=== PATIENT | male | born 1970 | race African-American/Black ===

== ENCOUNTER 2018-03-10 18:42 | Emergency (ER) | payer MEDICARE ==
[2018-03-10 20:37] LABS: Basophils % (A) 0 %; Eosinophils # (A) 0.1 k/uL (0-0.7); Eosinophils % (A) 1 %; HCT 37.8 % (39.0-53.0); HGB 11.4 gm/dL (13.0-17.5); Hypochromasia Marked; Lymphocytes # (A) 0.9 k/uL (1.0-4.8); Lymphocytes % (A) 10 %; MCH 27.1 pg (25.0-35.0); MCHC 30.1 g/dL (31.0-37.0); MCV 89.9 fL (80.0-100.0); Mean Platelet Volume 7.9; Monocytes # (A) 0.5 k/uL (0-1.0); Monocytes % (A) 5 %; Neutrophils # (A) 7.3 k/uL (1.3-7.7); Neutrophils % (A) 81 %; Platelet Count 233 k/uL (150-450); RBC 4.21 m/uL (4.30-5.90); RDW 15.6 % (11.5-15.5)
[2018-03-10 20:46] LABS: ALT 15 U/L (21-72); AST 37 U/L (17-59); Albumin 4.6 g/dL (3.5-5.0); Alkaline Phosphatase 61 U/L (38-126); Anion Gap 7 mmol/L; Blood Urea Nitrogen 20 mg/dL (9-20); Calcium 9.4 mg/dL (8.4-10.2); Carbon Dioxide 32 mmol/L (22-30); Chloride 96 mmol/L (98-107); Glucose 133 mg/dL (74-99); Sodium 135 mmol/L (137-145); Total Protein 8.7 g/dL (6.3-8.2)
[2018-03-10 20:48] LABS: Potassium 5.7 mmol/L (3.5-5.1)
[2018-03-10 23:02] VITALS: BP 177/107; PULSE 73; RESP 18
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
[2018-03-10 23:33] VITALS: TEMP 97.9
== END 2018-03-10 23:32 | disposition home or self-care (01) ==
LOC: EC 18:42
DX: E11.622 Type 2 diabetes mellitus with other skin ulcer (principal); L97.929 Non-pressure chronic ulcer of unspecified part of left lower leg with unspecified severity; L97.919 Non-pressure chronic ulcer of unspecified part of right lower leg with unspecified severity; I10 Essential (primary) hypertension; D64.9 Anemia, unspecified; J45.909 Unspecified asthma, uncomplicated; G47.30 Sleep apnea, unspecified; Z79.84 Long term (current) use of oral hypoglycemic drugs; Z79.899 Other long term (current) drug therapy; Z87.728 Personal history of other specified (corrected) congenital malformations of nervous system and sense organs; Z99.89 Dependence on other enabling machines and devices
CPT/HCPCS: 36415; 80053; 85025; 87070; 87077; 87186; 87205; 99283

== ENCOUNTER → 2021-12-05 | Outpatient (CLI) | payer MEDICARE ==
--- NOTE | 2021-12-05 10:54 | US ---
LOWER EXTREMITY VENOUS INSUFFICIENCY CLINICAL HISTORY: I87.313 Chronic venous hypertension with ulcer of. SIDE PERFORMED: Bilateral 1) Color flow is present and patency is documented in the following vessels. No DVT or SVT is noted . Common Femoral Vein Deep Femoral Vein Femoral Vein Popliteal Vein Proximal Calf Veins Greater Saph Vein Upper Small Saph Vein 2) There is venous reflux noted at the following venous levels: Left EIV, CFV, DFV. Technically difficult study due to patient's body habitus and discomfort over wounds. IMPRESSION: Findings of venous insufficiency of the left iliac vein, left common femoral vein and deep femoral ve in. No evidence of venous reflux of the right lower extremity.
--- NOTE | 2021-12-07 06:49 | US ---
EXAMINATION TYPE: US arterial LE single level DATE OF EXAM: 12/05/2021 9:39 AM CLINICAL HISTORY: I87.313 Chronic venous hypertension with ulcer of. Bilateral wounds lower legs. Doppler Waveforms: Right: Biphasic Left: Biphasic Ankle-Brachial Indices: Right: 1.17 Left: 1.04 Toe Brachial Indices: Right: 0.79 Left: 0.76 IMPRESSION: Normal study.
== END | disposition home or self-care (01) ==
LOC: RADUSWWP 08:03
PROVIDERS: ATTEND Internal Medicine Infectious Disease
DX: I87.313 Chronic venous hypertension (idiopathic) with ulcer of bilateral lower extremity (principal); I87.2 Venous insufficiency (chronic) (peripheral)
CPT/HCPCS: 93922; 93970

== ENCOUNTER → 2022-02-27 | Outpatient (CLI) | payer MEDICARE ==
[2022-02-27 18:30] LABS: HCT 33.8 % (39.6-50.0); HGB 9.4 g/dL (13.0-17.0); MCHC 27.8 g/dL (32.0-37.0); MCV 86.2 fL (80.0-97.0); Mean Platelet Volume 10.9 fL (9.5-12.2); NRBC Per 100 WBC 0 /100 WBCS (0.0-0.0); Platelet Count 232 X 10*3/uL (140-440); RBC 3.92 X 10*6/uL (4.40-5.60); RDW 13.8 % (11.5-14.5); WBC 6.07 X 10*3/uL (4.50-10.00)
[2022-02-27 19:37] LABS: African American GFR (CKD) 111.8 (60.0-200.0); Albumin 4.2 g/dL (3.8-4.9); Albumin/Globulin Ratio 1.35 (1.60-3.17); BUN/Creat Ratio 15.33 Ratio (12.00-20.00); Blood Urea Nitrogen 13.8 mg/dL (9.0-27.0); Calcium 9.2 mg/dL (8.7-10.3); Globulin 3.1 g/dL (1.6-3.3); Non-African American GFR(CKD) 96.5 (60.0-200.0); Total Bilirubin 0.5 mg/dL (0.30-1.20); Total Protein 7.3 g/dL (6.2-8.2)
== END | disposition home or self-care (01) ==
LOC: LABWHC1 13:00
PROVIDERS: ATTEND Family Medicine
DX: I10 Essential (primary) hypertension (principal); E66.01 Morbid (severe) obesity due to excess calories; M54.6 Pain in thoracic spine; G93.5 Compression of brain; J96.12 Chronic respiratory failure with hypercapnia; Z91.89 Other specified personal risk factors, not elsewhere classified
CPT/HCPCS: 36415; 80053; 82306; 82607; 83036; 84443; 85027

== ENCOUNTER 2022-04-20 22:25 | Observation (INO) | payer MEDICARE ==
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
[2022-04-21] MEDS ORDERED: NALOXONE 0.4 MG/ML 1 ML VIAL IV PRN (04:57)
[2022-04-21] MEDS ORDERED: ACETAMINOPHEN TAB 325 MG TAB PO PRN (04:57)
[2022-04-21] MEDS ORDERED: SODIUM CHLORIDE 0.9% 1,000 ML IV SCH (05:00)
[2022-04-21] MEDS ORDERED: NON FORMULARY DRUG (Sildenafil Citrate [Viagra] 100 MG Tablet) PO PRN (05:05)
[2022-04-21] MEDS ORDERED: HYDROcodone/APAP 10-325MG 1 EACH TAB PO ONE (05:13)
[2022-04-21] MEDS: ALPRAZolam 0.5 MG TAB PO PRN ×2 (05:21→21:17)
[2022-04-21] MEDS ORDERED: ALBUTEROL NEBULIZED 2.5 MG/3 ML INHALATION SCH (08:00)
[2022-04-21] MEDS: ALBUTEROL HFA INHALER INHALATION SCH ×2 (08:17→19:51)
[2022-04-21] MEDS: GLIMEPIRIDE 4 MG TAB PO SCH (09:53)
[2022-04-21] MEDS: metFORMIN 500 MG TAB PO SCH ×2 (09:54→17:34)
[2022-04-21] MEDS: lisinopriL 20 MG TAB PO SCH (09:54)
[2022-04-21] MEDS: METOPROLOL TARTRATE 50 MG TAB PO SCH ×2 (09:54→21:01)
[2022-04-21] MEDS: CITALOPRAM HYDROBROMIDE 20 MG TAB PO SCH (09:54)
[2022-04-21] MEDS: FUROSEMIDE 40 MG TAB PO SCH ×2 (09:54→21:01)
[2022-04-21] MEDS: amLODIPine 5 MG TAB PO SCH (09:54)
[2022-04-21] MEDS: HYDROcodone/APAP 10-325MG 1 EACH TAB PO PRN ×2 (16:17→21:15)
[2022-04-21 20:17] LABS: Glucose,Whole Blood 137 mg/dL (70-110)
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
[2022-04-22 06:24] LABS: Glucose,Whole Blood 135 mg/dL (70-110)
[2022-04-22] MEDS: GLIMEPIRIDE 4 MG TAB PO SCH (06:52)
[2022-04-22] MEDS: metFORMIN 500 MG TAB PO SCH ×2 (06:52→18:25)
[2022-04-22] MEDS: ALBUTEROL HFA INHALER INHALATION SCH ×2 (08:11→20:29)
[2022-04-22] MEDS: METOPROLOL TARTRATE 50 MG TAB PO SCH ×2 (09:10→20:41)
[2022-04-22] MEDS: FUROSEMIDE 40 MG TAB PO SCH ×2 (09:10→20:41)
[2022-04-22] MEDS: HYDROcodone/APAP 10-325MG 1 EACH TAB PO PRN ×2 (09:15→18:38)
[2022-04-22 10:59] LABS: Anion Gap 9.8 mmol/L (10.00-18.00); BUN/Creat Ratio 9.57 Ratio (12.00-20.00); Blood Urea Nitrogen 9.1 mg/dL (9.0-27.0); Carbon Dioxide 38.1 mmol/L (20.0-27.5); Non-African American GFR(CKD) 90.6 (60.0-200.0); Potassium 4.7 mmol/L (3.5-5.5)
[2022-04-22 11:11] LABS: Glucose,Whole Blood 153 mg/dL (70-110)
[2022-04-22] MEDS: lisinopriL 20 MG TAB PO SCH (11:15)
[2022-04-22] MEDS: amLODIPine 5 MG TAB PO SCH (11:15)
[2022-04-22] MEDS: CITALOPRAM HYDROBROMIDE 20 MG TAB PO SCH (11:15)
[2022-04-22 16:58] LABS: Glucose,Whole Blood 107 mg/dL (70-110)
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
[2022-04-22 20:35] LABS: Glucose,Whole Blood 144 mg/dL (70-110)
[2022-04-22] MEDS: ALPRAZolam 0.5 MG TAB PO PRN (20:41)
[2022-04-23] MEDS: HYDROcodone/APAP 10-325MG 1 EACH TAB PO PRN ×2 (03:41→10:01)
[2022-04-23] MEDS: metFORMIN 500 MG TAB PO SCH (05:03)
[2022-04-23] MEDS: GLIMEPIRIDE 4 MG TAB PO SCH (05:03)
[2022-04-23 05:41] LABS: Glucose,Whole Blood 208 mg/dL (70-110)
[2022-04-23 09:08] VITALS: RESP 16; TEMP 98.4
[2022-04-23] MEDS: ALBUTEROL HFA INHALER INHALATION SCH (09:13)
[2022-04-23 09:49] VITALS: BP 137/78; PULSE 89
[2022-04-23] MEDS: METOPROLOL TARTRATE 50 MG TAB PO SCH (09:52)
[2022-04-23] MEDS: amLODIPine 5 MG TAB PO SCH (09:55)
[2022-04-23] MEDS: CITALOPRAM HYDROBROMIDE 20 MG TAB PO SCH (09:55)
[2022-04-23] MEDS: FUROSEMIDE 40 MG TAB PO SCH (09:56)
[2022-04-23] MEDS: lisinopriL 20 MG TAB PO SCH (09:56)
[2022-04-23 11:28] LABS: Glucose,Whole Blood 123 mg/dL (70-110)
[2022-04-23] MEDS: COLLAGENASE 250 UNIT/GM OINTMENT 30 GM TUBE TOPICAL SCH ×2 (11:35→11:37)
--- NOTE | 2022-04-23 11:49 | P.CONS ---
History of Present Illness - Reason for Consult Consult date: 04/23/22 wound care - History of Present Illness This is a 52-year-old gentleman known to the wound care center who has not been seen since March 13. Patient has been noncompliant with his appointments in the wound care center. Patient has bilateral ulcerations to lower extremities posterior aspect. Original cause of wound was Not Known. The date acquired was: 02/18/2018. The wound has been in treatment 15 weeks. The wound is currently classified as a Full Thickness Without Exposed Support Structures wound with etiology of Venous Leg Ulcer and is located on the Right,Posterior Lower Leg. The wound measures 14.1cm length x 9.4cm width x 0.1cm depth; 104.097cm^2 area and 10.41cm^3 volume. There is Fat Layer (Subcutaneous Tissue) exposed. There is no tunneling or undermining noted. There is a large amount of serous drainage noted. Foul odor after cleansing was noted. The wound margin is distinct with the outline attached to the wound base. There is small (1-33%) red, pink granulation within the wound bed. There is a large (67-100%) amount of necrotic tissue within the wound bed including Adherent Slough. The periwound skin appearance exhibited: Scarring. The periwound skin appearance did not exhibit: Callus, Crepitus, Excoriation, Induration, Rash, Dry/Scaly, Maceration, Atrophie [place], Cyanosis, Ecchymosis, Hemosiderin Staining, Mottled, Pallor, Rubor, Erythema. Periwound temperature was noted as No Abnormality. The periwound has tenderness on palpation. Original cause of wound was Not Known. The date acqu ired was: 02/18/2018. The wound has been in treatment 15 weeks. The wound is currently classified as a Full Thickness Without Exposed Support Structures wound with etiology of Venous Leg Ulcer and is located on the Left,Posterior Lower Leg. The wound measures 16.7cm length x 10.9cm width x 0.1cm depth; 142.966cm^2 area and 14.297cm^3 volume. There is Fat Layer (Subcutaneous Tissue) exposed. There is no tunneling or undermining noted. There is a large amount of serosanguineous drainage noted. Foul odor after cleansing was noted. The wound margin is distinct with the outline attached to the wound base. There is small (1-33%) pink granulation within the wound bed. There is a large (67-100%) amount of necrotic tissue within the wound bed including Adherent Slough. The periwound skin appearance exhibited: Scarring. The periwound skin appearance did not exhibit: Callus, Crepitus, Excoriation, Induration, Rash, Dry/Scaly, Maceration, Atrophie [place], Cyanosis, Ecchymosis, Hemosiderin Staining, Mottled, Pallor, Rubor, Erythema. Periwound temperature was noted as No Abnormality. The periwound has tenderness on palpation. Review Of Systems: Constitutional: No fever, no chills, no night sweats. No weight change. No weakness, fatigue or lethargy. No daytime sleepiness. Integumentary:reports wounds, no lesions. No rash or pruritus. No unusual bruising. No change in hair or nails. Physical exam: General Appearance: Alert, cooperative, no distress, appears stated age. Skin: See HPI all other Skin color, texture, tugor normal, no rashes or lesions. Neurologic: Alert oriented x3 Assessment: 1. Chronic venous hypertension with ulcer of bilateral lower extremities 2. Venous insufficiency Plan: 1. Apply absorptive silver dry, and rolled gauze and wrap with Tam wrap. Thank you for the consultation any questions please contact the wound care center DNP note has been reviewed and discussed with Dr. Rice and the impression and plan of care has been directed as dictated. Past Medical History Past Medical History: Asthma, Diabetes Mellitus, Hypertension, Sleep Apnea/CPAP/BIPAP Additional Past Medical History / Comment(s): Chiari malformation History of Any Multi-Drug Resistant Organisms: None Reported Past Surgical History: Hernia Repair Additional Past Surgical History / Comment(s): Brain surgeryx2, left wrist surgery, lap band Past Psychological History: No Psychological Hx Reported Smoking Status: Never smoker Past Alcohol Use History: Occasional Past Drug Use History: None Reported - Past Family History Father Family Medical History: No Reported History Medications and Allergies Home Medications Medication Instructions Recorded Confirmed Type Furosemide [Lasix] 40 mg PO BID PRN 03/10/18 04/21/22 History Hydrocodone/Acetaminophen [[place] 1 tab PO QID 03/10/18 04/21/22 History 10-325] Gabapentin [Neurontin] 100 mg PO BID 04/21/22 04/21/22 History Potassium Gluconate 99 mg PO DAILY PRN 04/21/22 04/21/22 History Sulfamethox-Tmp 800-160Mg [Bactrim 1 tab PO BID 04/21/22 04/21/22 History DS 800-160 mg] Allergies Allergy/AdvReac Type Severity Reaction Status Date / Time No Known Allergies Allergy Verified 04/21/22 12:14 Physical Exam Vitals: Vital Signs Temp Pulse Resp BP Pulse Ox 04/23/22 09:47 89 137/78 04/23/22 07:03 98.4 F 82 16 100 04/23/22 02:00 76 18 04/23/22 01:20 98.3 F 66 20 110/77 100 04/22/22 20:38 98.5 F 76 18 130/81 98 04/22/22 13:36 98.6 F 91 18 96/62 100 Intake and Output 04/22/22 04/23/22 04/23/22 22:59 06:59 14:59 Intake Total 1280 Balance 1280 Intake: Oral 1280 Other: Voiding Method Urinal Urinal # Voids 4 Results CBC & Chem 7: 04/22/22 06:39 Labs: Abnormal Lab Results - Last 24 Hours (Table) 04/22/22 04/23/22 04/23/22 Range/Units 20:32 05:39 11:26 POC Glucose (mg/dL) 144 H 208 H 123 H (70-110) mg/dL Assessment and Plan (1) Chronic venous hypertension w/ulcer and inflammation involv both sides Current Visit: Yes Status: Acute Code(s): I87.333 - CHRONIC VENOUS HTN W ULCER AND INFLAM OF BILATERAL LOW EXTRM SNOMED Code(s): 762111893 (2) Venous insufficiency Current Visit: Yes Status: Acute Code(s): I87.2 - VENOUS INSUFFICIENCY (C HRONIC) (PERIPHERAL) SNOMED Code(s): 43405311
[2022-04-23 12:13] LABS: African American GFR (CKD) >90 (>60 ml/min/1.73 sqM); Blood Urea Nitrogen 11 mg/dL (9-20); Calcium 8.6 mg/dL (8.4-10.2); Chloride 84 mmol/L (98-107); Glucose 134 mg/dL (74-99); Non-African American GFR(CKD) >90 (>60 ml/min/1.73 sqM); Potassium 4.6 mmol/L (3.5-5.1); Sodium 129 mmol/L (137-145)
[2022-04-23 12:19] LABS: Anion Gap 6 mmol/L
[2022-04-23 12:25] LABS: Carbon Dioxide 39 mmol/L (22-30)
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
== END 2022-04-23 16:12 | disposition home health service (06) ==
LOC: EC 22:25 → 6NMEDSUR 04-21 04:59 → 4SSUR 04-21 05:20
PROVIDERS: ADMIT Family Medicine; ATTEND Family Medicine
DX: J96.21 Acute and chronic respiratory failure with hypoxia (principal); Z99.81 Dependence on supplemental oxygen; E11.9 Type 2 diabetes mellitus without complications; I10 Essential (primary) hypertension; I27.20 Pulmonary hypertension, unspecified; I87.333 Chronic venous hypertension (idiopathic) with ulcer and inflammation of bilateral lower extremity; L97.922 Non-pressure chronic ulcer of unspecified part of left lower leg with fat layer exposed; L97.912 Non-pressure chronic ulcer of unspecified part of right lower leg with fat layer exposed; Z91.199 Patient's noncompliance with other medical treatment and regimen due to unspecified reason; G47.33 Obstructive sleep apnea (adult) (pediatric); I87.2 Venous insufficiency (chronic) (peripheral); Z79.899 Other long term (current) drug therapy; Z79.84 Long term (current) use of oral hypoglycemic drugs; Z98.84 Bariatric surgery status; Z87.798 Personal history of other (corrected) congenital malformations; Z98.890 Other specified postprocedural states; Z59.9 Problem related to housing and economic circumstances, unspecified; Y82.8 Other medical devices associated with adverse incidents
CPT/HCPCS: 99284; 94640 ×4; 94760; 80048 ×2; G0378 ×3

== ENCOUNTER 2022-06-25 10:30 | Inpatient (IN) | payer MEDICARE ==
[2022-06-25] MEDS ORDERED: MORPHINE SULFATE 4 MG/ML SYRINGE IVP STA (11:57)
[2022-06-25 13:50] LABS: Basophils % (A) 0 %; Eosinophils # (A) 0.1 k/uL (0-0.7); Eosinophils % (A) 2 %; HCT 33.4 % (39.0-53.0); HGB 9.5 gm/dL (13.0-17.5); Hypochromasia Marked; Lymphocytes # (A) 0.5 k/uL (1.0-4.8); Lymphocytes % (A) 6 %; MCH 26.1 pg (25.0-35.0); MCHC 28.3 g/dL (31.0-37.0); MCV 92.2 fL (80.0-100.0); Mean Platelet Volume 7.8; Monocytes # (A) 0.7 k/uL (0-1.0); Monocytes % (A) 8 %; Neutrophils # (A) 7.4 k/uL (1.3-7.7); Neutrophils % (A) 83 %; Platelet Count 204 k/uL (150-450); RBC 3.62 m/uL (4.30-5.90); RDW 15.4 % (11.5-15.5); WBC 8.8 k/uL (3.8-10.6)
[2022-06-25 14:02] LABS: ALT 15 U/L (4-49); AST 23 U/L (17-59); African American GFR (CKD) >90 (>60 ml/min/1.73 sqM); Albumin 3.4 g/dL (3.5-5.0); Alkaline Phosphatase 81 U/L (38-126); Blood Urea Nitrogen 10 mg/dL (9-20); Calcium 8.4 mg/dL (8.4-10.2); Chloride 81 mmol/L (98-107); Glucose 114 mg/dL (74-99); Non-African American GFR(CKD) >90 (>60 ml/min/1.73 sqM); Potassium 3.4 mmol/L (3.5-5.1); Sodium 132 mmol/L (137-145); Total Bilirubin 0.5 mg/dL (0.2-1.3); Total Protein 6.7 g/dL (6.3-8.2)
[2022-06-25 14:03] LABS: INR 0.9 (<1.2); Partial Thromboplastin Time 24.6 sec (22.0-30.0); Prothrombin Time 9.5 sec (9.0-12.0)
[2022-06-25 14:06] LABS: Anion Gap 6 mmol/L
[2022-06-25 14:13] LABS: Carbon Dioxide 45 mmol/L (22-30)
[2022-06-25] MEDS ORDERED: AMPICILLIN-SULBACTAM 3 GM in SODIUM CHLORIDE 0.9% 100 ML IVPB STA (14:17)
[2022-06-25] MEDS ORDERED: VANCOMYCIN 2,500 MG in SODIUM CHLORIDE 0.9% 500 ML IVPB STA (14:17)
--- NOTE | 2022-06-25 14:19 | ED ---
General Adult HPI - General Chief complaint: Fall Stated complaint: weakness Time Seen by Provider: 06/25/22 10:35 Source: patient, EMS Mode of arrival: EMS Limitations: physical limitation - History of Present Illness Initial comments: 52-year-old male with past history of diabetes, asthma, morbid obesity who presents to the emergency department with wounds to his posterior thighs. States that over the course of the past week he has been laying in bed more. He does have chronic or extremity wounds for which she sees wound care. Dressings were last placed on Saturday by Dr. Gallegos. He states that the wounds have now extended to his posterior thighs. He denies any fevers. Due to the pain from the wounds he has been more weak. He did sustain a fall while attending to ambulate with his walker. He denies hitting his head or losing consciousness. He does have wraps to the bilateral lower extremities which he will not allow me to remove. States they are only to be taken off by wound care as he does not like the way that anyone else wraps them. He does have active drainage which she states is chronic for him. He denies fevers. No nausea or vomiting. No chest pain or shortness of breath. He does wear chronic oxygen. No other all eviating, precipitating or modifying factors - Related Data Home Medications Medication Instructions Recorded Confirmed Ibuprofen [Motrin] 800 mg PO Q12H 06/26/22 06/26/22 Previous Rx's Medication Instructions Recorded Metoprolol Tartrate [Lopressor] 50 mg PO BID tab 04/23/22 Collagenase [Santyl Ointment] 1 applic TOPICAL DAILY each 06/29/22 Fluconazole [Diflucan] 150 mg PO DAILY #5 tab 06/29/22 ALPRAZolam [Xanax] 0.5 mg PO BID PRN #2 tab 06/30/22 Ampicillin-Sulbactam [Unasyn 3 gm 3 gm IVPB Q6HR 10 Days #40 each 06/30/22 vial] Famotidine [Pepcid] 20 mg PO DAILY #30 tablet 06/30/22 Gabapentin [Neurontin] 100 mg PO BID #4 cap 06/30/22 HYDROcodone/APAP 10-325MG [[employer] 1 each PO Q6H #4 tab 06/30/22 10-325] Allergies Allergy/AdvReac Type Severity Reaction Status Date / Time No Known Allergies Allergy Verified 06/25/22 13:17 Review of Systems ROS Statement: Those systems with pertinent positive or pertinent negative responses have been documented in the HPI. ROS Other: All systems not noted in ROS Statement are negative. Past Medical History Past Medical History: Asthma, Diabetes Mellitus, Hypertension, Sleep Apnea/CPAP/BIPAP Additional Past Medical History / Comment(s): Chiari malformation History of Any Multi-Drug Resistant Organisms: None Reported Past Surgical History: Hernia Repair Additional Past Surgical History / Comment(s): Brain surgeryx2, left wrist surgery, lap band Past Psychological History: No Psychological Hx Reported Smoking Status: Never smoker Past Alcohol Use History: Occasional Past Drug Use History: Marijuana - Past Family History Father Family Medical History: No Reported History General Exam Limitations: physical limitation General appearance: alert, in no apparent distress Head exam: Present: atraumatic, normocephalic, normal inspection Eye exam: Present: normal appearance, PERRL, EOMI. Absent: scleral icterus, conjunctival injection, periorbital swelling ENT exam: Present: normal exam, mucous membranes moist Neck exam: Present: normal inspection. Absent: tenderness, meningismus, lym phadenopathy Respiratory exam: Present: decreased breath sounds Cardiovascular Exam: Present: regular rate, normal rhythm, normal heart sounds. Absent: systolic murmur, diastolic murmur, rubs, gallop, clicks GI/Abdominal exam: Present: soft, normal bowel sounds. Absent: distended, tenderness, guarding, rebound, rigid Extremities exam: Present: other (chronic venous stasis bilateral lower extremi ties. malodorous. weeping. open stage 2 ulcers bilateral thighs. ) Psychiatric exam: Present: depressed Course Vital Signs 06/25/22 06/25/22 06/25/22 10:33 12:00 16:00 Pulse Rate 97 94 107 H Respiratory 22 20 18 Rate Blood Pressure 103/87 128/71 131/78 O2 Sat by Pulse 100 100 97 Oximetry EKG Findings - EKG Comments: EKG Findings:: EKG demonstrates sinus rhythm with a rate of 104. QRS 97. QTC of 453. Some PVCs. No acute ST segment elevation or depressions Medical Decision Making - Medical Decision Making Was pt. sent in by a medical professional or institution (, PA, SHEET METAL APPRENTICE, urgent care, hospital, or care home...) When possible be specific @ -No Did you speak to anyone other than the patient for history (EMS, parent, family, police, friend...)? What history was obtained from this source @ -No Did you review nursing and triage notes (agree or disagree)? Why? @ -I reviewed and agree with nursing and triage notes Were old charts reviewed (outside hosp., previous admission, EMS record, old EKG, old radiological studies, urgent care reports/EKG's, care home records)? Report findings @ -No old charts were reviewed Differential Diagnosis (chest pain, altered mental status, abdominal pain women, abdominal pain men, vaginal bleeding, weakness, fever, dyspnea, syncope, headache, dizziness, GI bleed, back pain, seizure, CVA, palpatations, mental health, musculoskeletal)? @ -sepsis, cellulitis, sacral wounds, necrotizing fascitis EKG interpreted by me (3pts min.). @ -EKG interpreted by me - see above X-rays interpreted by me (1pt min.). @ -interpreted by me - normal CT interpreted by me (1pt min.). @ -None done U/S interpreted by me (1pt. min.). @ -None done What testing was considered but not performed or refused? (CT, X-rays, U/S, labs)? Why? @ -None What meds were considered but not given or refused? Why? @ -None Did you discuss the management of the patient with other professionals (professionals i.e. , PA, SHEET METAL APPRENTICE, lab, RT, psych nurse, social media specialist, group teacher, teacher, low altitude air defense officer, insurance case manager)? Give summary @ -Yes, admitted to Dr. monteiro Was smoking cessation discussed for >3mins.? @ -No Was critical care preformed (if so, how long)? @ -No Were there social determinants of health that impacted care today? How? (Homelessness, low income, unemployed, alcoholism, drug addiction, transporta tion, low edu. Level, literacy, decrease access to med. care, [facility], rehab)? @ -obesity Was there de-escalation of care discussed even if they declined (Discuss DNR or withdrawal of care, Hospice)? DNR status @ -No What co-morbidities impacted this encounter? (DM, HTN, Smoking, COPD, CAD, Cancer, CVA, ARF, Chemo, Hep., AIDS, mental health diagnosis, sleep apnea, morbid obesity)? @ -obesity, htn, chronic resp failure Was patient admitted / discharged? Hospital course, mention meds given and route, prescriptions, significant lab abnormalities, going to OR and other pertinent info. @ -Upon arrival patient was placed into room 17. A thorough history and physical exam was performed. IV access is established and laboratory studies were conducted. Chest and pelvic x-ray are performed. No gas seen on x-ray. Blood cultures obtained and patient started on Unasyn and Vanco. The patient will be admitted for wound care to consults. Patient was agreeable to this and taken to the floor in stable condition Undiagnosed new problem with uncertain prognosis? @ -Yes Drug Therapy requiring intensive monitoring for toxicity (Heparin, Nitro, Insulin, Cardizem)? @ -No Were any procedures done? @ -No Diagnosis/symptom? @ -acute bilateral thigh wounds, acute cellulitis bilateral lower extremities, chronic venous stasis Uncomplicated (without systemic symptoms) or Complicated (systemic symptoms)? @ -complicated Side effects of treatment? @ -No Exacerbation, Progression, or Severe Exacerbation? @ -No Poses a threat to life or bodily function? How? (Chest pain, [place], [place], pneumonia, PE, COPD, DKA, ARF, appy, cholecystitis, CVA, Diverticulitis, Homicidal, Suicidal, threat to staff... and all critical care pts) @ -Yes - Lab Data Result diagrams: 06/28/22 05:30 06/30/22 05:18 Lab Results 06/25/22 06/25/22 06/25/22 Range/Units 13:29 13:29 13:29 WBC 8.8 (3.8-10.6) k/uL RBC 3.62 L (4.30-5.90) m/uL Hgb 9.5 L (13.0-17.5) gm/dL Hct 33.4 L (39.0-53.0) % MCV 92.2 (80.0-100.0) fL MCH 26.1 (25.0-35.0) pg MCHC 28.3 L (31.0-37.0) g/dL RDW 15.4 (11.5-15.5) % Plt Count 204 (150-450) k/uL MPV 7.8 Neutrophils % 83 % Lymphocytes % 6 % Monocytes % 8 % Eosinophils % 2 % Basophils % 0 % Neutrophils # 7.4 (1.3-7.7) k/uL Lymphocytes # 0.5 L (1.0-4.8) k/uL Monocytes # 0.7 (0-1.0) k/uL Eosinophils # 0.1 (0-0.7) k/uL Basophils # 0.0 (0-0.2) k/uL Hypochromasia Marked ESR 36 H (0-15) mm/hr PT 9.5 (9.0-12.0) sec INR 0.9 (<1.2) APTT 24.6 (22.0-30.0) sec Sodium 132 L (137-145) mmol/L Potassium 3.4 L (3.5-5.1) mmol/L Chloride 81 L (98-107) mmol/L Carbon Dioxide 45 H* (22-30) mmol/L Anion Gap 6 mmol/L BUN 10 (9-20) mg/dL Creatinine 0.77 (0.66-1.25) mg/dL Est GFR (CKD-EPI)AfAm >90 (>60 ml/min/1.73 sqM) Est GFR (CKD-EPI)NonAf >90 (>60 ml/min/1.73 sqM) Glucose 114 H (74-99) mg/dL Plasma Lactic Acid Rich (0.7-2.0) mmol/L Calcium 8.4 (8.4-10.2) mg/dL Total Bilirubin 0.5 (0.2-1.3) mg/dL AST 23 (17-59) U/L ALT 15 (4-49) U/L Alkaline Phosphatase 81 (38-126) U/L Troponin I (0.000-0.034) ng/mL C-Reactive Protein 4.0 H (<1.0) mg/dL NT-Pro-B Natriuret Pep pg/mL Total Protein 6.7 (6.3-8.2) g/dL Albumin 3.4 L (3.5-5.0) g/dL 06/25/22 06/25/22 06/25/22 Range/Units 13:29 13:29 13:29 WBC (3.8-10.6) k/uL RBC (4.30-5.90) m/uL Hgb (13.0-17.5) gm/dL Hct (39.0-53.0) % MCV (80.0-100.0) fL MCH (25.0-35.0) pg MCHC (31.0-37.0) g/dL RDW (11.5-15.5) % Plt Count (150-450) k/uL MPV Neutrophils % % Lymphocytes % % Monocytes % % Eosinophils % % Basophils % % Neutrophils # (1.3-7.7) k/uL Lymphocytes # (1.0-4.8) k/uL Monocytes # (0-1.0) k/uL Eosinophils # (0-0.7) k/uL Basophils # (0-0.2) k/uL Hypochromasia ESR (0-15) mm/hr PT (9.0-12.0) sec INR (<1.2) APTT (22.0-30.0) sec Sodium (137-145) mmol/L Potassium (3.5-5.1) mmol/L Chloride (98-107) mmol/L Carbon Dioxide (22-30) mmol/L Anion Gap mmol/L BUN (9-20) mg/dL Creatinine (0.66-1.25) mg/dL Est GFR (CKD-EPI)AfAm (>60 ml/min/1.73 sqM) Est GFR (CKD-EPI)NonAf (>60 ml/min/1.73 sqM) Glucose (74-99) mg/dL Plasma Lactic Acid Rich 1.1 (0.7-2.0) mmol/L Calcium (8.4-10.2) mg/dL Total Bilirubin (0.2-1.3) mg/dL AST (17-59) U/L ALT (4-49) U/L Alkaline Phosphatase (38-126) U/L Troponin I 0.033 (0.000-0.034) ng/mL C-Reactive Protein (<1.0) mg/dL NT-Pro-B Natriuret Pep 3860 pg/mL Total Protein (6.3-8.2) g/dL Albumin (3.5-5.0) g/dL Disposition Clinical Impression: Fall, Lower extremity cellulitis, Morbid obesity Disposition: ADMITTED IP TO THIS HOSP Condition: Stable Is patient prescribed a controlled substance at d/c from ED?: No Time of Disposition: 14:21 Decision to Admit Reason: Admit from EC Decision Date: 06/25/22 Decision Time: 14:21
[2022-06-25] MEDS ORDERED: MORPHINE SULFATE 4 MG/ML SYRINGE IV PRN (14:22)
[2022-06-25] MEDS ORDERED: NALOXONE 0.4 MG/ML 1 ML VIAL IV PRN (14:22)
[2022-06-25 14:49] LABS: Erythrocyte Sedimentation Rate 36 mm/hr (0-15)
--- NOTE | 2022-06-25 15:57 | XR ---
EXAMINATION TYPE: XR chest 2V DATE OF EXAM: 06/25/2022 COMPARISON: None HISTORY: 52-year-old male with weakness and fall TECHNIQUE: AP and lateral views FINDINGS: Heart is moderately enlarged. Mild interstitial vascular prominence. No consolidation or pleural effu arline. IMPRESSION: Moderate cardiomegaly and possible mild pulmonary vascular congestion. Clinically correlate.
--- NOTE | 2022-06-25 15:58 | XR ---
EXAMINATION TYPE: XR pelvis AP view DATE OF EXAM: 06/25/2022 Comparison: None Clinical History: 52-year-old male increased weakness, fall, infection, gas Findings: Limited assessment of the femoral necks due to external rotation of the hips due to patient positioni ng. There is end-stage, [id number] degenerative change of the right hip and mild to moderate at the left hip. No obvious displaced fracture is seen. Impression: 1. End-stage [id number] right hip OA. Mild to moderate degenerative change left hip. 2. Suboptimal assessment of the femoral necks due to external rotation of the hips during patient pos itioning. If patient nonweightbearing, repeat examination may be needed. Clinically correlate. No obv ious displaced fracture is seen.
[2022-06-25] MEDS ORDERED: VANCOMYCIN IV PER PHARMACY 1 EACH MISC MISCELLANE PRN (17:38)
[2022-06-25] MEDS: HYDROcodone/APAP 10-325MG 1 EACH TAB PO SCH ×2 (18:36→23:15)
[2022-06-25] MEDS ORDERED: POTASSIUM CHLORIDE ER 20 MEQ TAB.ER PO STA (19:27)
[2022-06-25] MEDS: AMPICILLIN-SULBACTAM 3 GM in SODIUM CHLORIDE 0.9% 100 ML IVPB SCH ×2 (20:06→23:15)
[2022-06-25] MEDS: METOPROLOL TARTRATE 50 MG TAB PO SCH (20:54)
[2022-06-25] MEDS: GABAPENTIN 100 MG CAP PO SCH (20:54)
[2022-06-26] MEDS: VANCOMYCIN 2,000 MG in SODIUM CHLORIDE 0.9% 500 ML 500 ML IVPB SCH ×2 (06:08→18:10)
[2022-06-26] MEDS: AMPICILLIN-SULBACTAM 3 GM in SODIUM CHLORIDE 0.9% 100 ML IVPB SCH ×4 (06:08→23:02)
[2022-06-26] MEDS: GABAPENTIN 100 MG CAP PO SCH ×2 (09:16→20:21)
[2022-06-26] MEDS: HYDROcodone/APAP 10-325MG 1 EACH TAB PO SCH ×4 (09:16→23:01)
[2022-06-26] MEDS: METOPROLOL TARTRATE 50 MG TAB PO SCH ×2 (09:16→20:21)
[2022-06-26] MEDS ORDERED: HYDROmorphone 0.5 MG/0.5 ML SYRINGE IM PRN (10:53)
[2022-06-26] MEDS ORDERED: DEXTROSE 50% SYRINGE 50 ML IVP PRN ×2 (10:59)
[2022-06-26 11:01] LABS: Basophils # (A) 0.03 X 10*3/uL (0.00-0.10); Basophils % (A) 0.4 %; Eosinophils # (A) 0.18 X 10*3/uL (0.04-0.35); Eosinophils % (A) 2.2 %; HCT 31.7 % (39.6-50.0); HGB 8.7 g/dL (13.0-17.0); Immature Grans, Automated 0.4 %; Lymphocytes # (A) 0.85 X 10*3/uL (0.90-5.00); Lymphocytes % (A) 10.3 %; MCH 25.7 pg (27.0-32.0); MCHC 27.4 g/dL (32.0-37.0); MCV 93.8 fL (80.0-97.0); Mean Platelet Volume 10.5 fL (9.5-12.2); Monocytes # (A) 1.13 X 10*3/uL (0.20-1.00); Monocytes % (A) 13.7 %; NRBC Per 100 WBC 0 /100 WBCS (0.0-0.0); Neutrophils # (A) 6.02 X 10*3/uL (1.80-7.70); Platelet Count 197 X 10*3/uL (140-440); RBC 3.38 X 10*6/uL (4.40-5.60); RDW 15.3 % (11.5-14.5); WBC 8.24 X 10*3/uL (4.50-10.00)
[2022-06-26 11:16] LABS: Glucose,Whole Blood 139 mg/dL (70-110)
[2022-06-26 11:21] LABS: African American GFR (CKD) 117.4 (60.0-200.0); Anion Gap 5.2 mmol/L (10.00-18.00); BUN/Creat Ratio 7.5 Ratio (12.00-20.00); Carbon Dioxide 44.8 mmol/L (20.0-27.5); Non-African American GFR(CKD) 101.3 (60.0-200.0); Potassium 3.9 mmol/L (3.5-5.5)
[2022-06-26 11:33] LABS: INR 0.9 (<1.2); Prothrombin Time 9.9 sec (9.0-12.0)
[2022-06-26] MEDS: FLUCONAZOLE 150 MG TAB PO SCH (11:50)
[2022-06-26 11:59] LABS: HCT 32.3 % (39.0-53.0); HGB 8.9 gm/dL (13.0-17.5); Hypochromasia Marked; MCH 25.8 pg (25.0-35.0); MCHC 27.7 g/dL (31.0-37.0); MCV 93.2 fL (80.0-100.0); Mean Platelet Volume 8.2; Platelet Count 193 k/uL (150-450); RBC 3.47 m/uL (4.30-5.90); RDW 15.4 % (11.5-15.5); WBC 5.8 k/uL (3.8-10.6)
[2022-06-26] MEDS ORDERED: FUROSEMIDE 10 MG/ML 4 ML VIAL IV STA (12:03)
[2022-06-26 13:48] VITALS: BMI 61.0
[2022-06-26] MEDS: INSULIN ASPART (NovoLOG) 100 UNIT/ML VIAL SQ SCH ×3 (14:01→20:36)
--- NOTE | 2022-06-26 14:08 | P.CNPUL ---
History of Present Illness Consult date: 06/26/22 Chief complaint: Chronic alkalosis History of present illness: 52-year-old male patient with morbid obesity and chronic hypoxic respiratory failure and possibly chronic hypercapnic respiratory failure in addition to obstructive sleep apnea maintenance CPAP therapy on outpatient basis. The patient also reports to have a past medical history of diabetes, asthma, morbid obesity who presents to the emergency department with wounds to his posterior thighs. States that over the course of the past week he has been laying in bed more. He does have chronic or extremity wounds for which she sees wound care. Dressings were last placed on Saturday by Dr. Gallegos. He states that the wounds have now extended to his posterior thighs. He denies any fevers. Due to the pain from the wounds he has been more weak. He did sustain a fall while atte nding to ambulate with his walker. He denies hitting his head or losing consciousness. He does have active drainage which she states is chronic for him. He denies fevers. No nausea or vomiting. No chest pain or shortness of breath. He does wear chronic oxygen. No other alleviating, precipitating or modifying factors. In terms of his breathing, no worsening shortness of breath. He has active symptoms of obstructive sleep apnea with chronic hypersomnia and sleepiness. He states that he has a machine at home and I'm not sure if he has been effectively being treated with his CPAP machine. No signs of any CO2 narcosis. His serum bicarb is a chronically elevated and currently is slightly higher than the usual baseline. Back in 04/23/2022 and a serum bicarb of 39 and a bicarb level at time of admission was 45. His current oxygenation is stable on 2 L of Oxymizer nasal cannula. Is afebrile. Chest x-ray shows no acute abnormalities other than some chronic thyromegaly on my pulmonary vessel congestion. Obviously this is a suboptimal chest x-ray because of his body habitus. The patient is awaiting one debridement. The patient is covered with a combination of Unasyn and vancomycin and Diflucan. He also takes diuretics at home in the form of Lasix 40 mg by mouth twice a day on an as-needed basis. Review of Systems Constitutional: Reports daytime sleepiness, Reports weight gain Eyes: denies as per HPI, denies blurred vision, denies bulging eye, denies decreased vision, denies diplopia, denies discharge, denies dry eye, denies irritation, denies itching, denies pain, denies photophobia, denies loss of peripheral vision, denies loss of vision, denies tunnel vision/blind spots Ears: deny: decreased hearing, ear discharge, earache, tinnitus Ears, nose, mouth and throat: Reports as per HPI Breasts: absent: as per HPI, gynecomastia Cardiovascular: Reports decreased exercise tolerance, Reports dyspnea on exertion Respiratory: Reports dyspnea, Reports home oxygen, Reports sleep apnea, Reports snoring Gastrointestinal: Reports as per HPI Genitourinary: Reports as per HPI Musculoskeletal: Reports as per HPI, Reports gait dysfunction, Reports limitation of motion Musculoskeletal: bilateral: ankle swelling, absent: ankle pain, ankle stiffness Integumentary: Reports wounds Neurological: Reports as per HPI Psychiatric: Reports as per HPI Endocrine: Reports as per HPI Hematologic/Lymphatic: Reports as per HPI Allergic/Immunologic: Reports as per HPI Past Medical History Past Medical History: Asthma, Diabetes Mellitus, Hypertension, Sleep Apnea/CPAP/BIPAP Additional Past Medical History / Comment(s): Chiari malformation History of Any Multi-Drug Resistant Organisms: None Reported Past Surgical History: Hernia Repair Additional Past Surgical History / Comment(s): Brain surgeryx2, left wrist surgery, lap band Past Anesthesia/Blood Transfusion Reactions: No Reported Reaction Past Psychological History: No Psychological Hx Reported Smoking Status: Never smoker Past Alcohol Use History: Occasional Past Drug Use History: Marijuana - Past Family History Father Family Medical History: No Reported History Medications and Allergies Home Medications Medication Instructions Recorded Confirmed Type Hydrocodone/Acetaminophen [[place] 1 tab PO QID 03/10/18 06/25/22 History 10-325] Gabapentin [Neurontin] 100 mg PO BID 04/21/22 06/25/22 History Potassium Gluconate 99 mg PO DAILY PRN 04/21/22 06/25/22 History Furosemide [Lasix] 40 mg PO BID PRN #0 04/23/22 06/25/22 Rx Metoprolol Tartrate [Lopressor] 50 mg PO BID tab 04/23/22 06/25/22 Rx Ibuprofen [Motrin] 800 mg PO Q12H 06/26/22 06/26/22 History Allergies Allergy/AdvReac Type Severity Reaction Status Date / Time No Known Allergies Allergy Verified 06/25/22 13:17 Physical Exam Vitals: Vital Signs Temp Pulse Pulse Resp BP BP Pulse Ox 06/26/22 11:52 98.2 F 82 18 111/71 100 06/26/22 07:17 98.5 F 105 H 18 105/62 100 06/26/22 02:25 98.6 F 100 18 153/80 100 06/25/22 20:06 98.3 F 96 18 150/72 95 06/25/22 17:22 97.4 F L 99 144/83 100 06/25/22 16:00 107 H 18 131/78 97 Intake and Output 06/25/22 06/26/22 06/26/22 22:59 06:59 14:59 Intake Total 100 Output Total 400 Balance 100 -400 Intake: Intake, IV Titration 100 Amount Ampicillin-Sulbactam 3 gm 100 In Sodium Chloride 0.9% 100 ml @ 200 mls/hr IVPB Q6HR [facility] Rx#:[id number] Output: Urine 400 Other: Voiding Method Urinal Diaper Incontinent # Voids 1 # Bowel Movements 1 Weight 176.901 kg 176.901 kg Morbidly obese, calm and comfortable on 2 L of O2 nasal cannula Head exam was generally normal. There was no scleral icterus or corneal arcus. Mucous membranes were moist. Neck was supple and without jugular venous distension, thyromegaly, or carotid bruits. Carotids were easily palpable bilaterally. There was no adenopathy. Mallampati class IV with significant crowding of the posterior pharynx Lungs sounds are diminished in lung bases bilaterally. Cardiac exam revealed the PMI to be normally situated and sized. The rhythm was regular and no extrasystoles were noted during several minutes of auscultation. The first and second heart sounds were normal and physiologic splitting of the second heart sound was noted. There were no murmurs, rubs, clicks, or gallops. Abdomen is obese soft nontender organs cannot be palpated Extremities are chronically edematous and 1 in the posterior aspect of the lower extremities bilaterally, please refer to the photos Neurologically, the patient is awake and alert and there is no focal neurologi loki deficits Results - Laboratory Findings CBC and BMP: 06/26/22 11:09 06/26/22 07:24 PT/INR, D-dimer PT 9.9 sec (9.0-12.0) 06/26/22 11:09 INR 0.9 (<1.2) 06/26/22 11:09 Abnormal lab findings: Abnormal Labs 06/25/22 06/25/22 06/26/22 13:29 13:29 07:24 RBC 3.62 L 3.38 L Hgb 9.5 L 8.7 L Hct 33.4 L 31.7 L MCH 25.7 L MCHC 28.3 L 27.4 L RDW 15.3 H Lymphocytes # 0.5 L 0.85 L Monocytes # 1.13 H ESR 36 H Sodium 132 L Potassium 3.4 L Chloride 81 L Carbon Dioxide 45 H* Anion Gap BUN BUN/Creatinine Ratio Glucose 114 H POC Glucose (mg/dL) C-Reactive Protein 4.0 H Albumin 3.4 L 06/26/22 06/26/22 06/26/22 07:24 11:09 11:16 RBC 3.47 L Hgb 8.9 L Hct 32.3 L MCH MCHC 27.7 L RDW Lymphocytes # Monocytes # ESR Sodium Potassium Chloride 90 L Carbon Dioxide 44.8 H* Anion Gap 5.20 L BUN 6.0 L BUN/Creatinine Ratio 7.50 L Glucose 135 H POC Glucose (mg/dL) 139 H C-Reactive Protein Albumin Assessment and Plan Plan: Bilateral lower extremity once/pressure ulcers with superinfection currently on broad-spectrum antibiotics awaiting debridement, wound management is on the case. Does not look to be septic at all and the patient clinically does not look to be toxic Chronic hypoxic respiratory failure currently on 2 L of oxygen by nasal cannula Chronic hypercapnic respiratory failure Chronic restrictive lung disease due to morbid obesity with a body mass 61.1. Consider possibility of a chronic obesity hypoventilation syndrome Obstructive sleep apnea maintained on CPAP therapy on outpatient basis Chronic metabolic alkalosis with some interval worsening in the serum bicarb level. Could be related to diuretics. His baseline serum bicarb is around 39 Morbid obesity with a BMI of 61 Hypertension Diabetes mellitus Arnold-Chiari malformation with difficulty with mobility and gait Plan Surgical debridement for the ones and antibiotics Serum bicarb is chronically elevated and the patient does not have any signs of CO2 narcosis Monitor the serum bicarb Hold diuretics Utilize CPAP machine from home. I asked the patient to bring his CPAP machine from home for meter check and make adjustments if needed Continue current antibiotic coverage ID consult Wound care We will follow
--- NOTE | 2022-06-26 14:47 | P.GSCN ---
History of Present Illness Consult date: 06/26/22 Reason for Consult: Bilateral calf and thigh ulcers History of present illness: History of chief complaint: This patient is well-known to the [facility]. He has long-standing chronic ulcers on the posterior aspect of both calves. He is developed new ulcers on the posterior aspect of both eyes. Comorbidities include morbid obesity and secondary debilitation as well as diabetes. Examination reveals a morbidly obese gentleman in no current distress. He has huge ulcerations with significant build up of fibrin and slough on the posterior aspect of both calves and moderate size ulcers on the posterior thighs bilaterally. Recommendation: I would utilize Santyl for the time being with the Santyl followed by moist 4 x 4's followed by dry 4 x 4's followed by gauze followed by 4 inch Tam wraps. I would recommend leg elevation unless he is actively ambulating. I feel is unlikely he will be able to heal these wounds at home and would recommend consideration of ECF placement until the wounds are healed. Thank you for the operative participate in this unfortunate gentleman's ongoing care. We will be happy to follow and wound care as needed. Past Medical History Past Medical History: Asthma, Diabetes Mellitus, Hypertension, Sleep Apnea/CPAP/BIPAP Additional Past Medical History / Comment(s): Chiari malformation History of Any Multi-Drug Resistant Organisms: None Reported Past Surgical History: Hernia Repair Additional Past Surgical History / Comment(s): Brain surgeryx2, left wrist lopez rgery, lap band Past Anesthesia/Blood Transfusion Reactions: No Reported Reaction Past Psychological History: No Psychological Hx Reported Smoking Status: Never smoker Past Alcohol Use History: Occasional Past Drug Use History: Marijuana - Past Family History Father Family Medical History: No Reported History Medications and Allergies Home Medications Medication Instructions Recorded Confirmed Type Hydrocodone/Acetaminophen [[place] 1 tab PO QID 03/10/18 06/25/22 History 10-325] Gabapentin [Neurontin] 100 mg PO BID 04/21/22 06/25/22 History Potassium Gluconate 99 mg PO DAILY PRN 04/21/22 06/25/22 History Furosemide [Lasix] 40 mg PO BID PRN #0 04/23/22 06/25/22 Rx Metoprolol Tartrate [Lopressor] 50 mg PO BID tab 04/23/22 06/25/22 Rx Ibuprofen [Motrin] 800 mg PO Q12H 06/26/22 06/26/22 History Allergies Allergy/AdvReac Type Severity Reaction Status Date / Time No Known Allergies Allergy Verified 06/25/22 13:17 Surgical - Exam Osteopathic Statement: *. No significant issues noted on an osteopathic structural exam other than those noted in the History and Physical/Consult. Vital Signs Pulse Resp BP Pulse Ox 97 22 103/87 100 06/25/22 10:33 06/25/22 10:33 06/25/22 10:33 06/25/22 10:33 Results - Labs 06/26/22 11:09 06/26/22 07:24 Abnormal Lab Results - Last 24 Hours (Table) 06/25/22 06/26/22 06/26/22 Range/Units 13:29 07:24 07:24 RBC 3.38 L (4.40-5.60) X 10*6/uL Hgb 8.7 L (13.0-17.0) g/dL Hct 31.7 L (39.6-50.0) % MCH 25.7 L (27.0-32.0) pg MCHC 27.4 L (32.0-37.0) g/dL RDW 15.3 H (11.5-14.5) % Lymphocytes # 0.85 L (0.90-5.00) X 10*3/uL Monocytes # 1.13 H (0.20-1.00) X 10*3/uL ESR 36 H (0-15) mm/hr Chloride 90 L (96-109) mmol/L Carbon Dioxide 44.8 H* (20.0-27.5) mmol/L Anion Gap 5.20 L (10.00-18.00) mmol/L BUN 6.0 L (9.0-27.0) mg/dL BUN/Creatinine Ratio 7.50 L (12.00-20.00) Ratio Glucose 135 H (70-110) mg/dL POC Glucose (mg/dL) (70-110) mg/dL 06/26/22 06/26/22 Range/Units 11:09 11:16 RBC 3.47 L (4.40-5.60) X 10*6/uL Hgb 8.9 L (13.0-17.0) g/dL Hct 32.3 L (39.6-50.0) % MCH (27.0-32.0) pg MCHC 27.7 L (32.0-37.0) g/dL RDW (11.5-14.5) % Lymphocytes # (0.90-5.00) X 10*3/uL Monocytes # (0.20-1.00) X 10*3/uL ESR (0-15) mm/hr Chloride (96-109) mmol/L Carbon Dioxide (20.0-27.5) mmol/L Anion Gap (10.00-18.00) mmol/L BUN (9.0-27.0) mg/dL BUN/Creatinine Ratio (12.00-20.00) Ratio Glucose (70-110) mg/dL POC Glucose (mg/dL) 139 H (70-110) mg/dL Diabetes panel 06/26/22 Range/Units 07:24 Sodium 140 (135-145) mmol/L Potassium 3.9 (3.5-5.5) mmol/L Chloride 90 L (96-109) mmol/L Carbon Dioxide 44.8 H* (20.0-27.5) mmol/L BUN 6.0 L (9.0-27.0) mg/dL Creatinine 0.8 (0.6-1.5) mg/dL Glucose 135 H (70-110) mg/dL Calcium 9.0 (8.7-10.3) mg/dL Calcium panel 06/26/22 Range/Units 07:24 Calcium 9.0 (8.7-10.3) mg/dL Pituitary panel 06/26/22 Range/Units 07:24 Sodium 140 (135-145) mmol/L Potassium 3.9 (3.5-5.5) mmol/L Chloride 90 L (96-109) mmol/L Carbon Dioxide 44.8 H* (20.0-27.5) mmol/L BUN 6.0 L (9.0-27.0) mg/dL Creatinine 0.8 (0.6-1.5) mg/dL Glucose 135 H (70-110) mg/dL Calcium 9.0 (8.7-10.3) mg/dL Adrenal panel 06/26/22 Range/Units 07:24 Sodium 140 (135-145) mmol/L Potassium 3.9 (3.5-5.5) mmol/L Chloride 90 L (96-109) mmol/L Carbon Dioxide 44.8 H* (20.0-27.5) mmol/L BUN 6.0 L (9.0-27.0) mg/dL Creatinine 0.8 (0.6-1.5) mg/dL Glucose 135 H (70-110) mg/dL Calcium 9.0 (8.7-10.3) mg/dL
[2022-06-26] MEDS: LOPERAMIDE 2 MG CAP PO PRN ×2 (15:02→20:21)
[2022-06-26] MEDS: COLLAGENASE 250 UNIT/GM OINTMENT 30 GM TUBE TOPICAL SCH (15:13)
[2022-06-26 17:16] LABS: Glucose,Whole Blood 154 mg/dL (70-110)
--- NOTE | 2022-06-26 18:22 | P.HPIM ---
History of Present Illness H&P Date: 06/26/22 Chief Complaint: Status post fall, increased weakness This a 52-year-old gentleman with past medical history significant for morbid obesity, chronic hypoxic, hypercapnic respiratory failure, asthma, diabetes mellitus, and multiple other medical issues ,follows in the wound care center, for chronic ulcers of bilateral calves.recently had lower extremity dressings applied last week by Dr. Gallegos on Saturday. Reports he sustained a fall while ambulating with walker, with subsequent increased weakness, increased sedentary lifestyle-laying in bed more with wounds now extending into his bilateral posterior thighs. Denies fevers or chills. Denies syncope or head trauma sec ondary to fall. Denies chest pain, palpitations or increased shortness of breath. Denies lightheadedness, dizziness or focal deficits. Denies nausea vomiting. Acute on chronic elevated bicarb.44.8( 39 on 04/23/22) in a patient on prn Lasix at home. Chest x-ray reporting moderate cardiomegaly and possible mild pulmonary vascular congestion. Maintaining O2 sats in the 90s to 100 on 2 L nasal cannula. Pelvis x-ray noted. Maintained on Unasyn and vancomycin. Afebrile, normal WBC. Blood sugars controlled, Hemoglobin A1c 6.1 on 02/27/2022. Conversing fluently and appropriately, reporting he had issues with bus rides to the wound care center and missed a few appointments, scheduled for debridement. Unasyn and vancomycin initiated. BUN 6, creatinine 0.8. Review of Systems ROS Statement: Those systems with pertinent positive or pertinent negative responses have been documented in the HPI. ROS Other: All systems not noted in ROS Statement are negative. Past Medical History Past Medical History: Asthma, Diabetes Mellitus, Hypertension, Sleep Apnea/CPAP/BIPAP Additional Past Medical History / Comment(s): Chiari malformation History of Any Multi-Drug Resistant Organisms: None Reported Past Surgical History: Hernia Repair Additional Past Surgical History / Comment(s): Brain surgeryx2, left wrist surgery, lap band Past Anesthesia/Blood Transfusion Reactions: No Reported Reaction Past Psychological History: No Psychological Hx Reported Smoking Status: Never smoker Past Alcohol Use History: Occasional Past Drug Use History: Marijuana - Past Family History Father Family Medical History: No Reported History Medications and Allergies Home Medications Medication Instructions Recorded Confirmed Type Hydrocodone/Acetaminophen [[place] 1 tab PO QID 03/10/18 06/25/22 History 10-325] Gabapentin [Neurontin] 100 mg PO BID 04/21/22 06/25/22 History Potassium Gluconate 99 mg PO DAILY PRN 04/21/22 06/25/22 History Furosemide [Lasix] 40 mg PO BID PRN #0 04/23/22 06/25/22 Rx Metoprolol Tartrate [Lopressor] 50 mg PO BID tab 04/23/22 06/25/22 Rx Ibuprofen [Motrin] 800 mg PO Q12H 06/26/22 06/26/22 History Allergies Allergy/AdvReac Type Severity Reaction Status Date / Time No Known Allergies Allergy Verified 06/25/22 13:17 Physical Exam Vitals: Vital Signs Temp Pulse Pulse Resp BP BP Pulse Ox 06/26/22 07:17 98.5 F 105 H 18 105/62 100 06/26/22 02:25 98.6 F 100 18 153/80 100 06/25/22 20:06 98.3 F 96 18 150/72 95 06/25/22 17:22 97.4 F L 99 144/83 100 06/25/22 16:00 107 H 18 131/78 97 06/25/22 12:00 94 20 128/71 100 Intake and Output 06/25/22 06/26/22 06/26/22 22:59 06:59 14:59 Intake Total 100 Output Total 400 Balance 100 -400 Intake: Intake, IV Titration 100 Amount Ampicillin-Sulbactam 3 gm 100 In Sodium Chloride 0.9% 100 ml @ 200 mls/hr IVPB Q6HR [facility] Rx#:[id number] Output: Urine 400 Other: Voiding Method Urinal Diaper Incontinent # Voids 1 # Bowel Movements 1 Weight 176.901 kg PHYSICAL EXAM: VITAL SIGNS: [As above] GENERAL: Obese gentleman sitting up in bed, no acute distress, conversing without shortness of breath HEENT: Normocephalic,Conjunctivae normal. eyes normal. MMM. NECK: Supple, unable to assess JVD. CARDIOVASCULAR: S1, S2 regular.No murmur RESPIRATION: Unlabored Breath sounds diminished in the bases. No rhonchi or crackles. No bronchial breathing. ABDOMEN: Obese, Soft, nontender . No guarding. Distant Bowel sounds heard. LEGS: Posterior lower extremity wounds-refer to photos/measurements as per wound care team, draining ,odiferous, positive edema, chronic. PSYCHIATRY: Alert and oriented X3, mood and affect normal. NERVOUS SYSTEM: Cranial N 2-12 grossly normal. No focal deficits. Results CBC & Chem 7: 06/26/22 11:09 06/26/22 07:24 Labs: Abnormal Lab Results - Last 24 Hours (Table) 06/25/22 06/25/22 06/26/22 Range/Units 13:29 13:29 07:24 RBC 3.62 L 3.38 L (4.30-5.90) m/uL Hgb 9.5 L 8.7 L (13.0-17.5) gm/dL Hct 33.4 L 31.7 L (39.0-53.0) % MCH 25.7 L (27.0-32.0) pg MCHC 28.3 L 27.4 L (31.0-37.0) g/dL RDW 15.3 H (11.5-14.5) % Lymphocytes # 0.5 L 0.85 L (1.0-4.8) k/uL Monocytes # 1.13 H (0.20-1.00) X 10*3/uL ESR 36 H (0-15) mm/hr Sodium 132 L (137-145) mmol/L Potassium 3.4 L (3.5-5.1) mmol/L Chloride 81 L (98-107) mmol/L Carbon Dioxide 45 H* (22-30) mmol/L Glucose 114 H (74-99) mg/dL C-Reactive Protein 4.0 H (<1.0) mg/dL Albumin 3.4 L (3.5-5.0) g/dL Thrombosis Risk Factor Assmnt - Choose All That Apply Each Factor Represents 1 point: Age 41-60 years, Obesity (BMI >25), Sepsis (< 1month), Swollen legs (current) Each Risk Factor Represents 2 Points: Patient confined to bed Thrombosis Risk Factor Assessment Total Risk Factor Score: 6 Thrombosis Risk Factor Assessment Level: High Risk Assessment and Plan Assessment: Acute on chronic bilateral lower extremity pressure ulcers, infected, debridement pending, . Follows in the wound care center Chronic hypoxic, hypercapnic respiratory failure, on 2 L nasal cannula Chronic obesity hypoventilation syndrome Obstructive sleep apnea maintained on CPAP therapy on outpatient basis Diabetes mellitus II Hypertension Moderate obesity, BMI 61 Metabolic alkalosis, acute on chronic Hypertension Arnold-Chiari malformation Gait dysfunction secondary to the above, uses an electric scooter Plan: Continue on current medication regime ,monitoring and symptomatic treatment. Diflucan added to med regimen. Maintained on IV antibiotics. Close monitoring of renal function, serum bicarbonate, electrolytes with repeat labs ordered for a.m. Infectious disease, wound care and pulmonary consults in place, recommendations pending. Hemoglobin A1c ordered. Diuretics on hold. Wound care/ Debridement as per wound care team. Pain management-reports morphine does not control his pain; just, changed to Dilaudid for severe pain. Social work consulted regarding patient complains of issues/difficulties transporting to wound care center and for subacute rehab placement at discharge. The impression and plan of care has been dictated as directed. : I performed a history and examination of this patient, discussed the same with the dictator. I agree with the dictator's note ,documented as a scribe. Any additional findings or plans will be noted.
[2022-06-26 20:19] LABS: Glucose,Whole Blood 135 mg/dL (70-110)
[2022-06-26] MEDS: PANTOPRAZOLE 40 MG/10 ML VIAL IVP SCH (20:36)
--- NOTE | 2022-06-26 21:11 | P.CONS ---
History of Present Illness - Reason for Consult Consult date: 06/26/22 Cellulitis Requesting physician: Eren Godoy - Chief Complaint Weakness and worsening wound to the leg x days - History of Present Illness Patient is a 52-year-old morbidly obese -[place] male with a past medical history significant for diabetes mellitus hypertension sleep apnea and asthma patient also history of bilateral lower extremity venous stasis ulcer for the patient to follow at [facility] wound care center patient is not very clear about the treatment he is getting for his lower extremity he did mention has been applying some dressing patient apparently sustained a fall when ambulating with a walker and subsequently having a increased weakness and decreased mobility with sedentary lifestyle and has developed bilateral hand little pressure ulcer with increasing weakness and decreased mobility patient did presented to [facility] ER for further evaluation on presentation to the hospital the patient was afebrile and no fever has been recorded subsequently patient did have a normal white count creatinine has been normal liver exams are normal CRP was elevated C. difficile negative patient did have a chest x-ray moderate cardiomegaly with possible mild pulmonary vascular congestion patient is currently being treated with the vancomycin and Unasyn infectious he was consulted this morning concern for cellulitis to bilateral lower extremity Review of Systems Positive point and negatives has been mentioned in the HPI, complete review of systems was performed and all other systems are negative Past Medical History Past Medical History: Asthma, Diabetes Mellitus, Hypertension, Sleep Apnea/CPAP/BIPAP Additional Past Medical History / Comment(s): Chiari malformation History of Any Multi-Drug Resistant Organisms: None Reported Past Surgical History: Hernia Repair Additional Past Surgical History / Comment(s): Brain surgeryx2, left wrist surgery, lap band Past Anesthesia/Blood Transfusion Reactions: No Reported Reaction Past Psychological History: No Psychological Hx Reported Smoking Status: Never smoker Past Alcohol Use History: Occasional Past Drug Use History: Marijuana - Past Family History Father Family Medical History: No Reported History Medications and Allergies Home Medications Medication Instructions Recorded Confirmed Type Metoprolol Tartrate [Lopressor] 50 mg PO BID tab 04/23/22 06/25/22 Rx Ibuprofen [Motrin] 800 mg PO Q12H 06/26/22 06/26/22 History Collagenase [Santyl Ointment] 1 applic TOPICAL DAILY each 06/29/22 Rx Fluconazole [Diflucan] 150 mg PO DAILY #5 tab 06/29/22 Rx ALPRAZolam [Xanax] 0.5 mg PO BID PRN #2 tab 06/30/22 Rx Ampicillin-Sulbactam [Unasyn 3 gm 3 gm IVPB Q6HR 10 Days #40 each 06/30/22 Rx vial] Famotidine [Pepcid] 20 mg PO DAILY #30 tablet 06/30/22 Rx Gabapentin [Neurontin] 100 mg PO BID #4 cap 06/30/22 Rx HYDROcodone/APAP 10-325MG [[place] 1 each PO Q6H #4 tab 06/30/22 Rx 10-325] Allergies Allergy/AdvReac Type Severity Reaction Status Date / Time No Known Allergies Allergy Verified 06/25/22 13:17 Physical Exam Vitals: Vital Signs Temp Pulse Pulse Resp BP BP Pulse Ox 06/26/22 07:17 98.5 F 105 H 18 105/62 100 06/26/22 02:25 98.6 F 100 18 153/80 100 06/25/22 20:06 98.3 F 96 18 150/72 95 06/25/22 17:22 97.4 F L 99 144/83 100 06/25/22 16:00 107 H 18 131/78 97 06/25/22 12:00 94 20 128/71 100 06/25/22 10:33 97 22 103/87 100 Intake and Output 06/25/22 06/26/22 06/26/22 22:59 06:59 14:59 Intake Total 100 Output Total 400 Balance 100 -400 Intake: Intake, IV Titration 100 Amount Ampicillin-Sulbactam 3 gm 100 In Sodium Chloride 0.9% 100 ml @ 200 mls/hr IVPB Q6HR [facility] Rx#:[id number] Output: Urine 400 Other: Weight 176.901 kg GENERAL DESCRIPTION: Middle-aged male lying in bed, no distress. No tachypnea or accessory muscle of respiration use. HEENT: Shows Pallor , no scleral icterus. Oral mucous membrane is dry. No pharyngeal erythema or thrush NECK: Trachea central, no thyromegaly. LUNGS: Unlabored breathing. Decreased breath sound the base HEART: S1, S2, regular rate and rhythm. No loud murmur ABDOMEN: Soft, no tenderness , guarding or rigidity, no organomegaly EXTREMITIES: Swelling to bilateral lower extremities and did have a extensive ulceration with no significant slough tissue some foul-smelling drainage SKIN: No rash, no masses palpable. Patient did have stage II pressure ulcer to bilateral gluteal/upper posterior thigh area, with evidence of any slough. tissue or redness NEUROLOGICAL: The patient is awake, alert, oriented x3, mood and affect normal. Results CBC & Chem 7: 06/28/22 05:30 06/30/22 05:18 Labs: Abnormal Lab Results - Last 24 Hours (Table) 06/25/22 06/25/22 Range/Units 13:29 13:29 RBC 3.62 L (4.30-5.90) m/uL Hgb 9.5 L (13.0-17.5) gm/dL Hct 33.4 L (39.0-53.0) % MCHC 28.3 L (31.0-37.0) g/dL Lymphocytes # 0.5 L (1.0-4.8) k/uL ESR 36 H (0-15) mm/hr Sodium 132 L (137-145) mmol/L Potassium 3.4 L (3.5-5.1) mmol/L Chloride 81 L (98-107) mmol/L Carbon Dioxide 45 H* (22-30) mmol/L Glucose 114 H (74-99) mg/dL C-Reactive Protein 4.0 H (<1.0) mg/dL Albumin 3.4 L (3.5-5.0) g/dL Assessment and Plan (1) Chronic venous hypertension w/ulcer and inflammation involv both sides Status: Acute Code(s): I87.333 - CHRONIC VENOUS HTN W ULCER AND INFLAM OF BILATERAL LOW EXTRM SNOMED Code(s): 901321183 (2) Lower extremity cellulitis Status: Acute Code(s): L03.119 - CELLULITIS OF UNSPECIFIED PART OF LIMB SNOMED Code(s): 245822111 Plan: 1patient with bilateral lower extremity venous stasis ulcer with no evidence of any significant slough tissue from foul-smelling drainage and possible component of wound infection secondary cellulitis likely from gram-positive skin kajal gram-negative infection not excluded 2-patient also have a bilateral posterior thigh/gluteal area stage II pressure ulcer with no cellulitis 3-recommend local wound care with the dry Aquacel silver dressing change daily keep the area of the pressure 4-patient to continue vancomycin and Unasyn while waiting for the condition to stabilize and culture to finalize 5-check inflammatory markers We will follow on clinical condition and cultures to further adjust medication if needed Thank you for this consultation we will follow the patient along with you Time with Patient: Greater than 30
[2022-06-26] MEDS ORDERED: IBUPROFEN 800 MG TAB PO PRN (22:48)
[2022-06-26] MEDS: ALPRAZolam 0.5 MG TAB PO PRN (23:01)
[2022-06-27] MEDS: VANCOMYCIN 2,000 MG in SODIUM CHLORIDE 0.9% 500 ML 500 ML IVPB SCH ×2 (05:29→18:27)
[2022-06-27] MEDS: AMPICILLIN-SULBACTAM 3 GM in SODIUM CHLORIDE 0.9% 100 ML IVPB SCH ×4 (05:29→23:13)
[2022-06-27] MEDS: HYDROcodone/APAP 10-325MG 1 EACH TAB PO SCH ×4 (05:39→23:13)
[2022-06-27 07:22] LABS: Glucose,Whole Blood 129 mg/dL (70-110)
[2022-06-27] MEDS ORDERED: HYDROmorphone 0.5 MG/0.5 ML SYRINGE IVP PRN (09:04)
[2022-06-27] MEDS: INSULIN ASPART (NovoLOG) 100 UNIT/ML VIAL SQ SCH ×4 (09:13→20:50)
[2022-06-27] MEDS: METOPROLOL TARTRATE 50 MG TAB PO SCH ×2 (09:32→20:49)
[2022-06-27] MEDS: GABAPENTIN 100 MG CAP PO SCH ×2 (09:32→20:49)
[2022-06-27] MEDS: PANTOPRAZOLE 40 MG/10 ML VIAL IVP SCH (09:32)
[2022-06-27] MEDS: FLUCONAZOLE 150 MG TAB PO SCH (09:32)
[2022-06-27] MEDS ORDERED: LIDOCAINE 1% INJ 10MG/ML (5 ML VIAL-PF) SQ ONE (10:18)
[2022-06-27 10:28] LABS: African American GFR (CKD) 105.7 (60.0-200.0); Albumin/Globulin Ratio 1.1 (1.60-3.17); Anion Gap 5.4 mmol/L (10.00-18.00); BUN/Creat Ratio 8.6 Ratio (12.00-20.00); Blood Urea Nitrogen 8.1 mg/dL (9.0-27.0); C Reactive Protein 2.4 mg/dL (0.00-0.80); Calcium 8.7 mg/dL (8.7-10.3); Carbon Dioxide 44.5 mmol/L (20.0-27.5); Globulin 2.7 g/dL (1.6-3.3); Potassium 3.8 mmol/L (3.5-5.5); Total Bilirubin 0.2 mg/dL (0.30-1.20); Total Protein 5.7 g/dL (6.2-8.2)
[2022-06-27 10:32] LABS: Non-African American GFR(CKD) 91.2 (60.0-200.0)
--- NOTE | 2022-06-27 10:43 | IR ---
PICC LINE PLACEMENT: HISTORY: Infection requiring long-term antibiotic therapy PROCEDURE: Ultrasound and fluoroscopic guidance of PICC line placement. COMPLICATIONS: None ANESTHESIA: 1. 1% Lidocaine locally. FINDINGS/TECHNIQUE: The procedure was explained to the patient. The risks, complications, benefits and alternatives were discussed and any questions were answered. Informed consent was obtained. The patient was placed supine on the fluoroscopic table and prepped and draped in the usual sterile fash ion. Utilizing a 21 gauge needle and sonographic and fluoroscopic guidance, access in the left basi lic vein was achieved and there is placement of a 0.018 guidewire. The vein is patent. A 4-F sheath was placed over the guidewire. The guidewire and dilator were removed and a 4-F. PICC line was plac ed through the sheath with the tip at the level of the SVC. The sheath was removed, the catheter was flushed and sutured into position. The patient was stable throughout the procedure and remained sta ble upon discharge from the Department of Radiology. The vein puncture was patent under ultrasound. A fofana scale image was obtained to document patency of the vein punctured. All elements of the maximal barrier technique were utilized. FLUOROSCOPY TIME: DAP 0.357Gy cm2 IMPRESSION: Successful PICC line placement under ultrasound and fluoroscopic guidance.
[2022-06-27 11:28] LABS: Glucose,Whole Blood 121 mg/dL (70-110)
[2022-06-27 11:40] LABS: Basophils # (A) 0.05 X 10*3/uL (0.00-0.10); Basophils % (A) 0.6 %; Eosinophils # (A) 0.16 X 10*3/uL (0.04-0.35); HCT 32.3 % (39.6-50.0); HGB 8.6 g/dL (13.0-17.0); Immature Grans, Automated 0.1 %; Lymphocytes # (A) 1.19 X 10*3/uL (0.90-5.00); Lymphocytes % (A) 15.1 %; MCHC 26.6 g/dL (32.0-37.0); MCV 93.9 fL (80.0-97.0); Monocytes # (A) 1.12 X 10*3/uL (0.20-1.00); Monocytes % (A) 14.2 %; NRBC Per 100 WBC 0 /100 WBCS (0.0-0.0); Neutrophils # (A) 5.34 X 10*3/uL (1.80-7.70); Platelet Count 199 X 10*3/uL (140-440); RBC 3.44 X 10*6/uL (4.40-5.60); RDW 15.2 % (11.5-14.5); WBC 7.87 X 10*3/uL (4.50-10.00)
--- NOTE | 2022-06-27 14:28 | P.PN ---
Subjective Progress Note Date: 06/27/22 52-year-old male patient with morbid obesity and chronic hypoxic respiratory failure and possibly chronic hypercapnic respiratory failure in addition to obstructive sleep apnea maintenance CPAP therapy on outpatient basis. The patient also reports to have a past medical history of diabetes, asthma, morbid obesity who presents to the emergency department with wounds to his posterior thighs. States that over the course of the past week he has been laying in bed more. He does have chronic or extremity wounds for which she sees wound care. Dressings were last placed on Saturday by Dr. Gallegos. He states that the wounds have now extended to his posterior thighs. He denies any fevers. Due to the p ain from the wounds he has been more weak. He did sustain a fall while attending to ambulate with his walker. He denies hitting his head or losing consciousness. He does have active drainage which she states is chronic for him. He denies fevers. No nausea or vomiting. No chest pain or shortness of breath. He does wear chronic oxygen. No other alleviating, precipitating or modifying factors. In terms of his breathing, no worsening shortness of breath. He has active symptoms of obstructive sleep apnea with chronic hypersomnia and sleepiness. He states that he has a machine at home and I'm not sure if he has been effectively being treated with his CPAP machine. No signs of any CO2 narcosis. His serum bicarb is a chronically elevated and currently is slightly higher than the usual baseline. Back in 04/23/2022 and a serum bicarb of 39 and a bicarb level at time of admission was 45. His current oxygenation is stable on 2 L of Oxymizer nasal cannula. Is afebrile. Chest x-ray shows no acute abnormalities other than some chronic thyromegaly on my pulmonary vessel congestion. Obviously this is a suboptimal chest x-ray because of his body habitus. The patient is awaiting one debridement. The patient is covered with a combination of Unasyn and vancomycin and Diflucan. He also takes diuretics at home in the form of Lasix 40 mg by mouth twice a day on an as-needed basis. On today's evaluation of 06/27/2022, the patient has not obtain his CPAP machine from home. Serum bicarb is at 44. The patient is currently on accommodation of Unasyn and vancomycin. Blood cultures are negative. Pulse ox is 97% liters of oxygen by nasal cannula. Objective - Vital Signs Vital signs: Vital Signs Temp 97.8 F 06/27/22 12:22 Pulse 70 06/27/22 12:22 Resp 18 06/27/22 12:22 BP 153/86 06/27/22 12:22 Pulse Ox 97 06/27/22 12:22 FiO2 Intake & Output 06/26/22 06/27/22 06/27/22 18:59 06:59 18:59 Output Total 550 700 Balance -550 -700 Weight 176.901 kg Output: Urine 550 700 Other: Voiding Method Urinal Urinal Diaper Diaper Incontinent Incontinent # Voids 1 1 # Bowel Movements 1 1 - Exam Morbidly obese, calm and comfortable on 2 L of O2 nasal cannula Head exam was generally normal. There was no scleral icterus or corneal arcus. Mucous membranes were moist. Neck was supple and without jugular venous distension, thyromegaly, or carotid bruits. Carotids were easily palpable bilaterally. There was no adenopathy. Mallampati class IV with significant crowding of the posterior pharynx Lungs sounds are diminished in lung bases bilaterally. Cardiac exam revealed the PMI to be normally situated and sized. The rhythm was regular and no extrasystoles were noted during several minutes of auscultation. The first and second heart sounds were normal and physiologic splitting of the second heart sound was noted. There were no murmurs, rubs, clicks, or gallops. Abdomen is obese soft nontender organs cannot be palpated Extremities are chronically edematous and 1 in the posterior aspect of the lower extremities bilaterally, please refer to the photos Neurologically, the patient is awake and alert and there is no focal neurological deficits - Labs CBC & Chem 7: 06/27/22 05:24 06/27/22 05:24 Labs: Abnormal Lab Results - Last 24 Hours (Table) 06/26/22 06/26/22 06/27/22 Range/Units 17:14 20:16 05:24 RBC (4.40-5.60) X 10*6/uL Hgb (13.0-17.0) g/dL Hct (39.6-50.0) % MCH (27.0-32.0) pg MCHC (32.0-37.0) g/dL RDW (11.5-14.5) % Monocytes # (0.20-1.00) X 10*3/uL Chloride 92 L (96-109) mmol/L Carbon Dioxide 44.5 H* (20.0-27.5) mmol/L Anion Gap 5.40 L (10.00-18.00) mmol/L BUN 8.1 L (9.0-27.0) mg/dL BUN/Creatinine Ratio 8.60 L (12.00-20.00) Ratio Glucose 123 H (70-110) mg/dL POC Glucose (mg/dL) 154 H 135 H (70-110) mg/dL Total Bilirubin 0.20 L (0.30-1.20) mg/dL C-Reactive Protein 2.40 H (0.00-0.80) mg/dL Total Protein 5.7 L (6.2-8.2) g/dL Albumin 3.0 L (3.8-4.9) g/dL Albumin/Globulin Ratio 1.10 L (1.60-3.17) g/dL 06/27/22 06/27/22 06/27/22 Range/Units 05:24 07:20 11:27 RBC 3.44 L (4.40-5.60) X 10*6/uL Hgb 8.6 L (13.0-17.0) g/dL Hct 32.3 L (39.6-50.0) % MCH 25.0 L (27.0-32.0) pg MCHC 26.6 L (32.0-37.0) g/dL RDW 15.2 H (11.5-14.5) % Monocytes # 1.12 H (0.20-1.00) X 10*3/uL Chloride (96-109) mmol/L Carbon Dioxide (20.0-27.5) mmol/L Anion Gap (10.00-18.00) mmol/L BUN (9.0-27.0) mg/dL BUN/Creatinine Ratio (12.00-20.00) Ratio Glucose (70-110) mg/dL POC Glucose (mg/dL) 129 H 121 H (70-110) mg/dL Total Bilirubin (0.30-1.20) mg/dL C-Reactive Protein (0.00-0.80) mg/dL Total Protein (6.2-8.2) g/dL Albumin (3.8-4.9) g/dL Albumin/Globulin Ratio (1.60-3.17) g/dL Microbiology - Last 24 Hours (Table) 06/25/22 13:15 Blood Culture - Preliminary Blood 06/25/22 13:30 Blood Culture - Preliminary Blood Assessment and Plan Plan: Bilateral lower extremity once/pressure ulcers with superinfection currently on broad-spectrum antibiotics awaiting debridement, wound management is on the case. Does not look to be septic at all and the patient clinically does not look to be toxic Chronic hypoxic respiratory failure currently on 2 L of oxygen by nasal cannula Chronic hypercapnic respiratory failure Chronic restrictive lung disease due to morbid obesity with a body mass 61.1. Consider possibility of a chronic obesity hypoventilation syndrome Obstructive sleep apnea maintained on CPAP therapy on outpatient basis Chronic metabolic alkalosis with some interval worsening in the serum bicarb level. Could be related to diuretics. His baseline serum bicarb is around 39 Morbid obesity with a BMI of 61 Hypertension Diabetes mellitus Arnold-Chiari malformation with difficulty with mobility and gait Plan Surgical debridement for the ones and antibiotics Serum bicarb is chronically elevated and the patient does not have any signs of CO2 narcosis Monitor the serum bicarb, level is at 44. We'll going to give the patient a dose of Diamox 250 mg IV, 2 Repeat bicarb level in the morning Hold diuretics Utilize CPAP machine from home. I asked the patient to bring his CPAP machine from home for meter check and make adjustments if needed Continue current antibiotic coverage ID consult Wound care We will follow
--- NOTE | 2022-06-27 14:31 | P.PN ---
Subjective Progress Note Date: 06/27/22 H&P Date: 06/26/22 Chief Complaint: Status post fall, increased weakness This a 52-year-old gentleman with past medical history significant for morbid obesity, chronic hypoxic, hypercapnic respiratory failure, asthma, diabetes mellitus, and multiple other medical issues ,follows in the wound care center, for chronic ulcers of bilateral calves.recently had lower extremity dressings applied last week by Dr. Gallegos on Saturday. Reports he sustained a fall while ambulating with walker, with subsequent increased weakness, increased sedentary lifestyle-laying in bed more with wounds now extending into his bilateral posterior thighs. Denies fevers or chills. Denies syncope or head trauma secondary to fall. Denies chest pain, palpitations or increased shortness of breath. Denies lightheadedness, dizziness or focal deficits. Denies nausea vomiting. Acute on chronic elevated bicarb.44.8( 39 on 04/23/22) in a patient on prn Lasix at home. Chest x-ray reporting moderate cardiomegaly and possible mild pulmonary vascular congestion. Maintaining O2 sats in the 90s to 100 on 2 L nasal cannula. Pelvis x-ray noted. Maintained on Unasyn and vancomycin. Afebrile, normal WBC. Blood sugars controlled, Hemoglobin A1c 6.1 on 02/27/2022. Conversing fluently and appropriately, reporting he had issues with bus rides to the wound care center and missed a few appointments, scheduled for debridement. Unasyn and vancomycin initiated. BUN 6, creatinine 0.8. 06/27/2022 continues on vancomycin, Unasyn as per ID. Cultures finalizing. Afebrile, normal WBC. CRP elevated at 2.4. Hemoglobin 8.6, platelets 199, bicarb. 44.5, BUN 8.1, creatinine 0.9. Respiratory rate 18, maintaining O2 sats in the high 90s on 2 L nasal cannula. Blood sugars controlled. Reports comfortable on specialty bed. Initially declined PICC line placement. After further discussion patient is agreeable to having PICC line placed. Denies chest pain, palpitations or shortness of breath. Denies lightheadedness, dizziness or focal deficits. Evaluated by PT, reporting maximal assist, recommending subacute rehab at discharge. Objective - Vital Signs Vital signs: Vital Signs Temp 97.8 F 06/27/22 12:22 Pulse 70 06/27/22 12:22 Resp 18 06/27/22 12:22 BP 153/86 06/27/22 12:22 Pulse Ox 97 06/27/22 12:22 FiO2 Intake & Output 06/26/22 06/27/22 06/27/22 18:59 06:59 18:59 Output Total 550 700 Balance -550 -700 Weight 176.901 kg Output: Urine 550 700 Other: Voiding Method Urinal Urinal Diaper Diaper Incontinent Incontinent # Voids 1 1 # Bowel Movements 1 1 - Exam PHYSICAL EXAM: VITAL SIGNS: [As above] GENERAL: Alert and oriented 3, Obese gentleman sitting up in specialty bed, no acute distress, conversing without shortness of breath HEENT: Normocephalic,Conjunctivae normal. eyes normal. MMM. NECK: Supple, unable to assess JVD. CARDIOVASCULAR: S1, S2 regular.No murmur RESPIRATION: Unlabored Breath sounds diminished in the bases. No rhonchi or crackles. No bronchial breathing. ABDOMEN: Obese, Soft, nontender . No guarding. Distant Bowel sounds heard. LEGS: Posterior lower extremity wounds, Tam wrapped NERVOUS SYSTEM: Cranial N 2-12 grossly normal. No focal deficits. - Labs CBC & Chem 7: 06/27/22 05:24 06/27/22 05:24 Labs: Abnormal Lab Results - Last 24 Hours (Table) 06/26/22 06/26/22 06/27/22 Range/Units 17:14 20:16 05:24 RBC (4.40-5.60) X 10*6/uL Hgb (13.0-17.0) g/dL Hct (39.6-50.0) % MCH (27.0-32.0) pg MCHC (32.0-37.0) g/dL RDW (11.5-14.5) % Monocytes # (0.20-1.00) X 10*3/uL Chloride 92 L (96-109) mmol/L Carbon Dioxide 44.5 H* (20.0-27.5) mmol/L Anion Gap 5.40 L (10.00-18.00) mmol/L BUN 8.1 L (9.0-27.0) mg/dL BUN/Creatinine Ratio 8.60 L (12.00-20.00) Ratio Glucose 123 H (70-110) mg/dL POC Glucose (mg/dL) 154 H 135 H (70-110) mg/dL Total Bilirubin 0.20 L (0.30-1.20) mg/dL C-Reactive Protein 2.40 H (0.00-0.80) mg/dL Total Protein 5.7 L (6.2-8.2) g/dL Albumin 3.0 L (3.8-4.9) g/dL Albumin/Globulin Ratio 1.10 L (1.60-3.17) g/dL 06/27/22 06/27/22 06/27/22 Range/Units 05:24 07:20 11:27 RBC 3.44 L (4.40-5.60) X 10*6/uL Hgb 8.6 L (13.0-17.0) g/dL Hct 32.3 L (39.6-50.0) % MCH 25.0 L (27.0-32.0) pg MCHC 26.6 L (32.0-37.0) g/dL RDW 15.2 H (11.5-14.5) % Monocytes # 1.12 H (0.20-1.00) X 10*3/uL Chloride (96-109) mmol/L Carbon Dioxide (20.0-27.5) mmol/L Anion Gap (10.00-18.00) mmol/L BUN (9.0-27.0) mg/dL BUN/Creatinine Ratio (12.00-20.00) Ratio Glucose (70-110) mg/dL POC Glucose (mg/dL) 129 H 121 H (70-110) mg/dL Total Bilirubin (0.30-1.20) mg/dL C-Reactive Protein (0.00-0.80) mg/dL Total Protein (6.2-8.2) g/dL Albumin (3.8-4.9) g/dL Albumin/Globulin Ratio (1.60-3.17) g/dL Microbiology - Last 24 Hours (Table) 06/25/22 13:15 Blood Culture - Preliminary Blood 06/25/22 13:30 Blood Culture - Preliminary Blood Assessment and Plan Assessment: Acute on chronic bilateral lower extremity pressure ulcers, infected, secondary to cellulitis, Follows in the wound care center. Chronic hypoxic, hypercapnic respiratory failure, on 2 L nasal cannula Chronic obesity hypoventilation syndrome Obstructive sleep apnea maintained on CPAP therapy on outpatient basis Diabetes mellitus II, hemoglobin A1c 5.6 Hypertension Moderate obesity, BMI 61 Metabolic alkalosis, acute on chronic Hypertension Arnold-Chiari malformation Gait dysfunction secondary to the above, uses an electric scooter Plan: Continue on current medication regime ,monitoring and symptomatic treatment. PICC line placement pending .Pain management-discussed with RN, medicating prior to dressing changes/physical therapy sessions, local wound care. Continue on IV antibiotics as per ID. Diuretics remain on hold Close monitoring of renal function, serum bicarbonate, electrolytes with repeat labs ordered for a.m. Subacute rehab placement at discharge. The impression and plan of care has been dictated as directed. : I performed a history and examination of this patient, discussed the same with the dictator. I agree with the dictator's note ,documented as a scribe. Any additional findings or plans will be noted.
--- NOTE | 2022-06-27 15:31 | P.PN ---
Subjective Progress Note Date: 06/27/22 Principal diagnosis: Bilateral lower extremity ulcer and cellulitis Patient is a 52-year-old morbidly obese -Al[place]ian male with a past medical history significant for diabetes mellitus hypertension sleep apnea and asthma patient also history of bilateral lower extremity venous stasis ulcer, presented to the hospital with weakness and worsening of the wound concerning for cellulitis also have a bilateral gluteal/upper thigh pressure ulcer. On today's evaluation that is 06/27/2022 patient denies having any fever or any chills, patient is breathing comfortably on 2 L nasal cannula oxygen, the patient denies having any chest pain or shortness of breath did have occasional cough still discomfort or lower extremity Objective - Vital Signs Vital signs: Vital Signs Temp 97.8 F 06/27/22 12:22 Pulse 70 06/27/22 12:22 Resp 18 06/27/22 12:22 BP 153/86 06/27/22 12:22 Pulse Ox 97 06/27/22 12:22 FiO2 Intake & Output 06/26/22 06/27/22 06/27/22 18:59 06:59 18:59 Output Total 550 700 Balance -550 -700 Weight 176.901 kg Output: Urine 550 700 Other: Voiding Method Urinal Urinal Diaper Diaper Incontinent Incontinent # Voids 1 1 # Bowel Movements 1 1 - Exam GENERAL DESCRIPTION: A middle-age male lying in bed in no distress RESPIRATORY SYSTEM: Unlabored breathing , decreased breath sounds at bases HEART: S1 S2 regular rate and rhythm , ABDOMEN: Soft , no tenderness EXTREMITIES: Bilateral lower extremities currently dressed - Labs CBC & Chem 7: 06/27/22 05:24 06/27/22 05:24 Labs: Abnormal Lab Results - Last 24 Hours (Table) 06/26/22 06/26/22 06/27/22 Range/Units 17:14 20:16 05:24 RBC (4.40-5.60) X 10*6/uL Hgb (13.0-17.0) g/dL Hct (39.6-50.0) % MCH (27.0-32.0) pg MCHC (32.0-37.0) g/dL RDW (11.5-14.5) % Monocytes # (0.20-1.00) X 10*3/uL Chloride 92 L (96-109) mmol/L Carbon Dioxide 44.5 H* (20.0-27.5) mmol/L Anion Gap 5.40 L (10.00-18.00) mmol/L BUN 8.1 L (9.0-27.0) mg/dL BUN/Creatinine Ratio 8.60 L (12.00-20.00) Ratio Glucose 123 H (70-110) mg/dL POC Glucose (mg/dL) 154 H 135 H (70-110) mg/dL Total Bilirubin 0.20 L (0.30-1.20) mg/dL C-Reactive Protein 2.40 H (0.00-0.80) mg/dL Total Protein 5.7 L (6.2-8.2) g/dL Albumin 3.0 L (3.8-4.9) g/dL Albumin/Globulin Ratio 1.10 L (1.60-3.17) g/dL 06/27/22 06/27/22 06/27/22 Range/Units 05:24 07:20 11:27 RBC 3.44 L (4.40-5.60) X 10*6/uL Hgb 8.6 L (13.0-17.0) g/dL Hct 32.3 L (39.6-50.0) % MCH 25.0 L (27.0-32.0) pg MCHC 26.6 L (32.0-37.0) g/dL RDW 15.2 H (11.5-14.5) % Monocytes # 1.12 H (0.20-1.00) X 10*3/uL Chloride (96-109) mmol/L Carbon Dioxide (20.0-27.5) mmol/L Anion Gap (10.00-18.00) mmol/L BUN (9.0-27.0) mg/dL BUN/Creatinine Ratio (12.00-20.00) Ratio Glucose (70-110) mg/dL POC Glucose (mg/dL) 129 H 121 H (70-110) mg/dL Total Bilirubin (0.30-1.20) mg/dL C-Reactive Protein (0.00-0.80) mg/dL Total Protein (6.2-8.2) g/dL Albumin (3.8-4.9) g/dL Albumin/Globulin Ratio (1.60-3.17) g/dL Microbiology - Last 24 Hours (Table) 06/25/22 13:15 Blood Culture - Preliminary Blood 06/25/22 13:30 Blood Culture - Preliminary Blood Assessment and Plan (1) Lower extremity cellulitis Current Visit: Yes Status: Acute Code(s): L03.119 - CELLULITIS OF UNSPECIFIED PART OF LIMB SNOMED Code(s): 211892406 Plan: 1patient with bilateral lower extremity venous stasis ulcer with no evidence of any significant slough tissue from foul-smelling drainage and possible component of wound infection secondary cellulitis likely from gram-positive skin kajal gram-negative infection not excluded 2-patient also have a bilateral posterior thigh/gluteal area stage II pressure ulcer with no cellulitis 3- local wound care with the dry Aquacel silver dressing change daily keep the area of the pressure 4-patient to continue vancomycin and Unasyn while waiting for the condition to stabilize and culture to finalize, monitor clinical course closely Time with Patient: Less than 30
[2022-06-27 17:16] LABS: Glucose,Whole Blood 142 mg/dL (70-110)
[2022-06-27] MEDS: COLLAGENASE 250 UNIT/GM OINTMENT 30 GM TUBE TOPICAL SCH (17:20)
[2022-06-27 20:44] LABS: Glucose,Whole Blood 160 mg/dL (70-110)
[2022-06-27] MEDS: ALPRAZolam 0.5 MG TAB PO PRN (23:20)
[2022-06-28] MEDS ORDERED: VANCOMYCIN TROUGH DUE 1 EACH MISC MISCELLANE ONE (05:00)
[2022-06-28] MEDS: AMPICILLIN-SULBACTAM 3 GM in SODIUM CHLORIDE 0.9% 100 ML IVPB SCH ×4 (05:39→23:19)
[2022-06-28] MEDS: HYDROcodone/APAP 10-325MG 1 EACH TAB PO SCH ×4 (06:21→23:19)
[2022-06-28] MEDS: VANCOMYCIN 2,000 MG in SODIUM CHLORIDE 0.9% 500 ML 500 ML IVPB SCH (06:21)
[2022-06-28 06:28] LABS: African American GFR (CKD) >90 (>60 ml/min/1.73 sqM); Blood Urea Nitrogen 11 mg/dL (9-20); Calcium 8.6 mg/dL (8.4-10.2); Chloride 87 mmol/L (98-107); Glucose 123 mg/dL (74-99); Non-African American GFR(CKD) 81 (>60 ml/min/1.73 sqM); Sodium 135 mmol/L (137-145)
[2022-06-28 06:35] LABS: Anion Gap 5 mmol/L
[2022-06-28 07:07] LABS: Carbon Dioxide 43 mmol/L (22-30)
[2022-06-28 07:24] LABS: Glucose,Whole Blood 130 mg/dL (70-110)
[2022-06-28] MEDS: INSULIN ASPART (NovoLOG) 100 UNIT/ML VIAL SQ SCH ×4 (07:52→21:46)
[2022-06-28] MEDS: PANTOPRAZOLE 40 MG/10 ML VIAL IVP SCH (08:57)
[2022-06-28] MEDS: FLUCONAZOLE 150 MG TAB PO SCH (08:57)
[2022-06-28] MEDS: GABAPENTIN 100 MG CAP PO SCH ×2 (08:57→21:45)
[2022-06-28] MEDS: METOPROLOL TARTRATE 50 MG TAB PO SCH ×2 (08:57→21:45)
[2022-06-28 10:02] LABS: Basophils # (A) 0.06 X 10*3/uL (0.00-0.10); Basophils % (A) 0.7 %; Eosinophils # (A) 0.18 X 10*3/uL (0.04-0.35); HCT 34.3 % (39.6-50.0); HGB 9.1 g/dL (13.0-17.0); Immature Grans, Automated 0.3 %; Lymphocytes % (A) 15.9 %; MCH 25.1 pg (27.0-32.0); MCHC 26.5 g/dL (32.0-37.0); MCV 94.5 fL (80.0-97.0); Mean Platelet Volume 10.9 fL (9.5-12.2); Monocytes % (A) 13.6 %; NRBC Per 100 WBC 0 /100 WBCS (0.0-0.0); Neutrophils # (A) 5.93 X 10*3/uL (1.80-7.70); Neutrophils % (A) 67.5 %; Platelet Count 223 X 10*3/uL (140-440); RBC 3.63 X 10*6/uL (4.40-5.60); RDW 15.2 % (11.5-14.5)
[2022-06-28 11:10] LABS: Glucose,Whole Blood 150 mg/dL (70-110)
--- NOTE | 2022-06-28 12:49 | P.PN ---
Subjective Progress Note Date: 06/28/22 H&P Date: 06/26/22 Chief Complaint: Status post fall, increased weakness This a 52-year-old gentleman with past medical history significant for morbid obesity, chronic hypoxic, hypercapnic respiratory failure, asthma, diabetes mellitus, and multiple other medical issues ,follows in the wound care center, for chronic ulcers of bilateral calves.recently had lower extremity dressings applied last week by Dr. Gallegos on Saturday. Reports he sustained a fall while ambulating with walker, with subsequent increased weakness, increased sedentary lifestyle-laying in bed more with wounds now extending into his bilateral posterior thighs. Denies fevers or chills. Denies syncope or head trauma secondary to fall. Denies chest pain, palpitations or increased shortness of breath. Denies lightheadedness, dizziness or focal deficits. Denies nausea vomiting. Acute on chronic elevated bicarb.44.8( 39 on 04/23/22) in a patient on prn Lasix at home. Chest x-ray reporting moderate cardiomegaly and possible mild pulmonary vascular congestion. Maintaining O2 sats in the 90s to 100 on 2 L nasal cannula. Pelvis x-ray noted. Maintained on Unasyn and vancomycin. Afebrile, normal WBC. Blood sugars controlled, Hemoglobin A1c 6.1 on 02/27/2022. Conversing fluently and appropriately, reporting he had issues with bus rides to the wound care center and missed a few appointments, scheduled for debridement. Unasyn and vancomycin initiated. BUN 6, creatinine 0.8. 06/27/2022 continues on vancomycin, Unasyn as per ID. Cultures finalizing. Afebrile, normal WBC. CRP elevated at 2.4. Hemoglobin 8.6, platelets 199, bicarb. 44.5, BUN 8.1, creatinine 0.9. Respiratory rate 18, maintaining O2 sats in the high 90s on 2 L nasal cannula. Blood sugars controlled. Reports comfortable on specialty bed. Initially declined PICC line placement. After further discussion patient is agreeable to having PICC line placed. Denies chest pain, palpitations or shortness of breath. Denies lightheadedness, dizziness or focal deficits. Evaluated by PT, reporting maximal assist, recommending subacute rehab at discharge. 06/28/2022 PICC line placed yesterday, tolerated procedure well. Diamox initiated yesterday, bicarb improving- decreased to 43. No signs or symptoms of CO2 narcosis. Maintained on IV antibiotics of vancomycin and Unasyn, local wound care with Santyl, Everette supplements. Final cultures pending. Afebrile, normal WBC. Renal function stable. Blood sugars controlled. Bilateral leg discomfort unchanged, requiring Dilaudid IV push for breakthrough pain. Hemoglobin 9.1, platelets 223 .Denies chest pain, palpitations or shortness of breath. Maintaining O2 sats in the high 90s on 2 L nasal cannula. Objective - Vital Signs Vital signs: Vital Signs Temp 97.4 F L 06/28/22 07:25 Pulse 93 06/28/22 07:25 Resp 18 06/28/22 07:25 BP 96/61 06/28/22 07:25 Pulse Ox 99 06/28/22 08:09 FiO2 Intake & Output 06/27/22 06/28/22 06/28/22 18:59 06:59 18:59 Intake Total 1140 Output Total 1400 1500 Balance -1400 -360 Intake: Intake, IV Titration 600 Amount Ampicillin-Sulbactam 3 gm 100 In Sodium Chloride 0.9% 100 ml @ 200 mls/hr IVPB Q6HR [facility] Rx#:[id number] Vancomycin 2,000 mg In 500 Sodium Chloride 0.9% 500 ml 500 ml @ 167 mls/hr IVPB Q12H [facility] Rx#: [id number] Oral 540 Output: Urine 1400 1500 Other: Voiding Method External Catheter External Catheter # Bowel Movements 1 1 - Exam PHYSICAL EXAM: VITAL SIGNS: [As above] GENERAL: Alert and oriented 3, sitting up on specialty bed, no acute distress HEENT: Normocephalic,Conjunctivae normal. eyes normal. MMM. NECK: Supple, unable to assess JVD. CARDIOVASCULAR: S1, S2 regular.No murmur RESPIRATION: Unlabored Breath sounds diminished in the bases. ABDOMEN: Obese, Soft, nontender . No guarding. Distant Bowel sounds heard. LEGS: Posterior lower extremity wounds, Tam wrapped NERVOUS SYSTEM: Cranial N 2-12 grossly normal. No focal deficits. - Labs CBC & Chem 7: 06/28/22 05:30 06/28/22 05:30 Labs: Abnormal Lab Results - Last 24 Hours (Table) 06/27/22 06/27/22 06/28/22 Range/Units 17:15 20:42 05:30 RBC (4.40-5.60) X 10*6/uL Hgb (13.0-17.0) g/dL Hct (39.6-50.0) % MCH (27.0-32.0) pg MCHC (32.0-37.0) g/dL RDW (11.5-14.5) % Monocytes # (0.20-1.00) X 10*3/uL Sodium 135 L (137-145) mmol/L Chloride 87 L (98-107) mmol/L Carbon Dioxide 43 H* (22-30) mmol/L Glucose 123 H (74-99) mg/dL POC Glucose (mg/dL) 142 H 160 H (70-110) mg/dL 06/28/22 06/28/22 06/28/22 Range/Units 05:30 07:23 11:09 RBC 3.63 L (4.40-5.60) X 10*6/uL Hgb 9.1 L (13.0-17.0) g/dL Hct 34.3 L (39.6-50.0) % MCH 25.1 L (27.0-32.0) pg MCHC 26.5 L (32.0-37.0) g/dL RDW 15.2 H (11.5-14.5) % Monocytes # 1.20 H (0.20-1.00) X 10*3/uL Sodium (137-145) mmol/L Chloride (98-107) mmol/L Carbon Dioxide (22-30) mmol/L Glucose (74-99) mg/dL POC Glucose (mg/dL) 130 H 150 H (70-110) mg/dL Microbiology - Last 24 Hours (Table) 06/25/22 13:15 Blood Culture - Preliminary Blood 06/25/22 13:30 Blood Culture - Preliminary Blood Assessment and Plan Assessment: Acute on chronic bilateral lower extremity pressure ulcers, infected, secondary to cellulitis, also with bilateral thigh/gluteal stage II pressure ulcers- present on admission. Follows in the wound care center. Chronic hypoxic, hypercapnic respiratory failure, on 2 L nasal cannula Chronic obesity hypoventilation syndrome Obstructive sleep apnea maintained on CPAP therapy on outpatient basis Diabetes mellitus II, hemoglobin A1c 5.6 Hypertension Moderate obesity, BMI 61 Metabolic alkalosis, acute on chronic Hypertension Arnold-Chiari malformation Gait dysfunction secondary to the above, uses an electric scooter Plan: Continue on current medication regime ,monitoring and symptomatic treatment. Pain management. Local wound care. IV antibiotics as per ID. Diuretics remain on hold. Close monitoring of renal function, serum bicarbonate, electrolytes with repeat labs ordered for a.m. Subacute rehab placement at discharge, possibly tomorrow pending final culture results, final DC recommendations and clearance per infectious disease. The impression and plan of care has been dictated as directed. : I performed a history and examination of this patient, discussed the same with the dictator. I agree with the dictator's note ,documented as a scribe. Any additional findings or plans will be noted.
[2022-06-28] MEDS: COLLAGENASE 250 UNIT/GM OINTMENT 30 GM TUBE TOPICAL SCH (13:19)
--- NOTE | 2022-06-28 14:40 | P.PN ---
Subjective Progress Note Date: 06/28/22 52-year-old male patient with morbid obesity and chronic hypoxic respiratory failure and possibly chronic hypercapnic respiratory failure in addition to obstructive sleep apnea maintenance CPAP therapy on outpatient basis. The patient also reports to have a past medical history of diabetes, asthma, morbid obesity who presents to the emergency department with wounds to his posterior thighs. States that over the course of the past week he has been laying in bed more. He does have chronic or extremity wounds for which she sees wound care. Dressings were last placed on Saturday by Dr. Gallegos. He states that the wounds have now extended to his posterior thighs. He denies any fevers. Due to the p ain from the wounds he has been more weak. He did sustain a fall while attending to ambulate with his walker. He denies hitting his head or losing consciousness. He does have active drainage which she states is chronic for him. He denies fevers. No nausea or vomiting. No chest pain or shortness of breath. He does wear chronic oxygen. No other alleviating, precipitating or modifying factors. In terms of his breathing, no worsening shortness of breath. He has active symptoms of obstructive sleep apnea with chronic hypersomnia and sleepiness. He states that he has a machine at home and I'm not sure if he has been effectively being treated with his CPAP machine. No signs of any CO2 narcosis. His serum bicarb is a chronically elevated and currently is slightly higher than the usual baseline. Back in 04/23/2022 and a serum bicarb of 39 and a bicarb level at time of admission was 45. His current oxygenation is stable on 2 L of Oxymizer nasal cannula. Is afebrile. Chest x-ray shows no acute abnormalities other than some chronic thyromegaly on my pulmonary vessel congestion. Obviously this is a suboptimal chest x-ray because of his body habitus. The patient is awaiting one debridement. The patient is covered with a combination of Unasyn and vancomycin and Diflucan. He also takes diuretics at home in the form of Lasix 40 mg by mouth twice a day on an as-needed basis. On today's evaluation of 06/27/2022, the patient has not obtain his CPAP machine from home. Serum bicarb is at 44. The patient is currently on accommodation of Unasyn and vancomycin. Blood cultures are negative. Pulse ox is 97% liters of oxygen by nasal cannula. On today's evaluation of hypertensive thousand and 23, the patient's serum bicarb is slightly down at 43. The patient received 2 doses of Diamox yesterday. The patient also brought his BiPAP machine from home. This started out to be a BiPAP machine set at a pressure of 18/12 cm of water. This is a ResMed S9 cc machine which is essentially functional and the patient is using a nasal mask. I checked the machine and based on the compliance data, T2 the patient has not been using his machine for several months. I made r ecommendations for him to start the machine as of tonight. Objective - Vital Signs Vital signs: Vital Signs Temp 97.4 F L 06/28/22 12:22 Pulse 78 06/28/22 12:22 Resp 18 06/28/22 12:22 BP 115/66 06/28/22 12:22 Pulse Ox 100 06/28/22 12:22 FiO2 Intake & Output 06/27/22 06/28/22 06/28/22 18:59 06:59 18:59 Intake Total 1140 Output Total 1400 1500 Balance -1400 -360 Intake: Intake, IV Titration 600 Amount Ampicillin-Sulbactam 3 gm 100 In Sodium Chloride 0.9% 100 ml @ 200 mls/hr IVPB Q6HR [facility] Rx#:[id number] Vancomycin 2,000 mg In 500 Sodium Chloride 0.9% 500 ml 500 ml @ 167 mls/hr IVPB Q12H [facility] Rx#: [id number] Oral 540 Output: Urine 1400 1500 Other: Voiding Method External Catheter External Catheter # Bowel Movements 1 1 - Exam Morbidly obese, calm and comfortable on 2 L of O2 nasal cannula Head exam was generally normal. There was no scleral icterus or corneal arcus. Mucous membranes were moist. Neck was supple and without jugular venous distension, thyromegaly, or carotid bruits. Carotids were easily palpable bilaterally. There was no adenopathy. Mallampati class IV with significant crowding of the posterior pharynx Lungs sounds are diminished in lung bases bilaterally. Cardiac exam revealed the PMI to be normally situated and sized. The rhythm was regular and no extrasystoles were noted during several minutes of auscultation. The first and second heart sounds were normal and physiologic splitting of the second heart sound was noted. There were no murmurs, rubs, clicks, or gallops. Abdomen is obese soft nontender organs cannot be palpated Extremities are chronically edematous and 1 in the posterior aspect of the lower extremities bilaterally, please refer to the photos Neurologically, the patient is awake and alert and there is no focal neurological deficits - Labs CBC & Chem 7: 06/28/22 05:30 06/28/22 05:30 Labs: Abnormal Lab Results - Last 24 Hours (Table) 06/27/22 06/27/22 06/28/22 Range/Units 17:15 20:42 05:30 RBC (4.40-5.60) X 10*6/uL Hgb (13.0-17.0) g/dL Hct (39.6-50.0) % MCH (27.0-32.0) pg MCHC (32.0-37.0) g/dL RDW (11.5-14.5) % Monocytes # (0.20-1.00) X 10*3/uL Sodium 135 L (137-145) mmol/L Chloride 87 L (98-107) mmol/L Carbon Dioxide 43 H* (22-30) mmol/L Glucose 123 H (74-99) mg/dL POC Glucose (mg/dL) 142 H 160 H (70-110) mg/dL 06/28/22 06/28/22 06/28/22 Range/Units 05:30 07:23 11:09 RBC 3.63 L (4.40-5.60) X 10*6/uL Hgb 9.1 L (13.0-17.0) g/dL Hct 34.3 L (39.6-50.0) % MCH 25.1 L (27.0-32.0) pg MCHC 26.5 L (32.0-37.0) g/dL RDW 15.2 H (11.5-14.5) % Monocytes # 1.20 H (0.20-1.00) X 10*3/uL Sodium (137-145) mmol/L Chloride (98-107) mmol/L Carbon Dioxide (22-30) mmol/L Glucose (74-99) mg/dL POC Glucose (mg/dL) 130 H 150 H (70-110) mg/dL Microbiology - Last 24 Hours (Table) 06/25/22 13:15 Blood Culture - Preliminary Blood 06/25/22 13:30 Blood Culture - Preliminary Blood Assessment and Plan Plan: Bilateral lower extremity once/pressure ulcers with superinfection currently on broad-spectrum antibiotics awaiting debridement, wound management is on the case. Does not look to be septic at all and the patient clinically does not look to be toxic Chronic hypoxic respiratory failure currently on 2 L of oxygen by nasal cannula Chronic hypercapnic respiratory failure Chronic restrictive lung disease due to morbid obesity with a body mass 61.1. Consider possibility of a chronic obesity hypoventilation syndrome Obstructive sleep apnea maintained on CPAP therapy on outpatient basis Chronic metabolic alkalosis with some interval worsening in the serum bicarb level. Could be related to diuretics. His baseline serum bicarb is around 39 Morbid obesity with a BMI of 61 Hypertension Diabetes mellitus Arnold-Chiari malformation with difficulty with mobility and gait Chronic anemia/anemia of chronic disease Plan Surgical debridement for the ones and antibiotics Serum bicarb is chronically elevated and the patient does not have any signs of CO2 narcosis We'll give the patient additional dose of Diamox 250 mg IV, 2 Repeat bicarb level in the morning Continue BiPAP at a pressure of 18/12 cm of water. The patient was brought from home and this will be collected in the hospital. Hold diuretics Continue current antibiotic coverage ID consult Wound care We will follow
--- NOTE | 2022-06-28 14:55 | P.PN ---
Subjective Progress Note Date: 06/28/22 Principal diagnosis: Bilateral lower extremity ulcer and cellulitis Patient is a 52-year-old morbidly obese -N[place]ien male with a past medical history significant for diabetes mellitus hypertension sleep apnea and asthma patient also history of bilateral lower extremity venous stasis ulcer, presented to the hospital with weakness and worsening of the wound concerning for cellulitis also have a bilateral gluteal/upper thigh pressure ulcer. On today's evaluation that is 06/28/2022 patient remains to be afebrile, patient is breathing comfortably on 2 L nasal cannula oxygen, the patient denies having any chest pain or shortness of breath , the patient did have occasional cough still complaining of discomfort to the lower extremity, especially the time of dressing changes Objective - Vital Signs Vital signs: Vital Signs Temp 97.4 F L 06/28/22 12:22 Pulse 78 06/28/22 12:22 Resp 18 06/28/22 12:22 BP 115/66 06/28/22 12:22 Pulse Ox 100 06/28/22 12:22 FiO2 Intake & Output 06/27/22 06/28/22 06/28/22 18:59 06:59 18:59 Intake Total 1140 Output Total 1400 1500 Balance -1400 -360 Intake: Intake, IV Titration 600 Amount Ampicillin-Sulbactam 3 gm 100 In Sodium Chloride 0.9% 100 ml @ 200 mls/hr IVPB Q6HR [facility] Rx#:[id number] Vancomycin 2,000 mg In 500 Sodium Chloride 0.9% 500 ml 500 ml @ 167 mls/hr IVPB Q12H [facility] Rx#: [id number] Oral 540 Output: Urine 1400 1500 Other: Voiding Method External Catheter External Catheter # Bowel Movements 1 1 - Exam GENERAL DESCRIPTION: A middle-age male lying in bed in no distress RESPIRATORY SYSTEM: Unlabored breathing , decreased breath sounds at bases HEART: S1 S2 regular rate and rhythm , ABDOMEN: Soft , no tenderness EXTREMITIES: Bilateral lower extremities currently dressed - Labs CBC & Chem 7: 06/28/22 05:30 06/28/22 05:30 Labs: Abnormal Lab Results - Last 24 Hours (Table) 06/27/22 06/27/22 06/28/22 Range/Units 17:15 20:42 05:30 RBC (4.40-5.60) X 10*6/uL Hgb (13.0-17.0) g/dL Hct (39.6-50.0) % MCH (27.0-32.0) pg MCHC (32.0-37.0) g/dL RDW (11.5-14.5) % Monocytes # (0.20-1.00) X 10*3/uL Sodium 135 L (137-145) mmol/L Chloride 87 L (98-107) mmol/L Carbon Dioxide 43 H* (22-30) mmol/L Glucose 123 H (74-99) mg/dL POC Glucose (mg/dL) 142 H 160 H (70-110) mg/dL 06/28/22 06/28/22 06/28/22 Range/Units 05:30 07:23 11:09 RBC 3.63 L (4.40-5.60) X 10*6/uL Hgb 9.1 L (13.0-17.0) g/dL Hct 34.3 L (39.6-50.0) % MCH 25.1 L (27.0-32.0) pg MCHC 26.5 L (32.0-37.0) g/dL RDW 15.2 H (11.5-14.5) % Monocytes # 1.20 H (0.20-1.00) X 10*3/uL Sodium (137-145) mmol/L Chloride (98-107) mmol/L Carbon Dioxide (22-30) mmol/L Glucose (74-99) mg/dL POC Glucose (mg/dL) 130 H 150 H (70-110) mg/dL Microbiology - Last 24 Hours (Table) 06/25/22 13:15 Blood Culture - Preliminary Blood 06/25/22 13:30 Blood Culture - Preliminary Blood Assessment and Plan (1) Lower extremity cellulitis Current Visit: Yes Status: Acute Code(s): L03.119 - CELLULITIS OF UNSPECIFIED PART OF LIMB SNOMED Code(s): 293061918 Plan: 1patient with bilateral lower extremity venous stasis ulcer with no evidence of any significant slough tissue from foul-smelling drainage and possible component of wound infection secondary cellulitis likely from gram-positive skin kajal gram-negative infection not excluded 2-patient also have a bilateral posterior thigh/gluteal area stage II pressure ulcer with no cellulitis 3-patient to continue with Unasyn, discontinue vancomycin as low clinical suspicious for MRSA and no culture were done and monitor clinical course closely Time with Patient: Less than 30
[2022-06-28 17:11] LABS: Glucose,Whole Blood 153 mg/dL (70-110)
[2022-06-28 21:16] LABS: Glucose,Whole Blood 117 mg/dL (70-110)
[2022-06-28] MEDS ORDERED: VANCOMYCIN 2,500 MG in SODIUM CHLORIDE 0.9% 500 ML 500 ML IVPB SCH (22:00)
[2022-06-28] MEDS: LOPERAMIDE 2 MG CAP PO PRN (22:01)
[2022-06-28] MEDS: ALPRAZolam 0.5 MG TAB PO PRN (23:22)
[2022-06-29] MEDS: HYDROcodone/APAP 10-325MG 1 EACH TAB PO SCH ×4 (06:04→23:28)
[2022-06-29] MEDS: AMPICILLIN-SULBACTAM 3 GM in SODIUM CHLORIDE 0.9% 100 ML IVPB SCH ×4 (06:04→23:28)
[2022-06-29 07:31] LABS: Glucose,Whole Blood 123 mg/dL (70-110)
[2022-06-29] MEDS: INSULIN ASPART (NovoLOG) 100 UNIT/ML VIAL SQ SCH ×4 (08:21→21:19)
[2022-06-29] MEDS: FLUCONAZOLE 150 MG TAB PO SCH (09:26)
[2022-06-29] MEDS: GABAPENTIN 100 MG CAP PO SCH ×2 (09:26→21:19)
[2022-06-29] MEDS: METOPROLOL TARTRATE 50 MG TAB PO SCH ×2 (09:27→21:19)
[2022-06-29] MEDS: PANTOPRAZOLE 40 MG/10 ML VIAL IVP SCH (09:27)
[2022-06-29 11:34] LABS: Glucose,Whole Blood 122 mg/dL (70-110)
[2022-06-29 11:37] LABS: Anion Gap 4.6 mmol/L (10.00-18.00); BUN/Creat Ratio 14.66 Ratio (12.00-20.00); Blood Urea Nitrogen 15.1 mg/dL (9.0-27.0); Calcium 9.3 mg/dL (8.7-10.3); Potassium 4.8 mmol/L (3.5-5.5)
[2022-06-29] MEDS ORDERED: FUROSEMIDE 10 MG/ML 4 ML VIAL IV STA (11:41)
--- NOTE | 2022-06-29 13:20 | P.PN ---
Subjective Progress Note Date: 06/29/22 52-year-old male patient with morbid obesity and chronic hypoxic respiratory failure and possibly chronic hypercapnic respiratory failure in addition to obstructive sleep apnea maintenance CPAP therapy on outpatient basis. The patient also reports to have a past medical history of diabetes, asthma, morbid obesity who presents to the emergency department with wounds to his posterior thighs. States that over the course of the past week he has been laying in bed more. He does have chronic or extremity wounds for which she sees wound care. Dressings were last placed on Saturday by Dr. Gallegos. He states that the wounds have now extended to his posterior thighs. He denies any fevers. Due to the p ain from the wounds he has been more weak. He did sustain a fall while attending to ambulate with his walker. He denies hitting his head or losing consciousness. He does have active drainage which she states is chronic for him. He denies fevers. No nausea or vomiting. No chest pain or shortness of breath. He does wear chronic oxygen. No other alleviating, precipitating or modifying factors. In terms of his breathing, no worsening shortness of breath. He has active symptoms of obstructive sleep apnea with chronic hypersomnia and sleepiness. He states that he has a machine at home and I'm not sure if he has been effectively being treated with his CPAP machine. No signs of any CO2 narcosis. His serum bicarb is a chronically elevated and currently is slightly higher than the usual baseline. Back in 04/23/2022 and a serum bicarb of 39 and a bicarb level at time of admission was 45. His current oxygenation is stable on 2 L of Oxymizer nasal cannula. Is afebrile. Chest x-ray shows no acute abnormalities other than some chronic thyromegaly on my pulmonary vessel congestion. Obviously this is a suboptimal chest x-ray because of his body habitus. The patient is awaiting one debridement. The patient is covered with a combination of Unasyn and vancomycin and Diflucan. He also takes diuretics at home in the form of Lasix 40 mg by mouth twice a day on an as-needed basis. On today's evaluation of 06/27/2022, the patient has not obtain his CPAP machine from home. Serum bicarb is at 44. The patient is currently on accommodation of Unasyn and vancomycin. Blood cultures are negative. Pulse ox is 97% liters of oxygen by nasal cannula. On today's evaluation of hypertensive thousand and 23, the patient's serum bicarb is slightly down at 43. The patient received 2 doses of Diamox yesterday. The patient also brought his BiPAP machine from home. This started out to be a BiPAP machine set at a pressure of 18/12 cm of water. This is a ResMed S9 cc machine which is essentially functional and the patient is using a nasal mask. I checked the machine and based on the compliance data, T2 the patient has not been using his machine for several months. I made r ecommendations for him to start the machine as of [facility]. On today's evaluation of 06/29/2022, the patient is feeling well. He has edema in lower extremities and he'll be given a dose of Lasix. He was given Diamox over the past 48 hours and his serum bicarbs dropped. Overnight, he also uses B iPAP at a pressure of 80 cm of water and the patient's treatment has been successful. He continues to receive antibiotics. No complaints. No signs of any CO2 narcosis. His resting comfortably in bed. IVs on the case. Labs from today shows a serum bicarb of 42 and a sodium levels of 140 with a potassium level of 4.8. Objective - Vital Signs Vital signs: Vital Signs Temp 97.8 F 06/29/22 11:30 Pulse 76 06/29/22 11:30 Resp 16 06/29/22 11:30 BP 118/70 06/29/22 11:30 Pulse Ox 100 06/29/22 11:30 FiO2 Intake & Output 06/28/22 06/29/22 06/29/22 18:59 06:59 18:59 Intake Total 100 Output Total 1100 750 Balance -1100 -650 Intake: Intake, IV Titration 100 Amount Ampicillin-Sulbactam 3 gm 100 In Sodium Chloride 0.9% 100 ml @ 200 mls/hr IVPB Q6HR [facility] Rx#:[id number] Output: Urine 1100 750 Other: Voiding Method External Catheter External Catheter # Voids 1 # Bowel Movements 1 1 - Exam Morbidly obese, calm and comfortable on 2 L of O2 nasal cannula Head exam was generally normal. There was no scleral icterus or corneal arcus. Mucous membranes were moist. Neck was supple and without jugular venous distension, thyromegaly, or carotid bruits. Carotids were easily palpable bilaterally. There was no adenopathy. Mallampati class IV with significant crowding of the posterior pharynx Lungs sounds are diminished in lung bases bilaterally. Cardiac exam revealed the PMI to be normally situated and sized. The rhythm was regular and no extrasystoles were noted during several minutes of auscultation. The first and second heart sounds were normal and physiologic splitting of the second heart sound was noted. There were no murmurs, rubs, clicks, or gallops. Abdomen is obese soft nontender organs cannot be palpated Extremities are chronically edematous and 1 in the posterior aspect of the lower extremities bilaterally, please refer to the photos Neurologically, the patient is awake and alert and there is no focal neurological deficits - Labs CBC & Chem 7: 06/28/22 05:30 06/29/22 05:31 Labs: Abnormal Lab Results - Last 24 Hours (Table) 06/28/22 06/28/22 06/29/22 Range/Units 17:10 21:11 05:31 Chloride 94 L (96-109) mmol/L Carbon Dioxide 42.0 H* (20.0-27.5) mmol/L Anion Gap 4.60 L (10.00-18.00) mmol/L Glucose 111 H (70-110) mg/dL POC Glucose (mg/dL) 153 H 117 H (70-110) mg/dL 06/29/22 06/29/22 Range/Units 07:23 11:34 Chloride (96-109) mmol/L Carbon Dioxide (20.0-27.5) mmol/L Anion Gap (10.00-18.00) mmol/L Glucose (70-110) mg/dL POC Glucose (mg/dL) 123 H 122 H (70-110) mg/dL Microbiology - Last 24 Hours (Table) 06/25/22 13:15 Blood Culture - Preliminary Blood 06/25/22 13:30 Blood Culture - Preliminary Blood Assessment and Plan Plan: Bilateral lower extremity once/pressure ulcers with superinfection currently on broad-spectrum antibiotics awaiting debridement, wound management is on the case. Does not look to be septic at all and the patient clinically does not look to be toxic Chronic hypoxic respiratory failure currently on 2 L of oxygen by nasal cannula Chronic hypercapnic respiratory failure Chronic restrictive lung disease due to morbid obesity with a body mass 61.1. Consider possibility of a chronic obesity hypoventilation syndrome Obstructive sleep apnea maintained on CPAP therapy on outpatient basis Chronic metabolic alkalosis with some interval worsening in the serum bicarb level. Could be related to diuretics. His baseline serum bicarb is around 39 Morbid obesity with a BMI of 61 Hypertension Diabetes mellitus Arnold-Chiari malformation with difficulty with mobility and gait Chronic anemia/anemia of chronic disease Plan We'll give a dose of Lasix 20 mg IV Monitor bicarb level No need for Diamox for today Continue BiPAP therapy Surgical debridement for the ones and antibiotics Serum bicarb is chronically elevated and the patient does not have any signs of CO2 narcosis Repeat bicarb level in the morning Continue BiPAP at a pressure of 18/12 cm of water. Continue current antibiotic coverage ID consult Wound care We will follow
--- NOTE | 2022-06-29 15:06 | P.PN ---
Subjective Progress Note Date: 06/29/22 Principal diagnosis: Bilateral lower extremity ulcer and cellulitis Patient is a 52-year-old morbidly obese -[place] male with a past medical history significant for diabetes mellitus hypertension sleep apnea and asthma patient also history of bilateral lower extremity venous stasis ulcer, presented to the hospital with weakness and worsening of the wound concerning for cellulitis also have a bilateral gluteal/upper thigh pressure ulcer. On today's evaluation that is 06/29/2022 patient continues to be afebrile, patient is breathing comfortably on 2 L nasal cannula oxygen, the patient denies chest pain , the patient did have occasional cough still complaining of di scomfort to the lower extremity, especially the time of dressing changes Objective - Vital Signs Vital signs: Vital Signs Temp 97.8 F 06/29/22 11:30 Pulse 76 06/29/22 11:30 Resp 16 06/29/22 11:30 BP 118/70 06/29/22 11:30 Pulse Ox 100 06/29/22 11:30 FiO2 Intake & Output 06/28/22 06/29/22 06/29/22 18:59 06:59 18:59 Intake Total 100 Output Total 1100 750 Balance -1100 -650 Intake: Intake, IV Titration 100 Amount Ampicillin-Sulbactam 3 gm 100 In Sodium Chloride 0.9% 100 ml @ 200 mls/hr IVPB Q6HR [facility] Rx#:[id number] Output: Urine 1100 750 Other: Voiding Method External Catheter External Catheter # Voids 1 # Bowel Movements 1 1 - Exam GENERAL DESCRIPTION: A middle-age male lying in bed in no distress RESPIRATORY SYSTEM: Unlabored breathing , decreased breath sounds at bases HEART: S1 S2 regular rate and rhythm , ABDOMEN: Soft , no tenderness EXTREMITIES: Bilateral lower extremities currently dressed - Labs CBC & Chem 7: 06/28/22 05:30 06/29/22 05:31 Labs: Abnormal Lab Results - Last 24 Hours (Table) 06/28/22 06/28/22 06/29/22 Range/Units 17:10 21:11 05:31 Chloride 94 L (96-109) mmol/L Carbon Dioxide 42.0 H* (20.0-27.5) mmol/L Anion Gap 4.60 L (10.00-18.00) mmol/L Glucose 111 H (70-110) mg/dL POC Glucose (mg/dL) 153 H 117 H (70-110) mg/dL 06/29/22 06/29/22 Range/Units 07:23 11:34 Chloride (96-109) mmol/L Carbon Dioxide (20.0-27.5) mmol/L Anion Gap (10.00-18.00) mmol/L Glucose (70-110) mg/dL POC Glucose (mg/dL) 123 H 122 H (70-110) mg/dL Microbiology - Last 24 Hours (Table) 06/25/22 13:15 Blood Culture - Preliminary Blood 06/25/22 13:30 Blood Culture - Preliminary Blood Assessment and Plan (1) Lower extremity cellulitis Current Visit: Yes Status: Acute Code(s): L03.119 - CELLULITIS OF UNSPECIFIED PART OF LIMB SNOMED Code(s): 115507097 Plan: 1patient with bilateral lower extremity venous stasis ulcer with no evidence of any significant slough tissue from foul-smelling drainage and possible component of wound infection secondary cellulitis likely from gram-positive skin kajal gr am-negative infection not excluded 2-patient also have a bilateral posterior thigh/gluteal area stage II pressure ulcer with no cellulitis 3-patient to continue with Unasyn, for short course and continue local wound care per his wound care team Time with Patient: Less than 30
[2022-06-29] MEDS: COLLAGENASE 250 UNIT/GM OINTMENT 30 GM TUBE TOPICAL SCH (15:34)
[2022-06-29 17:11] LABS: Glucose,Whole Blood 155 mg/dL (70-110)
[2022-06-29 20:47] LABS: Glucose,Whole Blood 159 mg/dL (70-110)
[2022-06-29] MEDS: ALPRAZolam 0.5 MG TAB PO PRN (21:19)
--- NOTE | 2022-06-29 22:47 | P.PN ---
Subjective Progress Note Date: 06/29/22 Pt is feeling about the same, no fever, chills, continues to complain of lower extremity pain with dressing changes. Blood cultures with no growth. He continues on IV unaasyn per ID. Objective - Vital Signs Vital signs: Vital Signs Temp 97.8 F 06/29/22 11:30 Pulse 76 06/29/22 11:30 Resp 16 06/29/22 11:30 BP 118/70 06/29/22 11:30 Pulse Ox 100 06/29/22 11:30 FiO2 Intake & Output 06/29/22 06/29/22 06/30/22 06:59 18:59 06:59 Intake Total 100 100 Output Total 750 1950 Balance -650 -1850 Weight 176.901 kg Intake: Intake, IV Titration 100 100 Amount Ampicillin-Sulbactam 3 gm 100 100 In Sodium Chloride 0.9% 100 ml @ 200 mls/hr IVPB Q6HR [facility] Rx#:[id number] Output: Urine 750 1950 Other: Voiding Method External Catheter # Voids 1 # Bowel Movements 1 - Exam Gen: morbidly obese CV: RRR Lungs: CTAB Ext: keon LE wrapped in gauze - Labs CBC & Chem 7: 06/28/22 05:30 06/29/22 05:31 Labs: Abnormal Lab Results - Last 24 Hours (Table) 06/29/22 06/29/22 06/29/22 Range/Units 05:31 07:23 11:34 Chloride 94 L (96-109) mmol/L Carbon Dioxide 42.0 H* (20.0-27.5) mmol/L Anion Gap 4.60 L (10.00-18.00) mmol/L Glucose 111 H (70-110) mg/dL POC Glucose (mg/dL) 123 H 122 H (70-110) mg/dL 06/29/22 06/29/22 Range/Units 17:10 20:38 Chloride (96-109) mmol/L Carbon Dioxide (20.0-27.5) mmol/L Anion Gap (10.00-18.00) mmol/L Glucose (70-110) mg/dL POC Glucose (mg/dL) 155 H 159 H (70-110) mg/dL Microbiology - Last 24 Hours (Table) 06/25/22 13:15 Blood Culture - Preliminary Blood 06/25/22 13:30 Blood Culture - Preliminary Blood Assessment and Plan Plan: Continue with present treatment, closey monitor cultures. Local wound care. Continue with CPAP compliance.Awaiting [facility] bed discharge planning in progress
[2022-06-30 03:53] VITALS: RESP 18
[2022-06-30] MEDS: HYDROcodone/APAP 10-325MG 1 EACH TAB PO SCH ×2 (06:08→12:15)
[2022-06-30] MEDS: AMPICILLIN-SULBACTAM 3 GM in SODIUM CHLORIDE 0.9% 100 ML IVPB SCH ×2 (06:11→12:17)
[2022-06-30 06:21] LABS: African American GFR (CKD) 88 (>60 ml/min/1.73 sqM); Non-African American GFR(CKD) 76 (>60 ml/min/1.73 sqM)
[2022-06-30 07:49] LABS: Glucose,Whole Blood 120 mg/dL (70-110)
[2022-06-30] MEDS: INSULIN ASPART (NovoLOG) 100 UNIT/ML VIAL SQ SCH ×2 (07:57→11:41)
[2022-06-30] MEDS: PANTOPRAZOLE 40 MG/10 ML VIAL IVP SCH (08:33)
[2022-06-30] MEDS: FLUCONAZOLE 150 MG TAB PO SCH (08:33)
[2022-06-30] MEDS: GABAPENTIN 100 MG CAP PO SCH (08:33)
[2022-06-30] MEDS: METOPROLOL TARTRATE 50 MG TAB PO SCH (08:33)
[2022-06-30] MEDS: COLLAGENASE 250 UNIT/GM OINTMENT 30 GM TUBE TOPICAL SCH (08:34)
[2022-06-30 09:34] LABS: Blood Urea Nitrogen 20 mg/dL (9-20); Calcium 8.8 mg/dL (8.4-10.2); Chloride 90 mmol/L (98-107); Glucose 131 mg/dL (74-99); Potassium 4.5 mmol/L (3.5-5.1); Sodium 134 mmol/L (137-145)
[2022-06-30 09:41] LABS: Anion Gap 3 mmol/L
[2022-06-30 10:00] LABS: Carbon Dioxide 41 mmol/L (22-30)
[2022-06-30 11:28] LABS: Glucose,Whole Blood 136 mg/dL (70-110)
[2022-06-30 12:03] VITALS: BP 145/79; PULSE 78; TEMP 97.6
--- NOTE | 2022-06-30 12:39 | P.DS ---
Providers Date of admission: 06/25/22 14:22 Attending physician: Eren Godoy MD Consults: 06/26/22 08:41 Consult Physician Routine Consulting Provider: Richard Pérez Consult Reason/Comments: cellulitis Do you want consulting provider notified?: Yes 06/26/22 12:05 Consult Physician Routine Consulting Provider: Warner Tipton Consult Reason/Comments: Elevated CO2 Do you want consulting provider notified?: Yes Primary care physician: Mindy [facility] Hospital Course: Final Diagnosis Acute on chronic bilateral lower extremity venous stasis ulceration with bilateral stage 2 posterior thigh/gluteal pressure ulcurations. Chronic hypoxic, hypercapnic respiratory failure, on 2 L nasal cannula Chronic obesity hypoventilation syndrome Obstructive sleep apnea maintained on CPAP therapy on outpatient basis Diabetes mellitus II Hypertension Moderate obesity, BMI 61 Metabolic alkalosis, acute on chronic Hypertension Arnold-Chiari malformation Gait dysfunction secondary to the above, uses an electric scooter Full Code Discharge disposition Patient is stable for discharge. Patient has PICC line in place and to complete 10 days of antibiotic therapy with IV unasyn. Local wound care orders in place to change daily and follow up with [facility] wound care. Patient to continue on home oral lasix dosing twice a day as needed. Recommend to repeat labs in 2 to 3 days. Follow up with Dr. Pérez on discharge. Continue to utilize CPAP machine at . Hospital Course This a 52-year-old gentleman with past medical history significant for morbid obesity, chronic hypoxic, hypercapnic respiratory failure, asthma, diabetes mellitus, and multiple other medical issues ,follows in the wound care center, for chronic ulcers of bilateral calves. Recently had lower extremity dressings applied last week by Dr. Gallegos on Saturday. Reports he sustained a fall while ambulating with walker, with subsequent increased weakness, increased sedentary lifestyle-laying in bed more with wounds now extending into his bilateral posterior thighs. Denies fevers or chills. Denies syncope or head trauma secondary to fall. Denies chest pain, palpitations or increased shortness of breath. Denies lightheadedness, dizziness or focal deficits. Denies nausea vomiting. Patient also having issues with bus transportation to the wound care center. Chest x-ray reporting moderate cardiomegaly and possible mild pulmonary vascular congestion. Maintaining O2 sats in the 90s to 100 on 2 L nasal cannula. Pelvis x-ray noted. Patient is admitted to the hospital for management of bilateral lower extremity wounds and PT/OT evaluation. Wound care and infectious disease have been consulted. Patient received IV antibiotics with IV unasyn while inpatient. Patient had PICC line placed and will discharge to [facility] on 10 days of IV unasyn per infectious disease. wound care with santyl to the bilateral lower extremity ulcers to change daily. Patient is Afebrile, normal WBC. Patient has been evaluated by pulmonary and recommending to continue on CPAP at , patient has been noncompliant with this at home per the records from the machine. Patient has been wearing in the hospital. Dressing changes are noted to be uncomfortable for the patient and he is reporting discomfort with them but today does state the pain is better than yesterday. He is receiving oral norco every 6 hours for this and would recommending timing dressing changes with pain management. Patient did receive a dose of IV lasix x 1 yesterday. His sodium is at 134. He will have repeat labs CBC and BMP done in 2 to 3 days. No complaints of chest pain, no shortness of breath. He is tolerating diet. No nasuea, vomiting or diarrhea. Lungs are clear. S1 S2 auscultated, abdomen is soft and nontender. He has bilateral lower extremity dressings in place with CJ wrap to knee. Patient is alert x3, generalized weakness with no focal neurological deficits. Patient will be discharge to subacute rehab today. Please see medication reconciliation for a list of current medication. Thank you for allowing us to participate in the care of this patient. The impression and plan of care has been dictated by Princess Herman, Nurse Practitioner as directed. Dr. Louise MD I have performed a history and physical examination and medical decision making of this patient, discussed the same with the dictator, and agree with the dictators assessment and plan as written, documented as a scribe. Based on total visit time, I have performed more than 50% of this visit. Patient Condition at Discharge: Stable Plan - Discharge Summary Discharge Rx Participant: Yes New Discharge Prescriptions: New Collagenase [Santyl Ointment] 1 applic TOPICAL DAILY each Ampicillin-Sulbactam [Unasyn 3 gm vial] 3 gm IVPB Q6HR 10 Days #40 each Fluconazole [Diflucan] 150 mg PO DAILY #5 tab HYDROcodone/APAP 10-325MG [Scurry 10-325] 1 each PO Q6H #4 tab Famotidine [Pepcid] 20 mg PO DAILY #30 tablet ALPRAZolam [Xanax] 0.5 mg PO BID PRN #2 tab PRN Reason: Anxiety Continue Metoprolol Tartrate [Lopressor] 50 mg PO BID tab Ibuprofen [Motrin] 800 mg PO Q12H Gabapentin [Neurontin] 100 mg PO BID #4 cap Discontinued Hydrocodone/Acetaminophen [Scurry 10-325] 1 tab PO QID Furosemide [Lasix] 40 mg PO BID PRN #0 PRN Reason: Edema Potassium Gluconate 99 mg PO DAILY PRN PRN Reason: w/Lasix Discharge Medication List Metoprolol Tartrate [Lopressor] 50 mg PO BID tab 04/23/22 [Rx] Ibuprofen [Motrin] 800 mg PO Q12H 06/26/22 [History] Collagenase [Santyl Ointment] 1 applic TOPICAL DAILY each 06/29/22 [Rx] Fluconazole [Diflucan] 150 mg PO DAILY #5 tab 06/29/22 [Rx] ALPRAZolam [Xanax] 0.5 mg PO BID PRN #2 tab 06/30/22 [Rx] Ampicillin-Sulbactam [Unasyn 3 gm vial] 3 gm IVPB Q6HR 10 Days #40 each 06/30/22 [Rx] Famotidine [Pepcid] 20 mg PO DAILY #30 tablet 06/30/22 [Rx] Gabapentin [Neurontin] 100 mg PO BID #4 cap 06/30/22 [Rx] HYDROcodone/APAP 10-325MG [Scurry 10-325] 1 each PO Q6H #4 tab 06/30/22 [Rx] Follow up Appointment(s)/Referral(s): [facility] [NON-STAFF] - 1 Week Mindy Jensen MD [Primary Care Provider] - 1 Week (After DC from subacute rehab) Richard Pérez MD [STAFF PHYSICIAN] - 1 Week [facility] [NON-STAFF] - 1-2 Days Ambulatory/Diagnostic Orders: Basic Metabolic Panel [LAB.AMB] Time Frame: 3 Days, Location: None Selected Complete Blood Count w/diff [LAB.AMB] Location: None Selected Activity/Diet/Wound Care/Special Instructions: ECF: cbc,bmp in 3 days Continue IV unasyn for 10 days to finish course of IV antibiotics. Local wound care with santyl moist gauze and gauze wrap and double 4 inch CJ wrap from base of toes to thighs to change daily Follow up with primary care Dr. Mindy Jensen Follow up with infectious disease and wound care. Discharge Disposition: TRANSFER TO SNF/ECF
--- NOTE | 2022-06-30 12:47 | P.PN ---
Subjective Progress Note Date: 06/30/22 52-year-old male patient with morbid obesity and chronic hypoxic respiratory failure and possibly chronic hypercapnic respiratory failure in addition to obstructive sleep apnea maintenance CPAP therapy on outpatient basis. The patient also reports to have a past medical history of diabetes, asthma, morbid obesity who presents to the emergency department with wounds to his posterior thighs. States that over the course of the past week he has been laying in bed more. He does have chronic or extremity wounds for which she sees wound care. Dressings were last placed on Saturday by Dr. Gallegos. He states that the wounds have now extended to his posterior thighs. He denies any fevers. Due to the p ain from the wounds he has been more weak. He did sustain a fall while attending to ambulate with his walker. He denies hitting his head or losing consciousness. He does have active drainage which she states is chronic for him. He denies fevers. No nausea or vomiting. No chest pain or shortness of breath. He does wear chronic oxygen. No other alleviating, precipitating or modifying factors. In terms of his breathing, no worsening shortness of breath. He has active symptoms of obstructive sleep apnea with chronic hypersomnia and sleepiness. He states that he has a machine at home and I'm not sure if he has been effectively being treated with his CPAP machine. No signs of any CO2 narcosis. His serum bicarb is a chronically elevated and currently is slightly higher than the usual baseline. Back in 04/23/2022 and a serum bicarb of 39 and a bicarb level at time of admission was 45. His current oxygenation is stable on 2 L of Oxymizer nasal cannula. Is afebrile. Chest x-ray shows no acute abnormalities other than some chronic thyromegaly on my pulmonary vessel congestion. Obviously this is a suboptimal chest x-ray because of his body habitus. The patient is awaiting one debridement. The patient is covered with a combination of Unasyn and vancomycin and Diflucan. He also takes diuretics at home in the form of Lasix 40 mg by mouth twice a day on an as-needed basis. On today's evaluation of 06/27/2022, the patient has not obtain his CPAP machine from home. Serum bicarb is at 44. The patient is currently on accommodation of Unasyn and vancomycin. Blood cultures are negative. Pulse ox is 97% liters of oxygen by nasal cannula. On today's evaluation of hypertensive thousand and 23, the patient's serum bicarb is slightly down at 43. The patient received 2 doses of Diamox yesterday. The patient also brought his BiPAP machine from home. This started out to be a BiPAP machine set at a pressure of 18/12 cm of water. This is a ResMed S9 cc machine which is essentially functional and the patient is using a nasal mask. I checked the machine and based on the compliance data, T2 the patient has not been using his machine for several months. I made r ecommendations for him to start the machine as of [facility]. On today's evaluation of 06/29/2022, the patient is feeling well. He has edema in lower extremities and he'll be given a dose of Lasix. He was given Diamox over the past 48 hours and his serum bicarbs dropped. Overnight, he also uses B iPAP at a pressure of 80 cm of water and the patient's treatment has been successful. He continues to receive antibiotics. No complaints. No signs of any CO2 narcosis. His resting comfortably in bed. IVs on the case. Labs from today shows a serum bicarb of 42 and a sodium levels of 140 with a potassium level of 4.8. On 06/30/2022, no complaints, bicarb is at down to 41 and the patient utilizing his BiPAP overnight Objective - Vital Signs Vital signs: Vital Signs Temp 98.7 F 06/30/22 07:37 Pulse 96 06/30/22 07:37 Resp 18 06/30/22 07:37 BP 141/90 06/30/22 07:37 Pulse Ox 94 L 06/30/22 07:37 FiO2 Intake & Output 06/29/22 06/30/22 06/30/22 18:59 06:59 18:59 Intake Total 100 200 Output Total 1950 1200 800 Balance -1850 -1200 -600 Weight 176.901 kg Intake: Intake, IV Titration 100 200 Amount Ampicillin-Sulbactam 3 gm 100 200 In Sodium Chloride 0.9% 100 ml @ 200 mls/hr IVPB Q6HR [facility] Rx#:[id number] Output: Urine 1950 1200 800 Other: Voiding Method External Catheter - Exam Morbidly obese, calm and comfortable on 2 L of O2 nasal cannula Head exam was generally normal. There was no scleral icterus or corneal arcus. Mucous membranes were moist. Neck was supple and without jugular venous distension, thyromegaly, or carotid bruits. Carotids were easily palpable bilaterally. There was no adenopathy. Mallampati class IV with significant crowding of the posterior pharynx Lungs sounds are diminished in lung bases bilaterally. Cardiac exam revealed the PMI to be normally situated and sized. The rhythm was regular and no extrasystoles were noted during several minutes of auscultation. The first and second heart sounds were normal and physiologic splitting of the second heart sound was noted. There were no murmurs, rubs, clicks, or gallops. Abdomen is obese soft nontender organs cannot be palpated Extremities are chronically edematous and 1 in the posterior aspect of the lower extremities bilaterally, please refer to the photos Neurologically, the patient is awake and alert and there is no focal neurological deficits - Labs CBC & Chem 7: 06/28/22 05:30 06/30/22 05:18 Labs: Abnormal Lab Results - Last 24 Hours (Table) 06/29/22 06/29/22 06/29/22 Range/Units 05:31 11:34 17:10 Sodium (137-145) mmol/L Chloride 94 L (96-109) mmol/L Carbon Dioxide 42.0 H* (20.0-27.5) mmol/L Anion Gap 4.60 L (10.00-18.00) mmol/L Glucose 111 H (70-110) mg/dL POC Glucose (mg/dL) 122 H 155 H (70-110) mg/dL 06/29/22 06/30/22 06/30/22 Range/Units 20:38 05:18 07:44 Sodium 134 L (137-145) mmol/L Chloride 90 L (96-109) mmol/L Carbon Dioxide 41 H* (20.0-27.5) mmol/L Anion Gap (10.00-18.00) mmol/L Glucose 131 H (70-110) mg/dL POC Glucose (mg/dL) 159 H 120 H (70-110) mg/dL Microbiology - Last 24 Hours (Table) 06/25/22 13:15 Blood Culture - Preliminary Blood 06/25/22 13:30 Blood Culture - Preliminary Blood Assessment and Plan Plan: Bilateral lower extremity once/pressure ulcers with superinfection currently on broad-spectrum antibiotics awaiting debridement, wound management is on the case. Does not look to be septic at all and the patient clinically does not look to be toxic Chronic hypoxic respiratory failure currently on 2 L of oxygen by nasal cannula Chronic hypercapnic respiratory failure Chronic restrictive lung disease due to morbid obesity with a body mass 61.1. Consider possibility of a chronic obesity hypoventilation syndrome Obstructive sleep apnea maintained on CPAP therapy on outpatient basis Chronic metabolic alkalosis with some interval worsening in the serum bicarb level. Could be related to diuretics. His baseline serum bicarb is around 39 Morbid obesity with a BMI of 61 Hypertension Diabetes mellitus Arnold-Chiari malformation with difficulty with mobility and gait Chronic anemia/anemia of chronic disease Plan No active pulmonary issues Continue BiPAP Serum bicarb is at 41
--- NOTE | 2022-07-01 16:17 | P.PN ---
Subjective Progress Note Date: 06/30/22 Principal diagnosis: Bilateral lower extremity ulcer and cellulitis Patient is a 52-year-old morbidly obese -[place]is[place] male with a past medical history significant for diabetes mellitus hypertension sleep apnea and asthma patient also history of bilateral lower extremity venous stasis ulcer, presented to the hospital with weakness and worsening of the wound concerning for cellulitis also have a bilateral gluteal/upper thigh pressure ulcer. On today's evaluation that is 06/30/2022 patient remains to be afebrile, patient is breathing comfortably on 2 L nasal cannula oxygen, the patient denies chest pain , the patient did have occasional cough but no sputum production, the patient discomfort to the lower extremity, has decreased in intensity, patient has been anxious about going to [facility] Objective - Vital Signs Vital signs: Vital Signs Temp 97.6 F 06/30/22 11:22 Pulse 78 06/30/22 11:22 Resp 18 06/30/22 11:22 BP 145/79 06/30/22 11:22 Pulse Ox 100 06/30/22 11:22 FiO2 Intake & Output 06/29/22 06/30/22 06/30/22 18:59 06:59 18:59 Intake Total 100 200 Output Total 1950 1200 800 Balance -1850 -1200 -600 Weight 176.901 kg Intake: Intake, IV Titration 100 200 Amount Ampicillin-Sulbactam 3 gm 100 200 In Sodium Chloride 0.9% 100 ml @ 200 mls/hr IVPB Q6HR [facility] Rx#:[id number] Output: Urine 1950 1200 800 Other: Voiding Method External Catheter External Catheter - Exam GENERAL DESCRIPTION: A middle-age male lying in bed in no distress RESPIRATORY SYSTEM: Unlabored breathing , decreased breath sounds at bases HEART: S1 S2 regular rate and rhythm , ABDOMEN: Soft , no tenderness EXTREMITIES: Bilateral lower extremities currently dressed - Labs CBC & Chem 7: 06/28/22 05:30 06/30/22 05:18 Labs: Abnormal Lab Results - Last 24 Hours (Table) 06/29/22 06/29/22 06/30/22 Range/Units 17:10 20:38 05:18 Sodium 134 L (137-145) mmol/L Chloride 90 L (98-107) mmol/L Carbon Dioxide 41 H* (22-30) mmol/L Glucose 131 H (74-99) mg/dL POC Glucose (mg/dL) 155 H 159 H (70-110) mg/dL 06/30/22 06/30/22 Range/Units 07:44 11:25 Sodium (137-145) mmol/L Chloride (98-107) mmol/L Carbon Dioxide (22-30) mmol/L Glucose (74-99) mg/dL POC Glucose (mg/dL) 120 H 136 H (70-110) mg/dL Microbiology - Last 24 Hours (Table) 06/25/22 13:15 Blood Culture - Preliminary Blood 06/25/22 13:30 Blood Culture - Preliminary Blood Assessment and Plan (1) Lower extremity cellulitis Status: Acute Code(s): L03.119 - CELLULITIS OF UNSPECIFIED PART OF LIMB SNOMED Code(s): 566688332 Plan: 1patient with bilateral lower extremity venous stasis ulcer with no evidence of any significant slough tissue from foul-smelling drainage and possible component of wound infection secondary cellulitis likely from gram-positive skin kajal gram-negative infection not excluded 2-patient also have a bilateral posterior thigh/gluteal area stage II pressure ulcer with no cellulitis 3-patient to continue with Unasyn 10 days on discharge and close outpatient follow-up discussed with the admitting team working on discharge Time with Patient: Less than 30
== END 2022-06-30 13:47 | DRG 593 ==
LOC: EC 10:30 → 5NMEDONC 14:22
PROVIDERS: ADMIT Family Medicine; ATTEND Family Medicine
PROC: 02HV33Z Insertion of Infusion Device into Superior Vena Cava, Percutaneous Approach (ICD-10-PCS; principal; 2022-06-27 09:30)
PROC: 5A09357 Assistance with Respiratory Ventilation, Less than 24 Consecutive Hours, Continuous Positive Airway Pressure (ICD-10-PCS; 2022-06-28)
DX: L89.322 Pressure ulcer of left buttock, stage 2 (principal); E66.2 Morbid (severe) obesity with alveolar hypoventilation; J96.12 Chronic respiratory failure with hypercapnia; E87.3 Alkalosis; J96.11 Chronic respiratory failure with hypoxia; Z68.44 Body mass index [BMI] 60.0-69.9, adult; I87.333 Chronic venous hypertension (idiopathic) with ulcer and inflammation of bilateral lower extremity; L97.211 Non-pressure chronic ulcer of right calf limited to breakdown of skin; L97.221 Non-pressure chronic ulcer of left calf limited to breakdown of skin; L03.115 Cellulitis of right lower limb; L03.116 Cellulitis of left lower limb; L89.312 Pressure ulcer of right buttock, stage 2; D63.8 Anemia in other chronic diseases classified elsewhere; E11.622 Type 2 diabetes mellitus with other skin ulcer; Z28.310 Unvaccinated for COVID-19; I11.9 Hypertensive heart disease without heart failure; L89.892 Pressure ulcer of other site, stage 2; J45.909 Unspecified asthma, uncomplicated; R26.9 Unspecified abnormalities of gait and mobility; R32 Unspecified urinary incontinence; Z91.199 Patient's noncompliance with other medical treatment and regimen due to unspecified reason; Z99.81 Dependence on supplemental oxygen; Z79.891 Long term (current) use of opiate analgesic; Z79.899 Other long term (current) drug therapy; Z87.728 Personal history of other specified (corrected) congenital malformations of nervous system and sense organs; Z71.3 Dietary counseling and surveillance; Z98.84 Bariatric surgery status; W19.XXXA Unspecified fall, initial encounter
CPT/HCPCS: 36573; 71046; 72170; 80048; 80053; 80202; 83036; 83605; 83735; 83880; 84484; 85025; 85027; 85610; 85652; 85730; 86140; 87324; 93005; 94660; 94760; 96365; 96375; 99285

== ENCOUNTER 2022-08-03 22:33 | Emergency (ER) | payer MEDICARE ==
[2022-08-03 23:23] VITALS: TEMP 97.8
--- NOTE | 2022-08-04 00:18 | ED ---
General Adult HPI - General Chief complaint: Extremity Injury, Lower Stated complaint: Infection Time Seen by Provider: 08/03/22 23:41 Source: EMS, RN notes reviewed Mode of arrival: EMS Limitations: no limitations - History of Present Illness Initial comments: 52-year-old -[place] male With a past medical history significant for morbid obesity and chronic wounds of his lower extremities presents to the emergency department with a chief complaint of wound check. Patient reports that he was recently discharged from [facility] in [place]. He reports that he had an at home visit from his home care nurse who reports wounds look worse according to her. He denies any fevers, chills, chest pain, shortness of breath. - Related Data Home Medications Medication Instructions Recorded Confirmed Ibuprofen [Motrin] 800 mg PO Q12H 06/26/22 06/26/22 Previous Rx's Medication Instructions Recorded Metoprolol Tartrate [Lopressor] 50 mg PO BID tab 04/23/22 Collagenase [Santyl Ointment] 1 applic TOPICAL DAILY each 06/29/22 Fluconazole [Diflucan] 150 mg PO DAILY #5 tab 06/29/22 ALPRAZolam [Xanax] 0.5 mg PO BID PRN #2 tab 06/30/22 Ampicillin-Sulbactam [Unasyn 3 gm 3 gm IVPB Q6HR 10 Days #40 each 06/30/22 vial] Famotidine [Pepcid] 20 mg PO DAILY #30 tablet 06/30/22 Gabapentin [Neurontin] 100 mg PO BID #4 cap 06/30/22 HYDROcodone/APAP 10-325MG [[place] 1 each PO Q6H #4 tab 06/30/22 10-325] Cephalexin [Keflex] 500 mg PO Q6HR #40 cap 08/04/22 Allergies Allergy/AdvReac Type Severity Reaction Status Date / Time No Known Allergies Allergy Verified 08/03/22 23:16 Review of Systems ROS Statement: Those systems with pertinent positive or pertinent negative responses have been documented in the HPI. ROS Other: All systems not noted in ROS Statement are negative. Past Medical History Past Medical History: Asthma, Diabetes Mellitus, Hypertension, Sleep Apnea/CPAP/BIPAP Additional Past Medical History / Comment(s): Chiari malformation History of Any Multi-Drug Resistant Organisms: None Reported Past Surgical History: Hernia Repair Additional Past Surgical History / Comment(s): Brain surgeryx2, left wrist surgery, lap band Past Anesthesia/Blood Transfusion Reactions: No Reported Reaction Past Psychological History: No Psychological Hx Reported Smoking Status: Never smoker Past Alcohol Use History: Occasional Past Drug Use History: Marijuana - Past Family History Father Family Medical History: No Reported History General Exam - General Exam Comments Initial Comments: General: Alert, in no acute distress Head: atraumatic normocephalic. Eyes PERRL, EOMI intact, mucous membranes moist Respiratory: Lungs clear to auscultation bilaterally Cardiovascular: Heart rate regular rate and rhythm Abdominal: Soft without guarding or rebound Extremities: Normal inspection with full range of motion and normal capillary refill, bilateral calfs with stage 2 pressure wounds with tenderness, witthout marked surrounding erythema or edema, no purulent discharge noted. Active serous drainage Neuroogic: alert and oriented 3, CN II-XII intact, able to ambulate with steady gait Skin: warm dry and intact with normal color Limitations: no limitations Course Vital Signs 08/03/22 08/04/22 23:16 01:19 Temperature 97.8 F Pulse Rate 105 H 64 Respiratory 18 16 Rate Blood Pressure 124/96 130/84 O2 Sat by Pulse 100 100 Oximetry Medical Decision Making - Medical Decision Making Was pt. sent in by a medical professional or institution (, PA, PARCEL POST WEIGHER, urgent care, hospital, or group home...) When possible be specific @ -[No] Did you speak to anyone other than the patient for history (EMS, parent, family, police, friend...)? What history was obtained from this source @ -[No] Did you review nursing and triage notes (agree or disagree)? Why? @ -[I reviewed and agree with nursing and triage notes] Were old charts reviewed (outside hosp., previous admission, EMS record, old EKG, old radiological studies, urgent care reports/EKG's, group home records)? Report findings @ -[No old charts were reviewed] Differential Diagnosis (chest pain, altered mental status, abdominal pain women, abdominal pain men, vaginal bleeding, weakness, fever, dyspnea, syncope, headache, dizziness, GI bleed, back pain, seizure, CVA, palpatations, mental health, musculoskeletal)? @ -[not applicable] EKG interpreted by me (3pts min.). @ -[As above] X-rays interpreted by me (1pt min.). @ -[None done] CT interpreted by me (1pt min.). @ -[None done] U/S interpreted by me (1pt. min.). @ -[None done] What testing was considered but not performed or refused? (CT, X-rays, U/S, labs)? Why? @ -[None] What meds were considered but not given or refused? Why? @ -[None] Did you discuss the management of the patient with other professionals (professionals i.e. , PA, PARCEL POST WEIGHER, lab, RT, psych nurse, mental health social worker, yard hostler, teacher, surface to air weapons officer, family preservation caseworker)? Give summary @ -[No] Was smoking cessation discussed for >3mins.? @ -[No] Was critical care preformed (if so, how long)? @ -[No] Were there social determinants of health that impacted care today? How? (Homelessness, low income, unemployed, alcoholism, drug addiction, transportation, low edu. Level, literacy, decrease access to med. care, retirement, rehab)? @ -[No] Was there de-escalation of care discussed even if they declined (Discuss DNR or withdrawal of care, Hospice)? DNR status @ -[No] What co-morbidities impacted this encounter? (DM, HTN, Smoking, COPD, CAD, Cancer, CVA, ARF, Chemo, Hep., AIDS, mental health diagnosis, sleep apnea, morbid obesity)? @ -[None] Was patient admitted / discharged? Hospital course, mention meds given and route, prescriptions, significant lab abnormalities, going to OR and other pertinent info. @ -Discharged. 52-year-old male who presents the emergency department with wound check. Patient had a thorough history and physical exam performed on the ED. Physical exam is essentially unremarkable heart rate regular rate and rhythm, lungs clear to auscultation bilaterally, abdomen soft and non-tender. Bilateral lower extremities with stage II pressor wounds to cast. 2+ DP/PT pulses bilaterally Patient had lab work performed which was negative. I discussed the results in detail with the patient verbalized understanding and all questions were addressed. Patient was given prescription for Keflex. Return precautions were discussed at length. Patient discharged in stable condition via EMS. Case discussed with Dr. Bayudan, ECP who agrees with plan of care. Undiagnosed new problem with uncertain prognosis? @ -[No] Drug Therapy requiring intensive monitoring for toxicity (Heparin, Nitro, Insulin, Cardizem)? @ -[No] Were any procedures done? @ -[No] Diagnosis/symptom? @ -Wound Check - Chronic Wound of Bilateral Lower Extremity Acute, or Chronic, or Acute on Chronic? @ -Acute Uncomplicated (without systemic symptoms) or Complicated (systemic symptoms)? @ -Uncomplicated Side effects of treatment? @ -[No] Exacerbation, Progression, or Severe Exacerbation? @ -[No] Poses a threat to life or bodily function? How? (Chest pain, [place], [place], pneumonia, PE, COPD, DKA, ARF, appy, cholecystitis, CVA, Diverticulitis, Homicidal, Suicidal, threat to staff... and all critical care pts) @ -Low likelihood - Lab Data Result diagrams: 08/03/22 23:30 08/03/22 23:30 Lab Results 08/03/22 08/03/22 08/03/22 Range/Units 23:30 23:30 23:30 WBC 9.1 (3.8-10.6) k/uL RBC 3.57 L (4.30-5.90) m/uL Hgb 9.1 L (13.0-17.5) gm/dL Hct 31.8 L (39.0-53.0) % MCV 89.1 (80.0-100.0) fL MCH 25.6 (25.0-35.0) pg MCHC 28.7 L (31.0-37.0) g/dL RDW 14.5 (11.5-15.5) % Plt Count 215 (150-450) k/uL MPV 8.0 Neutrophils % 80 % Lymphocytes % 10 % Monocytes % 9 % Eosinophils % 1 % Basophils % 0 % Neutrophils # 7.2 (1.3-7.7) k/uL Lymphocytes # 0.9 L (1.0-4.8) k/uL Monocytes # 0.8 (0-1.0) k/uL Eosinophils # 0.1 (0-0.7) k/uL Basophils # 0.0 (0-0.2) k/uL Hypochromasia Marked Sodium 134 L (137-145) mmol/L Potassium 4.8 (3.5-5.1) mmol/L Chloride 89 L (98-107) mmol/L Carbon Dioxide 40 H (22-30) mmol/L Anion Gap 5 mmol/L BUN 10 (9-20) mg/dL Creatinine 1.02 (0.66-1.25) mg/dL Est GFR (CKD-EPI)AfAm >90 (>60 ml/min/1.73 sqM) Est GFR (CKD-EPI)NonAf 83 (>60 ml/min/1.73 sqM) Glucose 111 H (74-99) mg/dL Plasma Lactic Acid Rich 1.3 (0.7-2.0) mmol/L Calcium 8.6 (8.4-10.2) mg/dL Total Bilirubin 0.4 (0.2-1.3) mg/dL AST 16 L (17-59) U/L ALT 11 (4-49) U/L Alkaline Phosphatase 74 (38-126) U/L Total Protein 6.7 (6.3-8.2) g/dL Albumin 3.2 L (3.5-5.0) g/dL Disposition Clinical Impression: Morbid obesity, Chronic wound of extremity Disposition: HOME SELF-CARE Condition: Stable Additional Instructions: PLease return to the nearest emergency department if symptoms worsen or persist Prescriptions: Cephalexin [Keflex] 500 mg PO Q6HR #40 cap Is patient prescribed a controlled substance at d/c from ED?: No Referrals: Mindy Jensen MD [Primary Care Provider] - 1-2 days Time of Disposition: 01:08
[2022-08-04 00:51] LABS: ALT 11 U/L (4-49); AST 16 U/L (17-59); African American GFR (CKD) >90 (>60 ml/min/1.73 sqM); Albumin 3.2 g/dL (3.5-5.0); Alkaline Phosphatase 74 U/L (38-126); Anion Gap 5 mmol/L; Blood Urea Nitrogen 10 mg/dL (9-20); Calcium 8.6 mg/dL (8.4-10.2); Chloride 89 mmol/L (98-107); Glucose 111 mg/dL (74-99); Non-African American GFR(CKD) 83 (>60 ml/min/1.73 sqM); Potassium 4.8 mmol/L (3.5-5.1); Sodium 134 mmol/L (137-145); Total Bilirubin 0.4 mg/dL (0.2-1.3); Total Protein 6.7 g/dL (6.3-8.2)
[2022-08-04 00:52] LABS: Basophils % (A) 0 %; Eosinophils # (A) 0.1 k/uL (0-0.7); Eosinophils % (A) 1 %; HCT 31.8 % (39.0-53.0); HGB 9.1 gm/dL (13.0-17.5); Hypochromasia Marked; Lymphocytes # (A) 0.9 k/uL (1.0-4.8); Lymphocytes % (A) 10 %; MCH 25.6 pg (25.0-35.0); MCHC 28.7 g/dL (31.0-37.0); MCV 89.1 fL (80.0-100.0); Monocytes # (A) 0.8 k/uL (0-1.0); Monocytes % (A) 9 %; Neutrophils # (A) 7.2 k/uL (1.3-7.7); Neutrophils % (A) 80 %; Platelet Count 215 k/uL (150-450); RBC 3.57 m/uL (4.30-5.90); RDW 14.5 % (11.5-15.5); WBC 9.1 k/uL (3.8-10.6)
[2022-08-04 00:59] LABS: Carbon Dioxide 40 mmol/L (22-30)
[2022-08-04 03:22] VITALS: BP 130/84; PULSE 64; RESP 16
== END 2022-08-04 02:50 | disposition home or self-care (01) ==
LOC: EC 22:33
DX: S81.802A Unspecified open wound, left lower leg, initial encounter (principal); S81.801A Unspecified open wound, right lower leg, initial encounter; E66.01 Morbid (severe) obesity due to excess calories; E11.9 Type 2 diabetes mellitus without complications; I10 Essential (primary) hypertension; J45.909 Unspecified asthma, uncomplicated; F12.90 Cannabis use, unspecified, uncomplicated; Z68.44 Body mass index [BMI] 60.0-69.9, adult; X58.XXXA Exposure to other specified factors, initial encounter
CPT/HCPCS: 36415; 80053; 83605; 85025; 99283

== ENCOUNTER 2022-10-14 01:30 | Observation (INO) | payer MEDICARE ==
[2022-10-14] MEDS ORDERED: SODIUM CHLORIDE 0.9% 1,000 ML IV STA (01:55)
[2022-10-14] MEDS ORDERED: HYDROmorphone 1 MG/ML 1 ML SYRINGE IVP STA (02:13)
--- NOTE | 2022-10-14 02:16 | ED ---
Weakness HPI - General Chief complaint: Weakness Stated complaint: Failure to thrive Time Seen by Provider: 10/14/22 01:51 Source: EMS, RN notes reviewed, old records reviewed Mode of arrival: EMS Limitations: no limitations - History of Present Illness Initial comments: This is a 52-year-old male to the emergency department for evaluation. Today patient just evaluation of severe debility, decreased activity level with increasing falls lately tomorrow falls anytime he tries to do any activity of daily living. Patient presents to the hospital today for evaluation of debility. Weakness numbness tingling of arms and extremities with strong neurological history of Chiari Malformation with surgery. Patient also has history of tethered cord and presents with failure to thrive MD Complaint: generalized weakness -: days(s) Location: generalized Severity: moderate Quality: tingling, numbness, aching, sharp Consistency: constant Improves with: none Worsens with: none Context: history of similar, depression Associated Symptoms: denies other symptoms - Related Data Home Medications Medication Instructions Recorded Confirmed Ibuprofen [Motrin] 800 mg PO TID PRN 06/26/22 10/14/22 Albuterol Inhaler [Ventolin Hfa 2 puff INHALATION RT-Q6H PRN 10/14/22 10/14/22 Inhaler] Previous Rx's Medication Instructions Recorded Metoprolol Tartrate [Lopressor] 50 mg PO BID tab 04/23/22 Levofloxacin [Levaquin] 750 mg PO DAILY 1 Days #10 tab 10/16/22 Gabapentin [Neurontin] 100 mg PO BID #6 cap 10/17/22 HYDROcodone/APAP 10-325MG [[place] 1 tab PO Q6H #12 tab 10/17/22 10-325] Heparin Sodium,Porcine (1 ml) 5,000 unit SQ Q8HR #21 each 10/17/22 [Heparin Sodium] Pantoprazole [Protonix] 40 mg PO DAILY #30 tab 10/17/22 Allergies Allergy/AdvReac Type Severity Reaction Status Date / Time No Known Allergies Allergy Verified 10/14/22 12:23 Review of Systems ROS Statement: Those systems with pertinent positive or pertinent negative responses have been documented in the HPI. ROS Other: All systems not noted in ROS Statement are negative. Past Medical History Past Medical History: Asthma, Diabetes Mellitus, Hypertension, Sleep Apnea/CPAP/BIPAP Additional Past Medical History / Comment(s): Chiari malformation History of Any Multi-Drug Resistant Organisms: None Reported Past Surgical History: Hernia Repair Additional Past Surgical History / Comment(s): Brain surgeryx2, left wrist surgery, lap band Past Anesthesia/Blood Transfusion Reactions: No Reported Reaction Past Psychological History: No Psychological Hx Reported Smoking Status: Never smoker Past Alcohol Use History: Occasional Past Drug Use History: Marijuana - Past Family History Father Family Medical History: No Reported History General Exam General appearance: alert, in no apparent distress Head exam: Present: atraumatic, normocephalic, normal inspection Eye exam: Present: normal appearance, PERRL, EOMI. Absent: scleral icterus, conjunctival injection, periorbital swelling ENT exam: Present: normal exam, mucous membranes moist Neck exam: Present: normal inspection. Absent: tenderness, meningismus, lymphadenopathy Respiratory exam: Present: normal lung sounds bilaterally. Absent: respiratory distress, wheezes, rales, rhonchi, stridor Cardiovascular Exam: Present: regular rate, normal rhythm, normal heart sounds. Absent: systolic murmur, diastolic murmur, rubs, gallop, clicks GI/Abdominal exam: Present: soft, normal bowel sounds. Absent: distended, tenderness, guarding, rebound, rigid Extremities exam: Present: normal inspection, full ROM, normal capillary refill. Absent: tenderness, pedal edema, joint swelling, calf tenderness Back exam: Present: normal inspection Neurological exam: Present: alert, oriented X3, CN II-XII intact Psychiatric exam: Present: normal affect, normal mood Skin exam: Present: warm, dry, intact, normal color. Absent: rash Course Vital Signs 10/14/22 10/14/22 10/14/22 01:32 05:38 07:34 Temperature 97.1 F L Pulse Rate 100 87 103 H Respiratory 20 18 18 Rate Blood Pressure 128/71 118/73 137/70 O2 Sat by Pulse 100 98 94 L Oximetry 10/14/22 10/14/22 10/14/22 08:00 10:00 12:25 Temperature Pulse Rate 116 H 112 H 110 H Respiratory 16 16 18 Rate Blood Pressure 137/70 135/102 145/80 O2 Sat by Pulse 95 95 Oximetry 10/14/22 10/14/22 14:00 19:34 Temperature Pulse Rate 112 H 82 Respiratory 18 16 Rate Blood Pressure 157/74 152/77 O2 Sat by Pulse 96 99 Oximetry - Reevaluation(s) Reevaluation #1: 10/14/22 02:15 Medical records reviewed Reevaluation #2: 10/14/22 02:15 Patient symptoms unchanged Reevaluation #3: 10/14/22 02:15 Informed results questions answered Reevaluation #4: 10/14/22 02:14 Was pt. sent in by a medical professional or institution ([facility] Webb, [employer], urgent care, hospital, or [facility]...) When possible be specific @ -no Did you speak to anyone other than the patient for history (EMS, parent, family, police, friend...)? What history was obtained from this source @ -no Did you review nursing and triage notes (agree or disagree)? Why? @ -agree Are old charts reviewed (outside hosp., previous admission, EMS record, old EKG, old radiological studies, urgent care reports/EKG's, [facility] records)? Report findings @ -yes Differential Diagnosis (chest pain, altered mental status, abdominal pain women, abdominal pain men, vaginal bleeding, weakness, fever, dyspnea, syncope, headache, dizziness, GI bleed, back pain, seizure, CVA, palpatations, mental health, musculoskeletal)? @ -prior EKG interpreted by me (3pts min.). @ -yes X-rays interpreted by me (1pt min.). @ -yes CT interpreted by me (1pt min.). @ -yes U/S interpreted by me (1pt. min.). @ -no What testing was considered but not performed or refused? (CT, X-rays, U/S, labs)? Why? @ -none What meds were considered but not given or refused? Why? @ -none Did you discuss the management of the patient with other professionals (professionals i.e. [facility]IT[facility] Webb, [employer], lab, RT, psych nurse, social insurance adviser, forge utility worker, teacher, military source operations officer, family independence case manager)? Give summary @ -no Was smoking cessation discussed for >3mins.? @ -no Was critical care preformed (if so, how long)? @ -no Were there social determinants of health that impacted care today? How? (Homelessness, low income, unemployed, alcoholism, drug addiction, transportation, low edu. Level, literacy, decrease access to med. care, long term, rehab)? @ -none Was there de-escalation of care discussed even if they declined (Discuss DNR or withdrawal of care, Hospice)? DNR status @ -no What co-morbidities impacted this encounter? (DM, HTN, Smoking, COPD, CAD, Cancer, CVA, ARF, Chemo, Hep., AIDS, mental health diagnosis, sleep apnea, mo rbid obesity)? @ -none Was patient admitted / discharged? Hospital course, mention meds given and r oute, prescriptions, significant lab abnormalities, going to OR and other pertinent info. @ - 52 male to the emergency department today for evaluation today. Patient states she is here in the ER for evaluation regards to weakness debility multiple recent falls increasing unsteadiness and unsteadiness on his feet. Increased inability to do his activities of daily living. Patient be admitted for PTOT and possible placement or further evaluation of weakness Discharged Undiagnosed new problem with uncertain prognosis? @ -no Drug Therapy requiring intensive monitoring for toxicity (Heparin, Nitro, Insulin, Cardizem)? @ -no Were any procedures done? @ -no Diagnosis/symptom? @ -Debility, failure to thrive, weakness, inability to ambulate Acute, or Chronic, or Acute on Chronic? @ -Acute Uncomplicated (without systemic symptoms) or Complicated (systemic symptoms)? @ -Complicated Side effects of treatment? @ -no Exacerbation, Progression, or Severe Exacerbation? @ -exacerbation Poses a threat to life or bodily function? How? (Chest pain, [place], [place], pneumonia, PE, COPD, DKA, ARF, appy, cholecystitis, CVA, Diverticulitis, Homicidal, Suicidal, threat to staff... and all critical care pts) @ -yes severe debility Reevaluation #5: 10/14/22 06:03 Differential Weakness: Hypoglycemia, shock, sepsis, hyponatremia, anemia, infection, [place], ETOH, adverse medicine reaction, overdose, stroke, this is not meant to be an all-inclusive list. - Consultations Consultation #1: Spoke with [facility] related admit the patient EKG Findings - EKG Comments: EKG Findings:: EKG A. fib 91 QRS 86 QTC 396 Medical Decision Making - Medical Decision Making 52 male to the emergency department today for evaluation today. Patient states she is here in the ER for evaluation regards to weakness debility multiple recent falls increasing unsteadiness and unsteadiness on his feet. Increased inability to do his activities of daily living. Patient be admitted for PTOT and possible placement or further evaluation of weakness - Lab Data Result diagrams: 10/15/22 07:33 10/18/22 10:46 Lab Results 10/14/22 10/14/22 10/14/22 Range/Units 03:05 03:05 03:05 WBC 5.6 (3.8-10.6) k/uL RBC 4.03 L (4.30-5.90) m/uL Hgb 10.6 L (13.0-17.5) gm/dL Hct 36.2 L (39.0-53.0) % MCV 89.9 (80.0-100.0) fL MCH 26.3 (25.0-35.0) pg MCHC 29.2 L (31.0-37.0) g/dL RDW 16.7 H (11.5-15.5) % Plt Count 184 (150-450) k/uL MPV 8.3 Neutrophils % 82 % Lymphocytes % 9 % Monocytes % 7 % Eosinophils % 1 % Basophils % 0 % Neutrophils # 4.6 (1.3-7.7) k/uL Lymphocytes # 0.5 L (1.0-4.8) k/uL Monocytes # 0.4 (0-1.0) k/uL Eosinophils # 0.1 (0-0.7) k/uL Basophils # 0.0 (0-0.2) k/uL Hypochromasia Marked Anisocytosis Slight PT 10.1 (9.0-12.0) sec INR 0.9 (<1.2) APTT 24.4 (22.0-30.0) sec Sodium 131 L (137-145) mmol/L Potassium 3.9 (3.5-5.1) mmol/L Chloride 90 L (98-107) mmol/L Carbon Dioxide 36 H (22-30) mmol/L Anion Gap 5 mmol/L BUN 7 L (9-20) mg/dL Creatinine 0.76 (0.66-1.25) mg/dL Est GFR (CKD-EPI)AfAm >90 (>60 ml/min/1.73 sqM) Est GFR (CKD-EPI)NonAf >90 (>60 ml/min/1.73 sqM) Glucose 88 (74-99) mg/dL Plasma Lactic Acid Rich (0.7-2.0) mmol/L Calcium 8.7 (8.4-10.2) mg/dL Phosphorus 3.7 (2.5-4.5) mg/dL Magnesium 2.2 (1.6-2.3) mg/dL Total Bilirubin 0.7 (0.2-1.3) mg/dL AST 26 (17-59) U/L ALT 18 (4-49) U/L Alkaline Phosphatase 87 (38-126) U/L Troponin I (0.000-0.034) ng/mL Total Protein 7.0 (6.3-8.2) g/dL Albumin 3.4 L (3.5-5.0) g/dL TSH 2.440 (0.465-4.680) mIU/L Urine Color Urine Appearance (Clear) Urine pH (5.0-8.0) Ur Specific [place] (1.001-1.035) Urine Protein (Negative) Urine Glucose (UA) (Negative) Urine Ketones (Negative) Urine Blood (Negative) Urine Nitrite (Negative) Urine Bilirubin (Negative) Urine Urobilinogen (<2.0) mg/dL Ur Leukocyte Esterase (Negative) 10/14/22 10/14/22 10/14/22 Range/Units 03:05 03:05 04:55 WBC (3.8-10.6) k/uL RBC (4.30-5.90) m/uL Hgb (13.0-17.5) gm/dL Hct (39.0-53.0) % MCV (80.0-100.0) fL MCH (25.0-35.0) pg MCHC (31.0-37.0) g/dL RDW (11.5-15.5) % Plt Count (150-450) k/uL MPV Neutrophils % % Lymphocytes % % Monocytes % % Eosinophils % % Basophils % % Neutrophils # (1.3-7.7) k/uL Lymphocytes # (1.0-4.8) k/uL Monocytes # (0-1.0) k/uL Eosinophils # (0-0.7) k/uL Basophils # (0-0.2) k/uL Hypochromasia Anisocytosis PT (9.0-12.0) sec INR (<1.2) APTT (22.0-30.0) sec Sodium (137-145) mmol/L Potassium (3.5-5.1) mmol/L Chloride (98-107) mmol/L Carbon Dioxide (22-30) mmol/L Anion Gap mmol/L BUN (9-20) mg/dL Creatinine (0.66-1.25) mg/dL Est GFR (CKD-EPI)AfAm (>60 ml/min/1.73 sqM) Est GFR (CKD-EPI)NonAf (>60 ml/min/1.73 sqM) Glucose (74-99) mg/dL Plasma Lactic Acid Rich 0.9 (0.7-2.0) mmol/L Calcium (8.4-10.2) mg/dL Phosphorus (2.5-4.5) mg/dL Magnesium (1.6-2.3) mg/dL Total Bilirubin (0.2-1.3) mg/dL AST (17-59) U/L ALT (4-49) U/L Alkaline Phosphatase (38-126) U/L Troponin I 0.026 (0.000-0.034) ng/mL Total Protein (6.3-8.2) g/dL Albumin (3.5-5.0) g/dL TSH (0.465-4.680) mIU/L Urine Color Colorless Urine Appearance Clear (Clear) Urine pH 6.5 (5.0-8.0) Ur Specific [place] 1.004 (1.001-1.035) Urine Protein Negative (Negative) Urine Glucose (UA) Negative (Negative) Urine Ketones Trace H (Negative) Urine Blood Negative (Negative) Urine Nitrite Negative (Negative) Urine Bilirubin Negative (Negative) Urine Urobilinogen <2.0 (<2.0) mg/dL Ur Leukocyte Esterase Negative (Negative) - Radiology Data Radiology results: report reviewed (CT brain chest x-ray and pelvis x-ray are negative for acute disease), image reviewed Disposition Clinical Impression: Morbid obesity, Fall, Dehydration, Weakness, Debility Disposition: [facility] Condition: Stable Is patient prescribed a controlled substance at d/c from ED?: No Time of Disposition: 06:00
[2022-10-14 03:38] LABS: ALT 18 U/L (4-49); AST 26 U/L (17-59); African American GFR (CKD) >90 (>60 ml/min/1.73 sqM); Albumin 3.4 g/dL (3.5-5.0); Alkaline Phosphatase 87 U/L (38-126); Anion Gap 5 mmol/L; Blood Urea Nitrogen 7 mg/dL (9-20); Calcium 8.7 mg/dL (8.4-10.2); Carbon Dioxide 36 mmol/L (22-30); Chloride 90 mmol/L (98-107); Glucose 88 mg/dL (74-99); Magnesium 2.2 mg/dL (1.6-2.3); Non-African American GFR(CKD) >90 (>60 ml/min/1.73 sqM); Phosphorus 3.7 mg/dL (2.5-4.5); Potassium 3.9 mmol/L (3.5-5.1); Sodium 131 mmol/L (137-145); Total Bilirubin 0.7 mg/dL (0.2-1.3)
[2022-10-14 03:58] LABS: INR 0.9 (<1.2); Partial Thromboplastin Time 24.4 sec (22.0-30.0); Prothrombin Time 10.1 sec (9.0-12.0)
[2022-10-14 04:01] LABS: Anisocytosis Slight; Basophils % (A) 0 %; Eosinophils # (A) 0.1 k/uL (0-0.7); Eosinophils % (A) 1 %; HCT 36.2 % (39.0-53.0); HGB 10.6 gm/dL (13.0-17.5); Hypochromasia Marked; Lymphocytes # (A) 0.5 k/uL (1.0-4.8); Lymphocytes % (A) 9 %; MCH 26.3 pg (25.0-35.0); MCHC 29.2 g/dL (31.0-37.0); MCV 89.9 fL (80.0-100.0); Mean Platelet Volume 8.3; Monocytes # (A) 0.4 k/uL (0-1.0); Monocytes % (A) 7 %; Neutrophils # (A) 4.6 k/uL (1.3-7.7); Neutrophils % (A) 82 %; Platelet Count 184 k/uL (150-450); RBC 4.03 m/uL (4.30-5.90); RDW 16.7 % (11.5-15.5); WBC 5.6 k/uL (3.8-10.6)
[2022-10-14 05:17] LABS: Appearance,Urine Clear (Clear); Bilirubin,Urine Negative (Negative); Blood,Urine Negative (Negative); Color,Urine Colorless; Glucose,Urine (UA) Negative (Negative); Ketones,Urine Trace (Negative); Leukocyte Esterase,Urine Negative (Negative); Nitrite,Urine Negative (Negative); PH, Urine 6.5 (5.0-8.0); Protein,Urine Negative (Negative); Specific Gravity,Urine 1.004 (1.001-1.035); Urobilinogen,Urine <2.0 mg/dL (<2.0)
--- NOTE | 2022-10-14 05:38 | CT ---
EXAMINATION TYPE: CT brain wo con DATE OF EXAM: 10/14/2022 COMPARISON: None available HISTORY: 52-year-old male with weakness TECHNIQUE: Examination was done in axial plane without intravenous contrast. Coronal and sagittal r econstructions performed. CT DLP: 1130.4 mGycm Automated exposure control for dose reduction was used. FINDINGS: There is no evidence of acute intracranial hemorrhage, acute ischemic changes, mass, mass-effect, or extra-axial fluid collection. There is no effacement of cerebral sulci or basal subarachnoid cister ns. There is no hydrocephalus. There is no midline shift. Nieto-white matter distinction is preserv ed. Patient is status post occipital decompression probably related to prior Chiari I malformation or pre vious resection in the posterior left cerebellar hemisphere. This should be correlated clinically. Pa rtially empty sella. There are small bilateral maxillary sinuses. Rightward deviation of the patient's nose. Trace mucosal thickening ethmoid air cells. Orbits and globes are intact. Possible exophthalmos. IMPRESSION: 1. Previous surgery with posterior inferior occipital craniectomy. Query previous surgery for Chiari I malformation versus some type of resection in left posterior cerebellum. 2. Otherwise, no acute intracranial abnormality seen. 3. Clinical correlation for possible bilateral exophthalmos.
--- NOTE | 2022-10-14 05:39 | XR ---
EXAMINATION TYPE: XR chest 1V DATE OF EXAM: 10/14/2022 COMPARISON: 06/25/2022 HISTORY: 52-year-old male with weakness TECHNIQUE: Single frontal view of the chest is obtained. FINDINGS: A limited by large body habitus and lordotic positioning. There is mild to moderate enlarg ement of the cardiac/pericardiac silhouette. No bibi consolidation or pleural effusion seen. IMPRESSION: Limited by large body habitus and lordotic positioning. Possible mild to moderate cardio megaly. No definite acute process otherwise seen.
--- NOTE | 2022-10-14 05:41 | XR ---
EXAMINATION TYPE: XR pelvis AP view DATE OF EXAM: 10/14/2022 Comparison: 06/25/2022 Clinical History: 52-year-old male weak Findings: There is end-stage [id number] degenerative change at the right hip. Extensive subchondral sclerosi s and marginal spurring. Early bony remodeling of the acetabulum. The patient's hips are externally r otated limiting visualization the femoral neck regions. Unable to exclude some foreshortening at the right femoral neck. Repeat imaging with internal rotation is advised. Impression: End-stage [id number] right hip OA. Unable to adequately visualize the femoral necks especially on t he right where some foreshortening may be present. Advise repeat imaging with appropriate internal ro tation of the hip.
[2022-10-14] MEDS: HYDROmorphone 1 MG/ML 1 ML SYRINGE IVP PRN ×2 (05:47→09:37)
[2022-10-14] MEDS ORDERED: ONDANSETRON 4 MG/2 ML VIAL IVP PRN (06:03)
[2022-10-14] MEDS ORDERED: NALOXONE 0.4 MG/ML 1 ML VIAL IV PRN (06:03)
[2022-10-14] MEDS ORDERED: SODIUM CHLORIDE 0.9% 1,000 ML IV SCH (06:15)
[2022-10-14] MEDS ORDERED: HYDROcodone/APAP 10-325MG 1 EACH TAB PO PRN (11:26)
[2022-10-14] MEDS: HYDROcodone/APAP 10-325MG 1 EACH TAB PO SCH ×3 (11:55→23:36)
[2022-10-14] MEDS ORDERED: KETOROLAC 15 MG/ML 1 ML VIAL IVP PRN (12:21)
--- NOTE | 2022-10-14 12:23 | P.HPIM ---
History of Present Illness 52-year-old male came in with the comments of multiple falls, patient the hip x- rays are inconclusive for any fracture because of which are pending CT of the bilateral hips patient is chronic medical debility morbidly obese obesity v entilation syndrome sleep apnea and uses wheelchair and walker at home. Patient has a venous stasis of bilateral lower extremities with the venous stasis ulcers which are wrapped and patient is complaining of severe pain in that area. The wounds are not examined because of severe pain. Patient denied any fever chills patient and her nausea vomiting. Patient has history of fall April she remarks formation status post craniotomies in the past. Patient is a chronically oxygen dependent with the 2 L of oxygen at baseline the patient has been the lack of sleep and lack of sleep-wake is again secondary to pain from falls. REVIEW OF SYSTEMS: CONSTITUTIONAL: Generalized weakness, fatigue and lack of sleep. HEENT: No recent visual problems or hearing problems. Denied any sore throat. CARDIOVASCULAR: No chest pain, orthopnea, PND, no palpitations, no syncope. PULMONARY: No shortness of breath, no cough, no hemoptysis. GASTROINTESTINAL: No diarrhea, no nausea, no vomiting, no abdominal pain. NEUROLOGICAL: No headaches, no weakness, no numbness. HEMATOLOGICAL: Denies any bleeding or petechiae. GENITOURINARY: Denies any burning micturition, frequency, or urgency. MUSCULOSKELETAL/RHEUMATOLOGICAL: Denies any joint pain, swelling, or any muscle pain. ENDOCRINE: Denies any polyuria or polydipsia. The rest of the 14-point review of systems is negative. PHYSICAL EXAMINATION: GENERAL: The patient is alert and oriented x3, not in any acute distress. Morbidly obese HEENT: Pupils are round and equally reacting to light. EOMI. No scleral icterus. No conjunctival pallor. Normocephalic, atraumatic. No pharyngeal erythema. No thyromegaly. CARDIOVASCULAR: S1 and S2 present. No murmurs, rubs, or gallops. PULMONARY: Chest is clear to auscultation, no wheezing or crackles. ABDOMEN: Soft, nontender, nondistended, normoactive bowel sounds. No palpable organomegaly. MUSCULOSKELETAL: No joint swelling or deformity. EXTREMITIES: No cyanosis, clubbing, or pedal edema. NEUROLOGICAL: Gross neurological examination did not reveal any focal deficits. SKIN: Bilateral lower extremity chronic venostasis ulcers in the posterior aspect of the legs these ulcers were not examined at Assessment and plan -Generalized weakness falls and tiredness due to deconditioning chronic immobility, physical therapy and outpatient therapy evaluation. We'll rule out fractures of bilateral lower extremities with the CT scans as x-rays are inconclusive due to his body habitus -Chronic venous stasis ulcers: Wound care, infectious disease consultation wound cultures -Hyponatremia hypervolemic hyponatremia: Patient was started on Lasix IV fluids will be discontinued monitor blood pressure, kidney function and sodium -Type 2 diabetes mellitus: Sliding scale insulin -Obesity hypoventilation syndrome, sleep apnea: Continue oxygen support - hypertension DVT prophylaxis: High prophylactic dose of Lovenox Past Medical History Past Medical History: Asthma, Diabetes Mellitus, Hypertension, Sleep Apnea/CPAP/BIPAP Additional Past Medical History / Comment(s): Chiari malformation History of Any Multi-Drug Resistant Organisms: None Reported Past Surgical History: Hernia Repair Additional Past Surgical History / Comment(s): Brain surgeryx2, left wrist surgery, lap band Past Anesthesia/Blood Transfusion Reactions: No Reported Reaction Past Psychological History: No Psychological Hx Reported Smoking Status: Never smoker Past Alcohol Use History: Occasional Past Drug Use History: Marijuana - Past Family History Father Family Medical History: No Reported History Medications and Allergies Home Medications Medication Instructions Recorded Confirmed Type Metoprolol Tartrate [Lopressor] 50 mg PO BID tab 04/23/22 06/25/22 Rx Ibuprofen [Motrin] 800 mg PO Q12H 06/26/22 06/26/22 History Collagenase [Santyl Ointment] 1 applic TOPICAL DAILY each 06/29/22 Rx Fluconazole [Diflucan] 150 mg PO DAILY #5 tab 06/29/22 Rx ALPRAZolam [Xanax] 0.5 mg PO BID PRN #2 tab 06/30/22 Rx Ampicillin-Sulbactam [Unasyn 3 gm 3 gm IVPB Q6HR 10 Days #40 each 06/30/22 Rx vial] Famotidine [Pepcid] 20 mg PO DAILY #30 tablet 06/30/22 Rx Gabapentin [Neurontin] 100 mg PO BID #4 cap 06/30/22 Rx HYDROcodone/APAP 10-325MG [[place] 1 each PO Q6H #4 tab 06/30/22 Rx 10-325] Cephalexin [Keflex] 500 mg PO Q6HR #40 cap 08/04/22 Rx Allergies Allergy/AdvReac Type Severity Reaction Status Date / Time No Known Allergies Allergy Verified 10/14/22 12:23 Physical Exam Vitals: Vital Signs Temp Pulse Resp BP Pulse Ox 10/14/22 07:34 103 H 18 137/70 94 L 10/14/22 05:38 87 18 118/73 98 10/14/22 01:32 97.1 F L 100 20 128/71 100 Intake and Output 10/13/22 10/14/22 10/14/22 22:59 06:59 14:59 Other: Weight 181.437 kg Results CBC & Chem 7: 10/14/22 03:05 10/14/22 03:05 Labs: Abnormal Lab Results - Last 24 Hours (Table) 10/14/22 10/14/22 10/14/22 Range/Units 03:05 03:05 04:55 RBC 4.03 L (4.30-5.90) m/uL Hgb 10.6 L (13.0-17.5) gm/dL Hct 36.2 L (39.0-53.0) % MCHC 29.2 L (31.0-37.0) g/dL RDW 16.7 H (11.5-15.5) % Lymphocytes # 0.5 L (1.0-4.8) k/uL Sodium 131 L (137-145) mmol/L Chloride 90 L (98-107) mmol/L Carbon Dioxide 36 H (22-30) mmol/L BUN 7 L (9-20) mg/dL Albumin 3.4 L (3.5-5.0) g/dL Urine Ketones Trace H (Negative)
--- NOTE | 2022-10-14 14:06 | CT ---
EXAMINATION TYPE: CT hip LT wo con, CT hip RT wo con DATE OF EXAM: 10/14/2022 COMPARISON: None HISTORY: Fractures CT DLP: 1694.4 (accession [id number]), 1694.4-from other hip (accession [id number]) mGycm Automated exposure control for dose reduction was used. Unenhanced CT of the bilateral hips was perfo rmed with bone and soft tissue window settings submitted. FINDINGS: No acute displaced fractures are identified. There is end-stage [id number] right hip osteoarthritis . Subchondral cyst formation and sclerosis noted. There is extensive spur formation about the right h umeral head and neck. The left hip joint demonstrates mild narrowing. There is subcutaneous stranding involving the subcutaneous fat of the bilateral hips right greater than left to be posttraumatic in nature. No pelvic masses are present. IMPRESSION: NO DISPLACED OR IMPACTED FRACTURES IDENTIFIED. END-STAGE RIGHT HIP OSTEOARTHRITIS.
--- NOTE | 2022-10-14 14:47 | P.CONS ---
History of Present Illness - Reason for Consult Consult date: 10/14/22 - History of Present Illness Patient is a 52-year-old -[place] male with a past medical history of thinking for Chiari malformation for the patient did have a surgery patient has been brought into the hospital for evaluation of debility apparently the patient did have decreased levels of activity and increasing falls lately patient mention he falls anytime he do any activity of daily living has been denying any focal weakness though patient denies having any fever or any chills and no fever was recorded during his hospital stay patient was not hypotensive mild tachycardia did have a normal white count creatinine was 0.7, liver enzymes are normal urine has been negative patient did have a chronic nonhealing wound to bilateral lower extremity currently being managed in outpatient setting by the home care nurse patient mention the dressing was changed on Saturday, patient was noticed to have a order coming from lower extremity however there was no drainage on the dressing and the patient refused the dressing to be changed in the presence of the ER nurse infectious disease was consulted for management of his lower extremity wound Past Medical History Past Medical History: Asthma, Diabetes Mellitus, Hypertension, Sleep Apnea/CPAP/BIPAP Additional Past Medical History / Comment(s): Chiari malformation History of Any Multi-Drug Resistant Organisms: None Reported Past Surgical History: Hernia Repair Additional Past Surgical History / Comment(s): Brain surgeryx2, left wrist surgery, lap band Past Anesthesia/Blood Transfusion Reactions: No Reported Reaction Past Psychological History: No Psychological Hx Reported Smoking Status: Never smoker Past Alcohol Use History: Occasional Past Drug Use History: Marijuana - Past Family History Father Family Medical History: No Reported History Medications and Allergies Home Medications Medication Instructions Recorded Confirmed Type Metoprolol Tartrate [Lopressor] 50 mg PO BID tab 04/23/22 10/14/22 Rx Ibuprofen [Motrin] 800 mg PO TID PRN 06/26/22 10/14/22 History Gabapentin [Neurontin] 100 mg PO BID #4 cap 06/30/22 10/14/22 Rx Albuterol Inhaler [Ventolin Hfa 2 puff INHALATION RT-Q6H PRN 10/14/22 10/14/22 History Inhaler] HYDROcodone/APAP 10-325MG [[place] 1 tab PO Q6H 10/14/22 10/14/22 History 10-325] Sulfamethox-Tmp 800-160Mg [Bactrim 1 tab PO Q12HR 10/14/22 10/14/22 History DS 800-160 mg] Allergies Allergy/AdvReac Type Severity Reaction Status Date / Time No Known Allergies Allergy Verified 10/14/22 12:23 Physical Exam Vitals: Vital Signs Temp Pulse Resp BP Pulse Ox 10/14/22 12:25 110 H 18 145/80 10/14/22 07:34 103 H 18 137/70 94 L 10/14/22 05:38 87 18 118/73 98 10/14/22 01:32 97.1 F L 100 20 128/71 100 Intake and Output 10/13/22 10/14/22 10/14/22 22:59 06:59 14:59 Other: Weight 181.437 kg Results CBC & Chem 7: 10/14/22 03:05 10/14/22 03:05 Labs: Abnormal Lab Results - Last 24 Hours (Table) 10/14/22 10/14/22 10/14/22 Range/Units 03:05 03:05 04:55 RBC 4.03 L (4.30-5.90) m/uL Hgb 10.6 L (13.0-17.5) gm/dL Hct 36.2 L (39.0-53.0) % MCHC 29.2 L (31.0-37.0) g/dL RDW 16.7 H (11.5-15.5) % Lymphocytes # 0.5 L (1.0-4.8) k/uL Sodium 131 L (137-145) mmol/L Chloride 90 L (98-107) mmol/L Carbon Dioxide 36 H (22-30) mmol/L BUN 7 L (9-20) mg/dL Albumin 3.4 L (3.5-5.0) g/dL Urine Ketones Trace H (Negative) Assessment and Plan Plan: 1patient did have a chronic nonhealing wound to the bilateral lower extremity possible venous stasis ulcer managed in the outpatient setting, presented to the hospital with debility weakness and falls patient did not have any fever or elevated white count patient did have a dressing to bilateral lower extremity apparently changed on Saturday and the patient has refused the dressing to be changed did have some orders to wait but no drainage on the dressing underlying infection less likely not entirely excluded 2-with the patient refusal to have the dressing change I cannot evaluate his leg wound to recommend any dressing changes or advise any antibiotics Please call back if the patient changes his mind For now ID will sign off Time with Patient: Greater than 30
[2022-10-14] MEDS: FUROSEMIDE 10 MG/ML 2 ML VIAL IV SCH ×2 (15:08→21:46)
[2022-10-14] MEDS: METOPROLOL TARTRATE 50 MG TAB PO SCH (21:39)
[2022-10-14] MEDS: GABAPENTIN 100 MG CAP PO SCH (21:39)
[2022-10-15] MEDS: HYDROmorphone 1 MG/ML 1 ML SYRINGE IVP PRN ×2 (01:44→09:06)
[2022-10-15] MEDS: HYDROcodone/APAP 10-325MG 1 EACH TAB PO SCH ×4 (05:22→22:45)
[2022-10-15] MEDS: GABAPENTIN 100 MG CAP PO SCH ×2 (08:52→22:45)
[2022-10-15] MEDS: METOPROLOL TARTRATE 50 MG TAB PO SCH ×2 (08:52→22:45)
[2022-10-15] MEDS: FUROSEMIDE 10 MG/ML 2 ML VIAL IV SCH ×2 (08:53→22:46)
[2022-10-15] MEDS: ENOXAPARIN 60 MG/0.6 ML SYRINGE SQ SCH (08:53)
[2022-10-15 11:08] LABS: HCT 33.1 % (39.6-50.0); HGB 9.4 d/dL (13.0-17.0); MCH 25.7 pg (27.0-32.0); MCHC 28.4 d/dL (32.0-37.0); MCV 90.4 FL (80.0-97.0); Mean Platelet Volume 10.1 FL (9.5-12.2); NRBC Per 100 WBC 0 X 10*3/uL (0.00-0.01); Platelet Count 195 X 10*3/uL (140-440); RBC 3.66 X 10*6/uL (4.40-5.60); RDW 16.4 % (11.5-14.5); WBC 8.65 X 10*3/uL (4.50-10.00)
[2022-10-15 11:12] LABS: BUN/Creat Ratio 7.38 Ratio (12.00-20.00); Blood Urea Nitrogen 5.9 mg/dL (9.0-27.0); Calcium 8.9 mg/dL (8.7-10.3); Carbon Dioxide 33.3 mmol/L (21.6-31.8); Chloride 94 mmol/L (96-109); Glucose 113 mg/dL (70-110); Potassium 3.3 mmol/L (3.5-5.5); Sodium 137 mmol/L (135-145)
[2022-10-15 12:43] VITALS: BMI 62.6
[2022-10-16] MEDS: HYDROmorphone 1 MG/ML 1 ML SYRINGE IVP PRN ×2 (02:43→08:35)
[2022-10-16] MEDS: HYDROcodone/APAP 10-325MG 1 EACH TAB PO SCH ×4 (05:53→23:41)
[2022-10-16 06:27] LABS: Glucose,Whole Blood 138 mg/dL (70-110)
[2022-10-16] MEDS: INSULIN ASPART (NovoLOG) 100 UNIT/ML VIAL SQ SCH ×4 (06:29→21:38)
[2022-10-16] MEDS: METOPROLOL TARTRATE 50 MG TAB PO SCH ×2 (08:30→21:56)
[2022-10-16] MEDS: ENOXAPARIN 60 MG/0.6 ML SYRINGE SQ SCH (08:30)
[2022-10-16] MEDS: FUROSEMIDE 10 MG/ML 2 ML VIAL IV SCH ×2 (08:30→21:56)
[2022-10-16] MEDS: GABAPENTIN 100 MG CAP PO SCH ×2 (08:30→21:56)
[2022-10-16 11:17] LABS: Glucose,Whole Blood 123 mg/dL (70-110)
--- NOTE | 2022-10-16 15:10 | P.PN ---
Subjective Progress Note Date: 10/16/22 Evaluated by PT, recommending home with home care. [facility] home care arranged.Patient refusing to have dressing changes today. Cultures obtained yesterday specimen unsuitable, lab requesting to resubmit, growth includes gram- negative bacilli, 3 colony types including swarming Proteus. Gram stain wound r eporting many gram-positive cocci and gram negatives bacilli. Patient refusing to have new cultures. Yesterday patient declined physical therapy. Today he did participate with physical therapy, stating patient appears to be functioning near his baseline with recommendations noted. Denies chest pain, palpitations or shortness of breath. Afebrile,VSS. Objective - Vital Signs Vital signs: Vital Signs Temp 97.9 F 10/16/22 07:14 Pulse 98 10/16/22 08:35 Resp 20 10/16/22 08:35 BP 110/68 10/16/22 07:14 Pulse Ox 100 10/16/22 08:27 FiO2 Intake & Output 10/15/22 10/16/22 10/16/22 18:59 06:59 18:59 Output Total 725 2600 Balance -725 -2600 Weight 181.437 kg Output: Urine 725 2600 Other: Voiding Method External Catheter External Catheter External Catheter # Voids 2 # Bowel Movements 1 - Exam - Exam Gen: morbidly obese, alert and oriented 3, sitting up in bed,NAD. CV: RRR, no murmur Lungs: Equal air entry Normal effort, clear throughout Ext: bilateral LE wrapped in gauze. Serous drainage LLE. No edema - Labs CBC & Chem 7: 10/15/22 07:33 10/15/22 07:33 Labs: Abnormal Lab Results - Last 24 Hours (Table) 10/16/22 10/16/22 Range/Units 06:25 11:16 POC Glucose (mg/dL) 138 H 123 H (70-110) mg/dL Microbiology - Last 24 Hours (Table) 10/15/22 03:00 Gram Stain - Final Leg - Left Wound Culture - Final Assessment and Plan Assessment: Weakness, immobility secondary to deconditioning and morbid obesity, PT recommendations noted Chronic venous stasis ulcers of bilateral lower extremities. Repeat cultures requested per lab as prior specimen sent was unsuitable, patient declined. ID consulted with evaluation declined per patient. ID has therefore signed off. Continue with outpatient regimen Plan: Discharge planning in progress for home with home care with case management assistance. Patient will be discharged home today in a stable condition with guarded prognosis. The impression and plan of care has been dictated as directed. : I performed a history and examination of this patient, discussed the same with the dictator. I agree with the dictator's note ,documented as a scribe. Any additional findings or plans will be noted.
[2022-10-16 16:01] VITALS: RESP 18
[2022-10-16 16:16] LABS: Glucose,Whole Blood 124 mg/dL (70-110)
[2022-10-16 21:27] LABS: Glucose,Whole Blood 120 mg/dL (70-110)
[2022-10-17] MEDS: HYDROmorphone 1 MG/ML 1 ML SYRINGE IVP PRN ×2 (00:27→09:28)
[2022-10-17] MEDS: HYDROcodone/APAP 10-325MG 1 EACH TAB PO SCH ×4 (06:07→22:47)
[2022-10-17 06:22] LABS: Glucose,Whole Blood 124 mg/dL (70-110)
[2022-10-17] MEDS: INSULIN ASPART (NovoLOG) 100 UNIT/ML VIAL SQ SCH ×4 (06:29→22:40)
[2022-10-17] MEDS: METOPROLOL TARTRATE 50 MG TAB PO SCH ×2 (09:23→22:40)
[2022-10-17] MEDS: GABAPENTIN 100 MG CAP PO SCH ×2 (09:23→22:40)
[2022-10-17] MEDS: FUROSEMIDE 10 MG/ML 2 ML VIAL IV SCH ×2 (09:23→22:40)
[2022-10-17] MEDS: ENOXAPARIN 60 MG/0.6 ML SYRINGE SQ SCH (09:24)
--- NOTE | 2022-10-17 09:41 | P.PN ---
Subjective Progress Note Date: 10/15/22 He continues to complain of weakness and immobility. He refused ID evaluation and dressing changes. Vitals stable, afebrile, WBC normal. Objective - Vital Signs Vital signs: Vital Signs Temp 97.6 F 10/17/22 02:00 Pulse 42 L 10/17/22 02:00 Resp 18 10/16/22 20:00 BP 124/73 10/17/22 02:00 Pulse Ox 92 L 10/17/22 02:00 FiO2 Intake & Output 10/16/22 10/17/22 10/17/22 18:59 06:59 18:59 Intake Total 1080 Output Total 800 3210 Balance 280 -3210 Intake: Oral 1080 Output: Urine 800 3210 Other: Voiding Method External Catheter External Catheter # Voids 0 - Exam Gen: morbidly obese CV: RRR, no murmur Lungs: Normal effort, clear throughout Ext: bilateral LE wrapped in gauze. Serous drainage LLE. No edema - Labs CBC & Chem 7: 10/15/22 07:33 10/15/22 07:33 Labs: Abnormal Lab Results - Last 24 Hours (Table) 10/16/22 10/16/22 10/16/22 Range/Units 11:16 16:14 21:25 POC Glucose (mg/dL) 123 H 124 H 120 H (70-110) mg/dL 10/17/22 Range/Units 06:20 POC Glucose (mg/dL) 124 H (70-110) mg/dL Microbiology - Last 24 Hours (Table) 10/15/22 03:00 Gram Stain - Final Leg - Left Wound Culture - Final Assessment and Plan Plan: Weakness and immobility due to deconditioning and morbid obesity. Pt and Ot to evaluate. Ambulate as tolerated Chronic venous stasis ulcers of keon LE. Continue with outpatient regimen. Culture pending. ID consulted and evaluation declined by pt
--- NOTE | 2022-10-17 11:01 | P.DS ---
Providers Date of admission: 10/14/22 06:03 Expected date of discharge: 10/16/22 Attending physician: Eren Godoy MD Consults: 10/14/22 12:22 Consult Physician Routine Consulting Provider: Richard Pérez Consult Reason/Comments: Bilateral lower extremity wounds, venous stasis ulcers Do you want consulting provider notified?: Yes Primary care physician: Mindy Jensen Hospital Course: Final Diagnoses: Weakness, immobility secondary to deconditioning and morbid obesity, PT recommendations noted Chronic venous stasis ulcers of bilateral lower extremities. Repeat cultures requested per lab as prior specimen sent was unsuitable, patient declined. ID consulted with evaluation declined per patient. ID has therefore signed off. Continue with outpatient regimen Morbid obesity, BMI 63 DM II Obesity hypoventilation syndrome Hospital course: Refer to H&P completed by hospitalist. Progress Note Date: 10/15/22 He continues to complain of weakness and immobility. He refused ID evaluation and dressing changes. Vitals stable, afebrile, WBC normal. Progress Note Date: 10/16/22 Evaluated by PT, recommending home with home care. [facility] care arranged.Patient refusing to have dressing changes today. Cultures obtained yesterday specimen unsuitable, lab requesting to resubmit, growth includes gram- negative bacilli, 3 colony types including swarming Proteus. Gram stain wound reporting many gram-positive cocci and gram negatives bacilli. Patient refusing to have new cultures. Yesterday patient declined physical therapy. Today he did participate with physical therapy. PT reports patient appears to be functioning near his baseline with recommendations noted. Denies chest pain, palpitations or shortness of breath. Afebrile,VSS. Patient will be discharged home today with [facility] care, in a stable condition with guarded prognosis. The impression and plan of care has been dictated as directed. : I performed a history and examination of this patient, discussed the same with the dictator. I agree with the dictator's note ,documented as a scribe. Any additional findings or plans will be noted. Patient Condition at Discharge: Stable Plan - Discharge Summary Discharge Rx Participant: Yes New Discharge Prescriptions: New Levofloxacin [Levaquin] 750 mg PO DAILY 1 Days #10 tab Continue HYDROcodone/APAP 10-325MG [[place] 10-325] 1 tab PO Q6H Metoprolol Tartrate [Lopressor] 50 mg PO BID tab Ibuprofen [Motrin] 800 mg PO TID PRN PRN Reason: Pain Or Fever > 100.5 Gabapentin [Neurontin] 100 mg PO BID #4 cap Albuterol Inhaler [Ventolin Hfa Inhaler] 2 puff INHALATION RT-Q6H PRN PRN Reason: Shortness Of Breath Discontinued Sulfamethox-Tmp 800-160Mg [Bactrim DS 800-160 mg] 1 tab PO Q12HR Discharge Medication List Metoprolol Tartrate [Lopressor] 50 mg PO BID tab 04/23/22 [Rx] Ibuprofen [Motrin] 800 mg PO TID PRN 06/26/22 [History] Gabapentin [Neurontin] 100 mg PO BID #4 cap 06/30/22 [Rx] Albuterol Inhaler [Ventolin Hfa Inhaler] 2 puff INHALATION RT-Q6H PRN 10/14/22 [History] HYDROcodone/APAP 10-325MG [[place] 10-325] 1 tab PO Q6H 10/14/22 [History] Levofloxacin [Levaquin] 750 mg PO DAILY 1 Days #10 tab 10/16/22 [Rx] Follow up Appointment(s)/Ref[facility] - As Needed Mindy Jensen MD [Primary Care Provider] - 10/24/22 4:45 pm ([place] location.) [facility] [NON-STAFF] - As Needed (Call to inquire about a shower chair and assistance with ramp building. ) Discharge Disposition: HOME WITH HOME HEALTH SERVICES
[2022-10-17 11:40] LABS: Glucose,Whole Blood 126 mg/dL (70-110)
[2022-10-17 16:49] LABS: Glucose,Whole Blood 125 mg/dL (70-110)
[2022-10-17 19:49] LABS: Glucose,Whole Blood 301 mg/dL (70-110)
[2022-10-17 19:50] LABS: Glucose,Whole Blood 255 mg/dL (70-110)
[2022-10-18 05:58] LABS: Glucose,Whole Blood 119 mg/dL (70-110)
[2022-10-18] MEDS: INSULIN ASPART (NovoLOG) 100 UNIT/ML VIAL SQ SCH ×2 (06:05→13:01)
[2022-10-18] MEDS: HYDROcodone/APAP 10-325MG 1 EACH TAB PO SCH ×3 (06:07→16:54)
[2022-10-18] MEDS: ENOXAPARIN 60 MG/0.6 ML SYRINGE SQ SCH (09:34)
[2022-10-18] MEDS: METOPROLOL TARTRATE 50 MG TAB PO SCH (09:34)
[2022-10-18] MEDS: FUROSEMIDE 10 MG/ML 2 ML VIAL IV SCH (09:34)
[2022-10-18] MEDS: GABAPENTIN 100 MG CAP PO SCH (09:34)
[2022-10-18 11:27] LABS: Glucose,Whole Blood 132 mg/dL (70-110)
[2022-10-18 11:33] LABS: African American GFR (CKD) >90 (>60 ml/min/1.73 sqM); Blood Urea Nitrogen 25 mg/dL (9-20); Calcium 8.8 mg/dL (8.4-10.2); Chloride 88 mmol/L (98-107); Glucose 127 mg/dL (74-99); Non-African American GFR(CKD) >90 (>60 ml/min/1.73 sqM); Potassium 3.5 mmol/L (3.5-5.1); Sodium 132 mmol/L (137-145)
[2022-10-18 11:39] LABS: Anion Gap 6 mmol/L
[2022-10-18 11:47] LABS: Carbon Dioxide 38 mmol/L (22-30)
[2022-10-18] MEDS ORDERED: POTASSIUM CHLORIDE ER 20 MEQ TAB.ER PO STA (12:48)
--- NOTE | 2022-10-18 13:51 | P.CONS ---
History of Present Illness - Reason for Consult Consult date: 10/18/22 wound care - History of Present Illness This is a 52-year-old gentleman known to the wound care center who is not a current patient at the wound care center due to noncompliance and transportation issues. Patient has nonhealing ulcerations to the right and left. The right calf measures and presently 8 x 5 x 0.1 cm with significant amount of slough and nonadherent nonviable tissue present with minimal granulation, the left lower extremity ulceration measures 10 x 6 x 0.1 cm with significant amount of slough nonviable tissue and an minimal granulation noted. Right buttocks ulceration measures 0.4 x 0.5 x 0.1 cm it is a stage II pressure ulcer with granulation noted to the wound bed. Right second toe dorsal aspect ulceration measures approximately 1 x 0.6 x 0.1 cm a significant amount of slough and no granulation noted to the wound bed. Patient has been utilizing absorptive silver to the ulcerations at this time. Review Of Systems: Constitutional: No fever, no chills, no night sweats. No weight change. No weakness, fatigue or lethargy. No daytime sleepiness. Integumentary:reports wounds, no lesions. No rash or pruritus. No unusual bruising. No change in hair or nails. Physical exam: General Appearance: Alert, cooperative, no distress, appears stated age. Skin: See HPI all other Skin color, texture, tugor normal, no rashes or lesions. Neurologic: Alert oriented x3 Assessment: 1. Nonhealing ulceration right calf with fat layer exposure 2. Nonhealing ulceration of left With fat layer exposure 3. Stage II pressure ulcer right buttocks 4. Non-pressure ulcer other part of right foot with fat layer exposure 5. Diabetic foot ulcer 6. Diabetes with skin ulceration Plan: 1.Bilateral lower extremities and right toe apply absorptive silver, saline moist gauze, dry gauze, rolled gauze and secure with paper tape. Sacral ulceration up by absorptive silver saline moistened gauze and a border foam. We will be happy to see the patient in the wound care center however he has been noncompliant with multiple no-show visits. Patient does not have reliable transportation. Discussed with patient that once he has reliable transportation to please call the wound care center we will get him back. Thank you for the consultation any questions please contact the wound care center Past Medical History Past Medical History: Asthma, Diabetes Mellitus, Hypertension, Sleep Apnea/CPAP/BIPAP Additional Past Medical History / Comment(s): Chiari malformation History of Any Multi-Drug Resistant Organisms: None Reported Past Surgical History: Hernia Repair Additional Past Surgical History / Comment(s): Brain surgeryx2, left wrist surgery, lap band Past Anesthesia/Blood Transfusion Reactions: No Reported Reaction Past Psychological History: No Psychological Hx Reported Smoking Status: Never smoker Past Alcohol Use History: Occasional Past Drug Use History: Marijuana - Past Family History Father Family Medical History: No Reported History Medications and Allergies Home Medications Medication Instructions Recorded Confirmed Type Metoprolol Tartrate [Lopressor] 50 mg PO BID tab 04/23/22 10/14/22 Rx Ibuprofen [Motrin] 800 mg PO TID PRN 06/26/22 10/14/22 History Albuterol Inhaler [Ventolin Hfa 2 puff INHALATION RT-Q6H PRN 10/14/22 10/14/22 History Inhaler] Levofloxacin [Levaquin] 750 mg PO DAILY 1 Days #10 tab 10/16/22 Rx Gabapentin [Neurontin] 100 mg PO BID #6 cap 10/17/22 Rx HYDROcodone/APAP 10-325MG [[place] 1 tab PO Q6H #12 tab 10/17/22 Rx 10-325] Heparin Sodium,Porcine (1 ml) 5,000 unit SQ Q8HR #21 each 10/17/22 Rx [Heparin Sodium] Pantoprazole [Protonix] 40 mg PO DAILY #30 tab 10/17/22 Rx Allergies Allergy/AdvReac Type Severity Reaction Status Date / Time No Known Allergies Allergy Verified 10/14/22 12:23 Physical Exam Vitals: Vital Signs Temp Pulse Resp BP Pulse Ox 10/18/22 07:13 98.6 F 68 18 94/66 98 10/18/22 01:20 98.1 F 84 18 100/63 96 10/17/22 18:50 97.5 F L 88 18 102/64 99 Intake and Output 10/17/22 10/18/22 10/18/22 22:59 06:59 14:59 Output Total 300 1000 Balance -300 -1000 Output: Urine 300 1000 Other: Voiding Method External Catheter # Voids 0 Results CBC & Chem 7: 10/15/22 07:33 10/18/22 10:46 Labs: Abnormal Lab Results - Last 24 Hours (Table) 10/17/22 10/17/22 10/17/22 Range/Units 16:48 19:48 19:49 Sodium (137-145) mmol/L Chloride (98-107) mmol/L Carbon Dioxide (22-30) mmol/L BUN (9-20) mg/dL Glucose (74-99) mg/dL POC Glucose (mg/dL) 125 H 301 H 255 H (70-110) mg/dL 10/18/22 10/18/22 10/18/22 Range/Units 05:57 10:46 11:27 Sodium 132 L (137-145) mmol/L Chloride 88 L (98-107) mmol/L Carbon Dioxide 38 H (22-30) mmol/L BUN 25 H (9-20) mg/dL Glucose 127 H (74-99) mg/dL POC Glucose (mg/dL) 119 H 132 H (70-110) mg/dL Assessment and Plan (1) Non-pressure chronic ulcer of right calf with fat layer exposed Current Visit: Yes Status: Acute Code(s): L97.212 - NON-PRESSURE CHRONIC UL CER OF RIGHT CALF W FAT LAYER EXPOSED SNOMED Code(s): 90617266673035364 (2) Non-pressure chronic ulcer of left calf with fat layer exposed Current Visit: Yes Status: Acute Code(s): L97.222 - NON-PRESSURE CHRONIC ULCER OF LEFT CALF W FAT LAYER EXPOSED SNOMED Code(s): 38828704043146437 (3) Stage II pressure ulcer of right buttock Current Visit: Yes Status: Acute Code(s): L89.312 - PRESSURE ULCER OF RIGHT BUTTOCK, STAGE 2 SNOMED Code(s): 88401697877649 (4) Non-pressure chronic ulcer of other part of right foot with fat layer exposed Current Visit: Yes Status: Acute Code(s): L97.512 - NON-PRS CHRONIC ULCER OTH PRT RIGHT FOOT W FAT LAYER EXPOSED SNOMED Code(s): 21732882596481827 (5) Type 2 diabetes mellitus with foot ulcer Current Visit: Yes Status: Acute Code(s): E11.621 - TYPE 2 DIABETES MELLITUS WITH FOOT ULCER; L97.509 - NON-PRESSURE CHRONIC ULCER OTH PRT UNSP FOOT W UNSP SEVERITY SNOMED Code(s): 402876180 (6) Type 2 diabetes mellitus with other skin ulcer Current Visit: Yes Status: Acute Code(s): E11.622 - TYPE 2 DIABETES MELLITUS WITH OTHER SKIN ULCER; L98.499 - NON-PRESSURE CHRONIC ULCER OF SKIN OF SITES W UNSP SEVERITY SNOMED Code(s): 868212468 (7) Chronic venous hypertension w/ulcer and inflammation involv both sides Current Visit: No Status: Acute Code(s): I87.333 - CHRONIC VENOUS HTN W ULCER AND INFLAM OF BILATERAL LOW EXTRM SNOMED Code(s): 318354672
[2022-10-18 15:48] VITALS: BP 117/71; PULSE 101; TEMP 97.4
[2022-10-18 16:48] LABS: Glucose,Whole Blood 164 mg/dL (70-110)
== END 2022-10-18 17:02 ==
LOC: EC 01:30 → 5NMEDONC 06:03 → 4SSUR 14:43
PROVIDERS: ADMIT Family Medicine; ATTEND Family Medicine
DX: R53.1 Weakness (principal); R62.7 Adult failure to thrive; I83.029 Varicose veins of left lower extremity with ulcer of unspecified site; I83.019 Varicose veins of right lower extremity with ulcer of unspecified site; E66.2 Morbid (severe) obesity with alveolar hypoventilation; Z68.44 Body mass index [BMI] 60.0-69.9, adult; E11.622 Type 2 diabetes mellitus with other skin ulcer; E11.621 Type 2 diabetes mellitus with foot ulcer; Z91.199 Patient's noncompliance with other medical treatment and regimen due to unspecified reason; L97.512 Non-pressure chronic ulcer of other part of right foot with fat layer exposed; R26.81 Unsteadiness on feet; E86.0 Dehydration; R53.81 Other malaise; R29.6 Repeated falls; Z99.81 Dependence on supplemental oxygen; E87.1 Hypo-osmolality and hyponatremia; L97.212 Non-pressure chronic ulcer of right calf with fat layer exposed; L97.222 Non-pressure chronic ulcer of left calf with fat layer exposed; L89.312 Pressure ulcer of right buttock, stage 2; E87.70 Fluid overload, unspecified; I10 Essential (primary) hypertension; J45.909 Unspecified asthma, uncomplicated; Z98.890 Other specified postprocedural states; Z79.899 Other long term (current) drug therapy; Z79.4 Long term (current) use of insulin; Z79.1 Long term (current) use of non-steroidal anti-inflammatories (NSAID); Z79.891 Long term (current) use of opiate analgesic; Z79.01 Long term (current) use of anticoagulants
CPT/HCPCS: 96376 ×5; 96372 ×4; 96375 ×2; 96361; 96374; 99285; 36415; 94760 ×2; 93005; 97530; 97162; 97535; 97166; 80053; 80048 ×2; 83605; 83735; 84100; 84443; 84484; 85025; 85027; 85610; 85730; 81003; 87324; 87070; 87205; 87075; 72170; 71045; 70450; 73700 ×2; G0378 ×6; J1940 ×5; J1650 ×4; J1170 ×4; J1885

== ENCOUNTER 2023-02-12 10:28 | Inpatient (IN) | payer MEDICARE, OTHER ==
[2023-02-12] MEDS ORDERED: MIDAZOLAM 1 MG/ML 5 ML VIAL IV STA ×2 (10:33→10:39)
[2023-02-12] MEDS ORDERED: SODIUM CHLORIDE 0.9% 1,000 ML IV STA (10:45)
[2023-02-12 10:51] LABS: Glucose,Whole Blood 148 mg/dL (70-110)
[2023-02-12] MEDS ORDERED: AMIODARONE 360 MG in DEXTROSE 5% IN WATER 200 ML IV ONE ×2 (10:54)
[2023-02-12] MEDS ORDERED: DEXTROSE 5% IN WATER 100 ML with AMIODARONE 150 MG IV ONE (10:54)
[2023-02-12 11:15] LABS: Basophils % (A) 0 %; Eosinophils # (A) 0.1 k/uL (0-0.7); Eosinophils % (A) 2 %; HCT 36.7 % (39.0-53.0); HGB 10.4 gm/dL (13.0-17.5); Hypochromasia Marked; Lymphocytes # (A) 0.8 k/uL (1.0-4.8); Lymphocytes % (A) 11 %; MCH 24.9 pg (25.0-35.0); MCHC 28.4 g/dL (31.0-37.0); MCV 87.9 fL (80.0-100.0); Mean Platelet Volume 10.4; Monocytes # (A) 0.3 k/uL (0-1.0); Monocytes % (A) 4 %; Neutrophils # (A) 5.6 k/uL (1.3-7.7); Neutrophils % (A) 81 %; Platelet Count 147 k/uL (150-450); RBC 4.17 m/uL (4.30-5.90); RDW 14.8 % (11.5-15.5); WBC 6.9 k/uL (3.8-10.6)
[2023-02-12 11:17] LABS: ABG Base Excess 7.3 mmol/L; ABG HCO3 34 mmol/L (21-25); ABG Oxygen Saturation 98.2 % (94-97); ABG PH 7.26 (7.35-7.45); ABG PO2 114 mmHg (83-108); ABG TCO2 37 mmol/L (19-24); Allen Test Performed? Yes
[2023-02-12 11:22] LABS: ABG PCO2 76 mmHg (35-45)
--- NOTE | 2023-02-12 11:31 | XR ---
EXAMINATION TYPE: XR chest 1V portable DATE OF EXAM: 02/12/2023 Comparison: 10/14/2022 Clinical History: 53-year-old male tube placement Findings: ET tube tip is just above the level of the peter. NG tube courses below the diaphragm but the distal aspect is beyond the field of view. Cardiac/pericardiac silhouette remains moderately enlarged. Diff use interstitial and vascular density persists. No bibi consolidation or pleural effusion. Impression: 1. ET tube tip just above the peter. Pull back 3.5 cm and reassess at follow-up. 2. Continued moderate cardiomegaly and suspected pulmonary vascular congestion.
[2023-02-12 11:56] LABS: Appearance,Urine Cloudy (Clear); Bacteria,Urine Occasional /hpf; Bilirubin,Urine Negative (Negative); Blood,Urine Small (Negative); Color,Urine Yellow; Glucose,Urine (UA) Trace (Negative); Ketones,Urine Trace (Negative); Leukocyte Esterase,Urine Negative (Negative); Mucus,Urine Rare /hpf; Nitrite,Urine Negative (Negative); Protein,Urine 3+ (Negative); RBC,Urine 17 /hpf (0-5); Specific Gravity,Urine 1.016 (1.001-1.035); Squamous Epithelial Cell,Urine 3 /hpf (0-4); Urobilinogen,Urine <2.0 mg/dL (<2.0); WBC,Urine 56 /hpf (0-5)
[2023-02-12 12:10] LABS: INR 1.1 (<1.2); Partial Thromboplastin Time 24.4 sec (22.0-30.0); Prothrombin Time 12.1 sec (10.0-12.5)
[2023-02-12 12:11] LABS: ALT 32 U/L (4-49); AST 81 U/L (17-59); African American GFR (CKD) >90 (>60 ml/min/1.73 sqM); Albumin 3.1 g/dL (3.5-5.0); Alkaline Phosphatase 113 U/L (38-126); Anion Gap 10 mmol/L; Blood Urea Nitrogen 18 mg/dL (9-20); Calcium 8.4 mg/dL (8.4-10.2); Carbon Dioxide 32 mmol/L (22-30); Chloride 89 mmol/L (98-107); Glucose 161 mg/dL (74-99); Magnesium 1.8 mg/dL (1.6-2.3); Non-African American GFR(CKD) 81 (>60 ml/min/1.73 sqM); Potassium 4.5 mmol/L (3.5-5.1); Sodium 131 mmol/L (137-145); Total Bilirubin 0.7 mg/dL (0.2-1.3); Total Protein 6.3 g/dL (6.3-8.2)
[2023-02-12 12:19] LABS: NT-Pro-B-Type Natriuretic Pept 15000 pg/mL
[2023-02-12] MEDS ORDERED: cefTRIAXone IN SWFI 1,000 MG/10 ML SYRINGE IVP STA (12:30)
[2023-02-12] MEDS ORDERED: NALOXONE 0.4 MG/ML 1 ML VIAL IV PRN (13:13)
--- NOTE | 2023-02-12 13:13 | ED ---
General Adult HPI - General Chief complaint: Cardiac Arrest/CPR Stated complaint: Cardiac Arrest Time Seen by Provider: 02/12/23 10:42 Source: EMS Mode of arrival: EMS - History of Present Illness Initial comments: 53-year-old male with past medical history of super morbid obesity, chronic lower extremity wounds, Chiari malformation who presents to the emergency department after a witnessed arrest. Family heard him call out from his bedroom. Son entered to find him on the floor on all 4 extremities. He disconnected himself from his oxygen. Son thought was that the patient had been trying to transfer himself from his motorized scooter to the bed. He could not help the patient up and therefore he ran to get family. When he went back in the room he found his dad unresponsive. Fire got to the house and applied the defibrillator. No shock was advised. CPR was started. EMS arrived and found the patient's rhythm to be PE. They intubated the patient with a Giacomo tube. CPR was performed for 10 minutes before they obtained Rosc. Patient arrives to nc intubated with a pulse. He is in A. fib with RVR with a rate of 180. Patient does appear to be seizing. He received 2 doses of epi from EMS but no other medications. Upon speaking with family, they state that he left a rehab one week ago AGAINST MEDICAL ADVICE. He had been there since September. reports that he wasn't getting his Lasix. He did start taking it since he has been home. He has had worsening lower extremity edema and swelling to his genitals. He was supposed to have an appointment with wound care today. No other alleviating, precipitating or modifying factors - Related Data Home Medications Medication Instructions Recorded Confirmed Ibuprofen [Motrin] 800 mg PO TID PRN 06/26/22 02/12/23 Albuterol Inhaler [Ventolin Hfa 2 puff INHALATION RT-Q6H PRN 10/14/22 02/12/23 Inhaler] ALPRAZolam [Xanax] 0.5 mg PO HS 02/12/23 02/12/23 Collagenase [Santyl Ointment] 1 applic TOPICAL TUTHSA PRN 02/12/23 02/12/23 Furosemide [Lasix] 40 mg PO DAILY 02/12/23 02/12/23 Omeprazole [PriLOSEC] 20 mg PO DAILY 02/12/23 02/12/23 Potassium Gluconate 99 mg PO DAILY PRN 02/12/23 02/12/23 Previous Rx's Medication Instructions Recorded Metoprolol Tartrate [Lopressor] 50 mg PO BID tab 04/23/22 Gabapentin [Neurontin] 100 mg PO BID #6 cap 10/17/22 HYDROcodone/APAP 10-325MG [[place] 1 tab PO Q6H #12 tab 10/17/22 10-325] Allergies Allergy/AdvReac Type Severity Reaction Status Date / Time No Known Allergies Allergy Verified 02/12/23 13:52 Review of Systems ROS Statement: Those systems with pertinent positive or pertinent negative responses have been documented in the HPI. ROS Other: All systems not noted in ROS Statement are negative. Past Medical History Past Medical History: Asthma, Diabetes Mellitus, Hypertension, Sleep Apnea/CPAP/BIPAP Additional Past Medical History / Comment(s): Chiari malformation History of Any Multi-Drug Resistant Organisms: None Reported Past Surgical History: Hernia Repair Additional Past Surgical History / Comment(s): Brain surgeryx2, left wrist surgery, lap band Past Anesthesia/Blood Transfusion Reactions: No Reported Reaction Past Psychological History: No Psychological Hx Reported Smoking Status: Never smoker Past Alcohol Use History: Occasional Past Drug Use History: Marijuana - Past Family History Father Family Medical History: No Reported History General Exam Limitations: altered mental status General appearance: obtunded, other (appears to be seizing) Head exam: Present: atraumatic, normocephalic, normal inspection Eye exam: Present: other (2 mm non reactive) ENT exam: Present: mucous membranes dry Respiratory exam: Present: rales, other (Patient is being bagged by EMS) Cardiovascular Exam: Present: tachycardia, irregular rhythm GI/Abdominal exam: Present: soft Extremities exam: Present: other (Chronic lower extremity wounds) Neurological exam: Present: altered, other (Unresponsive on the vent. Rhythmic motions concerning for seizure) Course Vital Signs 02/12/23 02/12/23 02/12/23 10:37 10:40 10:43 Temperature Pulse Rate 161 H 192 H Pulse Rate [ Supine Partner Integration Planner] Respiratory 20 20 Rate Blood Pressure 51/35 103/86 O2 Sat by Pulse 100 100 Oximetry Fraction of 100 Inspired Oxygen (FIO2) 02/12/23 02/12/23 02/12/23 11:24 11:41 12:00 Temperature 97.2 F L Pulse Rate 113 H 86 Pulse Rate [ 120 H Supine Partner Integration Planner] Respiratory 20 18 Rate Blood Pressure 109/82 117/78 O2 Sat by Pulse 100 100 Oximetry Fraction of Inspired Oxygen (FIO2) 02/12/23 14:18 Temperature Pulse Rate 86 Pulse Rate [ Supine Partner Integration Planner] Respiratory 20 Rate Blood Pressure 117/78 O2 Sat by Pulse 100 Oximetry Fraction of Inspired Oxygen (FIO2) Procedures - [place] Protocol (Time Out) Nurse: John Burns Medical Decision Making - Medical Decision Making Was pt. sent in by a medical professional or institution (, PA, ADJUNCT PROFESSOR OF LAW, urgent care, hospital, or detention...) When possible be specific @ -No Did you speak to anyone other than the patient for history (EMS, parent, family, police, friend...)? What history was obtained from this source @ -EMS and family Did you review nursing and triage notes (agree or disagree)? Why? @ -I reviewed and agree with nursing and triage notes Were old charts reviewed (outside hosp., previous admission, EMS record, old EKG, old radiological studies, urgent care reports/EKG's, detention records)? Report findings @ -I reviewed the patient's previous records are he was admitted for lower extremity wounds Differential Diagnosis (chest pain, altered mental status, abdominal pain women, abdominal pain men, vaginal bleeding, weakness, fever, dyspnea, syncope, headache, dizziness, GI bleed, back pain, seizure, CVA, palpatations, mental health, musculoskeletal)? @ -Differential Coronary syndrome, arrhythmia, tamponade, asthma, COPD, pulmonary embolism, pneumonia, pneumothorax, pulmonary effusion, anaphylaxis, diabetic ketoacidosis, flailed chest, pulmonary contusion, diaphragmatic rupture, anemia, neur omuscular, this is not meant to be an all-inclusive list. EKG interpreted by me (3pts min.). @ - Yes first done at 1036 demonstrates A. fib with a rate of 179. QRS 88. QTC of 357. PVCs present. No acute ST segment elevation Repeat done at 1237 demonstrates possible A. fib with a rate of 89. QRS 95. QTC of 425. No acute ST segment elevations or depressions X-rays interpreted by me (1pt min.). @ -Yes and demonstrates deep ET tube CT interpreted by me (1pt min.). @ -Yes and demonstrates no acute process U/S interpreted by me (1pt. min.). @ -None done What testing was considered but not performed or refused? (CT, X-rays, U/S, labs)? Why? @ -None What meds were considered but not given or refused? Why? @ -None Did you discuss the management of the patient with other professionals (professionals i.e. Dr., PA, ADJUNCT PROFESSOR OF LAW, lab, RT, psych nurse, social service manager, resource management planner, teacher, police liaison officer, community case manager)? Give summary @Spoke with ground crewman and admitting physician Dr. Silver Was smoking cessation discussed for >3mins.? @ -No Was critical care preformed (if so, how long)? @ -yes, 40 minutes Were there social determinants of health that impacted care today? How? (Homelessness, low income, unemployed, alcoholism, drug addiction, transportation, low edu. Level, literacy, decrease access to med. care, custodial, rehab)? @ -No Was there de-escalation of care discussed even if they declined (Discuss DNR or withdrawal of care, Hospice)? DNR status @ -Yes and would like the patient to be full code at this time What co-morbidities impacted this encounter? (DM, HTN, Smoking, COPD, CAD, Cancer, CVA, ARF, Chemo, Hep., AIDS, mental health diagnosis, sleep apnea, morbid obesity)? @ -Morbid obesity Was patient admitted / discharged? Hospital course, mention meds given and route, prescriptions, significant lab abnormalities, going to OR and other pertinent info. @ -Upon arrival patient was placed into trauma two. Thorough history and physical exam was performed. Patient is intubated with a Giacomo tube. I did intubate the patient with a 7-1/2 ET tube after administering 10 mg of Versed for his seizure-like activity. Chest x-ray is performed which demonstrates a low-lying ET tube. This is retracted by 3 cm to 22 cm. Patient is in A. fib with RVR. I did start the patient on an amiodarone drip due to nonsustained V. tach and A. fib with RVR. He is given a 2 L bolus of normal saline. CT of the brain is performed due to his seizures. Laboratory studies and imaging are reviewed. I discussed them with Dr. Silver and Dr. Tipton. Patient will be admitted to the ICU. Family is present at bedside. Requested the patient continued to be a full code. He does remain in stable condition with a guarded prognosis Undiagnosed new problem with uncertain prognosis? @ -yes Drug Therapy requiring intensive monitoring for toxicity (Heparin, Nitro, Insulin, Cardizem)? @ -No Were any procedures done? @ -No Diagnosis/symptom? @ -acute vent dependant resp failure, cardiac arrest, new seizure like activity, afib with rvr Acute, or Chronic, or Acute on Chronic? @ -acute Uncomplicated (without systemic symptoms) or Complicated (systemic symptoms)? @ -complicated Side effects of treatment? @ -No Exacerbation, Progression, or Severe Exacerbation? @ -No Poses a threat to life or bodily function? How? (Chest pain, [place], [place], pneumonia, PE, COPD, DKA, ARF, appy, cholecystitis, CVA, Diverticulitis, Homicidal, Suicidal, threat to staff... and all critical care pts) @ -yes - patient sustained cardiac arrest and is now having symptoms of anoxic brain injury - Lab Data Result diagrams: 02/15/23 23:35 02/15/23 23:35 Lab Results 02/12/23 02/12/23 02/12/23 Range/Units 10:48 11:01 11:01 WBC 6.9 (3.8-10.6) k/uL RBC 4.17 L (4.30-5.90) m/uL Hgb 10.4 L (13.0-17.5) gm/dL Hct 36.7 L (39.0-53.0) % MCV 87.9 (80.0-100.0) fL MCH 24.9 L (25.0-35.0) pg MCHC 28.4 L (31.0-37.0) g/dL RDW 14.8 (11.5-15.5) % Plt Count 147 L (150-450) k/uL MPV 10.4 Neutrophils % 81 % Lymphocytes % 11 % Monocytes % 4 % Eosinophils % 2 % Basophils % 0 % Neutrophils # 5.6 (1.3-7.7) k/uL Lymphocytes # 0.8 L (1.0-4.8) k/uL Monocytes # 0.3 (0-1.0) k/uL Eosinophils # 0.1 (0-0.7) k/uL Basophils # 0.0 (0-0.2) k/uL Hypochromasia Marked PT 12.1 (10.0-12.5) sec INR 1.1 (<1.2) APTT 24.4 (22.0-30.0) sec Sample Site ABG pH (7.35-7.45) ABG pCO2 (35-45) mmHg ABG pO2 (83-108) mmHg ABG HCO3 (21-25) mmol/L ABG Total CO2 (19-24) mmol/L ABG O2 Saturation (94-97) % ABG Base Excess mmol/L Caleb Test FiO2 % Sodium (137-145) mmol/L Potassium (3.5-5.1) mmol/L Chloride (98-107) mmol/L Carbon Dioxide (22-30) mmol/L Anion Gap mmol/L BUN (9-20) mg/dL Creatinine (0.66-1.25) mg/dL Est GFR (CKD-EPI)AfAm (>60 ml/min/1.73 sqM) Est GFR (CKD-EPI)NonAf (>60 ml/min/1.73 sqM) Glucose (74-99) mg/dL POC Glucose (mg/dL) 148 H (70-110) mg/dL POC Glu Wildlife Enforcement Major ID [place] Lactic Ac Sepsis Rflx Plasma Lactic Acid Rich (0.7-2.0) mmol/L Calcium (8.4-10.2) mg/dL Magnesium (1.6-2.3) mg/dL Total Bilirubin (0.2-1.3) mg/dL AST (17-59) U/L ALT (4-49) U/L Alkaline Phosphatase (38-126) U/L Troponin I (0.000-0.034) ng/mL NT-Pro-B Natriuret Pep pg/mL Total Protein (6.3-8.2) g/dL Albumin (3.5-5.0) g/dL Urine Color Urine Appearance (Clear) Urine pH (5.0-8.0) Ur Specific [place] (1.001-1.035) Urine Protein (Negative) Urine Glucose (UA) (Negative) Urine Ketones (Negative) Urine Blood (Negative) Urine Nitrite (Negative) Urine Bilirubin (Negative) Urine Urobilinogen (<2.0) mg/dL Ur Leukocyte Esterase (Negative) Urine RBC (0-5) /hpf Urine WBC (0-5) /hpf Urine WBC Clumps (None) /hpf Ur Squamous Epith Cells (0-4) /hpf Urine Bacteria (None) /hpf Urine Mucus (None) /hpf 02/12/23 02/12/23 02/12/23 Range/Units 11:01 11:01 11:01 WBC (3.8-10.6) k/uL RBC (4.30-5.90) m/uL Hgb (13.0-17.5) gm/dL Hct (39.0-53.0) % MCV (80.0-100.0) fL MCH (25.0-35.0) pg MCHC (31.0-37.0) g/dL RDW (11.5-15.5) % Plt Count (150-450) k/uL MPV Neutrophils % % Lymphocytes % % Monocytes % % Eosinophils % % Basophils % % Neutrophils # (1.3-7.7) k/uL Lymphocytes # (1.0-4.8) k/uL Monocytes # (0-1.0) k/uL Eosinophils # (0-0.7) k/uL Basophils # (0-0.2) k/uL Hypochromasia PT (10.0-12.5) sec INR (<1.2) APTT (22.0-30.0) sec Sample Site ABG pH (7.35-7.45) ABG pCO2 (35-45) mmHg ABG pO2 (83-108) mmHg ABG HCO3 (21-25) mmol/L ABG Total CO2 (19-24) mmol/L ABG O2 Saturation (94-97) % ABG Base Excess mmol/L Caleb Test FiO2 % Sodium (137-145) mmol/L Potassium (3.5-5.1) mmol/L Chloride (98-107) mmol/L Carbon Dioxide (22-30) mmol/L Anion Gap mmol/L BUN (9-20) mg/dL Creatinine (0.66-1.25) mg/dL Est GFR (CKD-EPI)AfAm (>60 ml/min/1.73 sqM) Est GFR (CKD-EPI)NonAf (>60 ml/min/1.73 sqM) Glucose (74-99) mg/dL POC Glucose (mg/dL) (70-110) mg/dL POC Glu Wildlife Enforcement Major ID Lactic Ac Sepsis Rflx Plasma Lactic Acid Rich 3.3 H* (0.7-2.0) mmol/L Calcium (8.4-10.2) mg/dL Magnesium (1.6-2.3) mg/dL Total Bilirubin (0.2-1.3) mg/dL AST (17-59) U/L ALT (4-49) U/L Alkaline Phosphatase (38-126) U/L Troponin I 0.029 (0.000-0.034) ng/mL NT-Pro-B Natriuret Pep pg/mL Total Protein (6.3-8.2) g/dL Albumin (3.5-5.0) g/dL Urine Color Yellow Urine Appearance Cloudy (Clear) Urine pH 7.0 (5.0-8.0) Ur Specific [place] 1.016 (1.001-1.035) Urine Protein 3+ H (Negative) Urine Glucose (UA) Trace H (Negative) Urine Ketones Trace H (Negative) Urine Blood Small H (Negative) Urine Nitrite Negative (Negative) Urine Bilirubin Negative (Negative) Urine Urobilinogen <2.0 (<2.0) mg/dL Ur Leukocyte Esterase Negative (Negative) Urine RBC 17 H (0-5) /hpf Urine WBC 56 H (0-5) /hpf Urine WBC Clumps Many H (None) /hpf Ur Squamous Epith Cells 3 (0-4) /hpf Urine Bacteria Occasional H (None) /hpf Urine Mucus Rare H (None) /hpf 02/12/23 02/12/23 02/12/23 Range/Units 11:13 11:47 12:13 WBC (3.8-10.6) k/uL RBC (4.30-5.90) m/uL Hgb (13.0-17.5) gm/dL Hct (39.0-53.0) % MCV (80.0-100.0) fL MCH (25.0-35.0) pg MCHC (31.0-37.0) g/dL RDW (11.5-15.5) % Plt Count (150-450) k/uL MPV Neutrophils % % Lymphocytes % % Monocytes % % Eosinophils % % Basophils % % Neutrophils # (1.3-7.7) k/uL Lymphocytes # (1.0-4.8) k/uL Monocytes # (0-1.0) k/uL Eosinophils # (0-0.7) k/uL Basophils # (0-0.2) k/uL Hypochromasia PT (10.0-12.5) sec INR (<1.2) APTT (22.0-30.0) sec Sample Site lrad ABG pH 7.26 L (7.35-7.45) ABG pCO2 76 H* (35-45) mmHg ABG pO2 114 H (83-108) mmHg ABG HCO3 34 H (21-25) mmol/L ABG Total CO2 37 H (19-24) mmol/L ABG O2 Saturation 98.2 H (94-97) % ABG Base Excess 7.3 mmol/L Caleb Test Yes FiO2 100 % Sodium 131 L (137-145) mmol/L Potassium 4.5 (3.5-5.1) mmol/L Chloride 89 L (98-107) mmol/L Carbon Dioxide 32 H (22-30) mmol/L Anion Gap 10 mmol/L BUN 18 (9-20) mg/dL Creatinine 1.04 (0.66-1.25) mg/dL Est GFR (CKD-EPI)AfAm >90 (>60 ml/min/1.73 sqM) Est GFR (CKD-EPI)NonAf 81 (>60 ml/min/1.73 sqM) Glucose 161 H (74-99) mg/dL POC Glucose (mg/dL) (70-110) mg/dL POC Glu Wildlife Enforcement Major ID Lactic Ac Sepsis Rflx Y Plasma Lactic Acid Rich (0.7-2.0) mmol/L Calcium 8.4 (8.4-10.2) mg/dL Magnesium 1.8 (1.6-2.3) mg/dL Total Bilirubin 0.7 (0.2-1.3) mg/dL AST 81 H (17-59) U/L ALT 32 (4-49) U/L Alkaline Phosphatase 113 (38-126) U/L Troponin I (0.000-0.034) ng/mL NT-Pro-B Natriuret Pep 34718 pg/mL Total Protein 6.3 (6.3-8.2) g/dL Albumin 3.1 L (3.5-5.0) g/dL Urine Color Urine Appearance (Clear) Urine pH (5.0-8.0) Ur Specific [place] (1.001-1.035) Urine Protein (Negative) Urine Glucose (UA) (Negative) Urine Ketones (Negative) Urine Blood (Negative) Urine Nitrite (Negative) Urine Bilirubin (Negative) Urine Urobilinogen (<2.0) mg/dL Ur Leukocyte Esterase (Negative) Urine RBC (0-5) /hpf Urine WBC (0-5) /hpf Urine WBC Clumps (None) /hpf Ur Squamous Epith Cells (0-4) /hpf Urine Bacteria (None) /hpf Urine Mucus (None) /hpf Disposition Clinical Impression: Morbid obesity, Ventilator dependent, Cardiac arrest Disposition: ADMITTED IP TO THIS [facility] Condition: Critical Is patient prescribed a controlled substance at d/c from ED?: No Time of Disposition: 13:13 Decision to Admit Reason: Admit from EC Decision Date: 02/12/23 Decision Time: 13:13
--- NOTE | 2023-02-12 13:27 | CT ---
EXAMINATION TYPE: CT brain cspine wo con CT DLP: 2341 mGycm, Automated exposure control for dose reduction was used. DATE OF EXAM: 02/12/2023 12:28 PM COMPARISON: CT head 10/14/2022 CLINICAL INDICATION:Male, 53 years old with history of arrest; Cardiac arrest. TECHNIQUE: Brain: Multiple axial CT images of the brain were obtained without IV contrast. Cspine: Axial CT images from the skull base to the inferior aspect of T2 we obtained without intraven ous contrast. Coronal and sagittal reformatted images were also reviewed. FINDINGS: Significant limitations by patient body habitus and associated artifacts. Brain: Extra-axial spaces: No abnormal extra-axial fluid collections. Ventricular system: Within normal limits. Cerebral parenchyma: No increased attenuation to suggest acute intraparenchymal hemorrhage. The gra y-white matter interface appears maintained. No significant atrophy. White matter unremarkable by C T. Cerebellum: Posterior fossa is largely obscured, but areas of hypodensity involving the mid to electromechanical equipment tester ior left cerebellar hemisphere and posterior right cerebellar hemisphere, appear generally similar to the prior study, as do postoperative changes of posterior craniotomy extending down to the foramen m agnum. Mass effect: No evidence of mass effect or midline shift. Intracranial vasculature: Unremarkable Soft tissues: Normal. Visualized orbits: Orbital contents appear grossly intact. Calvarium/osseous structures: Remote postcraniotomy changes along the posterior aspect of the skull a t the level of the cerebellum. No acute bony abnormality. Again the dura bulges slightly into the traveling crane operator niotomy defect. Paranasal sinuses and mastoid air cells: Both maxillary sinuses are developmentally underpneumatized. Right frontal sinus is not pneumatized, and the left frontal sinus is hypoplastic. There could be op erative openings in the medial maxillary sinus hdez bilaterally. The ostiomeatal complexes appear na rrowed and could be occluded by soft tissue. There is soft tissue thickening seen throughout the nasa l passage bilaterally. Scattered opacification of multiple ethmoid air cells bilaterally. Other: Partially seen ETT and OG tubes. MRI is more sensitive for detecting acute processes such as infarct, and may be considered if clinica lly warranted. Cervical spine: Fracture: None identified. Osseous structures, spinal canal/neural foramina: Osseous mineralization appears to be appropriate. M ild/moderate multilevel degenerative disc disease and facet arthrosis throughout the cervical spine. At C2-C3 the spinal canal and neuroforamina appear patent. At C3-4, mild to moderate right neural for aminal stenosis. At C4-5, mild canal and bilateral neural foraminal stenosis. At C5-6, C6-C7 and C7-T 1, mild canal and bilateral foraminal stenosis. Vertebral alignment: No traumatic malalignment. Straightening mild reversal of the normal cervical lo rdosis, can be seen with degenerative changes, pain, positioning, muscular spasm. Neck soft tissues: Limited assessment with no definite acute soft tissue abnormality in the neck. ET tube and OG tube present, with their tips beyond the field of view.. Other: Lung apices show biapical pleural parenchymal scarring, no pneumothorax. Question mild emphyse matous changes. There are some lobular opacities posteriorly bilaterally, which could be combination of pleural fluid and atelectasis. There are nonenlarged mediastinal nodes seen, as well as an apparen t enlarged node in the left supraclavicular region measuring about 21 x 20 mm. Other nodes could poss ibly be present. IMPRESSION: CT head: 1. No acute intracranial CT abnormality. 2. Posterior occipital craniotomy changes over the posterior fossa, with grossly similar appearance o f underlying cerebellar encephalomalacia. CT cervical spine: 1. No evidence of cervical spine fracture or traumatic malalignment. 2. Moderate multilevel cervical spondylosis. 3. Suspect at least one enlarged left supraclavicular lymph node.
[2023-02-12 14:23] LABS: Glucose,Whole Blood 163 mg/dL (70-110)
[2023-02-12] MEDS ORDERED: HEPARIN SODIUM 1,000 UN/ML (10ML VL) IV ONE (14:33)
[2023-02-12] MEDS ORDERED: HEPARIN SODIUM 1,000 UN/ML (10ML VL) IV PRN (14:33)
--- NOTE | 2023-02-12 14:44 | P.CRDCN ---
History of Present Illness Consult date: 02/12/23 History of present illness: History of Present Illness: The patient is a 53-year-old male with a history of chronic persistent atrial fibrillation by EKG from September, history of morbid obesity and lower extremities ulceration as well as obstructive sleep apnea and hypercapnia who presented with cardiopulmonary arrest requiring CPR and mechanical ventilation. The history is obtained from the records, he was found on the floor after according to family subsequently he became unresponsive. EMS start CPR, he did not require cardioversion. He was in atrial fibrillation. In the emergency room he is in atrial fibrillation on no vasopressors. The patient was in rehab a left AGAINST MEDICAL ADVICE about a week ago. He has a long-standing history of nonhealing ulcer. No other history is obtained at this time. According to the records there is no history of ischemic heart disease. No evaluation of his systolic function is available. No other prior history is obtainable. Medications: According to the record metoprolol 50 mg twice a day, Lasix 40 mg daily, potassium, Prilosec, Neurontin Review of Systems: Could not be obtained Physical Examination: 53-year-old male, intubated, morbidly obese ,Blood pressure 117/70, Heart rate 90 Head: Normocephalic. Eyes: Sclerae nonicteric. Neck: Good carotid upstroke, no bruit, no jugular venous distention. Lungs: Clear to auscultation anteriorly. Heart: Irregular rate and rhythm, S1-S2, no S3, no rub. No murmur. Abdomen: Soft ,positive bowel sounds no organomegaly. Extremities: +2-3 edema bilaterally with chronic skin changes and nonhealing ulcer on the right foot. Labs: PH 7.26, pCO2 76, pO2 114. Hemoglobin 10.4, platelets 147. Potassium 4.5, BUN 18, creatinine 1.04. Troponin 0.0-9. NT proBNP 15,000. Lactic acid 3.3. Computed tomography scan of the head with no acute bleed EKG: Atrial fibrillation with nonspecific ST-T wave changes Impression: 1. Respiratory failure, unclear if the patient had asystole or ventricular ectopic activity. His presentation could be related to severe hypoxemia and probable chronic hypercapnia that could have caused an arrhythmia. No evidence of acute ischemia by EKG 2. Atrial fibrillation, appears to be persistent since September 3. Morbid obesity 4. Nonhealing ulcer of the foot 5. History of obstructive sleep apnea 6. Elevated NT proBNP was possible CHF related to the pulmonary arrest Plan: 1. IV diuretics 2. Restart beta juan david 3. Start intravenous heparin 4. Obtain an echocardiogram with Doppler 5. Follow renal functions 6. Depending on his progress further recommendations will be made, prognosis is guarded, thank you for this consult we will follow with you. Past Medical History Past Medical History: Asthma, Diabetes Mellitus, Hypertension, Sleep Apnea/CPAP/BIPAP Additional Past Medical History / Comment(s): Chiari malformation History of Any Multi-Drug Resistant Organisms: None Reported Past Surgical History: Hernia Repair Additional Past Surgical History / Comment(s): Brain surgeryx2, left wrist surgery, lap band Past Anesthesia/Blood Transfusion Reactions: No Reported Reaction Past Psychological History: No Psychological Hx Reported Smoking Status: Never smoker Past Alcohol Use History: Occasional Past Drug Use History: Marijuana - Past Family History Father Family Medical History: No Reported History Medications and Allergies Home Medications Medication Instructions Recorded Confirmed Type Metoprolol Tartrate [Lopressor] 50 mg PO BID tab 04/23/22 02/12/23 Rx Ibuprofen [Motrin] 800 mg PO TID PRN 06/26/22 02/12/23 History Albuterol Inhaler [Ventolin Hfa 2 puff INHALATION RT-Q6H PRN 10/14/22 02/12/23 History Inhaler] Gabapentin [Neurontin] 100 mg PO BID #6 cap 10/17/22 02/12/23 Rx HYDROcodone/APAP 10-325MG [[place] 1 tab PO Q6H #12 tab 10/17/22 02/12/23 Rx 10-325] ALPRAZolam [Xanax] 0.5 mg PO HS 02/12/23 02/12/23 History Collagenase [Santyl Ointment] 1 applic TOPICAL TUTHSA PRN 02/12/23 02/12/23 History Furosemide [Lasix] 40 mg PO DAILY 02/12/23 02/12/23 History Omeprazole [PriLOSEC] 20 mg PO DAILY 02/12/23 02/12/23 History Potassium Gluconate 99 mg PO DAILY PRN 02/12/23 02/12/23 History Allergies Allergy/AdvReac Type Severity Reaction Status Date / Time No Known Allergies Allergy Verified 02/12/23 13:52 Physical Exam Vitals: Vital Signs Temp Pulse Pulse Resp BP Pulse Ox FiO2 02/12/23 14:18 86 20 117/78 100 02/12/23 12:00 86 18 117/78 100 02/12/23 11:41 97.2 F L 113 H 20 109/82 100 02/12/23 11:24 120 H 02/12/23 11:00 100 02/12/23 10:43 192 H 20 103/86 100 02/12/23 10:40 100 02/12/23 10:37 161 H 20 51/35 100 Intake and Output 02/11/23 02/12/23 02/12/23 22:59 06:59 14:59 Intake Total 4.627 Balance 4.627 Intake: Intake, IV Titration 4.627 Amount propofoL 1,000 mg In 4.627 Empty Bag 1 bag @ 15 MCG/ KG/MIN 16.329 mls/hr IV . Q6H8M [facility] Rx#:[id number] Other: Weight 181.437 kg Results 02/12/23 11:01 02/12/23 11:47 Cardiac Enzymes 02/12/23 02/12/23 Range/Units 11:01 11:47 AST 81 H (17-59) U/L Troponin I 0.029 (0.000-0.034) ng/mL Coagulation 02/12/23 Range/Units 11:01 PT 12.1 (10.0-12.5) sec APTT 24.4 (22.0-30.0) sec CBC 02/12/23 Range/Units 11:01 WBC 6.9 (3.8-10.6) k/uL RBC 4.17 L (4.30-5.90) m/uL Hgb 10.4 L (13.0-17.5) gm/dL Hct 36.7 L (39.0-53.0) % Plt Count 147 L (150-450) k/uL Comprehensive Metabolic Panel 02/12/23 Range/Units 11:47 Sodium 131 L (137-145) mmol/L Potassium 4.5 (3.5-5.1) mmol/L Chloride 89 L (98-107) mmol/L Carbon Dioxide 32 H (22-30) mmol/L BUN 18 (9-20) mg/dL Creatinine 1.04 (0.66-1.25) mg/dL Glucose 161 H (74-99) mg/dL Calcium 8.4 (8.4-10.2) mg/dL AST 81 H (17-59) U/L ALT 32 (4-49) U/L Alkaline Phosphatase 113 (38-126) U/L Total Protein 6.3 (6.3-8.2) g/dL Albumin 3.1 L (3.5-5.0) g/dL Current Medications Generic Name Dose Route Start Last Admin Trade Name Freq PRN Reason Stop Dose Admin Aspirin 81 mg 02/13/23 09:00 Aspirin 81 Mg PO DAILY [facility] Furosemide 40 mg 02/12/23 16:00 Furosemide 10 Mg/Ml 4 Ml Vial IV Q8HR GAYE Heparin Sodium (Porcine) 4,000 unit 02/12/23 14:33 Heparin Sodium 1,000 Un/Ml (10ml Vl) IV 02/12/23 14:34 ONCE ONE Heparin Sodium (Porcine) 0 unit 02/12/23 14:33 Heparin Sodium 1,000 Un/Ml (10ml Vl) IV PER PROTOCOL PRN Low PTT Protocol Amiodarone HCl 360 mg/ 200 mls @ 33.333 mls/hr 02/12/23 10:54 02/12/23 11:45 Dextrose/Water IV 02/12/23 16:53 1 mg/min .Q6H ONE 33.333 mls/hr Administration Protocol 1 MG/MIN Amiodarone HCl 450 mg/ 250 mls @ 16.667 mls/hr 02/12/23 17:00 Dextrose/Water IV 02/13/23 10:59 .Q15H GAYE Protocol 0.5 MG/MIN Propofol 1,000 mg/ IV Solution 100 mls @ 16.329 mls/hr 02/12/23 12:15 02/12/23 13:05 IV 20 mcg/kg/min .Q6H8M GAYE 21.772 mls/hr Titration Protocol 15 MCG/KG/MIN Heparin Sodium/Sodium Chloride 250 mls @ 21.772 mls/hr 02/12/23 14:45 25,000 unit/ Sodium Chloride IV .[id number] GAYE Protocol 12 UNITS/KG/HR Metoprolol Tartrate 25 mg 02/12/23 21:00 Metoprolol Tartrate 25 Mg Tab PO BID GAEY Naloxone HCl 0.2 mg 02/12/23 13:13 Naloxone 0.4 Mg/Ml 1 Ml Vial IV Q2M PRN Opioid Reversal Intake and Output 02/11/23 02/12/23 02/12/23 22:59 06:59 14:59 Intake Total 4.627 Balance 4.627 Intake: Intake, IV Titration 4.627 Amount propofoL 1,000 mg In 4.627 Empty Bag 1 bag @ 15 MCG/ KG/MIN 16.329 mls/hr IV . Q6H8M [facility] Rx#:[id number] Other: Weight 181.437 kg Patient Weight 02/13/23 06:59 Weight 181.437 kg 02/12/23 11:01 02/12/23 11:47
[2023-02-12 15:22] LABS: Basophils % (A) 0 %; Eosinophils % (A) 0 %; HCT 33.1 % (39.0-53.0); HGB 9.6 gm/dL (13.0-17.5); Hypochromasia Marked; Lymphocytes # (A) 0.4 k/uL (1.0-4.8); Lymphocytes % (A) 3 %; MCHC 28.9 g/dL (31.0-37.0); MCV 86.6 fL (80.0-100.0); Mean Platelet Volume 9.6; Monocytes # (A) 0.7 k/uL (0-1.0); Monocytes % (A) 6 %; Neutrophils # (A) 10.4 k/uL (1.3-7.7); Neutrophils % (A) 90 %; Platelet Count 129 k/uL (150-450); RBC 3.82 m/uL (4.30-5.90); RDW 14.8 % (11.5-15.5); WBC 11.6 k/uL (3.8-10.6)
[2023-02-12 15:32] LABS: INR 1.1 (<1.2); Partial Thromboplastin Time 24.3 sec (22.0-30.0); Prothrombin Time 11.6 sec (10.0-12.5)
--- NOTE | 2023-02-12 15:36 | P.CON ---
Consult Note - . Consult date: 02/12/23 Assessment/Plan:: Wound care consultation: Reason for consultation: Bilateral lower leg ulcers. History chief complaint: This patient has been intermittently under our care for years. He has chronic stasis ulcers of bilateral lower legs. Etiology of his ulcerations is stasis related to his morbid obesity. He has been consistently noncompliant for many years, both with the care of his ulcers and efforts at risk modification. The patient is status post witnessed arrest. Down time is assessed at around 10 minutes at least. The rest of his medical issues are well outlined by other medical consultants. On examination we have a 53-year-old morbidly obese gentleman resting on the ventilator. He has large full-thickness well-circumscribed ulcers on the posterior aspect of both calves. He has moderate lower leg swelling. Impression: Long-standing chronic ulcers of both lower legs related to chronic stasis. Recommendation: In view of his current medical status I would simply temporize with Opticel silver over the wounds covered by gauze and then wrapped with double length 4 inch Tam wraps. The dressing should be changed every other day. I have discussed his current status with his significant other. Any further recommendations can follow should he at some point be extubated.
[2023-02-12] MEDS ORDERED: FUROSEMIDE 10 MG/ML 4 ML VIAL IV SCH (16:00)
[2023-02-12] MEDS: AMIODARONE 450 MG in DEXTROSE 5% IN WATER 250 ML IV SCH ×2 (17:02)
[2023-02-12] MEDS ORDERED: DEXTROSE 50% SYRINGE 50 ML IVP PRN ×2 (17:19)
[2023-02-12] MEDS ORDERED: ANIDULAFUNGIN 200 MG in SODIUM CHLORIDE 0.9% 200 ML IVPB ONE (17:30)
--- NOTE | 2023-02-12 17:30 | XR ---
EXAMINATION TYPE: XR chest 1V confirm line [facility] DATE OF EXAM: 02/12/2023 5:18 PM CLINICAL INDICATION:Male, 53 years old with history of central line; COMPARISON: Chest radiographs from 02/12/2023.r TECHNIQUE: XR chest 1V confirm line plcar Frontal view of the chest. FINDINGS: Lungs/Pleura: There is no evidence of pleural effusion, focal consolidation, or pneumothorax. Pulmonary vascularity: Unremarkable. Heart/mediastinum: Cardiomediastinal silhouette is unremarkable. Musculoskeletal: No acute osseous pathology. Other findings: None Lines/Tubes: Left internal jugular central venous catheter with distal tip at the cavoatrial junction. endotracheal tube 2.5 cm above the peter. IMPRESSION: 1. Left central venous catheter with tip in appropriate position. 2. No acute cardiopulmonary disease/process.
[2023-02-12] MEDS: PIPERACILLIN-TAZOBACTAM 3.375 GM in SODIUM CHLORIDE 0.9% 100 ML IVPB SCH (17:54)
[2023-02-12] MEDS: HEPARIN SOD,PORK IN 0.45% NACL 25,000 UNIT in 0.45% NACL 1 250ML.BAG IV SCH (17:54)
[2023-02-12 18:27] LABS: Glucose,Whole Blood 152 mg/dL (70-110)
--- NOTE | 2023-02-12 18:31 | P.CNPUL ---
History of Present Illness Consult date: 02/12/23 Chief complaint: cardiac arrest History of present illness: This is a 53-year-old morbidly obese -[place] male patient presented to us and cardiac arrest. The patient has multiple medical problems and comorbidities. He was supposed to be in rehabilitation and he left AGAINST MEDICAL ADVICE. He is known to have multiple wounds to his lower extremities. He is known to have obstructive sleep apnea/obesity hypoventilation syndrome and history of coronary artery malformation. He has chronic lower extremity edema and wounds that are open and weepy and infected. Family and the heard him call out this afternoon, the patient was found on the floor on all 4 extremities. Apparently, it was thought that the patient was trying to transfer himself to his motorized scooter and he dropped. Due to his morbid obesity, family contacted EMS and upon arrival, the patient was in cardiac arrest, he did not have a shockable rhythm and he was found to be in PEA. CPR was initiated. The patient was down for quite sometime and he was brought in to the emergency department where resuscitation was continued. Subsequently, there was return of spontaneous circulation the patient was found to be in atrial fibrillation with rapid ventricular response. He was started on amiodarone and currently amiodarone is running at 1 mg/m. He remains in A. fib with a controlled rhythm. No pressors at this point in time. He is having myoclonic jerks. He is intubated on mechanical ventilator. Is currently on assist control mode at a rate of 16, tidal volume of 450, FiO2 of 80% with a PEEP of 5. His blood. This showed a pH of 7.26 with a pCO2 of 76 and pO2 114 and this was on FiO2 of 100%. Chest x-ray showed cardiomegaly and ET tube was repositioned.. The patient's had an initial lactic acid level of 3.3 which subsequently droppe d down to 80%. His white cell count 11.6, hemoglobin 9.6 and a padded count is 129. Normal coagulation profile. BUN is at 80 with a creatinine of 1.04 and a sodium level is at 131. He received a total of 2 L of IV fluid in the emergency department. The patient had an initial troponin level of 0.029 and subsequent troponin was at 0.164. ProBNP level was 15,000. He is currently on propofol ru nning at 20 mcg/kg/m. IV fluids at 20 mL an hour. Amiodarone drip at 1 mg/m. He does have an infected large wound over the posterior aspect of the right calf with draining purulent material. He has also a similar wound in the left calf. His second toes are also sedated and there is purulent drainage from the ulcer and he has an ulceration of the second toe bilaterally. He does have also and also on that his scrotum. His other comorbid conditions include diabetes mellitus, artery and creatinine malformation and the patient has difficulty with mobility and gait, and he has also chronic hypoxic and hypercapnic respiratory failure maintain on oxygen at 2 L/m nasal cannula on an outpatient basis. Computed tomography scan of the brain was done in emergency department and it showed no acute intracranial abnormalities. There is posterior occipital craniotomy changes and evidence of cerebellar encephalomalacia. No evidence of any cervical spine fracture. Review of Systems ROS unobtainable: due to endotracheal tube, due to mental status Past Medical History Past Medical History: Asthma, Diabetes Mellitus, Hypertension, Sleep Apnea/CPAP/BIPAP Additional Past Medical History / Comment(s): Chiari malformation History of Any Multi-Drug Resistant Organisms: None Reported Past Surgical History: Hernia Repair Additional Past Surgical History / Comment(s): Brain surgeryx2, left wrist surgery, lap band Past Anesthesia/Blood Transfusion Reactions: No Reported Reaction Past Psychological History: No Psychological Hx Reported Smoking Status: Never smoker Past Alcohol Use History: Occasional Past Drug Use History: Marijuana - Past Family History Father Family Medical History: No Reported History Medications and Allergies Home Medications Medication Instructions Recorded Confirmed Type Metoprolol Tartrate [Lopressor] 50 mg PO BID tab 04/23/22 02/12/23 Rx Ibuprofen [Motrin] 800 mg PO TID PRN 06/26/22 02/12/23 History Albuterol Inhaler [Ventolin Hfa 2 puff INHALATION RT-Q6H PRN 10/14/22 02/12/23 History Inhaler] Gabapentin [Neurontin] 100 mg PO BID #6 cap 10/17/22 02/12/23 Rx HYDROcodone/APAP 10-325MG [[place] 1 tab PO Q6H #12 tab 10/17/22 02/12/23 Rx 10-325] ALPRAZolam [Xanax] 0.5 mg PO HS 02/12/23 02/12/23 History Collagenase [Santyl Ointment] 1 applic TOPICAL TUTHSA PRN 02/12/23 02/12/23 History Furosemide [Lasix] 40 mg PO DAILY 02/12/23 02/12/23 History Omeprazole [PriLOSEC] 20 mg PO DAILY 02/12/23 02/12/23 History Potassium Gluconate 99 mg PO DAILY PRN 02/12/23 02/12/23 History Allergies Allergy/AdvReac Type Severity Reaction Status Date / Time No Known Allergies Allergy Verified 02/12/23 13:52 Physical Exam Vitals: Vital Signs Temp Pulse Pulse Resp BP Pulse Ox FiO2 02/12/23 16:00 95.5 F L 79 16 129/83 100 80 02/12/23 15:30 86 16 134/90 99 02/12/23 15:08 80 02/12/23 15:00 77 16 125/87 100 02/12/23 14:41 80 02/12/23 14:30 96.1 F L 89 16 128/75 100 80 02/12/23 14:21 83 16 100 02/12/23 14:18 86 20 117/78 100 02/12/23 12:00 86 18 117/78 100 02/12/23 11:41 97.2 F L 113 H 20 109/82 100 02/12/23 11:24 120 H 02/12/23 11:00 100 02/12/23 10:43 192 H 20 103/86 100 02/12/23 10:40 100 02/12/23 10:37 161 H 20 51/35 100 Intake and Output 02/12/23 02/12/23 02/12/23 06:59 14:59 22:59 Intake Total 24.627 95.156 Output Total 25 565 Balance -0.373 -469.844 Intake: IV 20 40 0.9 20 40 Intake, IV Titration 4.627 55.156 Amount propofoL 1,000 mg In 4.627 55.156 Empty Bag 1 bag @ 15 MCG/ KG/MIN 16.329 mls/hr IV . Q6H8M [facility] Rx#:[id number] Output: Urine 25 565 Other: Voiding Method Indwelling Catheter Weight 181.437 kg Morbidly obese with a body mass index of 54.2, intubated on a mechanical ventilator. Having occasional myoclonic jerks Head exam was generally normal. There was no scleral icterus or corneal arcus. Mucous membranes were moist. Neck is extremely short and there is positive JVD's. The triple-lumen catheter was inserted in the left IJ. No neck stiffness. Lungs sounds are diminished bilaterally and there is diminished breath on the lung bases. No significant WHEEZES. Heart sounds are irregular, consistent with atrial fibrillation fibrillation. No significant murmur appreciated. No RV heave or and afebrile. Abdomen is morbidly obese and CANNOT be accurately palpated. No direct tenderness, no rebound tenderness or guarding. Extremities are chronically edematous and there is infected deep wounds, nonhealing in the calves bilaterally with purulent material oozing specially from the ulcer that's behind his right lower extremity. He also has oscillated/infected toes specifically the second toe in the right foot and the left foot bilaterally. Pulses are diminished. No cyanosis or clubbing. Neurologically, the patient has equal and symmetrical pupils. Pupils are equal and reactive to light. No facial asymmetry. Positive cough and a gag. Motor function cannot be assessed. Sensory functions cannot be assessed. Reflexes are flat bilaterally and no Babinski. No clonus. Results - Laboratory Findings CBC and BMP: 02/12/23 15:08 02/12/23 11:47 ABG ABG pH 7.26 (7.35-7.45) L 02/12/23 11:13 ABG pCO2 76 mmHg (35-45) H* 02/12/23 11:13 ABG pO2 114 mmHg (83-108) H 02/12/23 11:13 ABG O2 Saturation 98.2 % (94-97) H 02/12/23 11:13 PT/INR, D-dimer PT 11.6 sec (10.0-12.5) 02/12/23 15:08 INR 1.1 (<1.2) 02/12/23 15:08 Abnormal lab findings: Abnormal Labs 02/12/23 02/12/23 02/12/23 10:48 11:01 11:01 WBC RBC 4.17 L Hgb 10.4 L Hct 36.7 L MCH 24.9 L MCHC 28.4 L Plt Count 147 L Neutrophils # Lymphocytes # 0.8 L ABG pH ABG pCO2 ABG pO2 ABG HCO3 ABG Total CO2 ABG O2 Saturation Sodium Chloride Carbon Dioxide Glucose POC Glucose (mg/dL) 148 H Plasma Lactic Acid Rich AST Troponin I Albumin Urine Protein 3+ H Urine Glucose (UA) Trace H Urine Ketones Trace H Urine Blood Small H Urine RBC 17 H Urine WBC 56 H Urine WBC Clumps Many H Urine Bacteria Occasional H Urine Mucus Rare H 02/12/23 02/12/23 02/12/23 11:01 11:13 11:47 WBC RBC Hgb Hct MCH MCHC Plt Count Neutrophils # Lymphocytes # ABG pH 7.26 L ABG pCO2 76 H* ABG pO2 114 H ABG HCO3 34 H ABG Total CO2 37 H ABG O2 Saturation 98.2 H Sodium 131 L Chloride 89 L Carbon Dioxide 32 H Glucose 161 H POC Glucose (mg/dL) Plasma Lactic Acid Rich 3.3 H* AST 81 H Troponin I Albumin 3.1 L Urine Protein Urine Glucose (UA) Urine Ketones Urine Blood Urine RBC Urine WBC Urine WBC Clumps Urine Bacteria Urine Mucus 02/12/23 02/12/23 02/12/23 14:22 15:08 15:08 WBC 11.6 H RBC 3.82 L Hgb 9.6 L Hct 33.1 L MCH MCHC 28.9 L Plt Count 129 L Neutrophils # 10.4 H Lymphocytes # 0.4 L ABG pH ABG pCO2 ABG pO2 ABG HCO3 ABG Total CO2 ABG O2 Saturation Sodium Chloride Carbon Dioxide Glucose POC Glucose (mg/dL) 163 H Plasma Lactic Acid Rich AST Troponin I 0.164 H* Albumin Urine Protein Urine Glucose (UA) Urine Ketones Urine Blood Urine RBC Urine WBC Urine WBC Clumps Urine Bacteria Urine Mucus - Diagnostic Findings Chest x-ray: image reviewed Assessment and Plan Plan: Cardiac arrest, probably initiated by an initial respiratory arrest with subsequent cardiac arrest and the patient was found to be in a PA rhythm. Currently he is hemodynamically stable. In atrial fibrillation. The patient return of spontaneous her condition following resuscitation. Despite his lower lactic acid level, the patient seems to have had a prolonged down time. Anoxic encephalopathy is suspected. Acute hypoxic /hypercapnic respiratory failure, currently intubated on mechanical ventilator post cardiac arrest Anoxic encephalopathy, clinically suspected as the patient is having some episodic myotonic jerk. CAT scan of the brain was negative Atrial fibrillation fibrillation with rapid ventricular response currently on amiodarone drip at 1 mg/m, no pressors Chronic Bilateral lower extremity once/pressure ulcers with superinfection, and the patient has open wounds in the lower extremities bilaterally involving the calf, ulcerated second toe on the right than the left and scrotal wounds. Chronic hypoxic respiratory failure currently on 2 L of oxygen by nasal cannula Chronic hypercapnic respiratory failure Chronic restrictive lung disease due to morbid obesity with a body mass 54.2 with obvious features of obesity hypoventilation syndrome Obstructive sleep apnea maintained on CPAP therapy on outpatient basis, compliancy is questionable Mild lactic acidosis Chronic metabolic alkalosis secondary to chronic hypercapnic respiratory failure Morbid obesity with a BMI estimated to be at 54.2 Hypertension Diabetes mellitus Arnold-Chiari malformation with difficulty with mobility and gait Chronic anemia/anemia of chronic disease Troponin leak secondary to cardiac arrest Plan Keep the patient intubated on a mechanical ventilator for now Continue propofol Continue ventilator support Monitor the blood gases and gradually wean down FiO2 Obtain echocardiogram to rule out pericardial effusion No need for pressors at this point in time Keep amiodarone drip IV heparin Obtain wound cultures and blood cultures Wound services to be consulted for possible debridement Coverage The patient with broad-spectrum antibiotics and put the patient a combination of Eraxis, daptomycin and Zosyn Established triple-lumen catheter Establish arterial line Remove the interosseous line EEG of the brain Neurology consult IV Keppra IV Protonix May initiate metoprolol at a lower dose Condition is critical and we'll continue to follow. We'll consult neurology. We'll consult cardiology. Condition is obviously critical and the patient carries a very poor prognosis based on the above-mentioned. This evaluation was done in more than one hour. Discussed the case with the at the bedside. Time with Patient: Greater than 30
--- NOTE | 2023-02-12 18:32 | P.PCN ---
Date of Procedure: 02/12/23 Preoperative Diagnosis: Cardiac arrest Postoperative Diagnosis: Cardiac arrest Procedure(s) Performed: Central line and arterial line Anesthesia: local Surgeon: Warner Tipton Estimated Blood Loss (ml): 0 Pathology: none sent Condition: critical Disposition: ICU Operative Findings: Indication: Hemodynamic monitoring/Intravenous access. A time-out was completed verifying correct patient, procedure, site, positioning, and implant(s) or special equipment if applicable. The patient was placed in a dependent position appropriate for central line placement based on the vein to be cannulated. The patients left IJ was prepped and draped in sterile fashion. 1% Lidocaine was used to anesthetize the surrounding skin area. A triple lumen 9F Cordis catheter was introduced into the left IJ vein using Seldinger technique. The catheter was threaded smoothly over the guide wire and appropriate blood return was obtained. Each lumen of the catheter was evacuated of air and flushed with sterile saline. The catheter was then sutured in place to the skin and a sterile dressing applied. Perfusion to the extremity distal to the point of catheter insertion was checked and found to be adequate. The patient tolerated the procedure well and there were no complications. Indication: Hemodynamic monitoring. A time-out was completed verifying correct patient, procedure, site, positioning, and implant(s) or special equipment if applicable. Allens test was performed to ensure adequate perfusion. The patients left radial was prepped and draped in sterile fashion. 1% Lidocaine was used to anesthetize the area. An 18G Arrow arterial line was introduced into the left radial. The catheter was threaded over the guide wire and the needle was removed with appropriate pulsatile blood return. Blood loss was minimal. The catheter was then sutured in place to the skin and a sterile dressing applied. Perfusion to the extremity distal to the point of catheter insertion was checked and found to be adequate. The patient tolerated the procedure well and there were no complications.
[2023-02-12] MEDS: INSULIN ASPART (NovoLOG) 100 UNIT/ML VIAL SQ SCH (18:35)
[2023-02-12] MEDS: IPRATROPIUM-ALBUTEROL 3 ML NEB INHALATION SCH ×2 (20:07→23:52)
[2023-02-12] MEDS ORDERED: levETIRAcetam IV 1,500 MG in SODIUM CHLORIDE 0.9% 250 ML IVPB SCH (21:00)
[2023-02-12] MEDS: CHLORHEXIDINE GLUCONATE 15 ML CUP MUCOUS MEM SCH (21:14)
[2023-02-12] MEDS: PANTOPRAZOLE 40 MG/10 ML VIAL IVP SCH (21:15)
[2023-02-12] MEDS: METOPROLOL TARTRATE 25 MG TAB PO SCH (21:15)
[2023-02-12] MEDS: levETIRAcetam IV 500 MG/5 ML VIAL IVP SCH (21:15)
[2023-02-12] MEDS: HYDROmorphone 1 MG/ML 1 ML SYRINGE IVP PRN (22:25)
--- NOTE | 2023-02-12 23:08 | P.HPIM ---
History of Present Illness This is a pleasant 53 years old male with multiple medical problems Patient presents with cardiac arrest at home, currently he is intubated in the emergency room and information were obtained from the and family at bedside. As per patient has in the hospital in September earlier this year when he was diagnosed for first time with atrial fibrillation and he went to rehab and he was sitting in rehab with plan to return him into long-term indwelling however he left AMA recently underwent back home from [facility], At home he was still very weak and he needed help with moving. His PCP Dr. Jensen as retired so patient went to see Dr. Jimenez about last . And he was supposed to follow-up with the wound center today This morning he got up from his bed going to the restroom I strongly believe when he fell on his knees, family are heard him and they found him unresponsive, his oxygen tube was disconnected and they put him back and they called 911. On admission he was tachycardic 113 and currently 86, blood pressure 117/78. His hemoglobin is 10.4, double-J within the reference range, platelet count 147 Sodium 131, rest of BMP and liver enzymes and INR are unremarkable. PH is low at 7.26, pCO2 is elevated 76 and PaO2 114 sodium bicarb is a high also 34 Patient has abnormal urine analysis is not very suspicious of infection Chest x-ray showing cardiomegaly with vascular congestion CT of the head, neck is negative for acute process intracranially or cervical fracture or dislocation Review of Systems Review of systems CONSTITUTIONAL: No fever, no malaise, no fatigue. HEENT: No recent visual problems or hearing problems. Denied any sore throat. CARDIOVASCULAR: No orthopnea, PND, no palpitations, no syncope. PULMONARY: No shortness of breath, no cough, no hemoptysis. GASTROINTESTINAL: No diarrhea, no nausea, no vomiting, no abdominal pain. N ormoactive bowel sounds. NEUROLOGICAL: No headaches, no weakness, no numbness. HEMATOLOGICAL: Denies any bleeding or petechiae. GENITOURINARY: Denies any burning micturition, frequency, or urgency. MUSCULOSKELETAL/RHEUMATOLOGICAL: Denies any joint pain, swelling, or any muscle pain. ENDOCRINE: Denies any polyuria or polydipsia. ROS unobtainable: due to endotracheal tube, due to mental status Past Medical History Past Medical History: Asthma, Diabetes Mellitus, Hypertension, Sleep Apnea/CPAP/BIPAP Additional Past Medical History / Comment(s): Chiari malformation History of Any Multi-Drug Resistant Organisms: None Reported Past Surgical History: Hernia Repair Additional Past Surgical History / Comment(s): Brain surgeryx2, left wrist surgery, lap band Past Anesthesia/Blood Transfusion Reactions: No Reported Reaction Past Psychological History: No Psychological Hx Reported Smoking Status: Never smoker Past Alcohol Use History: Occasional Past Drug Use History: Marijuana - Past Family History Father Family Medical History: No Reported History Medications and Allergies Home Medications Medication Instructions Recorded Confirmed Type Metoprolol Tartrate [Lopressor] 50 mg PO BID tab 04/23/22 02/12/23 Rx Ibuprofen [Motrin] 800 mg PO TID PRN 06/26/22 02/12/23 History Albuterol Inhaler [Ventolin Hfa 2 puff INHALATION RT-Q6H PRN 10/14/22 02/12/23 History Inhaler] Gabapentin [Neurontin] 100 mg PO BID #6 cap 10/17/22 02/12/23 Rx HYDROcodone/APAP 10-325MG [[place] 1 tab PO Q6H #12 tab 10/17/22 02/12/23 Rx 10-325] ALPRAZolam [Xanax] 0.5 mg PO HS 02/12/23 02/12/23 History Collagenase [Santyl Ointment] 1 applic TOPICAL TUTHSA PRN 02/12/23 02/12/23 History Furosemide [Lasix] 40 mg PO DAILY 02/12/23 02/12/23 History Omeprazole [PriLOSEC] 20 mg PO DAILY 02/12/23 02/12/23 History Potassium Gluconate 99 mg PO DAILY PRN 02/12/23 02/12/23 History Allergies Allergy/AdvReac Type Severity Reaction Status Date / Time No Known Allergies Allergy Verified 02/12/23 13:52 Physical Exam Vitals: Vital Signs Temp Pulse Pulse Resp BP Pulse Ox FiO2 02/12/23 11:41 97.2 F L 113 H 20 109/82 100 02/12/23 11:24 120 H 02/12/23 11:00 100 02/12/23 10:43 192 H 20 103/86 100 02/12/23 10:40 100 12/26/23 10:37 161 H 20 51/35 100 Intake and Output 02/11/23 02/12/23 02/12/23 22:59 06:59 14:59 Other: Weight 181.437 kg -GENERAL: The patient is intubated and sedated, morbidly obese HEENT: Pupils are round and equally reacting to light. EOMI. No scleral icterus. No conjunctival pallor. Normocephalic, atraumatic. No pharyngeal erythema. No thyromegaly. CARDIOVASCULAR: S1 and S2 present. No murmurs, rubs, or gallops. PULMONARY: Chest is clear to auscultation, no wheezing , no crackles. ABDOMEN: Soft, nontender, nondistended, normoactive bowel sounds. No palpable organomegaly. MUSCULOSKELETAL: No joint swelling or deformity. EXTREMITIES: No cyanosis, clubbing, or pedal edema. NEUROLOGICAL: Gross neurological examination did not reveal any focal deficits. SKIN: No rashes. no petechiae. Results CBC & Chem 7: 02/12/23 15:08 02/12/23 11:47 Labs: Abnormal Lab Results - Last 24 Hours (Table) 02/12/23 02/12/23 02/12/23 Range/Units 10:48 11:01 11:01 RBC 4.17 L (4.30-5.90) m/uL Hgb 10.4 L (13.0-17.5) gm/dL Hct 36.7 L (39.0-53.0) % MCH 24.9 L (25.0-35.0) pg MCHC 28.4 L (31.0-37.0) g/dL Plt Count 147 L (150-450) k/uL Lymphocytes # 0.8 L (1.0-4.8) k/uL ABG pH (7.35-7.45) ABG pCO2 (35-45) mmHg ABG pO2 (83-108) mmHg ABG HCO3 (21-25) mmol/L ABG Total CO2 (19-24) mmol/L ABG O2 Saturation (94-97) % Sodium (137-145) mmol/L Chloride (98-107) mmol/L Carbon Dioxide (22-30) mmol/L Glucose (74-99) mg/dL POC Glucose (mg/dL) 148 H (70-110) mg/dL Plasma Lactic Acid Rich (0.7-2.0) mmol/L AST (17-59) U/L Albumin (3.5-5.0) g/dL Urine Protein 3+ H (Negative) Urine Glucose (UA) Trace H (Negative) Urine Ketones Trace H (Negative) Urine Blood Small H (Negative) Urine RBC 17 H (0-5) /hpf Urine WBC 56 H (0-5) /hpf Urine WBC Clumps Many H (None) /hpf Urine Bacteria Occasional H (None) /hpf Urine Mucus Rare H (None) /hpf 02/12/23 02/12/23 02/12/23 Range/Units 11:01 11:13 11:47 RBC (4.30-5.90) m/uL Hgb (13.0-17.5) gm/dL Hct (39.0-53.0) % MCH (25.0-35.0) pg MCHC (31.0-37.0) g/dL Plt Count (150-450) k/uL Lymphocytes # (1.0-4.8) k/uL ABG pH 7.26 L (7.35-7.45) ABG pCO2 76 H* (35-45) mmHg ABG pO2 114 H (83-108) mmHg ABG HCO3 34 H (21-25) mmol/L ABG Total CO2 37 H (19-24) mmol/L ABG O2 Saturation 98.2 H (94-97) % Sodium 131 L (137-145) mmol/L Chloride 89 L (98-107) mmol/L Carbon Dioxide 32 H (22-30) mmol/L Glucose 161 H (74-99) mg/dL POC Glucose (mg/dL) (70-110) mg/dL Plasma Lactic Acid Rich 3.3 H* (0.7-2.0) mmol/L AST 81 H (17-59) U/L Albumin 3.1 L (3.5-5.0) g/dL Urine Protein (Negative) Urine Glucose (UA) (Negative) Urine Ketones (Negative) Urine Blood (Negative) Urine RBC (0-5) /hpf Urine WBC (0-5) /hpf Urine WBC Clumps (None) /hpf Urine Bacteria (None) /hpf Urine Mucus (None) /hpf Assessment and Plan Assessment: Status post cardiac arrest with a down time about 10-15 minutes Acute hypoxic hypercapnic respiratory failure requiring intubation and mechanical ventilation Respiratory acidosis, acute Obesity hypoventilation syndrome, obstructive sleep apnea Chronic hypoxic respiratory failure Paroxysmal atrial fibrillation multiple skin ulceration of the toes and lower extremities suspicious for cellulitis Morbid obesity Plan: Continue with oxygen Continue with her dilator, Continue steroids Continue antibiotic Telemetry monitoring Admitting the patient to the critical care unit Cardiology and pulmonary consult Labs and medication were reviewed.. Continue same treatment. Continue with symptomatic treatment. Resume home medication. Monitor labs and vitals. DVT and GI prophylaxis. Further recommendations as per clinical course of the patient DVT prophylaxis: Subcutaneous heparin GI Prophylaxis: Pepcid PT/OT: Pending Prognosis is guarded
[2023-02-12] MEDS ORDERED: LORazepam 2 MG/ML INJ IV STA ×2 (23:22)
[2023-02-13 01:02] LABS: Glucose,Whole Blood 129 mg/dL (70-110)
[2023-02-13] MEDS: INSULIN ASPART (NovoLOG) 100 UNIT/ML VIAL SQ SCH ×4 (01:35→17:11)
[2023-02-13] MEDS: HYDROmorphone 1 MG/ML 1 ML SYRINGE IVP PRN (01:37)
[2023-02-13] MEDS: MIDAZOLAM HCL 50 MG in SODIUM CHLORIDE 0.9% 40 ML IV SCH ×6 (02:45→23:09)
[2023-02-13] MEDS: PIPERACILLIN-TAZOBACTAM 3.375 GM in SODIUM CHLORIDE 0.9% 100 ML IVPB SCH ×3 (02:45→15:43)
[2023-02-13] MEDS: IPRATROPIUM-ALBUTEROL 3 ML NEB INHALATION SCH ×5 (03:45→20:27)
[2023-02-13 04:23] LABS: Basophils % (A) 0 %; Eosinophils # (A) 0.1 k/uL (0-0.7); Eosinophils % (A) 1 %; HCT 31.4 % (39.0-53.0); HGB 9.2 gm/dL (13.0-17.5); Hypochromasia Marked; Lymphocytes # (A) 0.5 k/uL (1.0-4.8); Lymphocytes % (A) 6 %; MCHC 29.4 g/dL (31.0-37.0); Mean Platelet Volume 7.7; Monocytes # (A) 0.4 k/uL (0-1.0); Monocytes % (A) 4 %; Neutrophils # (A) 8.4 k/uL (1.3-7.7); Neutrophils % (A) 88 %; Platelet Count 125 k/uL (150-450); RBC 3.69 m/uL (4.30-5.90); WBC 9.5 k/uL (3.8-10.6)
[2023-02-13 04:44] LABS: African American GFR (CKD) >90 (>60 ml/min/1.73 sqM); Anion Gap 4 mmol/L; Blood Urea Nitrogen 19 mg/dL (9-20); Calcium 8.2 mg/dL (8.4-10.2); Carbon Dioxide 37 mmol/L (22-30); Chloride 87 mmol/L (98-107); Glucose 116 mg/dL (74-99); Non-African American GFR(CKD) >90 (>60 ml/min/1.73 sqM); Sodium 128 mmol/L (137-145)
[2023-02-13 04:47] LABS: Potassium 4.6 mmol/L (3.5-5.1)
[2023-02-13 05:33] LABS: ABG Base Excess 14.9 mmol/L; ABG HCO3 39 mmol/L (21-25); ABG Oxygen Saturation 98.2 % (94-97); ABG PCO2 58 mmHg (35-45); ABG PH 7.44 (7.35-7.45); ABG PO2 97 mmHg (83-108); ABG TCO2 41 mmol/L (19-24); Allen Test Performed? Yes
[2023-02-13 05:59] LABS: Glucose,Whole Blood 131 mg/dL (70-110)
[2023-02-13] MEDS: AMIODARONE 450 MG in DEXTROSE 5% IN WATER 250 ML IV SCH ×2 (06:46)
--- NOTE | 2023-02-13 08:12 | XR ---
EXAMINATION TYPE: XR chest 1V portable DATE OF EXAM: 02/13/2023 4:05 AM CLINICAL INDICATION:Male, 53 years old with history of Tube placement; [facility] COMPARISON: Chest radiograph from one day prior. TECHNIQUE: XR chest 1V portable Frontal view of the chest. FINDINGS: Lungs/Pleura: There is no evidence of pleural effusion, focal consolidation, or pneumothorax. Pulmonary vascularity: Pulmonary vascular congestion. Heart/mediastinum: Cardiomediastinal silhouette is enlarged and stable. Musculoskeletal: No acute osseous pathology. Other findings: None Lines/Tubes: Left internal jugular central venous catheter with distal tip at the cavoatrial junction. endotracheal tube 2.4 cm above the peter. IMPRESSION: 1. Left central venous catheter with tip in appropriate position. 2. Cardiomegaly and mild pulmonary vascular congestion. Correlate with BNP for congestive heart fail ure.
[2023-02-13] MEDS: ANIDULAFUNGIN 100 MG in SODIUM CHLORIDE 0.9% 100 ML IVPB SCH (08:21)
[2023-02-13] MEDS: levETIRAcetam IV 500 MG/5 ML VIAL IVP SCH (08:25)
[2023-02-13] MEDS: CHLORHEXIDINE GLUCONATE 15 ML CUP MUCOUS MEM SCH ×2 (08:35→20:31)
[2023-02-13] MEDS ORDERED: FUROSEMIDE 10 MG/ML 4 ML VIAL IV SCH (09:00)
--- NOTE | 2023-02-13 09:27 | P.PN ---
Subjective Progress Note Date: 02/13/23 This is a 53-year-old morbidly obese -[place] male patient presented to us and cardiac arrest. The patient has multiple medical problems and comorbidities. He was supposed to be in rehabilitation and he left AGAINST MEDICAL ADVICE. He is known to have multiple wounds to his lower extremities. He is known to have obstructive sleep apnea/obesity hypoventilation syndrome and history of coronary artery malformation. He has chronic lower extremity edema and wounds that are open and weepy and infected. Family and the heard him call out this afternoon, the patient was found on the floor on all 4 extremities. Apparently, it was thought that the patient was trying to transfer himself to his motorized scooter and he dropped. Due to his morbid obesity, family contacted EMS and upon arrival, the patient was in cardiac arrest, he did not have a shockable rhythm and he was found to be in PEA. CPR was initiated. The patient was down for quite sometime and he was brought in to the emergency department where resuscitation was continued. Subsequently, there was return of spontaneous circulation the patient was found to be in atrial fibrillation with rapid ventricular response. He was started on amiodarone and currently amiodarone is running at 1 mg/m. He remains in A. fib with a controlled rhythm. No pressors at this point in time. He is having myoclonic jerks. He is intubated on mechanical ventilator. Is currently on assist control mode at a rate of 16, tidal volume of 450, FiO2 of 80% with a PEEP of 5. His blood. This showed a pH of 7.26 with a pCO2 of 76 and pO2 114 and this was on FiO2 of 100%. Chest x-ray showed cardiomegaly and ET tube was repositioned.. The patient's had an initial lactic acid level of 3.3 which subsequently dropped down to 80%. His white cell count 11.6, hemoglobin 9.6 and a padded count is 129. Normal coagulation profile. BUN is at 80 with a creatinine of 1.04 and a sodium level is at 131. He received a total of 2 L of IV fluid in the emergency department. The patient had an initial troponin level of 0.029 and subsequent troponin was at 0.164. ProBNP level was 15,000. He is currently on propofol running at 20 mcg/kg/m. IV fluids at 20 mL an hour. Amiodarone drip at 1 mg/m. He does have an infected large wound over the posterior aspect of the right calf with draining purulent material. He has also a similar wound in the left calf. His second toes are also sedated and there is purulent drainage from the ulcer and he has an ulceration of the second toe bilaterally. He does have also and also on that his scrotum. His other comorbid conditions include diabetes mellitus, artery and creatinine malformation and the patient has difficulty with mobility and gait, and he has also chronic hypoxic and hypercapnic respiratory failure maintain on oxygen at 2 L/m nasal cannula on an outpatient basis. Computed tomography scan of the brain was done in emergency department and it showed no acute intracranial abnormalities. There is posterior occipital craniotomy changes and evidence of cerebellar encephalomala connie. No evidence of any cervical spine fracture. Today's evaluation of 02/13/2023, I'm seeing the patient for a follow-up. Patient is post cardiac arrest with a prolonged down time. Suspect anoxic encephalopathy. At the time of arrival, the patient was also septic with draining infected wounds of the lower extremities as the patient is known to have chronic nonhealing wounds in his legs. His body mass index is 54.2 and the patient is morbidly obese. This morning, he is on a combination of propofol and Versed. Propofol was At a dose of 30 microvascular kilogram per minute and the patient was on Versed at 50 mg an hour. Addition of Versed was done upon the request of neurology as the patient was having some episodic myoclonic jerks which is essentially settled with use of Versed and Keppra. The patient is the process of obtaining EEG and based on that, the Versed was placed on hold. He remains on a mechanical ventilator. Is on assist-control mode at the rate of 16, tidal volume of 450, FiO2 of 50% with a PEEP of 5. The peak airway pressure is at 32. The blood gas from this morning shows a pH of 7.44 with episodes of 58 and pO2 of 97 and this was on FiO2 of 60%. The patient's had a follow-up chest x-ray this morning. The patient has a left IJ triple-lumen catheter in place. He has significant cardiomegaly and evidence of interstitial edema consistent with CHF. EKG was around 2 cm above the peter. No significant consolidation. The patient remains in atrial fibrillation with a controlled rate. He is on amiodarone which was changed to 0.5 mg/m. He is maintained on IV heparin. No signs of any bleeding at this point in time. No pressors for now. In terms of his wounds, Acquacell Silver was applied and the wounds are currently wrapped. At the same time, with cultures were obtained and the results are still pending. The patient was covered with a combination of daptomycin, Eraxis and Zosyn as broad-spectrum antibiotic coverage. He is currently afebrile. The white cell cause of 9.5 with a hemoglobin of 9.2 and a platelet count of 125. BUN is at 19 with a creatinine of 0.8 and a sodium level is at 128. He is on IV Lasix 40 mg every 24 hours. The fluid balance over the past 24 hours is -1 L the patient is producing adequate amount of urine output. Neurology is on the case. Diplomatic Interpreter/Translator on the case. Wound services were consulted. Objective - Vital Signs Vital signs: Vital Signs Temp 94.6 F L 02/13/23 09:00 Pulse 95 02/13/23 09:01 Resp 16 02/13/23 09:00 BP 102/60 02/13/23 09:00 Pulse Ox 95 02/13/23 06:30 FiO2 50 02/13/23 08:00 Intake & Output 02/12/23 02/13/23 02/13/23 18:59 06:59 18:59 Intake Total 455.162 9160.391 204.809 Output Total 1690 1335 65 Balance -1154.217 137.391 139.809 Weight 181.437 kg Intake: IV 476 396 33 0.9 120 360 30 Anidulafungin 200 mg In 200 Sodium Chloride 0.9% 200 ml @ 84 mls/hr IVPB ONCE ONE Rx#:[id number] DAPTOmycin 700 mg In 50 Sodium Chloride 0.9% 50 ml @ 100 mls/hr IVPB Q24H [facility], [facility]–1983 Rx#:[id number] Piperacillin-Tazobactam 3 100 .375 gm In Sodium Chloride 0.9% 100 ml @ 25 mls/hr IVPB Q8HR FOR[facility], [facility]–1983 Rx# :[id number] pressure bag 6 36 3 Intake, IV Titration 59.783 856.391 151.809 Amount Amiodarone 450 mg In 228.893 Dextrose 5% in Water 250 ml @ 0.5 MG/MIN 16.667 mls/hr IV .Q15H [facility] Rx#: [id number] Heparin Sod,Pork in 0.45% 90.144 NaCl 25,000 unit In 0.45 % NaCl 1 250ml.bag @ 5.5 UNITS/KG/HR 9.979 mls/hr IV .Q24H [facility] Rx#: [id number] Midazolam HCl 50 mg In 52.200 Sodium Chloride 0.9% 40 ml @ 5 MG/HR 5 mls/hr IV .Q10H [facility] Rx#:[id number] propofoL 1,000 mg In 59.783 537.354 99.609 Empty Bag 1 bag @ 15 MCG/ KG/MIN 16.329 mls/hr IV . Q6H8M [facility] Rx#:[id number] Tube Feeding 130 20 Other 90 Output: Urine 1690 1335 65 Other: Voiding Method Indwelling Catheter Indwelling Catheter ABP, PAP, CO, CI - Last Documented Arterial Blood Pressure 79/47 - Exam Morbidly obese with a body mass index of 54.2, intubated on a mechanical ventilator. No myoclonic jerks on today's evaluation. The patient is on propofol. Versed was briefly discontinued or EEG purposes. She is breathing at a separate of 16 and he is not breathing above the mechanical ventilator. Head exam was generally normal. There was no scleral icterus or corneal arcus. Mucous membranes were moist. Neck is extremely short and there is positive JVD's. The triple-lumen catheter was inserted in the left IJ. No neck stiffness. Lungs sounds are diminished bilaterally and there is diminished breath on the lung bases. No significant WHEEZES. Heart sounds are irregular, consistent with atrial fibrillation fibrillation. No significant murmur appreciated. No RV heave or and afebrile. Abdomen is morbidly obese and CANNOT be accurately palpated. No direct tenderness, no rebound tenderness or guarding. Extremities are chronically edematous and there is infected deep wounds, nonhealing in the calves bilaterally with purulent material oozing specially from the ulcer that's behind his right lower extremity. He also has oscillated/infected toes specifically the second toe in the right foot and the left foot bilaterally. Pulses are diminished. No cyanosis or clubbing. Neurologically, the patient has equal and symmetrical pupils. Pupils pinpoint bilaterally and he gets into eye twitching upon stimulation. He has no response to any deep painful stimulation.. No facial asymmetry. Positive cough and a gag. Motor function cannot be assessed. Sensory functions cannot be assessed. Reflexes are flat bilaterally and no Babinski. No clonus. - Labs CBC & Chem 7: 02/13/23 04:12 02/13/23 04:12 Labs: Abnormal Lab Results - Last 24 Hours (Table) 02/12/23 02/12/23 02/12/23 Range/Units 10:48 11:01 11:01 WBC (3.8-10.6) k/uL RBC 4.17 L (4.30-5.90) m/uL Hgb 10.4 L (13.0-17.5) gm/dL Hct 36.7 L (39.0-53.0) % MCH 24.9 L (25.0-35.0) pg MCHC 28.4 L (31.0-37.0) g/dL Plt Count 147 L (150-450) k/uL Neutrophils # (1.3-7.7) k/uL Lymphocytes # 0.8 L (1.0-4.8) k/uL ABG pH (7.35-7.45) ABG pCO2 (35-45) mmHg ABG pO2 (83-108) mmHg ABG HCO3 (21-25) mmol/L ABG Total CO2 (19-24) mmol/L ABG O2 Saturation (94-97) % Sodium (137-145) mmol/L Chloride (98-107) mmol/L Carbon Dioxide (22-30) mmol/L Glucose (74-99) mg/dL POC Glucose (mg/dL) 148 H (70-110) mg/dL Plasma Lactic Acid Rich (0.7-2.0) mmol/L Calcium (8.4-10.2) mg/dL AST (17-59) U/L Troponin I (0.000-0.034) ng/mL Albumin (3.5-5.0) g/dL Urine Protein 3+ H (Negative) Urine Glucose (UA) Trace H (Negative) Urine Ketones Trace H (Negative) Urine Blood Small H (Negative) Urine RBC 17 H (0-5) /hpf Urine WBC 56 H (0-5) /hpf Urine WBC Clumps Many H (None) /hpf Urine Bacteria Occasional H (None) /hpf Urine Mucus Rare H (None) /hpf 02/12/23 02/12/23 02/12/23 Range/Units 11:01 11:13 11:47 WBC (3.8-10.6) k/uL RBC (4.30-5.90) m/uL Hgb (13.0-17.5) gm/dL Hct (39.0-53.0) % MCH (25.0-35.0) pg MCHC (31.0-37.0) g/dL Plt Count (150-450) k/uL Neutrophils # (1.3-7.7) k/uL Lymphocytes # (1.0-4.8) k/uL ABG pH 7.26 L (7.35-7.45) ABG pCO2 76 H* (35-45) mmHg ABG pO2 114 H (83-108) mmHg ABG HCO3 34 H (21-25) mmol/L ABG Total CO2 37 H (19-24) mmol/L ABG O2 Saturation 98.2 H (94-97) % Sodium 131 L (137-145) mmol/L Chloride 89 L (98-107) mmol/L Carbon Dioxide 32 H (22-30) mmol/L Glucose 161 H (74-99) mg/dL POC Glucose (mg/dL) (70-110) mg/dL Plasma Lactic Acid Rich 3.3 H* (0.7-2.0) mmol/L Calcium (8.4-10.2) mg/dL AST 81 H (17-59) U/L Troponin I (0.000-0.034) ng/mL Albumin 3.1 L (3.5-5.0) g/dL Urine Protein (Negative) Urine Glucose (UA) (Negative) Urine Ketones (Negative) Urine Blood (Negative) Urine RBC (0-5) /hpf Urine WBC (0-5) /hpf Urine WBC Clumps (None) /hpf Urine Bacteria (None) /hpf Urine Mucus (None) /hpf 02/12/23 02/12/23 02/12/23 Range/Units 14:22 15:08 15:08 WBC 11.6 H (3.8-10.6) k/uL RBC 3.82 L (4.30-5.90) m/uL Hgb 9.6 L (13.0-17.5) gm/dL Hct 33.1 L (39.0-53.0) % MCH (25.0-35.0) pg MCHC 28.9 L (31.0-37.0) g/dL Plt Count 129 L (150-450) k/uL Neutrophils # 10.4 H (1.3-7.7) k/uL Lymphocytes # 0.4 L (1.0-4.8) k/uL ABG pH (7.35-7.45) ABG pCO2 (35-45) mmHg ABG pO2 (83-108) mmHg ABG HCO3 (21-25) mmol/L ABG Total CO2 (19-24) mmol/L ABG O2 Saturation (94-97) % Sodium (137-145) mmol/L Chloride (98-107) mmol/L Carbon Dioxide (22-30) mmol/L Glucose (74-99) mg/dL POC Glucose (mg/dL) 163 H (70-110) mg/dL Plasma Lactic Acid Rich (0.7-2.0) mmol/L Calcium (8.4-10.2) mg/dL AST (17-59) U/L Troponin I 0.164 H* (0.000-0.034) ng/mL Albumin (3.5-5.0) g/dL Urine Protein (Negative) Urine Glucose (UA) (Negative) Urine Ketones (Negative) Urine Blood (Negative) Urine RBC (0-5) /hpf Urine WBC (0-5) /hpf Urine WBC Clumps (None) /hpf Urine Bacteria (None) /hpf Urine Mucus (None) /hpf 02/12/23 02/12/23 02/13/23 Range/Units 18:25 18:35 01:01 WBC (3.8-10.6) k/uL RBC (4.30-5.90) m/uL Hgb (13.0-17.5) gm/dL Hct (39.0-53.0) % MCH (25.0-35.0) pg MCHC (31.0-37.0) g/dL Plt Count (150-450) k/uL Neutrophils # (1.3-7.7) k/uL Lymphocytes # (1.0-4.8) k/uL ABG pH (7.35-7.45) ABG pCO2 (35-45) mmHg ABG pO2 (83-108) mmHg ABG HCO3 (21-25) mmol/L ABG Total CO2 (19-24) mmol/L ABG O2 Saturation (94-97) % Sodium (137-145) mmol/L Chloride (98-107) mmol/L Carbon Dioxide (22-30) mmol/L Glucose (74-99) mg/dL POC Glucose (mg/dL) 152 H 129 H (70-110) mg/dL Plasma Lactic Acid Rich (0.7-2.0) mmol/L Calcium (8.4-10.2) mg/dL AST (17-59) U/L Troponin I 0.209 H* (0.000-0.034) ng/mL Albumin (3.5-5.0) g/dL Urine Protein (Negative) Urine Glucose (UA) (Negative) Urine Ketones (Negative) Urine Blood (Negative) Urine RBC (0-5) /hpf Urine WBC (0-5) /hpf Urine WBC Clumps (None) /hpf Urine Bacteria (None) /hpf Urine Mucus (None) /hpf 02/13/23 02/13/23 02/13/23 Range/Units 04:12 04:12 05:27 WBC (3.8-10.6) k/uL RBC 3.69 L (4.30-5.90) m/uL Hgb 9.2 L (13.0-17.5) gm/dL Hct 31.4 L (39.0-53.0) % MCH (25.0-35.0) pg MCHC 29.4 L (31.0-37.0) g/dL Plt Count 125 L (150-450) k/uL Neutrophils # 8.4 H (1.3-7.7) k/uL Lymphocytes # 0.5 L (1.0-4.8) k/uL ABG pH (7.35-7.45) ABG pCO2 58 H (35-45) mmHg ABG pO2 (83-108) mmHg ABG HCO3 39 H (21-25) mmol/L ABG Total CO2 41 H (19-24) mmol/L ABG O2 Saturation 98.2 H (94-97) % Sodium 128 L (137-145) mmol/L Chloride 87 L (98-107) mmol/L Carbon Dioxide 37 H (22-30) mmol/L Glucose 116 H (74-99) mg/dL POC Glucose (mg/dL) (70-110) mg/dL Plasma Lactic Acid Rich (0.7-2.0) mmol/L Calcium 8.2 L (8.4-10.2) mg/dL AST (17-59) U/L Troponin I (0.000-0.034) ng/mL Albumin (3.5-5.0) g/dL Urine Protein (Negative) Urine Glucose (UA) (Negative) Urine Ketones (Negative) Urine Blood (Negative) Urine RBC (0-5) /hpf Urine WBC (0-5) /hpf Urine WBC Clumps (None) /hpf Urine Bacteria (None) /hpf Urine Mucus (None) /hpf 02/13/23 Range/Units 05:58 WBC (3.8-10.6) k/uL RBC (4.30-5.90) m/uL Hgb (13.0-17.5) gm/dL Hct (39.0-53.0) % MCH (25.0-35.0) pg MCHC (31.0-37.0) g/dL Plt Count (150-450) k/uL Neutrophils # (1.3-7.7) k/uL Lymphocytes # (1.0-4.8) k/uL ABG pH (7.35-7.45) ABG pCO2 (35-45) mmHg ABG pO2 (83-108) mmHg ABG HCO3 (21-25) mmol/L ABG Total CO2 (19-24) mmol/L ABG O2 Saturation (94-97) % Sodium (137-145) mmol/L Chloride (98-107) mmol/L Carbon Dioxide (22-30) mmol/L Glucose (74-99) mg/dL POC Glucose (mg/dL) 131 H (70-110) mg/dL Plasma Lactic Acid Rich (0.7-2.0) mmol/L Calcium (8.4-10.2) mg/dL AST (17-59) U/L Troponin I (0.000-0.034) ng/mL Albumin (3.5-5.0) g/dL Urine Protein (Negative) Urine Glucose (UA) (Negative) Urine Ketones (Negative) Urine Blood (Negative) Urine RBC (0-5) /hpf Urine WBC (0-5) /hpf Urine WBC Clumps (None) /hpf Urine Bacteria (None) /hpf Urine Mucus (None) /hpf Assessment and Plan Plan: Cardiac arrest, probably initiated by an initial respiratory arrest with subsequent cardiac arrest and the patient was found to be in a PEA rhythm. Currently he is hemodynamically stable. In atrial fibrillation. The patient return of spontaneous her condition following resuscitation. Despite his lower lactic acid level, the patient seems to have had a prolonged down time. Anoxic encephalopathy is suspected. Acute hypoxic /hypercapnic respiratory failure, currently intubated on mechanical ventilator post cardiac arrest, chest x-ray is consistent with CHF and pulmonary edema Anoxic encephalopathy, clinically suspected as the patient is having some episodic myotonic jerk. CAT scan of the brain was negative patient was placed on a combination of Versed. The Patient Is Also on Propofol. This Morning, He Is off the Versed Was Having EEG. There Is Some Eye Twitching. Not Breathing above the Mechanical Ventilator and the pupils are pinpoint and is deeply comatose, nonresponsive to any painful stimulation or verbal stimulation. Atrial fibrillation fibrillation with rapid ventricular response currently on amiodarone drip at 0.5 mg/m, no pressors Chronic Bilateral lower extremity once/pressure ulcers with superinfection, and the patient has open wounds in the lower extremities bilaterally involving the calf, ulcerated second toe on the right than the left and scrotal wounds. The patient is covered with broad-spectrum antibiotics. The patient has Aquacel silver applied to his wounds Chronic hypoxic respiratory failure currently on 2 L of oxygen by nasal cannula Chronic hypercapnic respiratory failure Chronic restrictive lung disease due to morbid obesity with a body mass 54.2 with obvious features of obesity hypoventilation syndrome Obstructive sleep apnea maintained on CPAP therapy on outpatient basis, compliancy is questionable Mild lactic acidosis Chronic metabolic alkalosis secondary to chronic hypercapnic respiratory failure Morbid obesity with a BMI estimated to be at 54.2 Hypertension Diabetes mellitus Arnold-Chiari malformation with difficulty with mobility and gait Chronic anemia/anemia of chronic disease Troponin leak secondary to cardiac arrest Plan Keep the patient intubated on a mechanical ventilator for now Continue propofol and Versed drip EEG today Continue ventilator support No need for pressors at this point in time Stop the IV amiodarone and switch this patient to oral amiodarone 400 mg by mouth twice a day and continue the metoprolol Continue IV heparin for now Awaiting wound cultures and blood cultures Wound services Coverage antibiotics with a combination of Eraxis, daptomycin and Zosyn Will likely need another CAT scan of the brain today Neurology consult IV Keppra IV Protonix Initiate enteral feeding for nutritional support Start Lasix 40 mg and modify the dose to twice a day Obvious signs of anoxic encephalopathy. Family was updated Condition is obviously critical and the patient carries a very poor prognosis based on the above-mentioned. This evaluation was done in more than one hour. Discussed the case with the at the bedside. Reticulocyte care evaluation done in more than 40 minutes. Time with Patient: Greater than 30
[2023-02-13] MEDS: PANTOPRAZOLE 40 MG/10 ML VIAL IVP SCH ×2 (10:20→20:31)
[2023-02-13] MEDS: ASPIRIN 81 MG PO SCH (10:20)
[2023-02-13] MEDS: METOPROLOL TARTRATE 25 MG TAB PO SCH ×2 (10:20→20:33)
[2023-02-13] MEDS: AMIODARONE 200 MG TAB PO SCH ×2 (10:20→20:33)
[2023-02-13] MEDS: HEPARIN SOD,PORK IN 0.45% NACL 25,000 UNIT in 0.45% NACL 1 250ML.BAG IV SCH (10:24)
[2023-02-13 10:54] LABS: Partial Thromboplastin Time 42.7 sec (22.0-30.0); Prothrombin Time 11.4 sec (10.0-12.5)
--- NOTE | 2023-02-13 11:01 | CONS ---
CONSULTATION HISTORY OF PRESENT ILLNESS: Escobar is a 53-year-old man with history of bilateral lower extremity ulceration, morbid obesity, persistent atrial fibrillation, obstructive sleep apnea, who presented to hospital with cardiopulmonary arrest, requiring CPR and mechanical ventilation. I am seeing him for the first time today in the ICU. He remains in atrial fibrillation with controlled ventricular rate, intubated on vent and mechanically ventilated. He was on amiodarone, which is going to be switched to p.o. His neurological status is marginal. PHYSICAL EXAMINATION: VITAL SIGNS: Heart rate is 95 beats and blood pressure is 102/62, respiratory rate is 16. CHEST: Exam reveals diminished air entry at the bases. HEART: Exam reveals first and second heart sounds. No gallop. EXTREMITIES: Examination of the extremities reveals bilateral pitting edema, chronic stasis changes and ulcers. LABORATORY DATA: Labs show that the hemoglobin is 9.2. Potassium is 4.6, creatinine 0.8. Troponin is mildly elevated. Echo is pending at this time. ASSESSMENT: 1. Status post cardiorespiratory arrest. 2. Elevated troponin probably related to hypoxia. Atrial fibrillation with rapid ventricular rate. PLAN: I will continue the patient on IV heparin, await for the results of echocardiogram. Continue with the oral amiodarone. MMODL / IJN: [id number] /
[2023-02-13 11:21] LABS: Glucose,Whole Blood 121 mg/dL (70-110)
[2023-02-13] MEDS: NOREPINEPHRINE 8 MG in SODIUM CHLORIDE 0.9% 250 ML IV SCH (14:10)
[2023-02-13 14:20] LABS: ALT 30 U/L (4-49); AST 45 U/L (17-59); African American GFR (CKD) >90 (>60 ml/min/1.73 sqM); Albumin 2.7 g/dL (3.5-5.0); Alkaline Phosphatase 90 U/L (38-126); Anion Gap 7 mmol/L; Blood Urea Nitrogen 18 mg/dL (9-20); Calcium 8.3 mg/dL (8.4-10.2); Carbon Dioxide 38 mmol/L (22-30); Chloride 87 mmol/L (98-107); Glucose 134 mg/dL (74-99); Non-African American GFR(CKD) >90 (>60 ml/min/1.73 sqM); Potassium 3.7 mmol/L (3.5-5.1); Sodium 132 mmol/L (137-145); Total Bilirubin 0.7 mg/dL (0.2-1.3); Total Protein 5.9 g/dL (6.3-8.2)
--- NOTE | 2023-02-13 14:35 | P.PN ---
Subjective This is a pleasant 53 years old male with multiple medical problems Patient presents with cardiac arrest at home, currently he is intubated in the e mergency room and information were obtained from the and family at bedside. As per patient has in the hospital in September earlier this year when he was diagnosed for first time with atrial fibrillation and he went to rehab and he was sitting in rehab with plan to return him into long-term indwelling however he left AMA recently underwent back home from [facility], At home he was still very weak and he needed help with moving. His PCP Dr. Jensen as retired so patient went to see Dr. Jimenez about last . And he was supposed to follow-up with the wound center today This morning he got up from his bed going to the restroom I strongly believe when he fell on his knees, family are heard him and they found him unresponsive, his oxygen tube was disconnected and they put him back and they called 911. On admission he was tachycardic 113 and currently 86, blood pressure 117/78. His hemoglobin is 10.4, double-J within the reference range, platelet count 147 Sodium 131, rest of BMP and liver enzymes and INR are unremarkable. PH is low at 7.26, pCO2 is elevated 76 and PaO2 114 sodium bicarb is a high also 34 Patient has abnormal urine analysis is not very suspicious of infection Chest x-ray showing cardiomegaly with vascular congestion CT of the head, neck is negative for acute process intracranially or cervical fracture or dislocation 02/13/2023 Patient remains in the ICU in critical condition, still intubated on mechanical ventilation. Currently patient has signs of encephalopathy. Distal tachycardic, tachypneic, blood pressure 114/80, without pressors. His labs are reviewed, hemoglobin 9.2, platelet count 125, sodium 132 He is on broad-spectrum antibiotics with prophylaxis, daptomycin, Zosyn. Was on heparin drip but amiodarone was switched to oral dose 400 mg twice a day His on IV Lasix 40 mg twice daily. He is on midazolam Plan for EGD and pH CAT scan of the brain Active Medications Generic Name Dose Route Start Last Admin Trade Name Freq PRN Reason Stop Dose Admin Albuterol/Ipratropium 3 ml 02/12/23 20:00 02/13/23 11:36 Ipratropium-Albuterol 3 Ml Neb INHALATION 3 ml RT-Q4H GAYE Administration Amiodarone HCl 400 mg 02/13/23 10:15 02/13/23 10:20 Amiodarone 200 Mg Tab PO 400 mg BID GAYE Administration Aspirin 81 mg 02/13/23 09:00 02/13/23 10:20 Aspirin 81 Mg PO 81 mg DAILY GAYE Administration Chlorhexidine Gluconate 15 ml 02/12/23 21:00 02/13/23 08:35 Chlorhexidine Gluconate 15 Ml Cup MUCOUS MEM 15 ml BID GAYE Administration Dextrose/Water 25 ml 02/12/23 17:19 Dextrose 50% Syringe 50 Ml IVP PER PROTOCOL PRN Hypoglycemia Protocol Dextrose/Water 50 ml 02/12/23 17:19 Dextrose 50% Syringe 50 Ml IVP PER PROTOCOL PRN Hypoglycemia Protocol Furosemide 40 mg 02/13/23 21:00 Furosemide 10 Mg/Ml 4 Ml Vial IV Q12HR GAYE Heparin Sodium (Porcine) 0 unit 02/12/23 14:33 02/13/23 02:55 Heparin Sodium 1,000 Un/Ml (10ml Vl) IV 4,000 unit PER PROTOCOL PRN Administration Low PTT Protocol Hydromorphone HCl 1 mg 02/12/23 22:18 02/13/23 01:37 Hydromorphone 1 Mg/Ml 1 Ml Syringe IVP 1 mg Q3HR PRN Administration Pain Propofol 1,000 mg/ IV Solution 100 mls @ 16.329 mls/hr 02/12/23 12:15 02/13/23 13:32 IV 40 mcg/kg/min .Q6H8M GAYE 43.545 mls/hr Administration Protocol 15 MCG/KG/MIN Heparin Sodium/Sodium Chloride 250 mls @ 9.979 mls/hr 02/12/23 14:45 02/13/23 10:56 25,000 unit/ Sodium Chloride IV 10.5 units/kg/hr .Q24H GAYE 19.051 mls/hr Titration Protocol 5.5 UNITS/KG/HR Daptomycin 700 mg/ Sodium 50 mls @ 100 mls/hr 02/12/23 18:00 02/12/23 18:15 Chloride IVPB 100 mls/hr Q24H GAYE Administration Protocol Anidulafungin 100 mg/ Sodium 100 mls @ 84 mls/hr 02/13/23 09:00 02/13/23 08:21 Chloride IVPB 84 mls/hr DAILY GAYE Administration Protocol Piperacillin Sod/Tazobactam 100 mls @ 25 mls/hr 02/12/23 17:00 02/13/23 08:27 Sod 3.375 gm/ Sodium Chloride IVPB 25 mls/hr Q8HR GAYE Administration Protocol Midazolam HCl 50 mg/ Sodium 50 mls @ 5 mls/hr 02/13/23 02:00 02/13/23 13:31 Chloride IV 15 mg/hr .Q10H GAYE 15 mls/hr Titration Protocol 5 MG/HR Norepinephrine Bitartrate 8 mg 258 mls @ 10.532 mls/hr 02/13/23 14:00 02/13/23 14:24 / Sodium Chloride IV 0.01 mcg/kg/min .Q24H GAYE 3.511 mls/hr Titration Protocol 0.03 MCG/KG/MIN Insulin Aspart 0 unit 02/12/23 18:00 02/13/23 11:47 Insulin Aspart (Novolog) 100 Unit/Ml Vial SQ Not Given Q6HR GAYE Protocol Levetiracetam 1,500 mg 02/12/23 21:00 02/13/23 08:25 Levetiracetam Iv 500 Mg/5 Ml Vial IVP 1,500 mg Q12HR GAYE Administration Metoprolol Tartrate 25 mg 02/12/23 21:00 02/13/23 10:20 Metoprolol Tartrate 25 Mg Tab PO 25 mg BID GAYE Administration Naloxone HCl 0.2 mg 02/12/23 13:13 Naloxone 0.4 Mg/Ml 1 Ml Vial IV Q2M PRN Opioid Reversal Pantoprazole Sodium 40 mg 02/12/23 21:00 02/13/23 10:20 Pantoprazole 40 Mg/10 Ml Vial IVP 40 mg BID GAYE Administration Objective - Vital Signs Vital signs: Vital Signs Temp 95.2 F L 02/13/23 12:00 Pulse 116 H 02/13/23 13:30 Resp 14 02/13/23 13:30 BP 114/80 02/13/23 13:30 Pulse Ox 98 02/13/23 12:00 FiO2 50 02/13/23 11:23 Intake & Output 02/12/23 02/13/23 02/13/23 18:59 06:59 18:59 Intake Total 600.140 9172.391 1229.225 Output Total 1690 1335 2305 Balance -1154.217 137.391 -1075.775 Weight 181.437 kg 181.437 kg Intake: IV 476 396 564 0.9 120 360 240 Anidulafungin 200 mg In 200 200 Sodium Chloride 0.9% 200 ml @ 84 mls/hr IVPB ONCE ONE Rx#:[id number] DAPTOmycin 700 mg In 50 Sodium Chloride 0.9% 50 ml @ 100 mls/hr IVPB Q24H [facility] Rx#:[id number] Piperacillin-Tazobactam 3 100 100 .375 gm In Sodium Chloride 0.9% 100 ml @ 25 mls/hr IVPB Q8HR GAYE Rx# :[id number] pressure bag 6 36 24 Intake, IV Titration 59.783 856.391 505.225 Amount Amiodarone 450 mg In 228.893 Dextrose 5% in Water 250 ml @ 0.5 MG/MIN 16.667 mls/hr IV .Q15H [facility] Rx#: [id number] Heparin Sod,Pork in 0.45% 90.144 123.376 NaCl 25,000 unit In 0.45 % NaCl 1 250ml.bag @ 5.5 UNITS/KG/HR 9.979 mls/hr IV .Q24H [facility] Rx#: [id number] Midazolam HCl 50 mg In 107.616 Sodium Chloride 0.9% 40 ml @ 5 MG/HR 5 mls/hr IV .Q10H [facility] Rx#:[id number] Norepinephrine 8 mg In 2.048 Sodium Chloride 0.9% 250 ml @ 0.03 MCG/KG/MIN 10. 532 mls/hr IV .Q24H [facility] Rx#:[id number] propofoL 1,000 mg In 59.783 537.354 272.185 Empty Bag 1 bag @ 15 MCG/ KG/MIN 16.329 mls/hr IV . Q6H8M [facility] Rx#:[id number] Tube Feeding 130 130 Other 90 30 Output: Urine 1690 1335 2305 Other: Voiding Method Indwelling Catheter Indwelling Catheter Indwelling Catheter ABP, PAP, CO, CI - Last Documented Arterial Blood Pressure 69/42 - Exam -GENERAL: The patient is intubated and sedated, morbidly obese HEENT: Pupils are round and equally reacting to light. EOMI. No scleral icterus. No conjunctival pallor. Normocephalic, atraumatic. No pharyngeal erythema. No thyromegaly. CARDIOVASCULAR: S1 and S2 present. No murmurs, rubs, or gallops. PULMONARY: Chest is clear to auscultation, no wheezing , no crackles. ABDOMEN: Soft, nontender, nondistended, normoactive bowel sounds. No palpable organomegaly. MUSCULOSKELETAL: No joint swelling or deformity. EXTREMITIES: No cyanosis, clubbing, or pedal edema. NEUROLOGICAL: Gross neurological examination did not reveal any focal deficits. SKIN: No rashes. no petechiae. - Labs CBC & Chem 7: 02/13/23 04:12 02/13/23 13:45 Labs: Abnormal Lab Results - Last 24 Hours (Table) 02/12/23 02/12/23 02/12/23 Range/Units 15:08 15:08 18:25 WBC 11.6 H (3.8-10.6) k/uL RBC 3.82 L (4.30-5.90) m/uL Hgb 9.6 L (13.0-17.5) gm/dL Hct 33.1 L (39.0-53.0) % MCHC 28.9 L (31.0-37.0) g/dL Plt Count 129 L (150-450) k/uL Neutrophils # 10.4 H (1.3-7.7) k/uL Lymphocytes # 0.4 L (1.0-4.8) k/uL APTT (22.0-30.0) sec ABG pCO2 (35-45) mmHg ABG HCO3 (21-25) mmol/L ABG Total CO2 (19-24) mmol/L ABG O2 Saturation (94-97) % Sodium (137-145) mmol/L Chloride (98-107) mmol/L Carbon Dioxide (22-30) mmol/L Glucose (74-99) mg/dL POC Glucose (mg/dL) 152 H (70-110) mg/dL Calcium (8.4-10.2) mg/dL Troponin I 0.164 H* (0.000-0.034) ng/mL Total Protein (6.3-8.2) g/dL Albumin (3.5-5.0) g/dL 12/26/23 12/27/23 12/27/23 Range/Units 18:35 01:01 04:12 WBC (3.8-10.6) k/uL RBC (4.30-5.90) m/uL Hgb (13.0-17.5) gm/dL Hct (39.0-53.0) % MCHC (31.0-37.0) g/dL Plt Count (150-450) k/uL Neutrophils # (1.3-7.7) k/uL Lymphocytes # (1.0-4.8) k/uL APTT (22.0-30.0) sec ABG pCO2 (35-45) mmHg ABG HCO3 (21-25) mmol/L ABG Total CO2 (19-24) mmol/L ABG O2 Saturation (94-97) % Sodium 128 L (137-145) mmol/L Chloride 87 L (98-107) mmol/L Carbon Dioxide 37 H (22-30) mmol/L Glucose 116 H (74-99) mg/dL POC Glucose (mg/dL) 129 H (70-110) mg/dL Calcium 8.2 L (8.4-10.2) mg/dL Troponin I 0.209 H* (0.000-0.034) ng/mL Total Protein (6.3-8.2) g/dL Albumin (3.5-5.0) g/dL 02/13/23 02/13/23 02/13/23 Range/Units 04:12 05:27 05:58 WBC (3.8-10.6) k/uL RBC 3.69 L (4.30-5.90) m/uL Hgb 9.2 L (13.0-17.5) gm/dL Hct 31.4 L (39.0-53.0) % MCHC 29.4 L (31.0-37.0) g/dL Plt Count 125 L (150-450) k/uL Neutrophils # 8.4 H (1.3-7.7) k/uL Lymphocytes # 0.5 L (1.0-4.8) k/uL APTT (22.0-30.0) sec ABG pCO2 58 H (35-45) mmHg ABG HCO3 39 H (21-25) mmol/L ABG Total CO2 41 H (19-24) mmol/L ABG O2 Saturation 98.2 H (94-97) % Sodium (137-145) mmol/L Chloride (98-107) mmol/L Carbon Dioxide (22-30) mmol/L Glucose (74-99) mg/dL POC Glucose (mg/dL) 131 H (70-110) mg/dL Calcium (8.4-10.2) mg/dL Troponin I (0.000-0.034) ng/mL Total Protein (6.3-8.2) g/dL Albumin (3.5-5.0) g/dL 02/13/23 02/13/23 02/13/23 Range/Units 10:15 11:20 13:45 WBC (3.8-10.6) k/uL RBC (4.30-5.90) m/uL Hgb (13.0-17.5) gm/dL Hct (39.0-53.0) % MCHC (31.0-37.0) g/dL Plt Count (150-450) k/uL Neutrophils # (1.3-7.7) k/uL Lymphocytes # (1.0-4.8) k/uL APTT 42.7 H (22.0-30.0) sec ABG pCO2 (35-45) mmHg ABG HCO3 (21-25) mmol/L ABG Total CO2 (19-24) mmol/L ABG O2 Saturation (94-97) % Sodium 132 L (137-145) mmol/L Chloride 87 L (98-107) mmol/L Carbon Dioxide 38 H (22-30) mmol/L Glucose 134 H (74-99) mg/dL POC Glucose (mg/dL) 121 H (70-110) mg/dL Calcium 8.3 L (8.4-10.2) mg/dL Troponin I (0.000-0.034) ng/mL Total Protein 5.9 L (6.3-8.2) g/dL Albumin 2.7 L (3.5-5.0) g/dL Microbiology - Last 24 Hours (Table) 02/12/23 17:45 Gram Stain - Preliminary Leg - Right 02/12/23 17:46 Gram Stain - Preliminary Leg - Left Assessment and Plan Assessment: Status post cardiac arrest with a down time about 10-15 minutes possible anoxic brain injury Acute hypoxic hypercapnic respiratory failure requiring intubation and mechanical ventilation Respiratory acidosis, acute Obesity hypoventilation syndrome, obstructive sleep apnea Chronic hypoxic respiratory failure Paroxysmal atrial fibrillation multiple skin ulceration of the toes and lower extremities suspicious for cellulitis Morbid obesity Plan: Continue with oxygen Continue with her dilator, Continue IV Lasix Continue antibiotic Telemetry monitoring Admitting the patient to the critical care unit Cardiology and pulmonary consult neurologist evaluated in the patient Labs and medication were reviewed.. Continue same treatment. Continue with symptomatic treatment. Resume home medication. Monitor labs and vitals. DVT and GI prophylaxis. Further recommendations as per clinical course of the patient DVT prophylaxis: Subcutaneous heparin GI Prophylaxis: Pepcid Prognosis is guarded
[2023-02-13] MEDS ORDERED: Potassium Replacement Protocol 1 EACH MISC MISCELLANE PRN (14:36)
--- NOTE | 2023-02-13 14:39 | P.CNNES ---
History of Present Illness Consult date: 02/13/23 Requesting physician: John Tapia Reason for Consult: myoclonic jerks, suspected anoxic brain injury History of Present Illness: This is a 53-year-old gentleman who presented emergency department because of outside hospital cardiopulmonary arrest. History is obtained from patient's was at bedside and medical record. According to the he was at the nursing facility and he left AGAINST MEDICAL ADVICE recently. Per the the patient has sleep apnea, CO2 retainer and he is on 100% oxygen, Chiari malfor mation status post partial cerebral resection with residual right-sided hemiparesis. It seems that the patient has been having worsening of his shortness of breath at with generalized weakness even though he is on 100% oxygen. He needed the assistance with ambulation because of his generalized wea kness with shortness of breath at. Hand the stated that around 9 AM he was on the side of the bed on his knees and calling for help and she noticed that the breathing tube was dislodged and that his abdomen was against bed. She saw him last at 4 AM but at 9 AM he was called for help her she immediately called EMS. It seems that the patient was in a cardiac arrest and that he did not have shockable rhythm and was found to be in PA. CPR was initiated. Then the patient was in ROSC. Per medical records it seems that the patient had return of circulation and was found to be in A. fib with RVR and was started on amiodarone. Per the when the EMS arrived he had twitching over the right side of the body. It seems overnight he continued to have the frequent jerking and was in myoclonic jerks even the face according to the nurse and that he was on IV propofol and it seems the overnight neurologist Dr. Aly recommended to start IV Versed which he was started on it. Also he was started on IV Keppra. According to the at the patient does not have any history of seizures. Per the nurse at his myoclonic jerks is controlled with IV propofol and IV Versed and when she weans down the medication when she weaned it for the EEG testing he had frequent episodes. Some of the workup during his hospital visit consisted of: Initial plasma like acid the vein is 3.3 and a repeat is 1.7 Sodium initially was 131. BUN/creatinine is normal. Calcium is 8.4. ABG initial PCO2 to is 76 and most recent 58. CT of the head is reported as no acute intracranial CT abnormality. Posture occipital craniotomy changes over the posterior fossa with a gross similar appearance of underlying cerebellar encephalomalacia CT cervical was reported as no evidence of cervical spine fracture or traumatic malaignment. I first reviewed the CT and I agree there is no acute subacute ischemia. There is no bleed that was appreciable. Moderate multilevel cervical spondylosis. Suspect at least one enlarged left supraclavicular lymph node. Review of Systems Limited but the positive and negative as per HPI. Past Medical History Past Medical History: Asthma, Diabetes Mellitus, Hypertension, Sleep Apnea/CPAP/BIPAP Additional Past Medical History / Comment(s): Chiari malformation History of Any Multi-Drug Resistant Organisms: None Reported Past Surgical History: Hernia Repair Additional Past Surgical History / Comment(s): Brain surgeryx2, left wrist surgery, lap band Past Anesthesia/Blood Transfusion Reactions: No Reported Reaction Past Psychological History: No Psychological Hx Reported Smoking Status: Never smoker Past Alcohol Use History: Occasional Past Drug Use History: Marijuana - Past Family History Father Family Medical History: No Reported History Medications and Allergies Home Medications Medication Instructions Recorded Confirmed Type Metoprolol Tartrate [Lopressor] 50 mg PO BID tab 04/23/22 02/12/23 Rx Ibuprofen [Motrin] 800 mg PO TID PRN 06/26/22 02/12/23 History Albuterol Inhaler [Ventolin Hfa 2 puff INHALATION RT-Q6H PRN 10/14/22 02/12/23 History Inhaler] Gabapentin [Neurontin] 100 mg PO BID #6 cap 10/17/22 02/12/23 Rx HYDROcodone/APAP 10-325MG [[place] 1 tab PO Q6H #12 tab 10/17/22 02/12/23 Rx 10-325] ALPRAZolam [Xanax] 0.5 mg PO HS 02/12/23 02/12/23 History Collagenase [Santyl Ointment] 1 applic TOPICAL TUTHSA PRN 02/12/23 02/12/23 Hi story Furosemide [Lasix] 40 mg PO DAILY 02/12/23 02/12/23 History Omeprazole [PriLOSEC] 20 mg PO DAILY 02/12/23 02/12/23 History Potassium Gluconate 99 mg PO DAILY PRN 02/12/23 02/12/23 History Allergies Allergy/AdvReac Type Severity Reaction Status Date / Time No Known Allergies Allergy Verified 02/12/23 13:52 Physical Examination - Vital Signs Vital Signs: Vital Signs Temp Pulse Resp BP Pulse Ox FiO2 02/13/23 13:30 116 H 14 114/80 02/13/23 13:00 108 H 0 L 105/67 02/13/23 12:30 101 H 0 L 105/67 02/13/23 12:00 95.2 F L 98 16 113/83 98 02/13/23 11:52 102 H 02/13/23 11:36 101 H 02/13/23 11:30 89 16 113/83 02/13/23 11:23 50 02/13/23 11:00 98 16 117/71 97 02/13/23 10:30 90 16 117/71 02/13/23 10:00 81 16 106/74 98 02/13/23 09:30 101 H 16 106/74 02/13/23 09:01 95 02/13/23 09:00 94.6 F L 87 16 102/60 02/13/23 08:41 95 02/13/23 08:30 103 H 16 102/60 02/13/23 08:00 94.5 F L 87 16 111/64 50 02/13/23 07:46 50 02/13/23 07:30 87 16 111/64 02/13/23 07:00 100 16 103/78 02/13/23 06:30 81 16 103/78 95 02/13/23 06:00 83 16 98 02/13/23 05:30 85 16 02/13/23 05:00 90 18 108/67 02/13/23 04:30 80 16 108/67 90 L 02/13/23 04:00 95.3 F L 87 16 110/75 60 02/13/23 03:47 60 02/13/23 03:45 84 02/13/23 03:30 81 16 110/75 02/13/23 03:00 89 16 97/71 95 02/13/23 02:30 96 16 97/71 96 02/13/23 02:00 85 16 103/74 02/13/23 01:30 81 19 103/74 73 L 02/13/23 01:00 80 16 111/72 02/13/23 00:30 79 16 111/72 02/13/23 00:00 96.4 F L 82 16 111/72 93 L 60 02/12/23 23:53 105 H 02/12/23 23:30 93 16 111/72 98 60 02/12/23 23:04 75 16 111/72 100 02/12/23 23:00 80 16 102/69 100 02/12/23 22:30 80 16 102/69 89 L 02/12/23 22:00 81 16 125/75 92 L 02/12/23 21:30 82 16 125/75 94 L 02/12/23 21:00 79 16 139/69 100 02/12/23 20:30 89 16 139/69 100 02/12/23 20:23 82 02/12/23 20:10 89 02/12/23 20:09 70 02/12/23 20:00 95.3 F L 87 16 80 02/12/23 19:30 89 16 134/88 100 02/12/23 19:00 76 16 132/90 100 02/12/23 18:30 81 16 132/90 100 02/12/23 18:00 95.2 F L 86 16 100 02/12/23 17:30 87 16 100 02/12/23 17:00 76 16 120/87 100 02/12/23 16:30 87 16 127/84 100 02/12/23 16:00 95.5 F L 79 16 129/83 100 80 02/12/23 15:30 86 16 134/90 99 02/12/23 15:08 80 02/12/23 15:00 77 16 125/87 100 02/12/23 14:41 80 02/12/23 14:30 96.1 F L 89 16 128/75 100 80 02/12/23 14:21 83 16 100 02/12/23 14:18 86 20 117/78 100 Intake and Output 02/12/23 02/13/23 02/13/23 22:59 06:59 14:59 Intake Total 919.644 6734.689 1165.406 Output Total 1023 655 1855 Balance -1567.142 550.119 -648.594 Intake: IV 588 264 531 0.9 220 240 210 Anidulafungin 200 mg In 200 200 Sodium Chloride 0.9% 200 ml @ 84 mls/hr IVPB ONCE ONE Rx#:[id number] DAPTOmycin 700 mg In 50 Sodium Chloride 0.9% 50 ml @ 100 mls/hr IVPB Q24H [facility] Rx#:[id number] Piperacillin-Tazobactam 3 100 100 .375 gm In Sodium Chloride 0.9% 100 ml @ 25 mls/hr IVPB Q8HR [facility] Rx# :[id number] pressure bag 18 24 21 Intake, IV Titration 239.858 671.689 504.406 Amount Amiodarone 450 mg In 228.893 Dextrose 5% in Water 250 ml @ 0.5 MG/MIN 16.667 mls/hr IV .Q15H [facility] Rx#: [id number] Heparin Sod,Pork in 0.45% 90.144 123.376 NaCl 25,000 unit In 0.45 % NaCl 1 250ml.bag @ 5.5 UNITS/KG/HR 9.979 mls/hr IV .Q24H [facility] Rx#: [id number] Midazolam HCl 50 mg In 107.616 Sodium Chloride 0.9% 40 ml @ 5 MG/HR 5 mls/hr IV .Q10H [facility] Rx#:[id number] Norepinephrine 8 mg In 1.229 Sodium Chloride 0.9% 250 ml @ 0.03 MCG/KG/MIN 10. 532 mls/hr IV .Q24H [facility] Rx#:[id number] propofoL 1,000 mg In 239.858 352.652 272.185 Empty Bag 1 bag @ 15 MCG/ KG/MIN 16.329 mls/hr IV . Q6H8M [facility] Rx#:[id number] Tube Feeding 30 100 100 Other 30 60 30 Output: Urine 2455 545 1855 Other: Voiding Method Indwelling Catheter Indwelling Catheter Weight 181.437 kg ABP, PAP, CO, CI - Last 8 Hours Arterial Blood Pressure 69/42 Arterial Blood Pressure 88/47 Arterial Blood Pressure 77/50 Arterial Blood Pressure 92/51 Arterial Blood Pressure 89/54 Arterial Blood Pressure 90/51 Arterial Blood Pressure 103/57 Arterial Blood Pressure 95/52 Arterial Blood Pressure 95/56 Arterial Blood Pressure 79/47 Arterial Blood Pressure 63/46 Arterial Blood Pressure 89/45 Arterial Blood Pressure 102/54 Arterial Blood Pressure 91/61 Arterial Blood Pressure 103/57 General: Is a morbid obese gentleman lying in bed and does not appear in acute distress. Lung: Intubated on ventilator. Neuro: Limited. Patient is on IV Propofol 30mcg/kg/min and Versed 10mg/min. Is comatose GCS 3 (E1, M1, VT1). I had to manually open the yes and primary gaze is midline. Pupils are pinpoint bilaterally. Has +ve corneal reflex bilaterally. Is breathing over the vent upon lowering the vent setting. No gag or cough but has myoclonic jerks of face and upper extremity briefly. Motor: No sponataneous movement. Not withdrawing to any extremities. Decrease tone throughout. Reflex: 0-1+ throughout. Plantars are mute throughout. Results - Laboratory Findings CBC and BMP: 02/13/23 04:12 02/13/23 04:12 Abnormal Lab Findings: Abnormal Labs 02/12/23 02/12/23 02/12/23 10:48 11:01 11:01 WBC RBC 4.17 L Hgb 10.4 L Hct 36.7 L MCH 24.9 L MCHC 28.4 L Plt Count 147 L Neutrophils # Lymphocytes # 0.8 L APTT ABG pH ABG pCO2 ABG pO2 ABG HCO3 ABG Total CO2 ABG O2 Saturation Sodium Chloride Carbon Dioxide Glucose POC Glucose (mg/dL) 148 H Plasma Lactic Acid Rich Calcium AST Troponin I Albumin Urine Protein 3+ H Urine Glucose (UA) Trace H Urine Ketones Trace H Urine Blood Small H Urine RBC 17 H Urine WBC 56 H Urine WBC Clumps Many H Urine Bacteria Occasional H Urine Mucus Rare H 02/12/23 02/12/23 02/12/23 11:01 11:13 11:47 WBC RBC Hgb Hct MCH MCHC Plt Count Neutrophils # Lymphocytes # APTT ABG pH 7.26 L ABG pCO2 76 H* ABG pO2 114 H ABG HCO3 34 H ABG Total CO2 37 H ABG O2 Saturation 98.2 H Sodium 131 L Chloride 89 L Carbon Dioxide 32 H Glucose 161 H POC Glucose (mg/dL) Plasma Lactic Acid Rich 3.3 H* Calcium AST 81 H Troponin I Albumin 3.1 L Urine Protein Urine Glucose (UA) Urine Ketones Urine Blood Urine RBC Urine WBC Urine WBC Clumps Urine Bacteria Urine Mucus 02/12/23 02/12/23 02/12/23 14:22 15:08 15:08 WBC 11.6 H RBC 3.82 L Hgb 9.6 L Hct 33.1 L MCH MCHC 28.9 L Plt Count 129 L Neutrophils # 10.4 H Lymphocytes # 0.4 L APTT ABG pH ABG pCO2 ABG pO2 ABG HCO3 ABG Total CO2 ABG O2 Saturation Sodium Chloride Carbon Dioxide Glucose POC Glucose (mg/dL) 163 H Plasma Lactic Acid Rich Calcium AST Troponin I 0.164 H* Albumin Urine Protein Urine Glucose (UA) Urine Ketones Urine Blood Urine RBC Urine WBC Urine WBC Clumps Urine Bacteria Urine Mucus 02/12/23 02/12/23 02/13/23 18:25 18:35 01:01 WBC RBC Hgb Hct MCH MCHC Plt Count Neutrophils # Lymphocytes # APTT ABG pH ABG pCO2 ABG pO2 ABG HCO3 ABG Total CO2 ABG O2 Saturation Sodium Chloride Carbon Dioxide Glucose POC Glucose (mg/dL) 152 H 129 H Plasma Lactic Acid Rich Calcium AST Troponin I 0.209 H* Albumin Urine Protein Urine Glucose (UA) Urine Ketones Urine Blood Urine RBC Urine WBC Urine WBC Clumps Urine Bacteria Urine Mucus 02/13/23 02/13/23 02/13/23 04:12 04:12 05:27 WBC RBC 3.69 L Hgb 9.2 L Hct 31.4 L MCH MCHC 29.4 L Plt Count 125 L Neutrophils # 8.4 H Lymphocytes # 0.5 L APTT ABG pH ABG pCO2 58 H ABG pO2 ABG HCO3 39 H ABG Total CO2 41 H ABG O2 Saturation 98.2 H Sodium 128 L Chloride 87 L Carbon Dioxide 37 H Glucose 116 H POC Glucose (mg/dL) Plasma Lactic Acid Rich Calcium 8.2 L AST Troponin I Albumin Urine Protein Urine Glucose (UA) Urine Ketones Urine Blood Urine RBC Urine WBC Urine WBC Clumps Urine Bacteria Urine Mucus 02/13/23 02/13/23 02/13/23 05:58 10:15 11:20 WBC RBC Hgb Hct MCH MCHC Plt Count Neutrophils # Lymphocytes # APTT 42.7 H ABG pH ABG pCO2 ABG pO2 ABG HCO3 ABG Total CO2 ABG O2 Saturation Sodium Chloride Carbon Dioxide Glucose POC Glucose (mg/dL) 131 H 121 H Plasma Lactic Acid Rich Calcium AST Troponin I Albumin Urine Protein Urine Glucose (UA) Urine Ketones Urine Blood Urine RBC Urine WBC Urine WBC Clumps Urine Bacteria Urine Mucus Assessment and Plan Assessment: This is a 53-year-old gentleman who had a having worsening of severe shortness of breath and generalized weakness recently a cardiopulmonary arrest outside the hospital and he was found to be in PEA. Then developed A-fib. He developed myoclonic jerks. Outside the hospital cardiopulmonary arrest. It appears the patient had a prolonged downtime. Myoclonic jerks due to above as a result of brain anoxia Likely anoxic brain injury due to suspected prolonged down time. 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 Chronic hypercapnic respiratory failure Morbid obesity Plan: During this hospital stay i patient was started on Keppra 1500 mg every 12 hours for the myoclonic jerks and I change it to 2 g every 12 hours. Continue IV propofol and Versed to control his myoclonic jerks. Will have holiday sedation tomorrow to assess his condition. EEG is ordered and pending read. CT head is ordered by ICU attending and agree with it. Will defer the rest of medical management to primary and other specialist. Prognosis is poor. The plan is discussed with his and nurse. Thank you for the consultation. Time with Patient: Greater than 30
[2023-02-13] MEDS ORDERED: POTASSIUM BICARBONATE/CIT AC 20 MEQ TABLET.EFF NG-TUBE SCH ×2 (15:00→22:00)
[2023-02-13 17:12] LABS: Glucose,Whole Blood 139 mg/dL (70-110)
[2023-02-13 17:40] LABS: Glucose,Whole Blood 144 mg/dL (70-110)
[2023-02-13] MEDS: FUROSEMIDE 10 MG/ML 4 ML VIAL IV SCH (20:33)
[2023-02-13] MEDS ORDERED: levETIRAcetam IV 500 MG/5 ML VIAL IVP SCH (21:00)
[2023-02-13 21:51] LABS: African American GFR (CKD) >90 (>60 ml/min/1.73 sqM); Anion Gap 5 mmol/L; Blood Urea Nitrogen 18 mg/dL (9-20); Calcium 8.5 mg/dL (8.4-10.2); Carbon Dioxide 39 mmol/L (22-30); Chloride 88 mmol/L (98-107); Glucose 151 mg/dL (74-99); Magnesium 1.7 mg/dL (1.6-2.3); Non-African American GFR(CKD) 89 (>60 ml/min/1.73 sqM); Potassium 3.9 mmol/L (3.5-5.1); Sodium 132 mmol/L (137-145)
[2023-02-13] MEDS: levETIRAcetam IV 2,000 MG in SODIUM CHLORIDE 0.9% 250 ML IVPB SCH (21:51)
[2023-02-13] MEDS ORDERED: Magnesium Replacement Protocol 1 EACH MISC MISCELLANE PRN (21:58)
[2023-02-13] MEDS ORDERED: MAGNESIUM SULFATE-D5W PMX 1 GM in DEXTROSE/WATER 1 100ML.BAG IVPB ONE (21:58)
--- NOTE | 2023-02-13 22:10 | P.CONS ---
History of Present Illness - Reason for Consult Consult date: 02/13/23 - History of Present Illness Patient is a 53-year-old -[place] male with a past medical history significant for diabetes mellitus hypertension and sleep apnea and asthma patient did have history of chronic bilateral lower extremity wounds for the patient to follow at [facility] wound care center apparently the patient recently [facility] apparently was not doing well over the last few days patient was feeling very weak and needed help with moving around the morning of presentation the hospital patient did get up to go to the bathroom and did have a fall and subsequent the patient was noticed to be unresponsive EMS was called and the patient was noted to be in cardiac arrest patient got resuscitated and was transferred to [facility] ER patient was intubated on presentation to the hospital the patient was afebrile he did have low-grade hypothermia tachycardic and is currently on 50% FiO2 patient did have a white count of 11.6 yesterday with a left shift creatinine 0.96 liver exams are normal urine is positive cultures has been obtained from his leg wounds patient did have a chest x-ray moderate cardiomegaly suspected pulmonary vascular congestion with a repeat chest x-ray continues shows cardiomegaly mild pulmonary scleral congestion patient has been the recommendation of daptomycin Zosyn and Eraxis infectious disease was consult ed today for his right leg wounds and management of his antibiotic repeat positive admission has been obtained from review the chart and talking at the bedside and nursing staff as the patient cannot provide any history Past Medical History Past Medical History: Asthma, Diabetes Mellitus, Hypertension, Sleep Apnea/CPAP/BIPAP Additional Past Medical History / Comment(s): Chiari malformation History of Any Multi-Drug Resistant Organisms: None Reported Past Surgical History: Hernia Repair Additional Past Surgical History / Comment(s): Brain surgeryx2, left wrist surgery, lap band Past Anesthesia/Blood Transfusion Reactions: No Reported Reaction Past Psychological History: No Psychological Hx Reported Smoking Status: Never smoker Past Alcohol Use History: Occasional Past Drug Use History: Marijuana - Past Family History Father Family Medical History: No Reported History Medications and Allergies Home Medications Medication Instructions Recorded Confirmed Type Metoprolol Tartrate [Lopressor] 50 mg PO BID tab 04/23/22 02/12/23 Rx Ibuprofen [Motrin] 800 mg PO TID PRN 06/26/22 02/12/23 History Albuterol Inhaler [Ventolin Hfa 2 puff INHALATION RT-Q6H PRN 10/14/22 02/12/23 History Inhaler] Gabapentin [Neurontin] 100 mg PO BID #6 cap 10/17/22 02/12/23 Rx HYDROcodone/APAP 10-325MG [Stanton 1 tab PO Q6H #12 tab 10/17/22 02/12/23 Rx 10-325] ALPRAZolam [Xanax] 0.5 mg PO HS 02/12/23 02/12/23 History Collagenase [Santyl Ointment] 1 applic TOPICAL TUTHSA PRN 02/12/23 02/12/23 History Furosemide [Lasix] 40 mg PO DAILY 02/12/23 02/12/23 History Omeprazole [PriLOSEC] 20 mg PO DAILY 02/12/23 02/12/23 History Potassium Gluconate 99 mg PO DAILY PRN 02/12/23 02/12/23 History Allergies Allergy/AdvReac Type Severity Reaction Status Date / Time No Known Allergies Allergy Verified 02/12/23 13:52 Physical Exam Vitals: Vital Signs Temp Pulse Resp BP Pulse Ox FiO2 02/13/23 11:23 50 02/13/23 09:01 95 02/13/23 09:00 94.6 F L 87 16 102/60 02/13/23 08:41 95 02/13/23 08:30 103 H 16 102/60 02/13/23 08:00 94.5 F L 87 16 111/64 50 02/13/23 07:46 50 02/13/23 07:30 87 16 111/64 02/13/23 07:00 100 16 103/78 02/13/23 06:30 81 16 103/78 95 02/13/23 06:00 83 16 98 02/13/23 05:30 85 16 02/13/23 05:00 90 18 108/67 02/13/23 04:30 80 16 108/67 90 L 02/13/23 04:00 95.3 F L 87 16 110/75 60 02/13/23 03:47 60 02/13/23 03:45 84 02/13/23 03:30 81 16 110/75 02/13/23 03:00 89 16 97/71 95 02/13/23 02:30 96 16 97/71 96 02/13/23 02:00 85 16 103/74 02/13/23 01:30 81 19 103/74 73 L 02/13/23 01:00 80 16 111/72 02/13/23 00:30 79 16 111/72 02/13/23 00:00 96.4 F L 82 16 111/72 93 L 60 02/12/23 23:53 105 H 02/12/23 23:30 93 16 111/72 98 60 02/12/23 23:04 75 16 111/72 100 02/12/23 23:00 80 16 102/69 100 02/12/23 22:30 80 16 102/69 89 L 02/12/23 22:00 81 16 125/75 92 L 02/12/23 21:30 82 16 125/75 94 L 02/12/23 21:00 79 16 139/69 100 02/12/23 20:30 89 16 139/69 100 02/12/23 20:23 82 02/12/23 20:10 89 02/12/23 20:09 70 02/12/23 20:00 95.3 F L 87 16 80 02/12/23 19:30 89 16 134/88 100 02/12/23 19:00 76 16 132/90 100 02/12/23 18:30 81 16 132/90 100 02/12/23 18:00 95.2 F L 86 16 100 02/12/23 17:30 87 16 100 02/12/23 17:00 76 16 120/87 100 02/12/23 16:30 87 16 127/84 100 02/12/23 16:00 95.5 F L 79 16 129/83 100 80 02/12/23 15:30 86 16 134/90 99 02/12/23 15:08 80 02/12/23 15:00 77 16 125/87 100 02/12/23 14:41 80 02/12/23 14:30 96.1 F L 89 16 128/75 100 80 02/12/23 14:21 83 16 100 02/12/23 14:18 86 20 117/78 100 02/12/23 12:00 86 18 117/78 100 02/12/23 11:41 97.2 F L 113 H 20 109/82 100 Intake and Output 02/12/23 02/13/23 02/13/23 22:59 06:59 14:59 Intake Total 235.705 4189.689 991.935 Output Total 2455 545 805 Balance -1567.142 550.689 186.935 Intake: IV 588 264 465 0.9 220 240 150 Anidulafungin 200 mg In 200 200 Sodium Chloride 0.9% 200 ml @ 84 mls/hr IVPB ONCE ONE Rx#:[id number] DAPTOmycin 700 mg In 50 Sodium Chloride 0.9% 50 ml @ 100 mls/hr IVPB Q24H [facility] Rx#:[id number] Piperacillin-Tazobactam 3 100 100 .375 gm In Sodium Chloride 0.9% 100 ml @ 25 mls/hr IVPB Q8HR [facility] Rx# :[id number] pressure bag 18 24 15 Intake, IV Titration 239.858 671.689 396.935 Amount Amiodarone 450 mg In 228.893 Dextrose 5% in Water 250 ml @ 0.5 MG/MIN 16.667 mls/hr IV .Q15H [facility] Rx#: [id number] Heparin Sod,Pork in 0.45% 90.144 123.376 NaCl 25,000 unit In 0.45 % NaCl 1 250ml.bag @ 5.5 UNITS/KG/HR 9.979 mls/hr IV .Q24H [facility] Rx#: [id number] Midazolam HCl 50 mg In 73.950 Sodium Chloride 0.9% 40 ml @ 5 MG/HR 5 mls/hr IV .Q10H [facility] Rx#:[id number] propofoL 1,000 mg In 239.858 352.652 199.609 Empty Bag 1 bag @ 15 MCG/ KG/MIN 16.329 mls/hr IV . Q6H8M [facility] Rx#:[id number] Tube Feeding 30 100 100 Other 30 60 30 Output: Urine 2455 545 805 Other: Voiding Method Indwelling Catheter Indwelling Catheter Weight 181.437 kg ABP, PAP, CO, CI - Last 8 Hours Arterial Blood Pressure 79/47 Arterial Blood Pressure 63/46 Arterial Blood Pressure 89/45 Arterial Blood Pressure 102/54 Arterial Blood Pressure 91/61 Arterial Blood Pressure 103/57 Arterial Blood Pressure 92/57 Arterial Blood Pressure 100/58 Arterial Blood Pressure 101/59 Arterial Blood Pressure 92/50 Arterial Blood Pressure 83/53 Arterial Blood Pressure 85/56 Results CBC & Chem 7: 02/14/23 04:43 02/14/23 04:43 Labs: Abnormal Lab Results - Last 24 Hours (Table) 02/12/23 02/12/23 02/12/23 Range/Units 11:01 11:01 11:47 WBC (3.8-10.6) k/uL RBC (4.30-5.90) m/uL Hgb (13.0-17.5) gm/dL Hct (39.0-53.0) % MCHC (31.0-37.0) g/dL Plt Count (150-450) k/uL Neutrophils # (1.3-7.7) k/uL Lymphocytes # (1.0-4.8) k/uL APTT (22.0-30.0) sec ABG pCO2 (35-45) mmHg ABG HCO3 (21-25) mmol/L ABG Total CO2 (19-24) mmol/L ABG O2 Saturation (94-97) % Sodium 131 L (137-145) mmol/L Chloride 89 L (98-107) mmol/L Carbon Dioxide 32 H (22-30) mmol/L Glucose 161 H (74-99) mg/dL POC Glucose (mg/dL) (70-110) mg/dL Plasma Lactic Acid Rich 3.3 H* (0.7-2.0) mmol/L Calcium (8.4-10.2) mg/dL AST 81 H (17-59) U/L Troponin I (0.000-0.034) ng/mL Albumin 3.1 L (3.5-5.0) g/dL Urine Protein 3+ H (Negative) Urine Glucose (UA) Trace H (Negative) Urine Ketones Trace H (Negative) Urine Blood Small H (Negative) Urine RBC 17 H (0-5) /hpf Urine WBC 56 H (0-5) /hpf Urine WBC Clumps Many H (None) /hpf Urine Bacteria Occasional H (None) /hpf Urine Mucus Rare H (None) /hpf 02/12/23 02/12/23 02/12/23 Range/Units 14:22 15:08 15:08 WBC 11.6 H (3.8-10.6) k/uL RBC 3.82 L (4.30-5.90) m/uL Hgb 9.6 L (13.0-17.5) gm/dL Hct 33.1 L (39.0-53.0) % MCHC 28.9 L (31.0-37.0) g/dL Plt Count 129 L (150-450) k/uL Neutrophils # 10.4 H (1.3-7.7) k/uL Lymphocytes # 0.4 L (1.0-4.8) k/uL APTT (22.0-30.0) sec ABG pCO2 (35-45) mmHg ABG HCO3 (21-25) mmol/L ABG Total CO2 (19-24) mmol/L ABG O2 Saturation (94-97) % Sodium (137-145) mmol/L Chloride (98-107) mmol/L Carbon Dioxide (22-30) mmol/L Glucose (74-99) mg/dL POC Glucose (mg/dL) 163 H (70-110) mg/dL Plasma Lactic Acid Rich (0.7-2.0) mmol/L Calcium (8.4-10.2) mg/dL AST (17-59) U/L Troponin I 0.164 H* (0.000-0.034) ng/mL Albumin (3.5-5.0) g/dL Urine Protein (Negative) Urine Glucose (UA) (Negative) Urine Ketones (Negative) Urine Blood (Negative) Urine RBC (0-5) /hpf Urine WBC (0-5) /hpf Urine WBC Clumps (None) /hpf Urine Bacteria (None) /hpf Urine Mucus (None) /hpf 02/12/23 02/12/23 02/13/23 Range/Units 18:25 18:35 01:01 WBC (3.8-10.6) k/uL RBC (4.30-5.90) m/uL Hgb (13.0-17.5) gm/dL Hct (39.0-53.0) % MCHC (31.0-37.0) g/dL Plt Count (150-450) k/uL Neutrophils # (1.3-7.7) k/uL Lymphocytes # (1.0-4.8) k/uL APTT (22.0-30.0) sec ABG pCO2 (35-45) mmHg ABG HCO3 (21-25) mmol/L ABG Total CO2 (19-24) mmol/L ABG O2 Saturation (94-97) % Sodium (137-145) mmol/L Chloride (98-107) mmol/L Carbon Dioxide (22-30) mmol/L Glucose (74-99) mg/dL POC Glucose (mg/dL) 152 H 129 H (70-110) mg/dL Plasma Lactic Acid Rich (0.7-2.0) mmol/L Calcium (8.4-10.2) mg/dL AST (17-59) U/L Troponin I 0.209 H* (0.000-0.034) ng/mL Albumin (3.5-5.0) g/dL Urine Protein (Negative) Urine Glucose (UA) (Negative) Urine Ketones (Negative) Urine Blood (Negative) Urine RBC (0-5) /hpf Urine WBC (0-5) /hpf Urine WBC Clumps (None) /hpf Urine Bacteria (None) /hpf Urine Mucus (None) /hpf 02/13/23 02/13/23 02/13/23 Range/Units 04:12 04:12 05:27 WBC (3.8-10.6) k/uL RBC 3.69 L (4.30-5.90) m/uL Hgb 9.2 L (13.0-17.5) gm/dL Hct 31.4 L (39.0-53.0) % MCHC 29.4 L (31.0-37.0) g/dL Plt Count 125 L (150-450) k/uL Neutrophils # 8.4 H (1.3-7.7) k/uL Lymphocytes # 0.5 L (1.0-4.8) k/uL APTT (22.0-30.0) sec ABG pCO2 58 H (35-45) mmHg ABG HCO3 39 H (21-25) mmol/L ABG Total CO2 41 H (19-24) mmol/L ABG O2 Saturation 98.2 H (94-97) % Sodium 128 L (137-145) mmol/L Chloride 87 L (98-107) mmol/L Carbon Dioxide 37 H (22-30) mmol/L Glucose 116 H (74-99) mg/dL POC Glucose (mg/dL) (70-110) mg/dL Plasma Lactic Acid Rich (0.7-2.0) mmol/L Calcium 8.2 L (8.4-10.2) mg/dL AST (17-59) U/L Troponin I (0.000-0.034) ng/mL Albumin (3.5-5.0) g/dL Urine Protein (Negative) Urine Glucose (UA) (Negative) Urine Ketones (Negative) Urine Blood (Negative) Urine RBC (0-5) /hpf Urine WBC (0-5) /hpf Urine WBC Clumps (None) /hpf Urine Bacteria (None) /hpf Urine Mucus (None) /hpf 02/13/23 02/13/23 02/13/23 Range/Units 05:58 10:15 11:20 WBC (3.8-10.6) k/uL RBC (4.30-5.90) m/uL Hgb (13.0-17.5) gm/dL Hct (39.0-53.0) % MCHC (31.0-37.0) g/dL Plt Count (150-450) k/uL Neutrophils # (1.3-7.7) k/uL Lymphocytes # (1.0-4.8) k/uL APTT 42.7 H (22.0-30.0) sec ABG pCO2 (35-45) mmHg ABG HCO3 (21-25) mmol/L ABG Total CO2 (19-24) mmol/L ABG O2 Saturation (94-97) % Sodium (137-145) mmol/L Chloride (98-107) mmol/L Carbon Dioxide (22-30) mmol/L Glucose (74-99) mg/dL POC Glucose (mg/dL) 131 H 121 H (70-110) mg/dL Plasma Lactic Acid Rich (0.7-2.0) mmol/L Calcium (8.4-10.2) mg/dL AST (17-59) U/L Troponin I (0.000-0.034) ng/mL Albumin (3.5-5.0) g/dL Urine Protein (Negative) Urine Glucose (UA) (Negative) Urine Ketones (Negative) Urine Blood (Negative) Urine RBC (0-5) /hpf Urine WBC (0-5) /hpf Urine WBC Clumps (None) /hpf Urine Bacteria (None) /hpf Urine Mucus (None) /hpf Microbiology - Last 24 Hours (Table) 02/12/23 17:45 Gram Stain - Preliminary Leg - Right 02/12/23 17:46 Gram Stain - Preliminary Leg - Left Assessment and Plan Plan: 1-patient presented to hospital with [id number] cardiac arrest requiring resuscitation and subsequently being admitted to the hospital currently worked up by multiple consultants including pulmonary cardiology patient did have a chronic bilateral lower extremity wounds with some foul-smelling drainage and concern for secondary cellulitis we will need to cover for resistant gram- positive as well as gram-negative keeping in mind chronicity of this wound and the patient has been around the hospital and recently signed out AMA from the intermediate 2-patient will benefit from surgical debridement of these wounds 3-patient to continue with the Zosyn and daptomycin patient provide border gram- negative as well as gram-positive coverage 4-local wound care to continue for the wound care team at the bedside multiple questions were answered We will follow on clinical condition and cultures to further adjust medication if needed Thank you for this consultation we will follow the patient along with you Dictation was produced using [employer] dictation software. please excuse any grammatical, word or spelling errors.
[2023-02-13] MEDS ORDERED: AMIODARONE 360 MG in DEXTROSE 5% IN WATER 200 ML IV ONE ×2 (22:17)
[2023-02-13 23:28] LABS: Glucose,Whole Blood 181 mg/dL (70-110)
[2023-02-14] MEDS: IPRATROPIUM-ALBUTEROL 3 ML NEB INHALATION SCH ×7 (00:09→23:50)
[2023-02-14] MEDS: INSULIN ASPART (NovoLOG) 100 UNIT/ML VIAL SQ SCH ×5 (00:23→23:43)
[2023-02-14] MEDS: PIPERACILLIN-TAZOBACTAM 3.375 GM in SODIUM CHLORIDE 0.9% 100 ML IVPB SCH ×4 (00:33→23:44)
[2023-02-14] MEDS: HEPARIN SOD,PORK IN 0.45% NACL 25,000 UNIT in 0.45% NACL 1 250ML.BAG IV SCH (00:34)
--- NOTE | 2023-02-14 02:16 | EEG ---
ELECTROENCEPHALOGRAM REPORT CLINICAL HISTORY: This is a 53-year-old gentleman, who had at outside hospital cardiopulmonary arrest and has myoclonic jerks. The video EEG is obtained to evaluate for seizure epileptiform activity. RELEVANT MEDICATIONS: 1. Keppra. 2. IV propofol. 3. Versed. EEG TYPE: A routine 21-channel EEG with video using the 10/20 electrode placement system. DESCRIPTION: The patient is intubated on a ventilator. The background consists of burst suppression. Predominantly, it is in the suppression. During the burst, there is diffuse nonrhythmic 2 to 3 Hz delta activity. At times, it is sharply contoured. There is more burst as the sedation was being weaned down during the study. Activation procedure: Photic stimulation and hyperventilation are not performed. CLINICAL INTERPRETATION: This is an abnormal routine EEG. The background slowing is suggestive of severe encephalopathy. The burst suppression is likely due to brain anoxia. Another consideration is possibly also a component of burst suppression, can be due to medication effect (IV propofol and Versed), but I feel likely it is more from brain anoxia. Clinical correlation is recommended. MMODL / IJN: [id number] / CHRISTIANO
[2023-02-14] MEDS: MIDAZOLAM HCL 50 MG in SODIUM CHLORIDE 0.9% 40 ML IV SCH ×8 (02:52→22:04)
[2023-02-14] MEDS: AMIODARONE 450 MG in DEXTROSE 5% IN WATER 250 ML IV SCH ×4 (03:26→17:00)
[2023-02-14 05:12] LABS: Basophils % (A) 0 %; Eosinophils # (A) 0.2 k/uL (0-0.7); Eosinophils % (A) 2 %; HCT 37.7 % (39.0-53.0); HGB 10.6 gm/dL (13.0-17.5); Hypochromasia Marked; Lymphocytes # (A) 0.8 k/uL (1.0-4.8); Lymphocytes % (A) 9 %; MCH 24.1 pg (25.0-35.0); MCV 85.9 fL (80.0-100.0); Mean Platelet Volume 10.3; Monocytes # (A) 0.6 k/uL (0-1.0); Monocytes % (A) 6 %; Neutrophils # (A) 7.5 k/uL (1.3-7.7); Neutrophils % (A) 81 %; Platelet Count 184 k/uL (150-450); RBC 4.39 m/uL (4.30-5.90); RDW 15.5 % (11.5-15.5); WBC 9.2 k/uL (3.8-10.6)
[2023-02-14 05:53] LABS: Glucose,Whole Blood 198 mg/dL (70-110)
[2023-02-14 05:59] LABS: African American GFR (CKD) >90 (>60 ml/min/1.73 sqM); Anion Gap 8 mmol/L; Blood Urea Nitrogen 18 mg/dL (9-20); Calcium 8.6 mg/dL (8.4-10.2); Carbon Dioxide 38 mmol/L (22-30); Chloride 88 mmol/L (98-107); Glucose 184 mg/dL (74-99); Magnesium 1.8 mg/dL (1.6-2.3); Non-African American GFR(CKD) 82 (>60 ml/min/1.73 sqM); Potassium 3.7 mmol/L (3.5-5.1); Sodium 134 mmol/L (137-145)
[2023-02-14 06:01] LABS: ABG Base Excess 14.8 mmol/L; ABG HCO3 39 mmol/L (21-25); ABG PCO2 62 mmHg (35-45); ABG PH 7.41 (7.35-7.45); ABG PO2 88 mmHg (83-108); ABG TCO2 41 mmol/L (19-24); Allen Test Performed? Yes
[2023-02-14] MEDS: NOREPINEPHRINE 8 MG in SODIUM CHLORIDE 0.9% 250 ML IV SCH ×2 (06:11→18:56)
[2023-02-14] MEDS ORDERED: POTASSIUM BICARBONATE/CIT AC 20 MEQ TABLET.EFF NG-TUBE SCH (08:00)
--- NOTE | 2023-02-14 09:24 | P.PN ---
Subjective Progress Note Date: 02/14/23 This is a 53-year-old morbidly obese -Romanian male patient presented to us and cardiac arrest. The patient has multiple medical problems and comorbidities. He was supposed to be in rehabilitation and he left AGAINST MEDICAL ADVICE. He is known to have multiple wounds to his lower extremities. He is known to have obstructive sleep apnea/obesity hypoventilation syndrome and history of coronary artery malformation. He has chronic lower extremity edema and wounds that are open and weepy and infected. Family and the heard him call out this afternoon, the patient was found on the floor on all 4 extremities. Apparently, it was thought that the patient was trying to transfer himself to his motorized scooter and he dropped. Due to his morbid obesity, family contacted EMS and upon arrival, the patient was in cardiac arrest, he did not have a shockable rhythm and he was found to be in PEA. CPR was initiated. The patient was down for quite sometime and he was brought in to the emergency department where resuscitation was continued. Subsequently, there was return of spontaneous circulation the patient was found to be in atrial fibrillation with rapid ventricular response. He was started on amiodarone and currently amiodarone is running at 1 mg/m. He remains in A. fib with a controlled rhythm. No pressors at this point in time. He is having myoclonic jerks. He is intubated on mechanical ventilator. Is currently on assist control mode at a rate of 16, tidal volume of 450, FiO2 of 80% with a PEEP of 5. His blood. This showed a pH of 7.26 with a pCO2 of 76 and pO2 114 and this was on FiO2 of 100%. Chest x-ray showed cardiomegaly and ET tube was repositioned.. The patient's had an initial lactic acid level of 3.3 which subsequently dropped down to 80%. His white cell count 11.6, hemoglobin 9.6 and a padded count is 129. Normal coagulation profile. BUN is at 80 with a creatinine of 1.04 and a sodium level is at 131. He received a total of 2 L of IV fluid in the emergency department. The patient had an initial troponin level of 0.029 and subsequent troponin was at 0.164. ProBNP level was 15,000. He is currently on propofol running at 20 mcg/kg/m. IV fluids at 20 mL an hour. Amiodarone drip at 1 mg/m. He does have an infected large wound over the posterior aspect of the right calf with draining purulent material. He has also a similar wound in the left calf. His second toes are also sedated and there is purulent drainage from the ulcer and he has an ulceration of the second toe bilaterally. He does have also and also on that his scrotum. His other comorbid conditions include diabetes mellitus, artery and creatinine malformation and the patient has difficulty with mobility and gait, and he has also chronic hypoxic and hypercapnic respiratory failure maintain on oxygen at 2 L/m nasal cannula on an outpatient basis. Computed tomography scan of the brain was done in emergency department and it showed no acute intracranial abnormalities. There is posterior occipital craniotomy changes and evidence of cerebellar encephalomala connie. No evidence of any cervical spine fracture. Today's evaluation of 02/13/2023, I'm seeing the patient for a follow-up. Patient is post cardiac arrest with a prolonged down time. Suspect anoxic encephalopathy. At the time of arrival, the patient was also septic with draining infected wounds of the lower extremities as the patient is known to have chronic nonhealing wounds in his legs. His body mass index is 54.2 and the patient is morbidly obese. This morning, he is on a combination of propofol and Versed. Propofol was At a dose of 30 microvascular kilogram per minute and the patient was on Versed at 50 mg an hour. Addition of Versed was done upon the request of neurology as the patient was having some episodic myoclonic jerks which is essentially settled with use of Versed and Keppra. The patient is the process of obtaining EEG and based on that, the Versed was placed on hold. He remains on a mechanical ventilator. Is on assist-control mode at the rate of 16, tidal volume of 450, FiO2 of 50% with a PEEP of 5. The peak airway pressure is at 32. The blood gas from this morning shows a pH of 7.44 with episodes of 58 and pO2 of 97 and this was on FiO2 of 60%. The patient's had a follow-up chest x-ray this morning. The patient has a left IJ triple-lumen catheter in place. He has significant cardiomegaly and evidence of interstitial edema consistent with CHF. EKG was around 2 cm above the peter. No significant consolidation. The patient remains in atrial fibrillation with a controlled rate. He is on amiodarone which was changed to 0.5 mg/m. He is maintained on IV heparin. No signs of any bleeding at this point in time. No pressors for now. In terms of his wounds, Acquacell Silver was applied and the wounds are currently wrapped. At the same time, with cultures were obtained and the results are still pending. The patient was covered with a combination of daptomycin, Eraxis and Zosyn as broad-spectrum antibiotic coverage. He is currently afebrile. The white cell cause of 9.5 with a hemoglobin of 9.2 and a platelet count of 125. BUN is at 19 with a creatinine of 0.8 and a sodium level is at 128. He is on IV Lasix 40 mg every 24 hours. The fluid balance over the past 24 hours is -1 L the patient is producing adequate amount of urine output. Neurology is on the case. Rn Informatics on the case. Wound services were consulted. On today's evaluation of 02/14/2023, seeing the patient for a follow-up. The patient is post cardiac arrest with anoxic encephalopathy. EEG was done yesterday and the patient had abnormal EEG with background slowing suggestive of severe encephalopathy. There is also burst suppression which is likely s econdary to anoxic encephalopathy. The patient is unresponsive. The patient remains on propofol running at 40 microvascular kilogram per minute and he is also on Versed drip at 12 mg an hour. No jerky body movements on today's evaluation. No myoclonic jerks. Neurology is on the case and we are awaiting further recommendations in terms of evaluating his anoxic encephalopathy and prognosis. The patient was also started on Keppra 1.5 g every 12 hours which is being continued for the time being. In terms of his rest or status, the patient remains on assist-control mode at the rate of 16, tidal volume of 450, FiO2 of 50% with a PEEP of 5. PH is at 7.41 with a pCO2 of 62 and pO2 of 88. The chest x-ray from today shows cardiomegaly and pulmonary vascular congestion/edema with some possible effusion/early consolidation of the right lower lobe. The patient does not have any significant orotracheal secretions at this point in time. His cardiac rhythm is still in nature fibrillation. The patient had a bout of A. fib RVR yesterday and he had to be cardioverted. His rate is under better control and the patient continues to be on amiodarone which is running at 0.5 mg/m. The patient remains on IV heparin. He is currently also on norepinephrine running at 0.05 mcg/kg/m. IV fluids are running at 20 mL an hour. Overall fluid balance over the past 24 hours has been 1 L positive. The patient otherwise is afebrile. His covered with broad-spectrum antibiotics. Cultures are still pending. The white cell cause of 9.2 with a hemoglobin of 10.6 and a platelet count of 184. BUN is 18 with a creatinine of 1 and his sodium level is at 134. He is started on enteral feeding for nutritional support and currently is on vital high-protein at the rate of 46 mL an hour. He still on IV Lasix 40 mg every 12 hours with adequate urine output. Objective - Vital Signs Vital signs: Vital Signs Temp 95.6 F L 02/14/23 00:00 Pulse 110 H 02/14/23 08:26 Resp 16 02/14/23 07:00 BP 109/88 02/14/23 07:00 Pulse Ox 97 02/14/23 07:00 FiO2 50 02/14/23 07:40 Intake & Output 02/13/23 02/14/23 02/14/23 18:59 06:59 18:59 Intake Total 6071.664 1995.481 179 Output Total 2805 1680 90 Balance -907.659 375.481 89 Weight 181.437 kg 181.7 kg Intake: IV 846 396 33 0.9 360 360 30 Anidulafungin 200 mg In 200 Sodium Chloride 0.9% 200 ml @ 84 mls/hr IVPB ONCE ONE Rx#:[id number] DAPTOmycin 700 mg In 50 Sodium Chloride 0.9% 50 ml @ 100 mls/hr IVPB Q24H [facility] Rx#:[id number] Piperacillin-Tazobactam 3 200 .375 gm In Sodium Chloride 0.9% 100 ml @ 25 mls/hr IVPB Q8HR [facility] Rx# :[id number] pressure bag 36 36 3 Intake, IV Titration 859.300 9698.481 100 Amount Heparin Sod,Pork in 0.45% 123.376 241.775 NaCl 25,000 unit In 0.45 % NaCl 1 250ml.bag @ 5.5 UNITS/KG/HR 9.979 mls/hr IV .Q24H [facility] Rx#: [id number] Midazolam HCl 50 mg In 134.866 187.4 Sodium Chloride 0.9% 40 ml @ 5 MG/HR 5 mls/hr IV .Q10H [facility] Rx#:[id number] Norepinephrine 8 mg In 16.413 183.086 Sodium Chloride 0.9% 250 ml @ 0.03 MCG/KG/MIN 10. 532 mls/hr IV .Q24H [facility] Rx#:[id number] propofoL 1,000 mg In 466.686 485.220 100 Empty Bag 1 bag @ 15 MCG/ KG/MIN 16.329 mls/hr IV . Q6H8M [facility] Rx#:[id number] Tube Feeding 250 472 46 Other 60 90 Output: Urine 2805 1680 90 Other: Voiding Method Indwelling Catheter Indwelling Catheter ABP, PAP, CO, CI - Last Documented Arterial Blood Pressure 97/62 - Exam Morbidly obese with a body mass index of 54.2, intubated on a mechanical ventilator. No myoclonic jerks on today's evaluation. The patient is on propofol. Versed was briefly discontinued or EEG purposes. She is breathing at a separate of 16 and he is not breathing above the mechanical ventilator. Head exam was generally normal. There was no scleral icterus or corneal arcus. Mucous membranes were moist. Neck is extremely short and there is positive JVD's. The triple-lumen catheter was inserted in the left IJ. No neck stiffness. Lungs sounds are diminished bilaterally and there is diminished breath on the lung bases. No significant WHEEZES. Heart sounds are irregular, consistent with atrial fibrillation fibrillation. No significant murmur appreciated. No RV heave or and afebrile. Abdomen is morbidly obese and CANNOT be accurately palpated. No direct tenderness, no rebound tenderness or guarding. Extremities are chronically edematous and there is infected deep wounds, nonhealing in the calves bilaterally with purulent material oozing specially from the ulcer that's behind his right lower extremity. He also has oscillated/infected toes specifically the second toe in the right foot and the left foot bilaterally. Pulses are diminished. No cyanosis or clubbing. Neurologically, the patient has equal and symmetrical pupils. Pupils pinpoint bilaterally , no eye twitching =. He has no response to any deep painful stimulation.. No facial asymmetry. Positive cough and a gag. Motor function cannot be assessed. Sensory functions cannot be assessed. Reflexes are flat bilaterally and no Babinski. No clonus. Neurologic examination is essentially unchanged on today's evaluation the patient is still riding the mechanical ventilator at the same rate. - Labs CBC & Chem 7: 02/14/23 04:43 02/14/23 04:43 Labs: Abnormal Lab Results - Last 24 Hours (Table) 02/13/23 02/13/23 02/13/23 Range/Units 04:12 10:15 11:20 RBC 3.69 L (4.30-5.90) m/uL Hgb 9.2 L (13.0-17.5) gm/dL Hct 31.4 L (39.0-53.0) % MCH (25.0-35.0) pg MCHC 29.4 L (31.0-37.0) g/dL Plt Count 125 L (150-450) k/uL Neutrophils # 8.4 H (1.3-7.7) k/uL Lymphocytes # 0.5 L (1.0-4.8) k/uL APTT 42.7 H (22.0-30.0) sec ABG pCO2 (35-45) mmHg ABG HCO3 (21-25) mmol/L ABG Total CO2 (19-24) mmol/L Sodium (137-145) mmol/L Chloride (98-107) mmol/L Carbon Dioxide (22-30) mmol/L Glucose (74-99) mg/dL POC Glucose (mg/dL) 121 H (70-110) mg/dL Calcium (8.4-10.2) mg/dL Total Protein (6.3-8.2) g/dL Albumin (3.5-5.0) g/dL 02/13/23 02/13/23 02/13/23 Range/Units 13:45 15:43 17:10 RBC (4.30-5.90) m/uL Hgb (13.0-17.5) gm/dL Hct (39.0-53.0) % MCH (25.0-35.0) pg MCHC (31.0-37.0) g/dL Plt Count (150-450) k/uL Neutrophils # (1.3-7.7) k/uL Lymphocytes # (1.0-4.8) k/uL APTT 53.2 H (22.0-30.0) sec ABG pCO2 (35-45) mmHg ABG HCO3 (21-25) mmol/L ABG Total CO2 (19-24) mmol/L Sodium 132 L (137-145) mmol/L Chloride 87 L (98-107) mmol/L Carbon Dioxide 38 H (22-30) mmol/L Glucose 134 H (74-99) mg/dL POC Glucose (mg/dL) 139 H (70-110) mg/dL Calcium 8.3 L (8.4-10.2) mg/dL Total Protein 5.9 L (6.3-8.2) g/dL Albumin 2.7 L (3.5-5.0) g/dL 02/13/23 02/13/23 02/13/23 Range/Units 17:39 21:22 23:27 RBC (4.30-5.90) m/uL Hgb (13.0-17.5) gm/dL Hct (39.0-53.0) % MCH (25.0-35.0) pg MCHC (31.0-37.0) g/dL Plt Count (150-450) k/uL Neutrophils # (1.3-7.7) k/uL Lymphocytes # (1.0-4.8) k/uL APTT (22.0-30.0) sec ABG pCO2 (35-45) mmHg ABG HCO3 (21-25) mmol/L ABG Total CO2 (19-24) mmol/L Sodium 132 L (137-145) mmol/L Chloride 88 L (98-107) mmol/L Carbon Dioxide 39 H (22-30) mmol/L Glucose 151 H (74-99) mg/dL POC Glucose (mg/dL) 144 H 181 H (70-110) mg/dL Calcium (8.4-10.2) mg/dL Total Protein (6.3-8.2) g/dL Albumin (3.5-5.0) g/dL 02/14/23 02/14/23 02/14/23 Range/Units 04:43 04:43 05:51 RBC (4.30-5.90) m/uL Hgb 10.6 L (13.0-17.5) gm/dL Hct 37.7 L (39.0-53.0) % MCH 24.1 L (25.0-35.0) pg MCHC 28.0 L (31.0-37.0) g/dL Plt Count (150-450) k/uL Neutrophils # (1.3-7.7) k/uL Lymphocytes # 0.8 L (1.0-4.8) k/uL APTT (22.0-30.0) sec ABG pCO2 (35-45) mmHg ABG HCO3 (21-25) mmol/L ABG Total CO2 (19-24) mmol/L Sodium 134 L (137-145) mmol/L Chloride 88 L (98-107) mmol/L Carbon Dioxide 38 H (22-30) mmol/L Glucose 184 H (74-99) mg/dL POC Glucose (mg/dL) 198 H (70-110) mg/dL Calcium (8.4-10.2) mg/dL Total Protein (6.3-8.2) g/dL Albumin (3.5-5.0) g/dL 02/14/23 02/14/23 Range/Units 05:56 06:47 RBC (4.30-5.90) m/uL Hgb (13.0-17.5) gm/dL Hct (39.0-53.0) % MCH (25.0-35.0) pg MCHC (31.0-37.0) g/dL Plt Count (150-450) k/uL Neutrophils # (1.3-7.7) k/uL Lymphocytes # (1.0-4.8) k/uL APTT 56.8 H (22.0-30.0) sec ABG pCO2 62 H (35-45) mmHg ABG HCO3 39 H (21-25) mmol/L ABG Total CO2 41 H (19-24) mmol/L Sodium (137-145) mmol/L Chloride (98-107) mmol/L Carbon Dioxide (22-30) mmol/L Glucose (74-99) mg/dL POC Glucose (mg/dL) (70-110) mg/dL Calcium (8.4-10.2) mg/dL Total Protein (6.3-8.2) g/dL Albumin (3.5-5.0) g/dL Microbiology - Last 24 Hours (Table) 02/12/23 15:12 Blood Culture - Preliminary Blood 02/12/23 11:47 Gram Stain - Preliminary Sputum 02/12/23 17:45 Gram Stain - Preliminary Leg - Right 02/12/23 17:46 Gram Stain - Preliminary Leg - Left Assessment and Plan Plan: Cardiac arrest, probably initiated by an initial respiratory arrest with s ubsequent cardiac arrest and the patient was found to be in a PEA rhythm. Currently he is hemodynamically stable. In atrial fibrillation. The patient return of spontaneous her condition following resuscitation. Despite his lower lactic acid level, the patient seems to have had a prolonged down time. Anoxic encephalopathy is suspected. Patient is also on low-dose norepinephrine this morning Acute hypoxic /hypercapnic respiratory failure, currently intubated on mechanical ventilator post cardiac arrest, chest x-ray is consistent with CHF and pulmonary edema, the patient remains on IV Lasix Anoxic encephalopathy, clinically suspected as the patient is having some episodic myotonic jerk. CAT scan of the brain was negative , the pupils are pinpoint and is deeply comatose, nonresponsive to any painful stimulation or verbal stimulation. The patient remains on a combination of Versed and propofol and Keppra. EEG was done yesterday showed diffuse slowing and burst suppression consistent with anoxic encephalopathy. Atrial fibrillation fibrillation with rapid ventricular response currently on amiodarone drip at 0.5 mg/m, epinephrine is at the low-dose at 0.05 mcg/kg/m Chronic Bilateral lower extremity once/pressure ulcers with superinfection, and the patient has open wounds in the lower extremities bilaterally involving the calf, ulcerated second toe on the right than the left and scrotal wounds. The patient is covered with broad-spectrum antibiotics. The patient has Aquacel silver applied to his wounds Chronic hypoxic respiratory failure currently on 2 L of oxygen by nasal cannula Chronic hypercapnic respiratory failure Chronic restrictive lung disease due to morbid obesity with a body mass 54.2 with obvious features of obesity hypoventilation syndrome Obstructive sleep apnea maintained on CPAP therapy on outpatient basis, compliancy is questionable Mild lactic acidosis Chronic metabolic alkalosis secondary to chronic hypercapnic respiratory failure Morbid obesity with a BMI estimated to be at 54.2 Hypertension Diabetes mellitus Arnold-Chiari malformation with difficulty with mobility and gait Chronic anemia/anemia of chronic disease Troponin leak secondary to cardiac arrest Plan Keep the patient intubated on a mechanical ventilator for now Continue propofol and Versed drip EEG was noted from yesterday. This will be discussed further with neurology. There are signs of severe anoxic encephalopathy at this point in time. Continue ventilator support Continue low-dose norepinephrine Continue the IV amiodarone for another 24 hours Continue IV heparin for now Awaiting wound cultures and blood cultures Wound services Coverage antibiotics with a combination of Eraxis, daptomycin and Zosyn AB able to repeat a CAT scan of the brain although this going to be technically a difficult testing due to his condition and obesity. Neurology consult is appreciated IV Keppra to be continued IV Protonix Initiate enteral feeding for nutritional support Continue Lasix 40 mg IV twice a day Obvious signs of anoxic encephalopathy. Family was updated Condition is obviously critical and the patient carries a very poor prognosis based on the above-mentioned. This evaluation was done in more than one hour. Discussed the case with the at the bedside. Reticulocyte care evaluation done in more than 40 minutes. Time with Patient: Greater than 30
[2023-02-14] MEDS: AMIODARONE 200 MG TAB PO SCH ×2 (11:08→21:15)
[2023-02-14] MEDS: ANIDULAFUNGIN 100 MG in SODIUM CHLORIDE 0.9% 100 ML IVPB SCH (11:14)
[2023-02-14] MEDS: CHLORHEXIDINE GLUCONATE 15 ML CUP MUCOUS MEM SCH ×2 (11:19→21:15)
[2023-02-14] MEDS: ASPIRIN 81 MG PO SCH (11:19)
[2023-02-14] MEDS: METOPROLOL TARTRATE 25 MG TAB PO SCH ×2 (11:19→21:15)
[2023-02-14] MEDS: PANTOPRAZOLE 40 MG/10 ML VIAL IVP SCH ×2 (11:20→21:14)
[2023-02-14] MEDS: FUROSEMIDE 10 MG/ML 4 ML VIAL IV SCH ×2 (11:20→21:14)
--- NOTE | 2023-02-14 11:43 | XR ---
EXAMINATION TYPE: XR chest 1V portable DATE OF EXAM: 02/14/2023 Comparison: 02/13/2023 Clinical History: 53-year-old male with Tube placement Findings: Heart remains moderately enlarged. ET tube now satisfactory. NG tube courses below the diaphragm. Lef t CVC tip remains at the cavoatrial junction. Diffuse interstitial density persists. Patchy opacity r ight lower lung persists. Left base underpenetrated and not well assessed. Impression: Similar moderate cardiomegaly with similar mild patchy pulmonary edema, right greater than left.
[2023-02-14 11:46] LABS: Glucose,Whole Blood 188 mg/dL (70-110)
[2023-02-14] MEDS: levETIRAcetam IV 2,000 MG in SODIUM CHLORIDE 0.9% 250 ML IVPB SCH ×2 (11:59→21:15)
[2023-02-14 13:26] VITALS: BMI 54.3
--- NOTE | 2023-02-14 14:33 | P.PN ---
Subjective Progress Note Date: 02/14/23 I am following-up with patient and he continues to be intubated on ventilator and is On IV Propofol and IV Versed. Objective - Vital Signs Vital signs: Vital Signs Temp 96.4 F L 02/14/23 12:00 Pulse 104 H 02/14/23 13:30 Resp 16 02/14/23 13:30 BP 121/72 02/14/23 13:30 Pulse Ox 96 02/14/23 13:30 FiO2 50 02/14/23 12:00 Intake & Output 02/13/23 02/14/23 02/14/23 18:59 06:59 18:59 Intake Total 7549.298 0350.481 1448.491 Output Total 2805 1680 965 Balance -907.659 375.481 483.491 Weight 181.437 kg 181.7 kg 181.7 kg Intake: IV 846 396 531 0.9 360 360 210 Anidulafungin 200 mg In 200 200 Sodium Chloride 0.9% 200 ml @ 84 mls/hr IVPB ONCE ONE Rx#:[id number] DAPTOmycin 700 mg In 50 Sodium Chloride 0.9% 50 ml @ 100 mls/hr IVPB Q24H [facility] Rx#:[id number] Piperacillin-Tazobactam 3 200 100 .375 gm In Sodium Chloride 0.9% 100 ml @ 25 mls/hr IVPB Q8HR [facility] Rx# :[id number] pressure bag 36 36 21 Intake, IV Titration 994.201 6249.481 535.491 Amount Heparin Sod,Pork in 0.45% 123.376 241.775 NaCl 25,000 unit In 0.45 % NaCl 1 250ml.bag @ 5.5 UNITS/KG/HR 9.979 mls/hr IV .Q24H [facility] Rx#: [id number] Midazolam HCl 50 mg In 134.866 187.4 66.2 Sodium Chloride 0.9% 40 ml @ 5 MG/HR 5 mls/hr IV .Q10H [facility] Rx#:[id number] Norepinephrine 8 mg In 16.413 183.086 126.681 Sodium Chloride 0.9% 250 ml @ 0.03 MCG/KG/MIN 10. 532 mls/hr IV .Q24H [facility] Rx#:[id number] propofoL 1,000 mg In 466.686 485.220 342.610 Empty Bag 1 bag @ 15 MCG/ KG/MIN 16.329 mls/hr IV . Q6H8M [facility] Rx#:[id number] Tube Feeding 250 472 322 Other 60 90 60 Output: Urine 2805 1680 965 Other: Voiding Method Indwelling Catheter Indwelling Catheter ABP, PAP, CO, CI - Last Documented Arterial Blood Pressure 105/56 - Exam General: Is a morbid obese gentleman lying in bed and does not appear in acute distress. Lung: Intubated on ventilator. Neuro: Limited. Patient is on IV Propofol 40mcg/kg/min and Versed 12mg/min and it was held for 10 minute prior to my examination. Is comatose GCS 3 (E1, M1, VT1). Patient had continuous myoclonic jerks of the face and left arm upon stopping the sedation. He is breathing over the vents. Motor: No sponataneous movement. Not withdrawing to any extremities. Decrease tone throughout. Reflex: 0-1+ throughout. Plantars are mute throughout. Some of the workup during his hospital visit consisted of: Sodium initially was 131. BUN/creatinine is normal. Calcium is 8.4. ABG initial PCO2 to is 76 and most recent 58. CT of the head is reported as no acute intracranial CT abnormality. Posture occipital craniotomy changes over the posterior fossa with a gross similar appearance of underlying cerebellar encephalomalacia CT cervical was reported as no evidence of cervical spine fracture or traumatic malaignment. I first reviewed the CT and I agree there is no acute subacute ischemia. There is no bleed that was appreciable. Moderate multilevel cervical spondylosis. Suspect at least one enlarged left supraclavicular lymph node. Routine EEG on 02/13/2023: Is abnormal. The background slowing suggestive of severe encephalopathy. The burst suppression is likely due to brain anoxia. Another consideration is possibly also complaining of burst suppression can be due to medication effect (IV Propofol and Versed) but I feel likely more brain anoxia. - Labs CBC & Chem 7: 02/14/23 04:43 02/14/23 04:43 Labs: Abnormal Lab Results - Last 24 Hours (Table) 02/13/23 02/13/23 02/13/23 Range/Units 15:43 17:10 17:39 Hgb (13.0-17.5) gm/dL Hct (39.0-53.0) % MCH (25.0-35.0) pg MCHC (31.0-37.0) g/dL Lymphocytes # (1.0-4.8) k/uL APTT 53.2 H (22.0-30.0) sec ABG pCO2 (35-45) mmHg ABG HCO3 (21-25) mmol/L ABG Total CO2 (19-24) mmol/L Sodium (137-145) mmol/L Chloride (98-107) mmol/L Carbon Dioxide (22-30) mmol/L Glucose (74-99) mg/dL POC Glucose (mg/dL) 139 H 144 H (70-110) mg/dL 02/13/23 02/13/23 02/14/23 Range/Units 21:22 23:27 04:43 Hgb (13.0-17.5) gm/dL Hct (39.0-53.0) % MCH (25.0-35.0) pg MCHC (31.0-37.0) g/dL Lymphocytes # (1.0-4.8) k/uL APTT (22.0-30.0) sec ABG pCO2 (35-45) mmHg ABG HCO3 (21-25) mmol/L ABG Total CO2 (19-24) mmol/L Sodium 132 L 134 L (137-145) mmol/L Chloride 88 L 88 L (98-107) mmol/L Carbon Dioxide 39 H 38 H (22-30) mmol/L Glucose 151 H 184 H (74-99) mg/dL POC Glucose (mg/dL) 181 H (70-110) mg/dL 02/14/23 02/14/23 02/14/23 Range/Units 04:43 05:51 05:56 Hgb 10.6 L (13.0-17.5) gm/dL Hct 37.7 L (39.0-53.0) % MCH 24.1 L (25.0-35.0) pg MCHC 28.0 L (31.0-37.0) g/dL Lymphocytes # 0.8 L (1.0-4.8) k/uL APTT (22.0-30.0) sec ABG pCO2 62 H (35-45) mmHg ABG HCO3 39 H (21-25) mmol/L ABG Total CO2 41 H (19-24) mmol/L Sodium (137-145) mmol/L Chloride (98-107) mmol/L Carbon Dioxide (22-30) mmol/L Glucose (74-99) mg/dL POC Glucose (mg/dL) 198 H (70-110) mg/dL 02/14/23 02/14/23 Range/Units 06:47 11:44 Hgb (13.0-17.5) gm/dL Hct (39.0-53.0) % MCH (25.0-35.0) pg MCHC (31.0-37.0) g/dL Lymphocytes # (1.0-4.8) k/uL APTT 56.8 H (22.0-30.0) sec ABG pCO2 (35-45) mmHg ABG HCO3 (21-25) mmol/L ABG Total CO2 (19-24) mmol/L Sodium (137-145) mmol/L Chloride (98-107) mmol/L Carbon Dioxide (22-30) mmol/L Glucose (74-99) mg/dL POC Glucose (mg/dL) 188 H (70-110) mg/dL Microbiology - Last 24 Hours (Table) 02/12/23 15:12 Blood Culture - Preliminary Blood 02/12/23 11:47 Gram Stain - Preliminary Sputum 02/12/23 17:45 Gram Stain - Preliminary Leg - Right 02/12/23 17:46 Gram Stain - Preliminary Leg - Left Assessment and Plan Assessment: This is a 53-year-old gentleman who had a having worsening of severe shortness of breath and generalized weakness recently a cardiopulmonary arrest outside the hospital and he was found to be in PEA. Then developed A-fib. He developed myoclonic jerks. Outside the hospital cardiopulmonary arrest. It appears the patient had a prolonged downtime. Myoclonic status (face and left upper extremity) due to above as a result of brain anoxia. Upon holding the sedation had continuous myclonic jerks and resolved with sedation. Severe anoxic brain injury due to suspected prolonged down time. 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 Chronic hypercapnic respiratory failure Morbid obesity Plan: Continue Keppra 2000 mg every 12 hours. Continue IV propofol and Versed to control his myoclonic jerks in which as stated, when sedation was held then he had continuous jerks but once sedation was resumed the jerks resolved. CT head is pending but unlikely it will change overall management. Will defer the rest of medical management to primary and other specialist. Prognosis appears very poor. The plan is discussed with his and ICU attending and nurse. The is leaning of making the patient comfort care. Time with Patient: Less than 30
--- NOTE | 2023-02-14 16:55 | P.PN ---
Subjective Progress Note Date: 02/14/23 Principal diagnosis: Reason for follow-up is bilateral lower extremity wound and antibiotic management Patient is a 53-year-old -[place] male with a past medical history s ignificant for diabetes mellitus hypertension and sleep apnea and asthma patient did have history of chronic bilateral lower extremity wounds, recently signed [facility] was brought into the hospital after cardiac arrest at home patient noticed to be septic concerning for lower extremity cellulitis and question of aspiration pneumonitis. On today's evaluation that is 02/14/2023 patient did have mild hypothermia with a core temperature of 96.6 F patient requiring a pressor support, the patient is currently on 50% FiO2 no significant purulent secretions through the ET vomiting or diarrhea has been reported. Patient white count of 9.2, creatinine 1.03, cultures are currently pending Objective - Vital Signs Vital signs: Vital Signs Temp 96.4 F L 02/14/23 12:00 Pulse 107 H 02/14/23 12:00 Resp 16 02/14/23 12:00 BP 122/91 02/14/23 12:00 Pulse Ox 96 02/14/23 12:00 FiO2 50 02/14/23 12:00 Intake & Output 02/13/23 02/14/23 02/14/23 18:59 06:59 18:59 Intake Total 0746.468 5458.481 1263.004 Output Total 2805 1680 790 Balance -907.659 375.481 473.004 Weight 181.437 kg 181.7 kg Intake: IV 846 396 498 0.9 360 360 180 Anidulafungin 200 mg In 200 200 Sodium Chloride 0.9% 200 ml @ 84 mls/hr IVPB ONCE ONE Rx#:[id number] DAPTOmycin 700 mg In 50 Sodium Chloride 0.9% 50 ml @ 100 mls/hr IVPB Q24H [facility] Rx#:[id number] Piperacillin-Tazobactam 3 200 100 .375 gm In Sodium Chloride 0.9% 100 ml @ 25 mls/hr IVPB Q8HR [facility] Rx# :[id number] pressure bag 36 36 18 Intake, IV Titration 760.734 7514.481 429.004 Amount Heparin Sod,Pork in 0.45% 123.376 241.775 NaCl 25,000 unit In 0.45 % NaCl 1 250ml.bag @ 5.5 UNITS/KG/HR 9.979 mls/hr IV .Q24H [facility] Rx#: [id number] Midazolam HCl 50 mg In 134.866 187.4 66.2 Sodium Chloride 0.9% 40 ml @ 5 MG/HR 5 mls/hr IV .Q10H [facility] Rx#:[id number] Norepinephrine 8 mg In 16.413 183.086 108.191 Sodium Chloride 0.9% 250 ml @ 0.03 MCG/KG/MIN 10. 532 mls/hr IV .Q24H [facility] Rx#:[id number] propofoL 1,000 mg In 466.686 485.220 254.613 Empty Bag 1 bag @ 15 MCG/ KG/MIN 16.329 mls/hr IV . Q6H8M [facility] Rx#:[id number] Tube Feeding 250 472 276 Other 60 90 60 Output: Urine 2805 1680 790 Other: Voiding Method Indwelling Catheter Indwelling Catheter ABP, PAP, CO, CI - Last Documented Arterial Blood Pressure 106/60 - Exam GENERAL DESCRIPTION: Middle-age male intubated on the vent RESPIRATORY SYSTEM: Unlabored breathing , decreased breath sounds at bases HEART: S1 S2 regular rate and rhythm , ABDOMEN: Soft , no tenderness EXTREMITIES: Bilateral lower extremity wounds are currently dressed no drainage - Labs CBC & Chem 7: 02/14/23 04:43 02/14/23 04:43 Labs: Abnormal Lab Results - Last 24 Hours (Table) 02/13/23 02/13/23 02/13/23 Range/Units 13:45 15:43 17:10 Hgb (13.0-17.5) gm/dL Hct (39.0-53.0) % MCH (25.0-35.0) pg MCHC (31.0-37.0) g/dL Lymphocytes # (1.0-4.8) k/uL APTT 53.2 H (22.0-30.0) sec ABG pCO2 (35-45) mmHg ABG HCO3 (21-25) mmol/L ABG Total CO2 (19-24) mmol/L Sodium 132 L (137-145) mmol/L Chloride 87 L (98-107) mmol/L Carbon Dioxide 38 H (22-30) mmol/L Glucose 134 H (74-99) mg/dL POC Glucose (mg/dL) 139 H (70-110) mg/dL Calcium 8.3 L (8.4-10.2) mg/dL Total Protein 5.9 L (6.3-8.2) g/dL Albumin 2.7 L (3.5-5.0) g/dL 02/13/23 02/13/23 02/13/23 Range/Units 17:39 21:22 23:27 Hgb (13.0-17.5) gm/dL Hct (39.0-53.0) % MCH (25.0-35.0) pg MCHC (31.0-37.0) g/dL Lymphocytes # (1.0-4.8) k/uL APTT (22.0-30.0) sec ABG pCO2 (35-45) mmHg ABG HCO3 (21-25) mmol/L ABG Total CO2 (19-24) mmol/L Sodium 132 L (137-145) mmol/L Chloride 88 L (98-107) mmol/L Carbon Dioxide 39 H (22-30) mmol/L Glucose 151 H (74-99) mg/dL POC Glucose (mg/dL) 144 H 181 H (70-110) mg/dL Calcium (8.4-10.2) mg/dL Total Protein (6.3-8.2) g/dL Albumin (3.5-5.0) g/dL 02/14/23 02/14/23 02/14/23 Range/Units 04:43 04:43 05:51 Hgb 10.6 L (13.0-17.5) gm/dL Hct 37.7 L (39.0-53.0) % MCH 24.1 L (25.0-35.0) pg MCHC 28.0 L (31.0-37.0) g/dL Lymphocytes # 0.8 L (1.0-4.8) k/uL APTT (22.0-30.0) sec ABG pCO2 (35-45) mmHg ABG HCO3 (21-25) mmol/L ABG Total CO2 (19-24) mmol/L Sodium 134 L (137-145) mmol/L Chloride 88 L (98-107) mmol/L Carbon Dioxide 38 H (22-30) mmol/L Glucose 184 H (74-99) mg/dL POC Glucose (mg/dL) 198 H (70-110) mg/dL Calcium (8.4-10.2) mg/dL Total Protein (6.3-8.2) g/dL Albumin (3.5-5.0) g/dL 02/14/23 02/14/23 02/14/23 Range/Units 05:56 06:47 11:44 Hgb (13.0-17.5) gm/dL Hct (39.0-53.0) % MCH (25.0-35.0) pg MCHC (31.0-37.0) g/dL Lymphocytes # (1.0-4.8) k/uL APTT 56.8 H (22.0-30.0) sec ABG pCO2 62 H (35-45) mmHg ABG HCO3 39 H (21-25) mmol/L ABG Total CO2 41 H (19-24) mmol/L Sodium (137-145) mmol/L Chloride (98-107) mmol/L Carbon Dioxide (22-30) mmol/L Glucose (74-99) mg/dL POC Glucose (mg/dL) 188 H (70-110) mg/dL Calcium (8.4-10.2) mg/dL Total Protein (6.3-8.2) g/dL Albumin (3.5-5.0) g/dL Microbiology - Last 24 Hours (Table) 02/12/23 15:12 Blood Culture - Preliminary Blood 02/12/23 11:47 Gram Stain - Preliminary Sputum 02/12/23 17:45 Gram Stain - Preliminary Leg - Right 02/12/23 17:46 Gram Stain - Preliminary Leg - Left Assessment and Plan (1) Non-pressure chronic ulcer of left calf with fat layer exposed Current Visit: No Status: Acute Code(s): L97.222 - NON-PRESSURE CHRONIC ULCER OF LEFT CALF W FAT LAYER EXPOSED SNOMED Code(s): 16042463155177662 (2) Non-pressure chronic ulcer of right calf with fat layer exposed Current Visit: No Status: Acute Code(s): L97.212 - NON-PRESSURE CHRONIC ULCER OF RIGHT CALF W FAT LAYER EXPOSED SNOMED Code(s): 49562901510481212 (3) Open wound of both lower extremities Current Visit: No Status: Acute Code(s): S81.801A - UNSPECIFIED OPEN WOUND, RIGHT LOWER LEG, INITIAL ENCOUNTER; S81.802A - UNSPECIFIED OPEN WOUND, LEFT LOWER LEG, INITIAL ENCOUNTER SNOMED Code(s): 19203219 (4) Type 2 diabetes mellitus with other skin ulcer Current Visit: No Status: Acute Code(s): E11.622 - TYPE 2 DIABETES MELLITUS WITH OTHER SKIN ULCER; L98.499 - NON-PRESSURE CHRONIC ULCER OF SKIN OF SITES W UNSP SEVERITY SNOMED Code(s): 533994409 Plan: 1-patient presented to hospital with zwg-jn-byzbtqow cardiac arrest requiring resuscitation and subsequently being admitted to the hospital currently worked up by multiple consultants including pulmonary cardiology patient did have a chronic bilateral lower extremity wounds with some foul-smelling drainage and concern for secondary cellulitis we will need to cover for resistant gram-posit vicki as well as gram-negative keeping in mind chronicity of this wound and the patient has been around the hospital and recently signed [facility] from the [facility] 2-patient will benefit from surgical debridement of these wounds 3patient to continue local wound care as ordered and continue with the current broad-spectrum antibiotics in the form of Zosyn daptomycin while waiting for the culture to finalize prognosis remains to be guarded Dictation was produced using [employer] dictation software. please excuse any grammatical, word or spelling errors. Time with Patient: Less than 30
[2023-02-14 17:53] LABS: Glucose,Whole Blood 173 mg/dL (70-110)
--- NOTE | 2023-02-14 18:09 | P.PN ---
Subjective This is a pleasant 53 years old male with multiple medical problems Patient presents with cardiac arrest at home, currently he is intubated in the e mergency room and information were obtained from the and family at bedside. As per patient has in the hospital in September earlier this year when he was diagnosed for first time with atrial fibrillation and he went to rehab and he was sitting in rehab with plan to return him into long-term indwelling however he left AMA recently underwent back home from [facility], At home he was still very weak and he needed help with moving. His PCP Dr. Jensen as retired so patient went to see Dr. Jimenez about last . And he was supposed to follow-up with the wound center today This morning he got up from his bed going to the restroom I strongly believe when he fell on his knees, family are heard him and they found him unresponsive, his oxygen tube was disconnected and they put him back and they called 911. On admission he was tachycardic 113 and currently 86, blood pressure 117/78. His hemoglobin is 10.4, double-J within the reference range, platelet count 147 Sodium 131, rest of BMP and liver enzymes and INR are unremarkable. PH is low at 7.26, pCO2 is elevated 76 and PaO2 114 sodium bicarb is a high also 34 Patient has abnormal urine analysis is not very suspicious of infection Chest x-ray showing cardiomegaly with vascular congestion CT of the head, neck is negative for acute process intracranially or cervical fracture or dislocation 02/13/2023 Patient remains in the ICU in critical condition, still intubated on mechanical ventilation. Currently patient has signs of encephalopathy. Distal tachycardic, tachypneic, blood pressure 114/80, without pressors. His labs are reviewed, hemoglobin 9.2, platelet count 125, sodium 132 He is on broad-spectrum antibiotics with prophylaxis, daptomycin, Zosyn. Was on heparin drip but amiodarone was switched to oral dose 400 mg twice a day His on IV Lasix 40 mg twice daily. He is on midazolam Plan for EED and CAT scan of the brain 02/14/2023 Patient remains in the ICU intubated and on mechanical ventilation. Clinically looks the same. Vitals and labs reviewed Remains on broad-spectrum antibiotics with daptomycin and Zosyn, patient also may benefit from wound debridement He remains on IV Lasix 40 mg twice daily He started back on amiodarone drip, continued on heparin drip for his arrhythmia Keppra dose increased to 1999. Prognosis remains very guarded Objective - Vital Signs Vital signs: Vital Signs Temp 96.4 F L 02/14/23 12:00 Pulse 104 H 02/14/23 13:30 Resp 16 02/14/23 13:30 BP 121/72 02/14/23 13:30 Pulse Ox 96 02/14/23 13:30 FiO2 50 02/14/23 12:00 Intake & Output 02/13/23 02/14/23 02/14/23 18:59 06:59 18:59 Intake Total 5306.680 7012.481 1448.491 Output Total 2805 1680 965 Balance -907.659 375.481 483.491 Weight 181.437 kg 181.7 kg 181.7 kg Intake: IV 846 396 531 0.9 360 360 210 Anidulafungin 200 mg In 200 200 Sodium Chloride 0.9% 200 ml @ 84 mls/hr IVPB ONCE ONE Rx#:[id number] DAPTOmycin 700 mg In 50 Sodium Chloride 0.9% 50 ml @ 100 mls/hr IVPB Q24H [facility] Rx#:[id number] Piperacillin-Tazobactam 3 200 100 .375 gm In Sodium Chloride 0.9% 100 ml @ 25 mls/hr IVPB Q8HR [facility] Rx# :[id number] pressure bag 36 36 21 Intake, IV Titration 014.349 9013.481 535.491 Amount Heparin Sod,Pork in 0.45% 123.376 241.775 NaCl 25,000 unit In 0.45 % NaCl 1 250ml.bag @ 5.5 UNITS/KG/HR 9.979 mls/hr IV .Q24H [facility] Rx#: [id number] Midazolam HCl 50 mg In 134.866 187.4 66.2 Sodium Chloride 0.9% 40 ml @ 5 MG/HR 5 mls/hr IV .Q10H [facility] Rx#:[id number] Norepinephrine 8 mg In 16.413 183.086 126.681 Sodium Chloride 0.9% 250 ml @ 0.03 MCG/KG/MIN 10. 532 mls/hr IV .Q24H [facility] Rx#:[id number] propofoL 1,000 mg In 466.686 485.220 342.610 Empty Bag 1 bag @ 15 MCG/ KG/MIN 16.329 mls/hr IV . Q6H8M [facility] Rx#:[id number] Tube Feeding 250 472 322 Other 60 90 60 Output: Urine 2805 1680 965 Other: Voiding Method Indwelling Catheter Indwelling Catheter ABP, PAP, CO, CI - Last Documented Arterial Blood Pressure 105/56 - Exam -GENERAL: The patient is intubated and sedated, morbidly obese HEENT: Pupils are round and equally reacting to light. EOMI. No scleral icterus. No conjunctival pallor. Normocephalic, atraumatic. No pharyngeal erythema. No thyromegaly. CARDIOVASCULAR: S1 and S2 present. No murmurs, rubs, or gallops. PULMONARY: Chest is clear to auscultation, no wheezing , no crackles. ABDOMEN: Soft, nontender, nondistended, normoactive bowel sounds. No palpable organomegaly. MUSCULOSKELETAL: No joint swelling or deformity. EXTREMITIES: No cyanosis, clubbing, or pedal edema. NEUROLOGICAL: Gross neurological examination did not reveal any focal deficits. SKIN: No rashes. no petechiae. - Labs CBC & Chem 7: 02/14/23 04:43 02/14/23 04:43 Labs: Abnormal Lab Results - Last 24 Hours (Table) 02/13/23 02/13/23 02/13/23 Range/Units 13:45 15:43 17:10 Hgb (13.0-17.5) gm/dL Hct (39.0-53.0) % MCH (25.0-35.0) pg MCHC (31.0-37.0) g/dL Lymphocytes # (1.0-4.8) k/uL APTT 53.2 H (22.0-30.0) sec ABG pCO2 (35-45) mmHg ABG HCO3 (21-25) mmol/L ABG Total CO2 (19-24) mmol/L Sodium 132 L (137-145) mmol/L Chloride 87 L (98-107) mmol/L Carbon Dioxide 38 H (22-30) mmol/L Glucose 134 H (74-99) mg/dL POC Glucose (mg/dL) 139 H (70-110) mg/dL Calcium 8.3 L (8.4-10.2) mg/dL Total Protein 5.9 L (6.3-8.2) g/dL Albumin 2.7 L (3.5-5.0) g/dL 02/13/23 02/13/23 02/13/23 Range/Units 17:39 21:22 23:27 Hgb (13.0-17.5) gm/dL Hct (39.0-53.0) % MCH (25.0-35.0) pg MCHC (31.0-37.0) g/dL Lymphocytes # (1.0-4.8) k/uL APTT (22.0-30.0) sec ABG pCO2 (35-45) mmHg ABG HCO3 (21-25) mmol/L ABG Total CO2 (19-24) mmol/L Sodium 132 L (137-145) mmol/L Chloride 88 L (98-107) mmol/L Carbon Dioxide 39 H (22-30) mmol/L Glucose 151 H (74-99) mg/dL POC Glucose (mg/dL) 144 H 181 H (70-110) mg/dL Calcium (8.4-10.2) mg/dL Total Protein (6.3-8.2) g/dL Albumin (3.5-5.0) g/dL 02/14/23 02/14/23 02/14/23 Range/Units 04:43 04:43 05:51 Hgb 10.6 L (13.0-17.5) gm/dL Hct 37.7 L (39.0-53.0) % MCH 24.1 L (25.0-35.0) pg MCHC 28.0 L (31.0-37.0) g/dL Lymphocytes # 0.8 L (1.0-4.8) k/uL APTT (22.0-30.0) sec ABG pCO2 (35-45) mmHg ABG HCO3 (21-25) mmol/L ABG Total CO2 (19-24) mmol/L Sodium 134 L (137-145) mmol/L Chloride 88 L (98-107) mmol/L Carbon Dioxide 38 H (22-30) mmol/L Glucose 184 H (74-99) mg/dL POC Glucose (mg/dL) 198 H (70-110) mg/dL Calcium (8.4-10.2) mg/dL Total Protein (6.3-8.2) g/dL Albumin (3.5-5.0) g/dL 02/14/23 02/14/23 02/14/23 Range/Units 05:56 06:47 11:44 Hgb (13.0-17.5) gm/dL Hct (39.0-53.0) % MCH (25.0-35.0) pg MCHC (31.0-37.0) g/dL Lymphocytes # (1.0-4.8) k/uL APTT 56.8 H (22.0-30.0) sec ABG pCO2 62 H (35-45) mmHg ABG HCO3 39 H (21-25) mmol/L ABG Total CO2 41 H (19-24) mmol/L Sodium (137-145) mmol/L Chloride (98-107) mmol/L Carbon Dioxide (22-30) mmol/L Glucose (74-99) mg/dL POC Glucose (mg/dL) 188 H (70-110) mg/dL Calcium (8.4-10.2) mg/dL Total Protein (6.3-8.2) g/dL Albumin (3.5-5.0) g/dL Microbiology - Last 24 Hours (Table) 02/12/23 15:12 Blood Culture - Preliminary Blood 02/12/23 11:47 Gram Stain - Preliminary Sputum 02/12/23 17:45 Gram Stain - Preliminary Leg - Right 02/12/23 17:46 Gram Stain - Preliminary Leg - Left Assessment and Plan Assessment: Status post cardiac arrest with a down time about 10-15 minutes possible anoxic brain injury Acute hypoxic hypercapnic respiratory failure requiring intubation and mechanical ventilation Respiratory acidosis, acute Obesity hypoventilation syndrome, obstructive sleep apnea Chronic hypoxic respiratory failure Paroxysmal atrial fibrillation multiple skin ulceration of the toes and lower extremities suspicious for ce llulitis Morbid obesity Plan: Continue with oxygen Continue with her dilator, Continue IV Lasix Continue antibiotic Telemetry monitoring Admitting the patient to the critical care unit Cardiology and pulmonary consult neurologist evaluated in the patient Labs and medication were reviewed.. Continue same treatment. Continue with symptomatic treatment. Resume home medication. Monitor labs and vitals. DVT and GI prophylaxis. Further recommendations as per clinical course of the patient DVT prophylaxis: Subcutaneous heparin GI Prophylaxis: Pepcid Prognosis is guarded
--- NOTE | 2023-02-14 22:13 | PN ---
PROGRESS NOTE HISTORY OF PRESENT ILLNESS: Escobar is a 53-year-old gentleman, who was admitted to hospital with cardiorespiratory arrest, intubated on vent, and has been having recurrent episodes of seizures, probably related to hypoxic encephalopathy. He was on IV heparin. We are still waiting on an echo that was done, but I do not have a result on. His amiodarone had been switched to p.o. yesterday . PHYSICAL EXAMINATION: GENERAL: He is intubated, sedated, unresponsive. VITAL SIGNS: Heart rate is around 110 beats per minute. Blood pressure is 130/92. Respiratory rate is 18. CHEST: Reveals diminished air entry bilaterally. HEART: Reveals first and second heart sounds. No gallop. ABDOMEN: Soft. EXTREMITIES: Reveal bilateral pitting edema and ulceration. LABORATORY DATA: Labs show the patient's hemoglobin is 10.6, platelet count is 184. Potassium is 3.7, creatinine is 1. ASSESSMENT AND PLAN: 1. Status post cardiorespiratory arrest. 2. Myp-XV-ylvfkiu elevation myocardial infarction. 3. Hypoxic encephalopathy. PLAN: I am going to stop the IV heparin at this time. Continue the amiodarone. No further cardiac workup for followup. We will see him on an as needed basis. MMODL / IJN: [id number] /
[2023-02-14 23:32] LABS: Glucose,Whole Blood 161 mg/dL (70-110)
[2023-02-15] MEDS: MIDAZOLAM HCL 50 MG in SODIUM CHLORIDE 0.9% 40 ML IV SCH ×5 (01:19→18:30)
[2023-02-15] MEDS: IPRATROPIUM-ALBUTEROL 3 ML NEB INHALATION SCH ×6 (04:34→23:40)
[2023-02-15 05:15] LABS: Potassium 3.9 mmol/L (3.5-5.1)
[2023-02-15 05:17] LABS: African American GFR (CKD) >90 (>60 ml/min/1.73 sqM); Blood Urea Nitrogen 19 mg/dL (9-20); Calcium 8.3 mg/dL (8.4-10.2); Chloride 88 mmol/L (98-107); Glucose 142 mg/dL (74-99); Non-African American GFR(CKD) 82 (>60 ml/min/1.73 sqM); Sodium 132 mmol/L (137-145)
[2023-02-15 05:24] LABS: Anion Gap 8 mmol/L
[2023-02-15 05:25] LABS: Carbon Dioxide 36 mmol/L (22-30)
[2023-02-15 05:31] LABS: Basophils % (A) 0 %; Eosinophils # (A) 0.4 k/uL (0-0.7); Eosinophils % (A) 4 %; HCT 35.3 % (39.0-53.0); Hypochromasia Marked; Lymphocytes # (A) 0.8 k/uL (1.0-4.8); Lymphocytes % (A) 9 %; MCH 24.3 pg (25.0-35.0); MCHC 28.4 g/dL (31.0-37.0); MCV 85.7 fL (80.0-100.0); Mean Platelet Volume 9.3; Monocytes # (A) 0.6 k/uL (0-1.0); Monocytes % (A) 7 %; Neutrophils # (A) 7.4 k/uL (1.3-7.7); Neutrophils % (A) 79 %; Platelet Count 175 k/uL (150-450); RBC 4.12 m/uL (4.30-5.90); RDW 15.4 % (11.5-15.5); WBC 9.3 k/uL (3.8-10.6)
[2023-02-15 05:43] LABS: Glucose,Whole Blood 149 mg/dL (70-110)
[2023-02-15] MEDS: INSULIN ASPART (NovoLOG) 100 UNIT/ML VIAL SQ SCH ×4 (06:02→23:45)
[2023-02-15] MEDS: POTASSIUM CHLORIDE 10 MEQ in WATER FOR INJECTION 1 100ML.BAG IVPB SCH ×2 (06:05→07:14)
[2023-02-15 06:28] LABS: ABG Base Excess 14.6 mmol/L; ABG Oxygen Saturation 93.8 % (94-97); ABG PCO2 67 mmHg (35-45); ABG PO2 70 mmHg (83-108); Allen Test Performed? Yes
[2023-02-15 06:36] LABS: ABG HCO3 42 mmol/L (21-25)
[2023-02-15] MEDS: FUROSEMIDE 10 MG/ML 4 ML VIAL IV SCH ×2 (08:18→20:30)
[2023-02-15] MEDS: METOPROLOL TARTRATE 25 MG TAB PO SCH ×2 (08:18→20:30)
[2023-02-15] MEDS: levETIRAcetam IV 2,000 MG in SODIUM CHLORIDE 0.9% 250 ML IVPB SCH ×2 (08:18→20:30)
[2023-02-15] MEDS: PANTOPRAZOLE 40 MG/10 ML VIAL IVP SCH ×2 (08:18→20:30)
[2023-02-15] MEDS: ASPIRIN 81 MG PO SCH (08:18)
[2023-02-15] MEDS: PIPERACILLIN-TAZOBACTAM 3.375 GM in SODIUM CHLORIDE 0.9% 100 ML IVPB SCH ×3 (08:18→23:37)
[2023-02-15] MEDS: AMIODARONE 200 MG TAB PO SCH ×2 (08:18→20:30)
[2023-02-15] MEDS: CHLORHEXIDINE GLUCONATE 15 ML CUP MUCOUS MEM SCH ×2 (08:18→20:29)
[2023-02-15] MEDS: ANIDULAFUNGIN 100 MG in SODIUM CHLORIDE 0.9% 100 ML IVPB SCH (08:19)
--- NOTE | 2023-02-15 09:11 | XR ---
EXAMINATION TYPE: XR chest 1V portable DATE OF EXAM: 02/15/2023 Comparison: 02/14/2023 Clinical History: 53-year-old male Tube placement Findings: ET and NG tubes are satisfactory. Left CVC tip at the cavoatrial junction region. Heart remains moder ately enlarged. Diffuse interstitial opacities persist. Opacity has become slightly less confluent at the right base. Impression: Moderate cardiomegaly with CHF and patchy pulmonary edema. Aeration shows some improvement at the rig ht base.
--- NOTE | 2023-02-15 09:18 | P.PN ---
Subjective Progress Note Date: 02/15/23 This is a 53-year-old morbidly obese -Citizen Of The [place] male patient presented to us and cardiac arrest. The patient has multiple medical problems and comorbidities. He was supposed to be in rehabilitation and he left AGAINST MEDICAL ADVICE. He is known to have multiple wounds to his lower extremities. He is known to have obstructive sleep apnea/obesity hypoventilation syndrome and history of coronary artery malformation. He has chronic lower extremity edema and wounds that are open and weepy and infected. Family and the heard him call out this afternoon, the patient was found on the floor on all 4 extremities. Apparently, it was thought that the patient was trying to transfer himself to his motorized scooter and he dropped. Due to his morbid obesity, family contacted EMS and upon arrival, the patient was in cardiac arrest, he did not have a shockable rhythm and he was found to be in PEA. CPR was initiated. The patient was down for quite sometime and he was brought in to the emergency department where resuscitation was continued. Subsequently, there was return of spontaneous circulation the patient was found to be in atrial fibrillation with rapid ventricular response. He was started on amiodarone and currently amiodarone is running at 1 mg/m. He remains in A. fib with a controlled rhythm. No pressors at this point in time. He is having myoclonic jerks. He is intubated on mechanical ventilator. Is currently on assist control mode at a rate of 16, tidal volume of 450, FiO2 of 80% with a PEEP of 5. His blood. This showed a pH of 7.26 with a pCO2 of 76 and pO2 114 and this was on FiO2 of 100%. Chest x-ray showed cardiomegaly and ET tube was repositioned.. The patient's had an initial lactic acid level of 3.3 which subsequently dropped down to 80%. His white cell count 11.6, hemoglobin 9.6 and a padded count is 129. Normal coagulation profile. BUN is at 80 with a creatinine of 1.04 and a sodium level is at 131. He received a total of 2 L of IV fluid in the emergency department. The patient had an initial troponin level of 0.029 and subsequent troponin was at 0.164. ProBNP level was 15,000. He is currently on propofol running at 20 mcg/kg/m. IV fluids at 20 mL an hour. Amiodarone drip at 1 mg/m. He does have an infected large wound over the posterior aspect of the right calf with draining purulent material. He has also a similar wound in the left calf. His second toes are also sedated and there is purulent drainage from the ulcer and he has an ulceration of the second toe bilaterally. He does have also and also on that his scrotum. His other comorbid conditions include diabetes mellitus, artery and creatinine malformation and the patient has difficulty with mobility and gait, and he has also chronic hypoxic and hypercapnic respiratory failure maintain on oxygen at 2 L/m nasal cannula on an outpatient basis. Computed tomography scan of the brain was done in emergency department and it showed no acute intracranial abnormalities. There is posterior occipital craniotomy changes and evidence of cerebellar encephalomala connie. No evidence of any cervical spine fracture. Today's evaluation of 02/13/2023, I'm seeing the patient for a follow-up. Patient is post cardiac arrest with a prolonged down time. Suspect anoxic encephalopathy. At the time of arrival, the patient was also septic with draining infected wounds of the lower extremities as the patient is known to have chronic nonhealing wounds in his legs. His body mass index is 54.2 and the patient is morbidly obese. This morning, he is on a combination of propofol and Versed. Propofol was At a dose of 30 microvascular kilogram per minute and the patient was on Versed at 50 mg an hour. Addition of Versed was done upon the request of neurology as the patient was having some episodic myoclonic jerks which is essentially settled with use of Versed and Keppra. The patient is the process of obtaining EEG and based on that, the Versed was placed on hold. He remains on a mechanical ventilator. Is on assist-control mode at the rate of 16, tidal volume of 450, FiO2 of 50% with a PEEP of 5. The peak airway pressure is at 32. The blood gas from this morning shows a pH of 7.44 with episodes of 58 and pO2 of 97 and this was on FiO2 of 60%. The patient's had a follow-up chest x-ray this morning. The patient has a left IJ triple-lumen catheter in place. He has significant cardiomegaly and evidence of interstitial edema consistent with CHF. EKG was around 2 cm above the peter. No significant consolidation. The patient remains in atrial fibrillation with a controlled rate. He is on amiodarone which was changed to 0.5 mg/m. He is maintained on IV heparin. No signs of any bleeding at this point in time. No pressors for now. In terms of his wounds, Acquacell Silver was applied and the wounds are currently wrapped. At the same time, with cultures were obtained and the results are still pending. The patient was covered with a combination of daptomycin, Eraxis and Zosyn as broad-spectrum antibiotic coverage. He is currently afebrile. The white cell cause of 9.5 with a hemoglobin of 9.2 and a platelet count of 125. BUN is at 19 with a creatinine of 0.8 and a sodium level is at 128. He is on IV Lasix 40 mg every 24 hours. The fluid balance over the past 24 hours is -1 L the patient is producing adequate amount of urine output. Neurology is on the case. Applied Biology Professor on the case. Wound services were consulted. On today's evaluation of 02/14/2023, seeing the patient for a follow-up. The patient is post cardiac arrest with anoxic encephalopathy. EEG was done yesterday and the patient had abnormal EEG with background slowing suggestive of severe encephalopathy. There is also burst suppression which is likely s econdary to anoxic encephalopathy. The patient is unresponsive. The patient remains on propofol running at 40 microvascular kilogram per minute and he is also on Versed drip at 12 mg an hour. No jerky body movements on today's evaluation. No myoclonic jerks. Neurology is on the case and we are awaiting further recommendations in terms of evaluating his anoxic encephalopathy and prognosis. The patient was also started on Keppra 1.5 g every 12 hours which is being continued for the time being. In terms of his rest or status, the patient remains on assist-control mode at the rate of 16, tidal volume of 450, FiO2 of 50% with a PEEP of 5. PH is at 7.41 with a pCO2 of 62 and pO2 of 88. The chest x-ray from today shows cardiomegaly and pulmonary vascular congestion/edema with some possible effusion/early consolidation of the right lower lobe. The patient does not have any significant orotracheal secretions at this point in time. His cardiac rhythm is still in nature fibrillation. The patient had a bout of A. fib RVR yesterday and he had to be cardioverted. His rate is under better control and the patient continues to be on amiodarone which is running at 0.5 mg/m. The patient remains on IV heparin. He is currently also on norepinephrine running at 0.05 mcg/kg/m. IV fluids are running at 20 mL an hour. Overall fluid balance over the past 24 hours has been 1 L positive. The patient otherwise is afebrile. His covered with broad-spectrum antibiotics. Cultures are still pending. The white cell cause of 9.2 with a hemoglobin of 10.6 and a platelet count of 184. BUN is 18 with a creatinine of 1 and his sodium level is at 134. He is started on enteral feeding for nutritional support and currently is on vital high-protein at the rate of 46 mL an hour. He still on IV Lasix 40 mg every 12 hours with adequate urine output. On 02/15/2023, the patient remains heavily sedated with a combination of propofol and Versed. Patient is on propofol running at 50 mcg/kg/m and is also on Versed drip at 15 mg an hour. No neurologic response. Nobody jerks. No eye twitching. No respiratory efforts and the patient is running a mechanical ventilator. He was taken off the Versed yesterday and his eye twitches came back and there was concern of episodic seizures and for that reason he was placed back on the Versed drip. The same is to be done today and his neurologic functions is to be reevaluated. In terms of his respiratory status, the patient remains on assist-control mode of mechanical ventilation at the rate of 16, tidal volume of 450, FiO2 of 50% with a PEEP of 5. Blood gases from this morning showing a pH of 7.4 with a pCO2 of 67 and a pO2 of 70. The patient had a follow-up chest x-ray that showed cardiomegaly and improvement in the pulmonary vessel congestion. The patient is producing adequate amount of urine output. Overall fluid balance is +1 L over the past 24 hours. The patient remains on Lasix 40 mg IV every 12 hours. He remains on broad-spectrum antibiotics regarding his lower extremity wounds and the wounds are still adequately dressed and wrapped. The patient's white cell cause of 9.3 with a hemoglobin of 10 and the wound cultures are still pending. The blood cultures are negative for the time being. He is in nature fibrillation. His receiving broad-spectrum antibiotics including a combination of Eraxis, daptomycin and Zosyn. He remains on metoprolol for rate control regarding his A. fib. Objective - Vital Signs Vital signs: Vital Signs Temp 97.0 F L 02/15/23 04:00 Pulse 84 02/15/23 08:31 Resp 16 02/15/23 08:31 BP 100/72 02/15/23 02:15 Pulse Ox 94 L 02/15/23 07:00 FiO2 50 02/15/23 08:33 Intake & Output 02/14/23 02/15/23 02/15/23 18:59 06:59 18:59 Intake Total 2735.855 2410.237 129 Output Total 1840 1870 75 Balance 895.855 540.237 54 Weight 181.7 kg 186.88 kg Intake: IV 896 743 33 0.9 360 360 30 Anidulafungin 200 mg In 200 Sodium Chloride 0.9% 200 ml @ 84 mls/hr IVPB ONCE ONE Rx#:[id number] DAPTOmycin 700 mg In 100 Sodium Chloride 0.9% 50 ml @ 100 mls/hr IVPB Q24H [facility] Rx#:[id number] Piperacillin-Tazobactam 3 200 100 .375 gm In Sodium Chloride 0.9% 100 ml @ 25 mls/hr IVPB Q8HR [facility] Rx# :[id number] levETIRAcetam IV 2,000 mg 250 In Sodium Chloride 0.9% 250 ml @ 1000 mls/hr IVPB Q12HR [facility] Rx#:[id number] pressure bag 36 33 3 Intake, IV Titration 1197.855 995.237 50 Amount Amiodarone 450 mg In 226.116 Dextrose 5% in Water 250 ml @ 0.5 MG/MIN 16.667 mls/hr IV .Q15H [facility] Rx#: [id number] Midazolam HCl 50 mg In 161.100 142.00 50 Sodium Chloride 0.9% 40 ml @ 5 MG/HR 5 mls/hr IV .Q10H [facility] Rx#:[id number] Norepinephrine 8 mg In 213.808 203.275 Sodium Chloride 0.9% 250 ml @ 0.03 MCG/KG/MIN 10. 532 mls/hr IV .Q24H [facility] Rx#:[id number] propofoL 1,000 mg In 596.831 649.962 Empty Bag 1 bag @ 15 MCG/ KG/MIN 16.329 mls/hr IV . Q6H8M [facility] Rx#:[id number] Oral 30 Tube Feeding 552 552 46 Other 90 90 Output: Urine 1840 1870 75 Other: Voiding Method Indwelling Catheter Indwelling Catheter ABP, PAP, CO, CI - Last Documented Arterial Blood Pressure 101/59 - Exam Morbidly obese with a body mass index of 54.2, intubated on a mechanical ventilator. No myoclonic jerks on today's evaluation. Head exam was generally normal. There was no scleral icterus or corneal arcus. Mucous membranes were moist. Neck is extremely short and there is positive JVD's. The triple-lumen catheter was inserted in the left IJ. No neck stiffness. Lungs sounds are diminished bilaterally and there is diminished breath on the lung bases. No significant WHEEZES. Heart sounds are irregular, consistent with atrial fibrillation fibrillation. No significant murmur appreciated. No RV heave or and afebrile. Abdomen is morbidly obese and CANNOT be accurately palpated. No direct tenderness, no rebound tenderness or guarding. Extremities are chronically edematous and there is infected deep wounds, nonhealing in the calves bilaterally with purulent material oozing specially from the ulcer that's behind his right lower extremity. He also has os cillated/infected toes specifically the second toe in the right foot and the left foot bilaterally. Pulses are diminished. No cyanosis or clubbing. Neurologically, the patient has equal and symmetrical pupils. Pupils pinpoint bilaterally , no eye twitching =. He has no response to any deep painful stimulation.. No facial asymmetry. Positive cough and a gag. Motor function cannot be assessed. Sensory functions cannot be assessed. Reflexes are flat bilaterally and no Babinski. No clonus. Neurologic examination is essentially unchanged on today's evaluation the patient is still riding the mechanical ventilator at the same rate. - Labs CBC & Chem 7: 02/15/23 04:29 02/15/23 04:29 Labs: Abnormal Lab Results - Last 24 Hours (Table) 02/14/23 02/14/23 02/14/23 Range/Units 11:44 17:51 23:31 RBC (4.30-5.90) m/uL Hgb (13.0-17.5) gm/dL Hct (39.0-53.0) % MCH (25.0-35.0) pg MCHC (31.0-37.0) g/dL Lymphocytes # (1.0-4.8) k/uL ABG pCO2 (35-45) mmHg ABG pO2 (83-108) mmHg ABG HCO3 (21-25) mmol/L ABG O2 Saturation (94-97) % Sodium (137-145) mmol/L Chloride (98-107) mmol/L Carbon Dioxide (22-30) mmol/L Glucose (74-99) mg/dL POC Glucose (mg/dL) 188 H 173 H 161 H (70-110) mg/dL Calcium (8.4-10.2) mg/dL 02/15/23 02/15/23 02/15/23 Range/Units 04:29 04:29 05:42 RBC 4.12 L (4.30-5.90) m/uL Hgb 10.0 L (13.0-17.5) gm/dL Hct 35.3 L (39.0-53.0) % MCH 24.3 L (25.0-35.0) pg MCHC 28.4 L (31.0-37.0) g/dL Lymphocytes # 0.8 L (1.0-4.8) k/uL ABG pCO2 (35-45) mmHg ABG pO2 (83-108) mmHg ABG HCO3 (21-25) mmol/L ABG O2 Saturation (94-97) % Sodium 132 L (137-145) mmol/L Chloride 88 L (98-107) mmol/L Carbon Dioxide 36 H (22-30) mmol/L Glucose 142 H (74-99) mg/dL POC Glucose (mg/dL) 149 H (70-110) mg/dL Calcium 8.3 L (8.4-10.2) mg/dL 02/15/23 Range/Units 06:11 RBC (4.30-5.90) m/uL Hgb (13.0-17.5) gm/dL Hct (39.0-53.0) % MCH (25.0-35.0) pg MCHC (31.0-37.0) g/dL Lymphocytes # (1.0-4.8) k/uL ABG pCO2 67 H (35-45) mmHg ABG pO2 70 L (83-108) mmHg ABG HCO3 42 H* (21-25) mmol/L ABG O2 Saturation 93.8 L (94-97) % Sodium (137-145) mmol/L Chloride (98-107) mmol/L Carbon Dioxide (22-30) mmol/L Glucose (74-99) mg/dL POC Glucose (mg/dL) (70-110) mg/dL Calcium (8.4-10.2) mg/dL Microbiology - Last 24 Hours (Table) 02/12/23 15:12 Blood Culture - Preliminary Blood Assessment and Plan Plan: Cardiac arrest, probably initiated by an initial respiratory arrest with subsequent cardiac arrest and the patient was found to be in a PEA rhythm. Currently he is hemodynamically stable. In atrial fibrillation. The patient return of spontaneous her condition following resuscitation. Despite his lower lactic acid level, the patient seems to have had a prolonged down time. Anoxic encephalopathy is suspected. Hypotension, likely septic in nature and the patient is on low-dose norepinephrine at 0.07. The patient remains on broad-spectrum antibiotics. Cultures are still pending. Acute hypoxic /hypercapnic respiratory failure, currently intubated on mechanical ventilator post cardiac arrest, chest x-ray is consistent with CHF and pulmonary edema, the patient remains on IV Lasix Anoxic encephalopathy, clinically suspected as the patient is having some episodic myotonic jerk. CAT scan of the brain was negative , the pupils are pinpoint and is deeply comatose, nonresponsive to any painful stimulation or verbal stimulation. The patient remains on a combination of Versed and propofol and Keppra. EEG was done yesterday showed diffuse slowing and burst suppression consistent with anoxic encephalopathy. Atrial fibrillation fibrillation with rapid ventricular response currently , rate is controlled and the patient remains on amiodarone and metoprolol Chronic Bilateral lower extremity once/pressure ulcers with superinfection, and the patient has open wounds in the lower extremities bilaterally involving the calf, ulcerated second toe on the right than the left and scrotal wounds. The patient is covered with broad-spectrum antibiotics. The patient has Aquacel silver applied to his wounds Chronic hypoxic respiratory failure currently on 2 L of oxygen by nasal cannula Chronic hypercapnic respiratory failure Chronic restrictive lung disease due to morbid obesity with a body mass 54.2 with obvious features of obesity hypoventilation syndrome Obstructive sleep apnea maintained on CPAP therapy on outpatient basis, compliancy is questionable Mild lactic acidosis Chronic metabolic alkalosis secondary to chronic hypercapnic respiratory failure Morbid obesity with a BMI estimated to be at 54.2 Hypertension Diabetes mellitus Arnold-Chiari malformation with difficulty with mobility and gait Chronic anemia/anemia of chronic disease Troponin leak secondary to cardiac arrest Plan Keep the patient intubated on a mechanical ventilator for now Continue propofol and Versed drip Discontinue the Versed drip and evaluated the mental status for any signs of seizure activity EEG was noted from 02/13/2023. This will be discussed further with neurology. There are signs of severe anoxic encephalopathy at this point in time. Continue low-dose norepinephrine Continue oral amiodarone and metoprolol Awaiting wound cultures and blood cultures Wound services Coverage antibiotics with a combination of Eraxis, daptomycin and Zosyn We'll repeat a CAT scan of the brain and the patient's shows no adequate neurological recovery once of sedatives Neurology consult is appreciated IV Keppra to be continued IV Protonix Initiate enteral feeding for nutritional support Continue Lasix 40 mg IV twice a day Obvious signs of anoxic encephalopathy. Family was updated Condition is obviously critical and the patient carries a very poor prognosis based on the above-mentioned. This evaluation was done in more than one hour. Discussed the case with the at the bedside. Reticulocyte care evaluation done in more than 40 minutes. Time with Patient: Greater than 30
[2023-02-15] MEDS: NOREPINEPHRINE 8 MG in SODIUM CHLORIDE 0.9% 250 ML IV SCH ×2 (09:20→23:30)
[2023-02-15 11:30] LABS: Glucose,Whole Blood 180 mg/dL (70-110)
[2023-02-15] MEDS ORDERED: HEPARIN SODIUM 1,000 UN/ML (10ML VL) IV PRN (11:44)
[2023-02-15] MEDS ORDERED: HEPARIN SODIUM 1,000 UN/ML (10ML VL) IV ONE (11:44)
--- NOTE | 2023-02-15 11:49 | P.PN ---
Subjective Progress Note Date: 02/15/23 I am following up with the patient and the patient continues to be on IV Versed and IV propofol and IV Versed has been held in the morning and while the IV propofol was titrated down to 50 mics per Per minute. According to the nurse no myoclonic jerks. is considering [facility] for tomorrow. Objective - Vital Signs Vital signs: Vital Signs Temp 97.7 F 02/15/23 08:00 Pulse 89 02/15/23 11:00 Resp 16 02/15/23 11:00 BP 100/72 02/15/23 02:15 Pulse Ox 98 02/15/23 11:00 FiO2 50 02/15/23 11:19 Intake & Output 02/14/23 02/15/23 02/15/23 18:59 06:59 18:59 Intake Total 2735.855 2410.237 1042.091 Output Total 1840 1870 825 Balance 895.855 540.237 217.091 Weight 181.7 kg 186.88 kg Intake: IV 896 743 145 0.9 360 360 30 Anidulafungin 200 mg In 200 Sodium Chloride 0.9% 200 ml @ 84 mls/hr IVPB ONCE ONE Rx#:[id number] DAPTOmycin 700 mg In 100 100 Sodium Chloride 0.9% 50 ml @ 100 mls/hr IVPB Q24H [facility] Rx#:[id number] Piperacillin-Tazobactam 3 200 100 .375 gm In Sodium Chloride 0.9% 100 ml @ 25 mls/hr IVPB Q8HR [facility] Rx# :[id number] levETIRAcetam IV 2,000 mg 250 In Sodium Chloride 0.9% 250 ml @ 1000 mls/hr IVPB Q12HR [facility] Rx#:[id number] pressure bag 36 33 15 Intake, IV Titration 1197.855 995.237 637.091 Amount Amiodarone 450 mg In 226.116 Dextrose 5% in Water 250 ml @ 0.5 MG/MIN 16.667 mls/hr IV .Q15H [facility] Rx#: [id number] Midazolam HCl 50 mg In 161.100 142.00 64 Sodium Chloride 0.9% 40 ml @ 5 MG/HR 5 mls/hr IV .Q10H [facility] Rx#:[id number] Norepinephrine 8 mg In 213.808 203.275 93.154 Sodium Chloride 0.9% 250 ml @ 0.03 MCG/KG/MIN 10. 532 mls/hr IV .Q24H [facility] Rx#:[id number] Piperacillin-Tazobactam 3 100 .375 gm In Sodium Chloride 0.9% 100 ml @ 25 mls/hr IVPB Q8HR [facility] Rx# :[id number] levETIRAcetam IV 2,000 mg 250 In Sodium Chloride 0.9% 250 ml @ 1000 mls/hr IVPB Q12HR [facility] Rx#:[id number] propofoL 1,000 mg In 596.831 649.962 129.937 Empty Bag 1 bag @ 15 MCG/ KG/MIN 16.329 mls/hr IV . Q6H8M [facility] Rx#:[id number] Oral 30 Tube Feeding 552 552 230 Other 90 90 30 Output: Urine 1840 1870 825 Other: Voiding Method Indwelling Catheter Indwelling Catheter Indwelling Catheter ABP, PAP, CO, CI - Last Documented Arterial Blood Pressure 113/62 - Exam General: Is a morbid obese gentleman lying in bed and does not appear in acute distress. Lung: Intubated on ventilator. Neuro: Limited. Patient is on IV Propofol 15mcg/kg/min and Versed held at this time. Is comatose GCS 3 (E1, M1, VT1). No myoclonic jerks Pupils are round and appears pinpoint bilaterally. Has intact corneal relfex on left. Negative occulocephalic reflex. He is breathing over the vent. Negative gag or cough reflex. Motor: No sponataneous movement. Not withdrawing to any extremities. Decrease tone throughout. Reflex: 0-1+ throughout. Plantars are mute throughout. Some of the workup during his hospital visit consisted of: Sodium initially was 131. BUN/creatinine is normal. Calcium is 8.4. ABG initial PCO2 to is 76 and most recent 58. CT of the head is reported as no acute intracranial CT abnormality. Posture occipital craniotomy changes over the posterior fossa with a gross similar appearance of underlying cerebellar encephalomalacia CT cervical was reported as no evidence of cervical spine fracture or traumatic malaignment. I first reviewed the CT and I agree there is no acute subacute ischemia. There is no bleed that was appreciable. Moderate multilevel cervical spondylosis. Suspect at least one enlarged left supraclavicular lymph node. Routine EEG on 02/13/2023: Is abnormal. The background slowing suggestive of severe encephalopathy. The burst suppression is likely due to brain anoxia. Another consideration is possibly also complaining of burst suppression can be due to medication effect (IV Propofol and Versed) but I feel likely more brain anoxia. - Labs CBC & Chem 7: 02/15/23 13:24 02/15/23 13:24 Labs: Abnormal Lab Results - Last 24 Hours (Table) 02/14/23 02/14/23 02/14/23 Range/Units 11:44 17:51 23:31 RBC (4.30-5.90) m/uL Hgb (13.0-17.5) gm/dL Hct (39.0-53.0) % MCH (25.0-35.0) pg MCHC (31.0-37.0) g/dL Lymphocytes # (1.0-4.8) k/uL ABG pCO2 (35-45) mmHg ABG pO2 (83-108) mmHg ABG HCO3 (21-25) mmol/L ABG O2 Saturation (94-97) % Sodium (137-145) mmol/L Chloride (98-107) mmol/L Carbon Dioxide (22-30) mmol/L Glucose (74-99) mg/dL POC Glucose (mg/dL) 188 H 173 H 161 H (70-110) mg/dL Calcium (8.4-10.2) mg/dL 02/15/23 02/15/23 02/15/23 Range/Units 04:29 04:29 05:42 RBC 4.12 L (4.30-5.90) m/uL Hgb 10.0 L (13.0-17.5) gm/dL Hct 35.3 L (39.0-53.0) % MCH 24.3 L (25.0-35.0) pg MCHC 28.4 L (31.0-37.0) g/dL Lymphocytes # 0.8 L (1.0-4.8) k/uL ABG pCO2 (35-45) mmHg ABG pO2 (83-108) mmHg ABG HCO3 (21-25) mmol/L ABG O2 Saturation (94-97) % Sodium 132 L (137-145) mmol/L Chloride 88 L (98-107) mmol/L Carbon Dioxide 36 H (22-30) mmol/L Glucose 142 H (74-99) mg/dL POC Glucose (mg/dL) 149 H (70-110) mg/dL Calcium 8.3 L (8.4-10.2) mg/dL 02/15/23 02/15/23 Range/Units 06:11 11:28 RBC (4.30-5.90) m/uL Hgb (13.0-17.5) gm/dL Hct (39.0-53.0) % MCH (25.0-35.0) pg MCHC (31.0-37.0) g/dL Lymphocytes # (1.0-4.8) k/uL ABG pCO2 67 H (35-45) mmHg ABG pO2 70 L (83-108) mmHg ABG HCO3 42 H* (21-25) mmol/L ABG O2 Saturation 93.8 L (94-97) % Sodium (137-145) mmol/L Chloride (98-107) mmol/L Carbon Dioxide (22-30) mmol/L Glucose (74-99) mg/dL POC Glucose (mg/dL) 180 H (70-110) mg/dL Calcium (8.4-10.2) mg/dL Microbiology - Last 24 Hours (Table) 02/12/23 17:46 Gram Stain - Final Leg - Left Wound Culture - Final 02/12/23 17:45 Gram Stain - Final Leg - Right Wound Culture - Final 02/12/23 11:47 Gram Stain - Final Sputum Sputum Culture - Final 02/12/23 15:12 Blood Culture - Preliminary Blood Assessment and Plan Assessment: This is a 53-year-old gentleman who had a having worsening of severe shortness of breath and generalized weakness recently a cardiopulmonary arrest outside the hospital and he was found to be in PEA. Then developed A-fib. He developed lashell clonic jerks. Outside the hospital cardiopulmonary arrest. It appears the patient had a prolonged downtime. Myoclonic status (face and left upper extremity) due to above as a result of brain anoxia--no further myoclonic jerks today. Severe anoxic brain injury due to suspected prolonged down time. 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 Chronic hypercapnic respiratory failure Morbid obesity Plan: Continue Keppra 2000 mg every 12 hours. Today while Versed was held and IV Propofol was titrating down no further myoclonic jerks. Will attempt to get repeat CT head today and repeat EEG. Will defer the rest of medical management to primary and other specialist. Prognosis appears very poor. The plan is discussed with ICU team. It seem is considering [facility]. UPDATE: Preliminary EEG showed myoclonus status epilepticus that resolved after restarting IV Versed and IV Propofol. The Myoclonus is likely due to brain anoxia. I started the patient on Depakote 1000mg IV bid in addition to continuing Keppra 2gm bid. I notified the nurse to continue IV Propofol and Versed to control his myoclonus. I notified his about his condition and that he is not brain and has few brainstem reflexes on examination which is limited because of sedation. His overall prognosis as mentioned above is poor. The will like to pursue with gift of life. Time with Patient: Greater than 30
[2023-02-15] MEDS: HEPARIN SOD,PORK IN 0.45% NACL 25,000 UNIT in 0.45% NACL 1 250ML.BAG IV SCH (12:13)
[2023-02-15 13:47] LABS: Basophils % (A) 0 %; Eosinophils # (A) 0.4 k/uL (0-0.7); Eosinophils % (A) 4 %; HCT 34.9 % (39.0-53.0); HGB 10.2 gm/dL (13.0-17.5); Hypochromasia Marked; Lymphocytes # (A) 0.7 k/uL (1.0-4.8); Lymphocytes % (A) 7 %; MCH 24.8 pg (25.0-35.0); MCHC 29.2 g/dL (31.0-37.0); Mean Platelet Volume 9.8; Monocytes # (A) 0.6 k/uL (0-1.0); Monocytes % (A) 6 %; Neutrophils # (A) 8.1 k/uL (1.3-7.7); Neutrophils % (A) 81 %; Platelet Count 162 k/uL (150-450); RBC 4.11 m/uL (4.30-5.90); RDW 15.5 % (11.5-15.5)
[2023-02-15 13:56] LABS: Ionized Calcium 4.4 mg/dL (4.5-5.3)
[2023-02-15] MEDS ORDERED: LORazepam 2 MG/ML INJ IV STA (13:57)
[2023-02-15 13:59] LABS: Partial Thromboplastin Time 48.7 sec (22.0-30.0)
[2023-02-15 14:03] LABS: ALT 19 U/L (4-49); AST 29 U/L (17-59); African American GFR (CKD) 86 (>60 ml/min/1.73 sqM); Albumin 2.9 g/dL (3.5-5.0); Alkaline Phosphatase 91 U/L (38-126); Anion Gap 5 mmol/L; Blood Urea Nitrogen 17 mg/dL (9-20); Calcium 8.1 mg/dL (8.4-10.2); Carbon Dioxide 40 mmol/L (22-30); Chloride 89 mmol/L (98-107); Glucose 147 mg/dL (74-99); Magnesium 1.5 mg/dL (1.6-2.3); Non-African American GFR(CKD) 75 (>60 ml/min/1.73 sqM); Phosphorus 4.8 mg/dL (2.5-4.5); Potassium 3.6 mmol/L (3.5-5.1); Sodium 134 mmol/L (137-145); Total Bilirubin 0.5 mg/dL (0.2-1.3); Total Protein 6.1 g/dL (6.3-8.2)
[2023-02-15] MEDS ORDERED: ZINC OXIDE PASTE (Z-GUARD) 1 APPLIC TOPICAL PRN (15:14)
--- NOTE | 2023-02-15 15:17 | CT ---
EXAMINATION TYPE: CT brain wo con DATE OF EXAM: 02/15/2023 COMPARISON: CT brain and C-spine dated 02/12/2023 HISTORY: ams CT DLP: 1185 mGycm Automated exposure control for dose reduction was used. FINDINGS: The ventricles, basal cisterns and sulci over the convexities are within normal limits and there is n o mass effect or shift of midline structures. There is no acute intra or extra-axial hemorrhage. There is a large craniotomy defect of the occipita l bone there is possible encephalomalacia in the left cerebellar hemisphere. The intraorbital contents appear normal and symmetric. There is marked chronic pansinusitis. The mastoid air cells are well aerated. IMPRESSION: 1. LARGE CRANIOTOMY DEFECT INVOLVING THE OCCIPITAL BONE WITH PROBABLE ENCEPHALOMALACIA OF THE LEFT CE REBELLAR HEMISPHERE. 2. NO ACUTE BLEED OR MASS EFFECT. 3. MARKED CHRONIC PANSINUSITIS
[2023-02-15] MEDS: POTASSIUM BICARBONATE/CIT AC 20 MEQ TABLET.EFF NG-TUBE SCH ×2 (15:20→16:33)
[2023-02-15] MEDS: VALPROATE SODIUM 1,000 MG in SODIUM CHLORIDE 0.9% 50 ML IVPB SCH ×2 (15:20→20:48)
[2023-02-15] MEDS: MAGNESIUM SULFATE-D5W PMX 1 GM in DEXTROSE/WATER 1 100ML.BAG IVPB SCH ×2 (15:20→16:25)
--- NOTE | 2023-02-15 15:29 | CT ---
CTA head HISTORY: [facility]. COMPARISON: None. TECHNIQUE: Multiple axial images are obtained through the brain on the uneventful administration jose daniel onic IV contrast. Exam was performed according to the CTA protocol. 3-D postprocessing was performed. FINDINGS: There is no sizable aneurysm sac, vascular malformation or occlusive disease intracranially. There is marked tortuosity of the carotid siphons. IMPRESSION: No significant abnormality seen.
--- NOTE | 2023-02-15 15:37 | CT ---
EXAMINATION TYPE: CT ChestAbdPelvis w con DATE OF EXAM: 02/15/2023 COMPARISON: None HISTORY: [facility] CT DLP: 3629.4 mGycm Automated exposure control for dose reduction was used. CONTRAST: CT scan of the chest, abdomen and pelvis is performed without Oral Contrast and with IV Contrast, pat ient injected with 100 mL of Isovue 300. FINDINGS: CT chest: There are small to moderate bilateral effusions and bibasilar infiltrates. There is moderate to marked cardiomegaly. There is an ET tube the tip of which is at the peter. There is an NG tube within the stomach. There is diffuse soft tissue edema/anasarca. There is no mediastinal, hilar or axillary adenopathy. Infiltrates. The osseous structures are intact. CT abdomen and pelvis: Marked anasarca. There is moderate ascites. Grossly, there is no organomegaly of the solid visceral organs. There is no solid renal mass or hydronephrosis. Caliber the abdominal aorta is normal. There is no bowel obstruction. There is a Billings catheter within the urinary bladder. There is no pelvic mass or adenopathy. The osseous structures are intact. IMPRESSION: 1. Moderate bilateral pleural effusions and bibasilar infiltrates. 2. ET tube tip at the peter. 3. NG tube within the stomach. 4. Anasarca 5. Moderate to marked cardiomegaly 6. Billings catheter in urinary bladder
[2023-02-15 16:14] LABS: Appearance,Urine Clear (Clear); Bilirubin,Urine Negative (Negative); Blood,Urine Large (Negative); Color,Urine Colorless; Glucose,Urine (UA) Negative (Negative); Ketones,Urine Negative (Negative); Leukocyte Esterase,Urine Negative (Negative); Nitrite,Urine Negative (Negative); PH, Urine 6.5 (5.0-8.0); Protein,Urine Negative (Negative); RBC,Urine 47 /hpf (0-5); Specific Gravity,Urine 1.011 (1.001-1.035); Urobilinogen,Urine <2.0 mg/dL (<2.0); WBC,Urine 3 /hpf (0-5)
[2023-02-15 18:27] LABS: Glucose,Whole Blood 135 mg/dL (70-110)
[2023-02-15 19:11] LABS: Magnesium 1.8 mg/dL (1.6-2.3)
--- NOTE | 2023-02-15 19:25 | P.PN ---
Subjective This is a pleasant 53 years old male with multiple medical problems Patient presents with cardiac arrest at home, currently he is intubated in the e mergency room and information were obtained from the and family at bedside. As per patient has in the hospital in September earlier this year when he was diagnosed for first time with atrial fibrillation and he went to rehab and he was sitting in rehab with plan to return him into long-term indwelling however he left AMA recently underwent back home from [facility], At home he was still very weak and he needed help with moving. His PCP Dr. Jensen as retired so patient went to see Dr. Jimenez about last . And he was supposed to follow-up with the wound center today This morning he got up from his bed going to the restroom I strongly believe when he fell on his knees, family are heard him and they found him unresponsive, his oxygen tube was disconnected and they put him back and they called 911. On admission he was tachycardic 113 and currently 86, blood pressure 117/78. His hemoglobin is 10.4, double-J within the reference range, platelet count 147 Sodium 131, rest of BMP and liver enzymes and INR are unremarkable. PH is low at 7.26, pCO2 is elevated 76 and PaO2 114 sodium bicarb is a high also 34 Patient has abnormal urine analysis is not very suspicious of infection Chest x-ray showing cardiomegaly with vascular congestion CT of the head, neck is negative for acute process intracranially or cervical fracture or dislocation 02/13/2023 Patient remains in the ICU in critical condition, still intubated on mechanical ventilation. Currently patient has signs of encephalopathy. Distal tachycardic, tachypneic, blood pressure 114/80, without pressors. His labs are reviewed, hemoglobin 9.2, platelet count 125, sodium 132 He is on broad-spectrum antibiotics with prophylaxis, daptomycin, Zosyn. Was on heparin drip but amiodarone was switched to oral dose 400 mg twice a day His on IV Lasix 40 mg twice daily. He is on midazolam Plan for EED and CAT scan of the brain 02/14/2023 Patient remains in the ICU intubated and on mechanical ventilation. Clinically looks the same. Vitals and labs reviewed Remains on broad-spectrum antibiotics with daptomycin and Zosyn, patient also may benefit from wound debridement He remains on IV Lasix 40 mg twice daily He started back on amiodarone drip, continued on heparin drip for his arrhythmia Keppra dose increased to 2000. Prognosis remains very guarded 02/15/2023 patient remains in the ICU intubated and sedated Versed was went off to monitor his mental status EKG showed myoclonic status epilepticus and patient was started on valproate plus he is on Keppra 2000 mg twice a day biLateral feet wounds looks the same Geraldo broad-spectrum antibiotic with daptomycin, Zosyn and Eraxis. CT of the abdomen and pelvis and chest showing cardiomegaly. Anasarca Also he is on IV Lasix 40 mg twice daily and heparin drip, aspirin Objective - Vital Signs Vital signs: Vital Signs Temp 97.7 F 02/15/23 08:00 Pulse 89 02/15/23 11:00 Resp 16 02/15/23 11:00 BP 100/72 02/15/23 02:15 Pulse Ox 98 02/15/23 11:00 FiO2 50 02/15/23 11:19 Intake & Output 02/14/23 02/15/23 02/15/23 18:59 06:59 18:59 Intake Total 2735.855 2410.237 990.599 Output Total 1840 1870 825 Balance 895.855 540.237 165.599 Weight 181.7 kg 186.88 kg Intake: IV 896 743 145 0.9 360 360 30 Anidulafungin 200 mg In 200 Sodium Chloride 0.9% 200 ml @ 84 mls/hr IVPB ONCE ONE Rx#:[id number] DAPTOmycin 700 mg In 100 100 Sodium Chloride 0.9% 50 ml @ 100 mls/hr IVPB Q24H [facility] Rx#:[id number] Piperacillin-Tazobactam 3 200 100 .375 gm In Sodium Chloride 0.9% 100 ml @ 25 mls/hr IVPB Q8HR [facility] Rx# :[id number] levETIRAcetam IV 2,000 mg 250 In Sodium Chloride 0.9% 250 ml @ 1000 mls/hr IVPB Q12HR [facility] Rx#:[id number] pressure bag 36 33 15 Intake, IV Titration 1197.855 995.237 585.599 Amount Amiodarone 450 mg In 226.116 Dextrose 5% in Water 250 ml @ 0.5 MG/MIN 16.667 mls/hr IV .Q15H [facility] Rx#: [id number] Midazolam HCl 50 mg In 161.100 142.00 64 Sodium Chloride 0.9% 40 ml @ 5 MG/HR 5 mls/hr IV .Q10H [facility] Rx#:[id number] Norepinephrine 8 mg In 213.808 203.275 41.662 Sodium Chloride 0.9% 250 ml @ 0.03 MCG/KG/MIN 10. 532 mls/hr IV .Q24H [facility] Rx#:[id number] Piperacillin-Tazobactam 3 100 .375 gm In Sodium Chloride 0.9% 100 ml @ 25 mls/hr IVPB Q8HR [facility] Rx# :[id number] levETIRAcetam IV 2,000 mg 250 In Sodium Chloride 0.9% 250 ml @ 1000 mls/hr IVPB Q12HR [facility] Rx#:[id number] propofoL 1,000 mg In 596.831 649.962 129.937 Empty Bag 1 bag @ 15 MCG/ KG/MIN 16.329 mls/hr IV . Q6H8M [facility] Rx#:[id number] Oral 30 Tube Feeding 552 552 230 Other 90 90 30 Output: Urine 1840 1870 825 Other: Voiding Method Indwelling Catheter Indwelling Catheter Indwelling Catheter ABP, PAP, CO, CI - Last Documented Arterial Blood Pressure 113/62 - Exam -GENERAL: The patient is intubated and sedated, morbidly obese HEENT: Pupils are round and equally reacting to light. EOMI. No scleral icterus. No conjunctival pallor. Normocephalic, atraumatic. No pharyngeal erythema. No thyromegaly. CARDIOVASCULAR: S1 and S2 present. No murmurs, rubs, or gallops. PULMONARY: Chest is clear to auscultation, no wheezing , no crackles. ABDOMEN: Soft, nontender, nondistended, normoactive bowel sounds. No palpable organomegaly. MUSCULOSKELETAL: No joint swelling or deformity. EXTREMITIES: No cyanosis, clubbing, or pedal edema. NEUROLOGICAL: Gross neurological examination did not reveal any focal deficits. SKIN: No rashes. no petechiae. - Labs CBC & Chem 7: 02/15/23 13:24 02/15/23 18:30 Labs: Abnormal Lab Results - Last 24 Hours (Table) 02/14/23 02/14/23 02/14/23 Range/Units 11:44 17:51 23:31 RBC (4.30-5.90) m/uL Hgb (13.0-17.5) gm/dL Hct (39.0-53.0) % MCH (25.0-35.0) pg MCHC (31.0-37.0) g/dL Lymphocytes # (1.0-4.8) k/uL ABG pCO2 (35-45) mmHg ABG pO2 (83-108) mmHg ABG HCO3 (21-25) mmol/L ABG O2 Saturation (94-97) % Sodium (137-145) mmol/L Chloride (98-107) mmol/L Carbon Dioxide (22-30) mmol/L Glucose (74-99) mg/dL POC Glucose (mg/dL) 188 H 173 H 161 H (70-110) mg/dL Calcium (8.4-10.2) mg/dL 02/15/23 02/15/23 02/15/23 Range/Units 04:29 04:29 05:42 RBC 4.12 L (4.30-5.90) m/uL Hgb 10.0 L (13.0-17.5) gm/dL Hct 35.3 L (39.0-53.0) % MCH 24.3 L (25.0-35.0) pg MCHC 28.4 L (31.0-37.0) g/dL Lymphocytes # 0.8 L (1.0-4.8) k/uL ABG pCO2 (35-45) mmHg ABG pO2 (83-108) mmHg ABG HCO3 (21-25) mmol/L ABG O2 Saturation (94-97) % Sodium 132 L (137-145) mmol/L Chloride 88 L (98-107) mmol/L Carbon Dioxide 36 H (22-30) mmol/L Glucose 142 H (74-99) mg/dL POC Glucose (mg/dL) 149 H (70-110) mg/dL Calcium 8.3 L (8.4-10.2) mg/dL 02/15/23 Range/Units 06:11 RBC (4.30-5.90) m/uL Hgb (13.0-17.5) gm/dL Hct (39.0-53.0) % MCH (25.0-35.0) pg MCHC (31.0-37.0) g/dL Lymphocytes # (1.0-4.8) k/uL ABG pCO2 67 H (35-45) mmHg ABG pO2 70 L (83-108) mmHg ABG HCO3 42 H* (21-25) mmol/L ABG O2 Saturation 93.8 L (94-97) % Sodium (137-145) mmol/L Chloride (98-107) mmol/L Carbon Dioxide (22-30) mmol/L Glucose (74-99) mg/dL POC Glucose (mg/dL) (70-110) mg/dL Calcium (8.4-10.2) mg/dL Microbiology - Last 24 Hours (Table) 02/12/23 17:46 Gram Stain - Final Leg - Left Wound Culture - Final 02/12/23 17:45 Gram Stain - Final Leg - Right Wound Culture - Final 02/12/23 11:47 Gram Stain - Final Sputum Sputum Culture - Final 02/12/23 15:12 Blood Culture - Preliminary Blood Assessment and Plan Assessment: Status post cardiac arrest with a down time about 10-15 minutes possible anoxic brain injury Acute hypoxic hypercapnic respiratory failure requiring intubation and mechanical ventilation Respiratory acidosis, acute Obesity hypoventilation syndrome, obstructive sleep apnea Chronic hypoxic respiratory failure Paroxysmal atrial fibrillation multiple skin ulceration of the toes and lower extremities suspicious for cellulitis Morbid obesity Plan: Continue with oxygen Continue with mechanical ventilator Continue IV Lasix Continue antibiotic continue with antiseizure medication as above Telemetry monitoring Admitting the patient to the critical care unit Cardiology and pulmonary consult neurologist evaluated in the patient Labs and medication were reviewed.. Continue same treatment. Continue with s ymptomatic treatment. Resume home medication. Monitor labs and vitals. DVT and GI prophylaxis. Further recommendations as per clinical course of the patient DVT prophylaxis: Subcutaneous heparin GI Prophylaxis: Pepcid Prognosis is guarded
[2023-02-15 19:58] LABS: ABG Base Excess 18.4 mmol/L; ABG Oxygen Saturation 95.9 % (94-97); ABG PCO2 63 mmHg (35-45); ABG PH 7.44 (7.35-7.45); ABG PO2 77 mmHg (83-108); ABG TCO2 44 mmol/L (19-24); Allen Test Performed? Yes
[2023-02-15 20:05] LABS: ABG HCO3 43 mmol/L (21-25)
[2023-02-15] MEDS ORDERED: MAGNESIUM SULFATE-D5W PMX 1 GM in DEXTROSE/WATER 1 100ML.BAG IVPB ONE (20:23)
[2023-02-15 20:31] LABS: Amylase 37 U/L (30-110); Creatine Kinase 40 U/L (55-170); Lipase 57 U/L (23-300)
[2023-02-15] MEDS: MIDAZOLAM HCL 200 MG in SODIUM CHLORIDE 0.9% 60 ML IV SCH (20:34)
[2023-02-15 20:42] LABS: NT-Pro-B-Type Natriuretic Pept 6700 pg/mL
--- NOTE | 2023-02-15 20:50 | PN ---
PROGRESS NOTE Escobar is a 53-year-old gentleman, who was admitted to hospital following a cardiorespiratory arrest. Yesterday, I was thinking about terminal wean, but today the nurse tells me that they are considering [facility] for organ donation. I am going to start him back on heparin for the [id number] elevation [place]. His echo is still pending at this time. It appears as if the echo has not been done. We will order it and leave him on heparin for now until decisions are made regarding the organ donation. MMODL / IJN: [id number] /
[2023-02-15 22:03] LABS: ABG Base Excess 18.2 mmol/L; ABG Oxygen Saturation 88.7 % (94-97); ABG PCO2 64 mmHg (35-45); ABG PH 7.43 (7.35-7.45); ABG TCO2 45 mmol/L (19-24); Allen Test Performed? Yes
[2023-02-15 22:06] LABS: ABG HCO3 43 mmol/L (21-25); ABG PO2 55 mmHg (83-108)
--- NOTE | 2023-02-15 22:24 | XR ---
EXAM: XR Chest, 1 View CLINICAL HISTORY: Increased O2 demands TECHNIQUE: Frontal view of the chest. COMPARISON: CT chest dated 02/15/2023 at 1310 hrs. FINDINGS: Lungs: Subsegmental patchy opacities in the left perihilar region and the right mid to lower lung zone. Pleural space: The known pleural effusions noted earlier not well delineated. No pneumothorax. Heart: Prominent cardiomegaly, similar to the annealing torch operator image of the chest performed earlier. Mediastinum: No significant abnormality identified. The trachea is midline. Bones/joints: Unremarkable. No acute fracture. Tubes, lines and devices: The endotracheal tube is approximately 5.4 cm from the peter. Nasogastric tube tip cannot be seen but is below the diaphragm. A left internal jugular approach central venous catheter is identified with the tip in this. Vena cava. IMPRESSION: Subsegmental patchy opacities in the left perihilar region and the right mid to lower lung zone. Advancing process in the right lung may represent advancing edema or developing pneumonia.
[2023-02-15 23:35] LABS: Glucose,Whole Blood 150 mg/dL (70-110)
[2023-02-15 23:57] LABS: ABG Oxygen Saturation 96.3 % (94-97); ABG PCO2 64 mmHg (35-45); ABG PH 7.43 (7.35-7.45); ABG PO2 81 mmHg (83-108); ABG TCO2 44 mmol/L (19-24); Allen Test Performed? Yes
[2023-02-15 23:58] LABS: ABG HCO3 42 mmol/L (21-25)
[2023-02-15 23:58] LABS: INR 0.9 (<1.2); Partial Thromboplastin Time 32.1 sec (22.0-30.0); Prothrombin Time 10.5 sec (10.0-12.5)
[2023-02-16 00:03] LABS: Basophils # (A) 0.1 k/uL (0-0.2); Basophils % (A) 1 %; Eosinophils # (A) 0.4 k/uL (0-0.7); Eosinophils % (A) 4 %; HCT 33.8 % (39.0-53.0); HGB 9.8 gm/dL (13.0-17.5); Hypochromasia Marked; Lymphocytes # (A) 1.2 k/uL (1.0-4.8); Lymphocytes % (A) 12 %; MCH 24.6 pg (25.0-35.0); MCV 85.1 fL (80.0-100.0); Mean Platelet Volume 10.2; Monocytes # (A) 0.7 k/uL (0-1.0); Monocytes % (A) 7 %; Neutrophils # (A) 7.5 k/uL (1.3-7.7); Neutrophils % (A) 75 %; Platelet Count 160 k/uL (150-450); RBC 3.97 m/uL (4.30-5.90); RDW 15.6 % (11.5-15.5); WBC 9.9 k/uL (3.8-10.6)
[2023-02-16 00:13] LABS: ALT 18 U/L (4-49); AST 28 U/L (17-59); African American GFR (CKD) 81 (>60 ml/min/1.73 sqM); Albumin 2.8 g/dL (3.5-5.0); Alkaline Phosphatase 95 U/L (38-126); Bilirubin, Delta 0.5 mg/dL (0.0-0.2); Blood Urea Nitrogen 17 mg/dL (9-20); Calcium 8.2 mg/dL (8.4-10.2); Chloride 88 mmol/L (98-107); Glucose 145 mg/dL (74-99); Magnesium 1.8 mg/dL (1.6-2.3); Non-African American GFR(CKD) 70 (>60 ml/min/1.73 sqM); Phosphorus 5.1 mg/dL (2.5-4.5); Potassium 3.9 mmol/L (3.5-5.1); Sodium 134 mmol/L (137-145); Total Bilirubin 0.5 mg/dL (0.2-1.3)
[2023-02-16 00:19] LABS: Anion Gap 7 mmol/L; Carbon Dioxide 39 mmol/L (22-30)
--- NOTE | 2023-02-16 01:41 | XR ---
EXAM: XR Chest, 1 View CLINICAL HISTORY: ET exchange TECHNIQUE: Frontal view of the chest. COMPARISON: 2158 hrs. FINDINGS: Lungs: The patchy opacities in the right mid to lower lung zone are similar. Questionable minimal improvement in the left perihilar opacity. The pulmonary vasculature remains prominent and equalized. Pleural space: No developing large pleural effusion. No pneumothorax. Heart: Marked cardiomegaly, stable. Mediastinum: No significant abnormality identified. The trachea is midline. Bones/joints: Unremarkable. No acute fracture. Tubes, lines and devices: The endotracheal tube is identified approximately 4.3 cm from the peter. Nasogastric tube tip cannot be seen but is below the diaphragm. Left internal jugular approach central venous catheter is stable in the superior vena cava. IMPRESSION: The endotracheal tube is identified approximately 4.3 cm from the peter. No other significant interval change.
[2023-02-16] MEDS ORDERED: MAGNESIUM SULFATE-D5W PMX 1 GM in DEXTROSE/WATER 1 100ML.BAG IVPB ONE ×3 (01:47→18:20)
[2023-02-16] MEDS ORDERED: POTASSIUM BICARBONATE/CIT AC 20 MEQ TABLET.EFF NG-TUBE SCH (02:00)
--- NOTE | 2023-02-16 02:05 | EEG ---
ELECTROENCEPHALOGRAM REPORT CLINICAL HISTORY: This is a 53-year-old gentleman, who had outside the hospital cardiopulmonary arrest, who is having myoclonus. The video EEG is obtained to evaluate for seizure epileptiform activity. RELEVANT MEDICATIONS: 1. Keppra. 2. IV Versed has been held for a couple hours. 3. IV propofol has been weaned and was held for this testing. EEG TYPE: This is a routine 21-channel EEG with video using the 10/20 electrode placement system. DESCRIPTION: The patient is intubated on a ventilator. The background consists of predominantly generalized spike/polyspike and slow waves of 1 to 2 Hz and slow wave followed by diffuse suppression lasting 1 to 2 seconds. At 18:49 minutes into recording of this study, the patient had diffuse spike/polyspike and slow waves of 6 to 7 Hz that was continuous until 27:14 minutes into the recording. It resolved after resuming IV Versed as well as IV propofol. Clinically, the patient was having continuous facial twitching and eye twitching. Then, after that, the patient was having generalized 1 to 2 Hz spike/polyspike with slow waves 1 to 2 Hz, followed by 1 to 2 seconds of generalized suppression. ACTIVATION PROCEDURE: Photic stimulation. Hyperventilation is not performed. CLINICAL INTERPRETATION: This is an abnormal routine EEG. During the study, the patient was in a myoclonic status that resolved after restarting IV Versed and IV propofol. The myoclonic status epilepticus is likely due to brain anoxia. Clinical correlation is recommended. JOHN / CLAUDE: [id number] / CHRISTIANO
[2023-02-16] MEDS: IPRATROPIUM-ALBUTEROL 3 ML NEB INHALATION SCH ×6 (03:16→23:28)
[2023-02-16 05:25] LABS: Appearance,Urine Clear (Clear); Bilirubin,Urine Negative (Negative); Blood,Urine Small (Negative); Color,Urine Colorless; Glucose,Urine (UA) Negative (Negative); Ketones,Urine Negative (Negative); Leukocyte Esterase,Urine Negative (Negative); Nitrite,Urine Negative (Negative); PH, Urine 5.5 (5.0-8.0); Protein,Urine Negative (Negative); RBC,Urine 26 /hpf (0-5); Specific Gravity,Urine 1.019 (1.001-1.035); Urobilinogen,Urine <2.0 mg/dL (<2.0); WBC,Urine 2 /hpf (0-5)
[2023-02-16 06:14] LABS: Glucose,Whole Blood 149 mg/dL (70-110)
[2023-02-16] MEDS: INSULIN ASPART (NovoLOG) 100 UNIT/ML VIAL SQ SCH ×3 (06:19→18:05)
[2023-02-16] MEDS: levETIRAcetam IV 2,000 MG in SODIUM CHLORIDE 0.9% 250 ML IVPB SCH ×2 (08:06→20:08)
[2023-02-16] MEDS: PIPERACILLIN-TAZOBACTAM 3.375 GM in SODIUM CHLORIDE 0.9% 100 ML IVPB SCH ×3 (08:07→23:17)
[2023-02-16] MEDS: AMIODARONE 200 MG TAB PO SCH ×2 (08:07→20:08)
[2023-02-16] MEDS: METOPROLOL TARTRATE 25 MG TAB PO SCH ×2 (08:07→20:08)
[2023-02-16] MEDS: ASPIRIN 81 MG PO SCH (08:07)
[2023-02-16] MEDS: FUROSEMIDE 10 MG/ML 4 ML VIAL IV SCH ×2 (08:08→20:08)
[2023-02-16] MEDS: PANTOPRAZOLE 40 MG/10 ML VIAL IVP SCH ×2 (08:10→20:08)
[2023-02-16] MEDS: ANIDULAFUNGIN 100 MG in SODIUM CHLORIDE 0.9% 100 ML IVPB SCH (08:11)
[2023-02-16] MEDS: CHLORHEXIDINE GLUCONATE 15 ML CUP MUCOUS MEM SCH ×2 (08:12→20:08)
[2023-02-16] MEDS: VALPROATE SODIUM 1,000 MG in SODIUM CHLORIDE 0.9% 50 ML IVPB SCH ×2 (08:12→20:08)
[2023-02-16 08:23] LABS: ABG Base Excess 17.1 mmol/L; ABG Oxygen Saturation 97.8 % (94-97); ABG PCO2 62 mmHg (35-45); ABG PH 7.45 (7.35-7.45); ABG PO2 88 mmHg (83-108)
[2023-02-16 08:29] LABS: ABG HCO3 43 mmol/L (21-25)
[2023-02-16] MEDS: MIDAZOLAM HCL 200 MG in SODIUM CHLORIDE 0.9% 60 ML IV SCH ×2 (08:39→21:24)
--- NOTE | 2023-02-16 09:02 | P.PN ---
Subjective Progress Note Date: 02/16/23 This is a 53-year-old morbidly obese -[place] male patient presented to us and cardiac arrest. The patient has multiple medical problems and comorbidities. He was supposed to be in rehabilitation and he left AGAINST MEDICAL ADVICE. He is known to have multiple wounds to his lower extremities. He is known to have obstructive sleep apnea/obesity hypoventilation syndrome and history of coronary artery malformation. He has chronic lower extremity edema and wounds that are open and weepy and infected. Family and the heard him call out this afternoon, the patient was found on the floor on all 4 extremities. Apparently, it was thought that the patient was trying to transfer himself to his motorized scooter and he dropped. Due to his morbid obesity, family contacted EMS and upon arrival, the patient was in cardiac arrest, he did not have a shockable rhythm and he was found to be in PEA. CPR was initiated. The patient was down for quite sometime and he was brought in to the emergency department where resuscitation was continued. Subsequently, there was return of spontaneous circulation the patient was found to be in atrial fibrillation with rapid ventricular response. He was started on amiodarone and currently amiodarone is running at 1 mg/m. He remains in A. fib with a controlled rhythm. No pressors at this point in time. He is having myoclonic jerks. He is intubated on mechanical ventilator. Is currently on assist control mode at a rate of 16, tidal volume of 450, FiO2 of 80% with a PEEP of 5. His blood. This showed a pH of 7.26 with a pCO2 of 76 and pO2 114 and this was on FiO2 of 100%. Chest x-ray showed cardiomegaly and ET tube was repositioned.. The patient's had an initial lactic acid level of 3.3 which subsequently dropped down to 80%. His white cell count 11.6, hemoglobin 9.6 and a padded count is 129. Normal coagulation profile. BUN is at 80 with a creatinine of 1.04 and a sodium level is at 131. He received a total of 2 L of IV fluid in the emergency department. The patient had an initial troponin level of 0.029 and subsequent troponin was at 0.164. ProBNP level was 15,000. He is currently on propofol running at 20 mcg/kg/m. IV fluids at 20 mL an hour. Amiodarone drip at 1 mg/m. He does have an infected large wound over the posterior aspect of the right calf with draining purulent material. He has also a similar wound in the left calf. His second toes are also sedated and there is purulent drainage from the ulcer and he has an ulceration of the second toe bilaterally. He does have also and also on that his scrotum. His other comorbid conditions include diabetes mellitus, artery and creatinine malformation and the patient has difficulty with mobility and gait, and he has also chronic hypoxic and hypercapnic respiratory failure maintain on oxygen at 2 L/m nasal cannula on an outpatient basis. Computed tomography scan of the brain was done in emergency department and it showed no acute intracranial abnormalities. There is posterior occipital craniotomy changes and evidence of cerebellar encephalomala connie. No evidence of any cervical spine fracture. Today's evaluation of 02/13/2023, I'm seeing the patient for a follow-up. Patient is post cardiac arrest with a prolonged down time. Suspect anoxic encephalopathy. At the time of arrival, the patient was also septic with draining infected wounds of the lower extremities as the patient is known to have chronic nonhealing wounds in his legs. His body mass index is 54.2 and the patient is morbidly obese. This morning, he is on a combination of propofol and Versed. Propofol was At a dose of 30 microvascular kilogram per minute and the patient was on Versed at 50 mg an hour. Addition of Versed was done upon the request of neurology as the patient was having some episodic myoclonic jerks which is essentially settled with use of Versed and Keppra. The patient is the process of obtaining EEG and based on that, the Versed was placed on hold. He remains on a mechanical ventilator. Is on assist-control mode at the rate of 16, tidal volume of 450, FiO2 of 50% with a PEEP of 5. The peak airway pressure is at 32. The blood gas from this morning shows a pH of 7.44 with episodes of 58 and pO2 of 97 and this was on FiO2 of 60%. The patient's had a follow-up chest x-ray this morning. The patient has a left IJ triple-lumen catheter in place. He has significant cardiomegaly and evidence of interstitial edema consistent with CHF. EKG was around 2 cm above the peter. No significant consolidation. The patient remains in atrial fibrillation with a controlled rate. He is on amiodarone which was changed to 0.5 mg/m. He is maintained on IV heparin. No signs of any bleeding at this point in time. No pressors for now. In terms of his wounds, Acquacell Silver was applied and the wounds are currently wrapped. At the same time, with cultures were obtained and the results are still pending. The patient was covered with a combination of daptomycin, Eraxis and Zosyn as broad-spectrum antibiotic coverage. He is currently afebrile. The white cell cause of 9.5 with a hemoglobin of 9.2 and a platelet count of 125. BUN is at 19 with a creatinine of 0.8 and a sodium level is at 128. He is on IV Lasix 40 mg every 24 hours. The fluid balance over the past 24 hours is -1 L the patient is producing adequate amount of urine output. Neurology is on the case. Optical Instrument Repairer on the case. Wound services were consulted. On today's evaluation of 02/14/2023, seeing the patient for a follow-up. The patient is post cardiac arrest with anoxic encephalopathy. EEG was done yesterday and the patient had abnormal EEG with background slowing suggestive of severe encephalopathy. There is also burst suppression which is likely s econdary to anoxic encephalopathy. The patient is unresponsive. The patient remains on propofol running at 40 microvascular kilogram per minute and he is also on Versed drip at 12 mg an hour. No jerky body movements on today's evaluation. No myoclonic jerks. Neurology is on the case and we are awaiting further recommendations in terms of evaluating his anoxic encephalopathy and prognosis. The patient was also started on Keppra 1.5 g every 12 hours which is being continued for the time being. In terms of his rest or status, the patient remains on assist-control mode at the rate of 16, tidal volume of 450, FiO2 of 50% with a PEEP of 5. PH is at 7.41 with a pCO2 of 62 and pO2 of 88. The chest x-ray from today shows cardiomegaly and pulmonary vascular congestion/edema with some possible effusion/early consolidation of the right lower lobe. The patient does not have any significant orotracheal secretions at this point in time. His cardiac rhythm is still in nature fibrillation. The patient had a bout of A. fib RVR yesterday and he had to be cardioverted. His rate is under better control and the patient continues to be on amiodarone which is running at 0.5 mg/m. The patient remains on IV heparin. He is currently also on norepinephrine running at 0.05 mcg/kg/m. IV fluids are running at 20 mL an hour. Overall fluid balance over the past 24 hours has been 1 L positive. The patient otherwise is afebrile. His covered with broad-spectrum antibiotics. Cultures are still pending. The white cell cause of 9.2 with a hemoglobin of 10.6 and a platelet count of 184. BUN is 18 with a creatinine of 1 and his sodium level is at 134. He is started on enteral feeding for nutritional support and currently is on vital high-protein at the rate of 46 mL an hour. He still on IV Lasix 40 mg every 12 hours with adequate urine output. On 02/15/2023, the patient remains heavily sedated with a combination of propofol and Versed. Patient is on propofol running at 50 mcg/kg/m and is also on Versed drip at 15 mg an hour. No neurologic response. Nobody jerks. No eye twitching. No respiratory efforts and the patient is running a mechanical ventilator. He was taken off the Versed yesterday and his eye twitches came back and there was concern of episodic seizures and for that reason he was placed back on the Versed drip. The same is to be done today and his neurologic functions is to be reevaluated. In terms of his respiratory status, the patient remains on assist-control mode of mechanical ventilation at the rate of 16, tidal volume of 450, FiO2 of 50% with a PEEP of 5. Blood gases from this morning showing a pH of 7.4 with a pCO2 of 67 and a pO2 of 70. The patient had a follow-up chest x-ray that showed cardiomegaly and improvement in the pulmonary vessel congestion. The patient is producing adequate amount of urine output. Overall fluid balance is +1 L over the past 24 hours. The patient remains on Lasix 40 mg IV every 12 hours. He remains on broad-spectrum antibiotics regarding his lower extremity wounds and the wounds are still adequately dressed and wrapped. The patient's white cell cause of 9.3 with a hemoglobin of 10 and the wound cultures are still pending. The blood cultures are negative for the time being. He is in nature fibrillation. His receiving broad-spectrum antibiotics including a combination of Eraxis, daptomycin and Zosyn. He remains on metoprolol for rate control regarding his A. fib. On 02/16/2023, the patient remains on a mechanical ventilator post cardiac arrest and anoxic encephalopathy. Rule out able to cut down the sedation yesterday and the patient was taken off the propofol and Versed. A repeat CAT scan of the brain was done that showed no acute abnormalities. Subsequently, he began to have myoclonic jerks and EEG showed myoclonic status. Based on that, he was placed back on propofol which is currently running at 40 mcg/kg/m and is also on Versed and 50 mg an hour. He remains on Keppra. Valproic acid was also added. On a mechanical ventilator, assist control mode at the rate of 16, tidal volume of 450, FiO2 of 50% with a PEEP of 5. PH is at 7.45 with a pCO2 of 62 and pO2 of 88. The chest x-ray from today was reviewed and shows cardiomegaly. Orotracheal tube is at the level of the aortic 9. There is increased interstitial markings bilaterally along with significant cardiomegaly. Remains on IV Lasix 40 mg every 12 hours. Overall fluid balance is +1.4 L over the past 24 hours. His blood work is still pending from today. The renal function from yesterday was essentially stable. Awaiting CBC and electrolytes from today. Continues to be on broad-spectrum antibiotics. Cultures from the wounds showed polymicrobial growth and normal skin kajal. Anaerobic cultures are also negative. The wounds are currently wrapped. His antibiotic coverage remains a combination of Zosyn and daptomycin and Eraxis. His current cardiac rhythm is A. fib and the patient remains on low-dose metoprolol 25 mg twice a day and amiodarone 400 mg by mouth twice a day. He is on on norepinephrine running at 0.04 mcg/kg/m. He was also started on enteral feeding for nutritional support. No issues with abdominal distention. Unfortunately, this is a case of severe anoxic encephalopathy. Patient had a prolonged downtime. No cognitive functions. Ongoing seizure activity based on the most recent EEG. His cor status is DO NOT RESUSCITATE. If Life was involved and the patient is being worked up for organ procurement. He was started back on IV heparin and this was subsequently discontinued because of some bloody respiratory secretions. IV fluids are currently at KVO. Objective - Vital Signs Vital signs: Vital Signs Temp 97.9 F 02/16/23 06:00 Pulse 93 02/16/23 08:40 Resp 16 02/16/23 07:00 BP 100/72 02/15/23 02:15 Pulse Ox 94 L 02/16/23 07:00 FiO2 50 02/16/23 08:36 Intake & Output 02/15/23 02/16/23 02/16/23 18:59 06:59 18:59 Intake Total 2128.678 2319.856 245.264 Output Total 2365 2330 80 Balance -236.322 -10.144 165.264 Weight 189.239 kg Intake: IV 216 906 23 0.9% @ KVO 30 220 20 DAPTOmycin 700 mg In 150 100 Sodium Chloride 0.9% 50 ml @ 100 mls/hr IVPB Q24H [facility] Rx#:[id number] Magnesium Sulfate-D5w Pmx 200 1 gm In Dextrose/Water 1 100ml.bag @ 100 mls/hr IVPB ONCE ONE Rx#: [id number] Piperacillin-Tazobactam 3 100 .375 gm In Sodium Chloride 0.9% 100 ml @ 25 mls/hr IVPB Q8HR [facility] Rx# :[id number] Pressure Bag 36 36 3 levETIRAcetam IV 2,000 mg 250 In Sodium Chloride 0.9% 250 ml @ 1000 mls/hr IVPB Q12HR [facility] Rx#:[id number] Intake, IV Titration 1270.678 711.856 176.264 Amount Heparin Sod,Pork in 0.45% 50 121.992 NaCl 25,000 unit In 0.45 % NaCl 1 250ml.bag @ 5. 351 UNITS/KG/HR 10 mls/hr IV .Q24H [facility] Rx#: [id number] Magnesium Sulfate-D5w Pmx 100 1 gm In Dextrose/Water 1 100ml.bag @ 100 mls/hr IVPB Q1H [facility] Rx#: [id number] Midazolam HCl 200 mg In 90.625 Sodium Chloride 0.9% 60 ml @ 15 MG/HR 7.5 mls/hr IV .[id number] [facility] Rx#: [id number] Midazolam HCl 50 mg In 129.00 Sodium Chloride 0.9% 40 ml @ 5 MG/HR 5 mls/hr IV .Q10H [facility] Rx#:[id number] Norepinephrine 8 mg In 164.424 99.239 Sodium Chloride 0.9% 250 ml @ 0.03 MCG/KG/MIN 10. 532 mls/hr IV .Q24H [facility] Rx#:[id number] Piperacillin-Tazobactam 3 175 25 .375 gm In Sodium Chloride 0.9% 100 ml @ 25 mls/hr IVPB Q8HR [facility] Rx# :[id number] Valproate Sodium 1,000 mg 50 In Sodium Chloride 0.9% 50 ml @ 50 mls/hr IVPB Q12HR [facility] Rx#:[id number] levETIRAcetam IV 2,000 mg 250 In Sodium Chloride 0.9% 250 ml @ 1000 mls/hr IVPB Q12HR [facility] Rx#:[id number] propofoL 1,000 mg In 352.254 465.625 85.639 Empty Bag 1 bag @ 15 MCG/ KG/MIN 16.329 mls/hr IV . Q6H8M [facility] Rx#:[id number] Tube Feeding 552 552 46 Other 90 150 Output: Urine 2365 2330 80 Other: Voiding Method Indwelling Catheter Indwelling Catheter ABP, PAP, CO, CI - Last Documented Arterial Blood Pressure 97/51 - Exam Morbidly obese with a body mass index of 54.2, intubated on a mechanical ventilator. No myoclonic jerks on today's evaluation. Head exam was generally normal. There was no scleral icterus or corneal arcus. Mucous membranes were moist. Neck is extremely short and there is positive JVD's. The triple-lumen catheter was inserted in the left IJ. No neck stiffness. Lungs sounds are diminished bilaterally and there is diminished breath on the lung bases. No significant WHEEZES. Heart sounds are irregular, consistent with atrial fibrillation fibrillation. No significant murmur appreciated. No RV heave or and afebrile. Abdomen is morbidly obese and CANNOT be accurately palpated. No direct tenderness, no rebound tenderness or guarding. Extremities are chronically edematous and there is infected deep wounds, nonhealing in the calves bilaterally with purulent material oozing specially from the ulcer that's behind his right lower extremity. He also has oscillated/infected toes specifically the second toe in the right foot and the left foot bilaterally. Pulses are diminished. No cyanosis or clubbing. Neurologically, the patient has equal and symmetrical pupils. Pupils pinpoint bilaterally , no eye twitching =. He has no response to any deep painful stimulation.. No facial asymmetry. Positive cough and a gag. Motor function cannot be assessed. Sensory functions cannot be assessed. Reflexes are flat bilaterally and no Babinski. No clonus. Neurologic examination is essentially unchanged on today's evaluation the patient is still riding the mechanical ventilator at the same rate. - Labs CBC & Chem 7: 02/15/23 23:35 02/15/23 23:35 Labs: Abnormal Lab Results - Last 24 Hours (Table) 02/15/23 02/15/23 02/15/23 Range/Units 11:28 13:24 13:24 RBC 4.11 L (4.30-5.90) m/uL Hgb 10.2 L (13.0-17.5) gm/dL Hct 34.9 L (39.0-53.0) % MCH 24.8 L (25.0-35.0) pg MCHC 29.2 L (31.0-37.0) g/dL RDW (11.5-15.5) % Neutrophils # 8.1 H (1.3-7.7) k/uL Lymphocytes # 0.7 L (1.0-4.8) k/uL APTT 48.7 H (22.0-30.0) sec D-Dimer (<0.60) mg/L FEU ABG pCO2 (35-45) mmHg ABG pO2 (83-108) mmHg ABG HCO3 (21-25) mmol/L ABG Total CO2 (19-24) mmol/L ABG O2 Saturation (94-97) % Sodium (137-145) mmol/L Chloride (98-107) mmol/L Carbon Dioxide (22-30) mmol/L Glucose (74-99) mg/dL POC Glucose (mg/dL) 180 H (70-110) mg/dL Calcium (8.4-10.2) mg/dL Ionized Calcium Rosio (4.5-5.3) mg/dL Phosphorus (2.5-4.5) mg/dL Magnesium (1.6-2.3) mg/dL Delta Bilirubin (0.0-0.2) mg/dL Creatine Kinase (55-170) U/L Total Protein (6.3-8.2) g/dL Albumin (3.5-5.0) g/dL Urine Blood (Negative) Urine RBC (0-5) /hpf 02/15/23 02/15/23 02/15/23 Range/Units 13:24 15:37 18:26 RBC (4.30-5.90) m/uL Hgb (13.0-17.5) gm/dL Hct (39.0-53.0) % MCH (25.0-35.0) pg MCHC (31.0-37.0) g/dL RDW (11.5-15.5) % Neutrophils # (1.3-7.7) k/uL Lymphocytes # (1.0-4.8) k/uL APTT (22.0-30.0) sec D-Dimer (<0.60) mg/L FEU ABG pCO2 (35-45) mmHg ABG pO2 (83-108) mmHg ABG HCO3 (21-25) mmol/L ABG Total CO2 (19-24) mmol/L ABG O2 Saturation (94-97) % Sodium 134 L (137-145) mmol/L Chloride 89 L (98-107) mmol/L Carbon Dioxide 40 H (22-30) mmol/L Glucose 147 H (74-99) mg/dL POC Glucose (mg/dL) 135 H (70-110) mg/dL Calcium 8.1 L (8.4-10.2) mg/dL Ionized Calcium Rosio 4.4 L (4.5-5.3) mg/dL Phosphorus 4.8 H (2.5-4.5) mg/dL Magnesium 1.5 L (1.6-2.3) mg/dL Delta Bilirubin (0.0-0.2) mg/dL Creatine Kinase (55-170) U/L Total Protein 6.1 L (6.3-8.2) g/dL Albumin 2.9 L (3.5-5.0) g/dL Urine Blood Large H (Negative) Urine RBC 47 H (0-5) /hpf 02/15/23 02/15/23 02/15/23 Range/Units 18:30 19:49 19:49 RBC (4.30-5.90) m/uL Hgb (13.0-17.5) gm/dL Hct (39.0-53.0) % MCH (25.0-35.0) pg MCHC (31.0-37.0) g/dL RDW (11.5-15.5) % Neutrophils # (1.3-7.7) k/uL Lymphocytes # (1.0-4.8) k/uL APTT 31.1 H (22.0-30.0) sec D-Dimer 1.20 H (<0.60) mg/L FEU ABG pCO2 (35-45) mmHg ABG pO2 (83-108) mmHg ABG HCO3 (21-25) mmol/L ABG Total CO2 (19-24) mmol/L ABG O2 Saturation (94-97) % Sodium (137-145) mmol/L Chloride (98-107) mmol/L Carbon Dioxide (22-30) mmol/L Glucose (74-99) mg/dL POC Glucose (mg/dL) (70-110) mg/dL Calcium (8.4-10.2) mg/dL Ionized Calcium Rosio (4.5-5.3) mg/dL Phosphorus (2.5-4.5) mg/dL Magnesium (1.6-2.3) mg/dL Delta Bilirubin (0.0-0.2) mg/dL Creatine Kinase 40 L (55-170) U/L Total Protein (6.3-8.2) g/dL Albumin (3.5-5.0) g/dL Urine Blood (Negative) Urine RBC (0-5) /hpf 02/15/23 02/15/23 02/15/23 Range/Units 19:54 22:00 23:34 RBC (4.30-5.90) m/uL Hgb (13.0-17.5) gm/dL Hct (39.0-53.0) % MCH (25.0-35.0) pg MCHC (31.0-37.0) g/dL RDW (11.5-15.5) % Neutrophils # (1.3-7.7) k/uL Lymphocytes # (1.0-4.8) k/uL APTT (22.0-30.0) sec D-Dimer (<0.60) mg/L FEU ABG pCO2 63 H 64 H (35-45) mmHg ABG pO2 77 L 55 L* (83-108) mmHg ABG HCO3 43 H* 43 H* (21-25) mmol/L ABG Total CO2 44 H 45 H (19-24) mmol/L ABG O2 Saturation 88.7 L (94-97) % Sodium (137-145) mmol/L Chloride (98-107) mmol/L Carbon Dioxide (22-30) mmol/L Glucose (74-99) mg/dL POC Glucose (mg/dL) 150 H (70-110) mg/dL Calcium (8.4-10.2) mg/dL Ionized Calcium Rosio (4.5-5.3) mg/dL Phosphorus (2.5-4.5) mg/dL Magnesium (1.6-2.3) mg/dL Delta Bilirubin (0.0-0.2) mg/dL Creatine Kinase (55-170) U/L Total Protein (6.3-8.2) g/dL Albumin (3.5-5.0) g/dL Urine Blood (Negative) Urine RBC (0-5) /hpf 02/15/23 02/15/23 02/15/23 Range/Units 23:35 23:35 23:35 RBC 3.97 L (4.30-5.90) m/uL Hgb 9.8 L (13.0-17.5) gm/dL Hct 33.8 L (39.0-53.0) % MCH 24.6 L (25.0-35.0) pg MCHC 29.0 L (31.0-37.0) g/dL RDW 15.6 H (11.5-15.5) % Neutrophils # (1.3-7.7) k/uL Lymphocytes # (1.0-4.8) k/uL APTT 32.1 H (22.0-30.0) sec D-Dimer (<0.60) mg/L FEU ABG pCO2 (35-45) mmHg ABG pO2 (83-108) mmHg ABG HCO3 (21-25) mmol/L ABG Total CO2 (19-24) mmol/L ABG O2 Saturation (94-97) % Sodium 134 L (137-145) mmol/L Chloride 88 L (98-107) mmol/L Carbon Dioxide 39 H (22-30) mmol/L Glucose 145 H (74-99) mg/dL POC Glucose (mg/dL) (70-110) mg/dL Calcium 8.2 L (8.4-10.2) mg/dL Ionized Calcium Rosio (4.5-5.3) mg/dL Phosphorus 5.1 H (2.5-4.5) mg/dL Magnesium (1.6-2.3) mg/dL Delta Bilirubin 0.5 H (0.0-0.2) mg/dL Creatine Kinase (55-170) U/L Total Protein 6.0 L (6.3-8.2) g/dL Albumin 2.8 L (3.5-5.0) g/dL Urine Blood (Negative) Urine RBC (0-5) /hpf 02/15/23 02/16/23 02/16/23 Range/Units 23:52 05:00 06:13 RBC (4.30-5.90) m/uL Hgb (13.0-17.5) gm/dL Hct (39.0-53.0) % MCH (25.0-35.0) pg MCHC (31.0-37.0) g/dL RDW (11.5-15.5) % Neutrophils # (1.3-7.7) k/uL Lymphocytes # (1.0-4.8) k/uL APTT (22.0-30.0) sec D-Dimer (<0.60) mg/L FEU ABG pCO2 64 H (35-45) mmHg ABG pO2 81 L (83-108) mmHg ABG HCO3 42 H* (21-25) mmol/L ABG Total CO2 44 H (19-24) mmol/L ABG O2 Saturation (94-97) % Sodium (137-145) mmol/L Chloride (98-107) mmol/L Carbon Dioxide (22-30) mmol/L Glucose (74-99) mg/dL POC Glucose (mg/dL) 149 H (70-110) mg/dL Calcium (8.4-10.2) mg/dL Ionized Calcium Rosio (4.5-5.3) mg/dL Phosphorus (2.5-4.5) mg/dL Magnesium (1.6-2.3) mg/dL Delta Bilirubin (0.0-0.2) mg/dL Creatine Kinase (55-170) U/L Total Protein (6.3-8.2) g/dL Albumin (3.5-5.0) g/dL Urine Blood Small H (Negative) Urine RBC 26 H (0-5) /hpf 02/16/23 Range/Units 08:09 RBC (4.30-5.90) m/uL Hgb (13.0-17.5) gm/dL Hct (39.0-53.0) % MCH (25.0-35.0) pg MCHC (31.0-37.0) g/dL RDW (11.5-15.5) % Neutrophils # (1.3-7.7) k/uL Lymphocytes # (1.0-4.8) k/uL APTT (22.0-30.0) sec D-Dimer (<0.60) mg/L FEU ABG pCO2 62 H (35-45) mmHg ABG pO2 (83-108) mmHg ABG HCO3 43 H* (21-25) mmol/L ABG Total CO2 (19-24) mmol/L ABG O2 Saturation 97.8 H (94-97) % Sodium (137-145) mmol/L Chloride (98-107) mmol/L Carbon Dioxide (22-30) mmol/L Glucose (74-99) mg/dL POC Glucose (mg/dL) (70-110) mg/dL Calcium (8.4-10.2) mg/dL Ionized Calcium Rosio (4.5-5.3) mg/dL Phosphorus (2.5-4.5) mg/dL Magnesium (1.6-2.3) mg/dL Delta Bilirubin (0.0-0.2) mg/dL Creatine Kinase (55-170) U/L Total Protein (6.3-8.2) g/dL Albumin (3.5-5.0) g/dL Urine Blood (Negative) Urine RBC (0-5) /hpf Microbiology - Last 24 Hours (Table) 02/12/23 15:12 Blood Culture - Preliminary Blood 02/12/23 17:46 Anaerobic Culture - Preliminary Leg - Right 02/12/23 17:46 Gram Stain - Final Leg - Left Wound Culture - Final 02/12/23 17:45 Gram Stain - Final Leg - Right Wound Culture - Final 02/12/23 11:47 Gram Stain - Final Sputum Sputum Culture - Final Assessment and Plan Plan: Cardiac arrest, probably initiated by an initial respiratory arrest with subsequent cardiac arrest and the patient was found to be in a PEA rhythm. Currently he is hemodynamically stable. In atrial fibrillation. The patient return of spontaneous her condition following resuscitation. Despite his lower lactic acid level, the patient seems to have had a prolonged down time. Anoxic encephalopathy is suspected. Hypotension, likely septic in nature and the patient is on low-dose norepinephrine at 0.04. The patient remains on broad-spectrum antibiotics. Cultures are still pending, negative for the time being and the patient continues to be on broad-spectrum antibiotics Acute hypoxic /hypercapnic respiratory failure, currently intubated on mechanical ventilator post cardiac arrest, chest x-ray is consistent with CHF and pulmonary edema, the patient remains on IV Lasix adequate oxygenation and ventilation based on the most recent blood gas Anoxic encephalopathy, clinically suspected as the patient is having some episodic myotonic jerk. CAT scan of the brain was negative , the pupils are pinpoint and is deeply comatose, nonresponsive to any painful stimulation or verbal stimulation. The patient remains on a combination of Versed and propofol and Keppra. EEG was done yesterday showed diffuse slowing and burst suppression consistent with anoxic encephalopathy. Patient was evaluated by another EEG while off sedation and the patient had myoclonic status and currently he is on a combination of Versed, propofol, Keppra and valproic acid. No reasonable recovery mental status. Neurology is on the case. Signs of severe anoxic encephalopathy. Being considered for organ donation Atrial fibrillation fibrillation with rapid ventricular response currently , rate is controlled and the patient remains on amiodarone and metoprolol Chronic Bilateral lower extremity once/pressure ulcers with superinfection, and the patient has open wounds in the lower extremities bilaterally involving the calf, ulcerated second toe on the right than the left and scrotal wounds. The patient is covered with broad-spectrum antibiotics. The patient has Aquacel silver applied to his wounds Chronic hypoxic respiratory failure currently on 2 L of oxygen by nasal cannula Chronic hypercapnic respiratory failure Chronic restrictive lung disease due to morbid obesity with a body mass 54.2 with obvious features of obesity hypoventilation syndrome Obstructive sleep apnea maintained on CPAP therapy on outpatient basis, compliancy is questionable Mild lactic acidosis Chronic metabolic alkalosis secondary to chronic hypercapnic respiratory failure Morbid obesity with a BMI estimated to be at 54.2 Hypertension Diabetes mellitus Arnold-Chiari malformation with difficulty with mobility and gait Chronic anemia/anemia of chronic disease Troponin leak secondary to cardiac arrest Plan Keep the patient intubated on a mechanical ventilator for now Continue propofol and Versed drip Continue valproic acid and Keppra EEG was noted from 02/13/2023 and a repeat EKG from 02/15/2023. [place] showing signs of anoxic encephalopathy and the most recent EEG showed myoclonic status.. This will be discussed further with neurology. There are signs of severe anoxic encephalopathy at this point in time. Continue low-dose norepinephrine Continue oral amiodarone and metoprolol Awaiting wound cultures and blood cultures, negative for now Wound services involved Coverage antibiotics with a combination of Eraxis, daptomycin and Zosyn Repeat CAT scan of the brain was noted IV Protonix Initiate enteral feeding for nutritional support Continue Lasix 40 mg IV twice a day Obvious signs of anoxic encephalopathy. Family was updated Condition is obviously critical and the patient carries a very poor prognosis based on the above-mentioned. This evaluation was done in more than one hour. Discussed the case with the at the bedside. Reticulocyte care evaluation done in more than 40 minutes. Time with Patient: Greater than 30
[2023-02-16 09:21] LABS: Basophils % (A) 0 %; Eosinophils # (A) 0.3 k/uL (0-0.7); Eosinophils % (A) 3 %; HCT 32.2 % (39.0-53.0); HGB 9.4 gm/dL (13.0-17.5); Hypochromasia Marked; Lymphocytes % (A) 9 %; MCH 24.9 pg (25.0-35.0); MCHC 29.2 g/dL (31.0-37.0); MCV 85.1 fL (80.0-100.0); Mean Platelet Volume 10.7; Monocytes # (A) 0.8 k/uL (0-1.0); Monocytes % (A) 8 %; Neutrophils # (A) 8.2 k/uL (1.3-7.7); Neutrophils % (A) 78 %; Platelet Count 143 k/uL (150-450); RBC 3.78 m/uL (4.30-5.90); RDW 15.6 % (11.5-15.5); WBC 10.5 k/uL (3.8-10.6)
[2023-02-16 09:31] LABS: ALT 16 U/L (4-49); AST 25 U/L (17-59); African American GFR (CKD) 80 (>60 ml/min/1.73 sqM); Albumin 2.7 g/dL (3.5-5.0); Alkaline Phosphatase 88 U/L (38-126); Bilirubin, Delta 0.4 mg/dL (0.0-0.2); Bilirubin,Unconjugated 0.1 mg/dL (0.0-1.1); Blood Urea Nitrogen 17 mg/dL (9-20); Calcium 8.2 mg/dL (8.4-10.2); Chloride 89 mmol/L (98-107); Glucose 139 mg/dL (74-99); Magnesium 1.8 mg/dL (1.6-2.3); Non-African American GFR(CKD) 69 (>60 ml/min/1.73 sqM); Phosphorus 5.2 mg/dL (2.5-4.5); Sodium 136 mmol/L (137-145); Total Bilirubin 0.5 mg/dL (0.2-1.3); Total Protein 5.7 g/dL (6.3-8.2)
[2023-02-16 09:37] LABS: Anion Gap 9 mmol/L; Carbon Dioxide 38 mmol/L (22-30)
[2023-02-16 09:40] LABS: INR 0.9 (<1.2); Prothrombin Time 10.5 sec (10.0-12.5)
--- NOTE | 2023-02-16 10:08 | P.PN ---
Subjective Progress Note Date: 02/16/23 I am following-up with patient and patient is on IV Propofol 40mcg/kg/min and IV Versed 15mg/hr. No clinical myoclonic jerks. [facility] is here today and in process organ donation. Objective - Vital Signs Vital signs: Vital Signs Temp 97.9 F 02/16/23 08:00 Pulse 78 02/16/23 09:30 Resp 16 02/16/23 09:30 BP 100/72 02/15/23 02:15 Pulse Ox 97 02/16/23 09:30 FiO2 50 02/16/23 09:00 Intake & Output 02/15/23 02/16/23 02/16/23 18:59 06:59 18:59 Intake Total 2128.678 2319.856 922.331 Output Total 2365 2330 490 Balance -236.322 -10.144 432.331 Weight 189.239 kg Intake: IV 216 906 369 0.9% @ KVO 30 220 60 DAPTOmycin 700 mg In 150 100 Sodium Chloride 0.9% 50 ml @ 100 mls/hr IVPB Q24H [facility] Rx#:[id number] Magnesium Sulfate-D5w Pmx 200 1 gm In Dextrose/Water 1 100ml.bag @ 100 mls/hr IVPB ONCE ONE Rx#: [id number] Piperacillin-Tazobactam 3 100 50 .375 gm In Sodium Chloride 0.9% 100 ml @ 25 mls/hr IVPB Q8HR [facility] Rx# :[id number] Pressure Bag 36 36 9 levETIRAcetam IV 2,000 mg 250 250 In Sodium Chloride 0.9% 250 ml @ 1000 mls/hr IVPB Q12HR [facility] Rx#:[id number] Intake, IV Titration 1270.678 711.856 385.331 Amount Anidulafungin 100 mg In 100 Sodium Chloride 0.9% 100 ml @ 84 mls/hr IVPB DAILY [facility] Rx#:[id number] Heparin Sod,Pork in 0.45% 50 121.992 NaCl 25,000 unit In 0.45 % NaCl 1 250ml.bag @ 5. 351 UNITS/KG/HR 10 mls/hr IV .Q24H [facility] Rx#: [id number] Magnesium Sulfate-D5w Pmx 100 1 gm In Dextrose/Water 1 100ml.bag @ 100 mls/hr IVPB Q1H [facility] Rx#: [id number] Midazolam HCl 200 mg In 90.625 Sodium Chloride 0.9% 60 ml @ 15 MG/HR 7.5 mls/hr IV .[id number] [facility] Rx#: [id number] Midazolam HCl 50 mg In 129.00 Sodium Chloride 0.9% 40 ml @ 5 MG/HR 5 mls/hr IV .Q10H [facility] Rx#:[id number] Norepinephrine 8 mg In 164.424 99.239 109.067 Sodium Chloride 0.9% 250 ml @ 0.03 MCG/KG/MIN 10. 532 mls/hr IV .Q24H [facility] Rx#:[id number] Piperacillin-Tazobactam 3 175 25 .375 gm In Sodium Chloride 0.9% 100 ml @ 25 mls/hr IVPB Q8HR [facility] Rx# :[id number] Valproate Sodium 1,000 mg 50 In Sodium Chloride 0.9% 50 ml @ 50 mls/hr IVPB Q12HR [facility] Rx#:[id number] levETIRAcetam IV 2,000 mg 250 In Sodium Chloride 0.9% 250 ml @ 1000 mls/hr IVPB Q12HR [facility] Rx#:[id number] propofoL 1,000 mg In 352.254 465.625 85.639 Empty Bag 1 bag @ 15 MCG/ KG/MIN 16.329 mls/hr IV . Q6H8M [facility] Rx#:[id number] Tube Feeding 552 552 138 Other 90 150 30 Output: Urine 2365 2330 490 Other: Voiding Method Indwelling Catheter Indwelling Catheter Indwelling Catheter ABP, PAP, CO, CI - Last Documented Arterial Blood Pressure 91/51 - Exam General: Is a morbid obese gentleman lying in bed and does not appear in acute distress. Lung: Intubated on ventilator. Neuro: Limited. V Propofol 40mcg/kg/min and IV Versed 15mg/hr. Is comatose GCS 3 (E1, M1, VT1). No myoclonic jerks Pupils are round and appears pinpoint bilaterally. Has intact corneal relfex on left. Negative occulocephalic reflex. He is breathing over the vent. Negative gag or cough reflex. Motor: No sponataneous movement. Not withdrawing to any extremities. Decrease tone throughout. Reflex: 0-1+ throughout. Plantars are mute throughout. Some of the workup during his hospital visit consisted of: Sodium initially was 131. BUN/creatinine is normal. Calcium is 8.4. ABG initial PCO2 to is 76 and most recent 58. CT of the head is reported as no acute intracranial CT abnormality. Posture occipital craniotomy changes over the posterior fossa with a gross similar appearance of underlying cerebellar encephalomalacia CT cervical was reported as no evidence of cervical spine fracture or traumatic malaignment. I first reviewed the CT and I agree there is no acute subacute ischemia. There is no bleed that was appreciable. Moderate multilevel cervical spondylosis. Suspect at least one enlarged left supraclavicular lymph node. Routine EEG on 02/13/2023: Is abnormal. The background slowing suggestive of severe encephalopathy. The burst suppression is likely due to brain anoxia. Another consideration is possibly also complaining of burst suppression can be due to medication effect (IV Propofol and Versed) but I feel likely more brain anoxia. Repeat Routine EEG on 02/15/2023: Is abnormal. The patient was in myoclonic status epilepticus that resolved after starting IV Versed and IV Propofol. The myoclonus status epilepticus is likely due to brain anoxia. Repeat CT head on 02/15/2023: It is reported as large craniotomy defect involving the occipital bone with probable encephalomalacia of the left cere bellar hemisphere. No acute bleed or mass effect. Marked chronic pansinusitis. CTA head: Is reported as no significant abnormality seen. - Labs CBC & Chem 7: 02/16/23 08:20 02/16/23 08:20 Labs: Abnormal Lab Results - Last 24 Hours (Table) 02/15/23 02/15/23 02/15/23 Range/Units 11:28 13:24 13:24 RBC 4.11 L (4.30-5.90) m/uL Hgb 10.2 L (13.0-17.5) gm/dL Hct 34.9 L (39.0-53.0) % MCH 24.8 L (25.0-35.0) pg MCHC 29.2 L (31.0-37.0) g/dL RDW (11.5-15.5) % Plt Count (150-450) k/uL Neutrophils # 8.1 H (1.3-7.7) k/uL Lymphocytes # 0.7 L (1.0-4.8) k/uL APTT 48.7 H (22.0-30.0) sec D-Dimer (<0.60) mg/L FEU ABG pCO2 (35-45) mmHg ABG pO2 (83-108) mmHg ABG HCO3 (21-25) mmol/L ABG Total CO2 (19-24) mmol/L ABG O2 Saturation (94-97) % Sodium (137-145) mmol/L Chloride (98-107) mmol/L Carbon Dioxide (22-30) mmol/L Glucose (74-99) mg/dL POC Glucose (mg/dL) 180 H (70-110) mg/dL Calcium (8.4-10.2) mg/dL Ionized Calcium Rosio (4.5-5.3) mg/dL Phosphorus (2.5-4.5) mg/dL Magnesium (1.6-2.3) mg/dL Delta Bilirubin (0.0-0.2) mg/dL Creatine Kinase (55-170) U/L Total Protein (6.3-8.2) g/dL Albumin (3.5-5.0) g/dL Urine Blood (Negative) Urine RBC (0-5) /hpf 02/15/23 02/15/23 02/15/23 Range/Units 13:24 15:37 18:26 RBC (4.30-5.90) m/uL Hgb (13.0-17.5) gm/dL Hct (39.0-53.0) % MCH (25.0-35.0) pg MCHC (31.0-37.0) g/dL RDW (11.5-15.5) % Plt Count (150-450) k/uL Neutrophils # (1.3-7.7) k/uL Lymphocytes # (1.0-4.8) k/uL APTT (22.0-30.0) sec D-Dimer (<0.60) mg/L FEU ABG pCO2 (35-45) mmHg ABG pO2 (83-108) mmHg ABG HCO3 (21-25) mmol/L ABG Total CO2 (19-24) mmol/L ABG O2 Saturation (94-97) % Sodium 134 L (137-145) mmol/L Chloride 89 L (98-107) mmol/L Carbon Dioxide 40 H (22-30) mmol/L Glucose 147 H (74-99) mg/dL POC Glucose (mg/dL) 135 H (70-110) mg/dL Calcium 8.1 L (8.4-10.2) mg/dL Ionized Calcium Rosio 4.4 L (4.5-5.3) mg/dL Phosphorus 4.8 H (2.5-4.5) mg/dL Magnesium 1.5 L (1.6-2.3) mg/dL Delta Bilirubin (0.0-0.2) mg/dL Creatine Kinase (55-170) U/L Total Protein 6.1 L (6.3-8.2) g/dL Albumin 2.9 L (3.5-5.0) g/dL Urine Blood Large H (Negative) Urine RBC 47 H (0-5) /hpf 02/15/23 02/15/23 02/15/23 Range/Units 18:30 19:49 19:49 RBC (4.30-5.90) m/uL Hgb (13.0-17.5) gm/dL Hct (39.0-53.0) % MCH (25.0-35.0) pg MCHC (31.0-37.0) g/dL RDW (11.5-15.5) % Plt Count (150-450) k/uL Neutrophils # (1.3-7.7) k/uL Lymphocytes # (1.0-4.8) k/uL APTT 31.1 H (22.0-30.0) sec D-Dimer 1.20 H (<0.60) mg/L FEU ABG pCO2 (35-45) mmHg ABG pO2 (83-108) mmHg ABG HCO3 (21-25) mmol/L ABG Total CO2 (19-24) mmol/L ABG O2 Saturation (94-97) % Sodium (137-145) mmol/L Chloride (98-107) mmol/L Carbon Dioxide (22-30) mmol/L Glucose (74-99) mg/dL POC Glucose (mg/dL) (70-110) mg/dL Calcium (8.4-10.2) mg/dL Ionized Calcium Rosio (4.5-5.3) mg/dL Phosphorus (2.5-4.5) mg/dL Magnesium (1.6-2.3) mg/dL Delta Bilirubin (0.0-0.2) mg/dL Creatine Kinase 40 L (55-170) U/L Total Protein (6.3-8.2) g/dL Albumin (3.5-5.0) g/dL Urine Blood (Negative) Urine RBC (0-5) /hpf 02/15/23 02/15/23 02/15/23 Range/Units 19:54 22:00 23:34 RBC (4.30-5.90) m/uL Hgb (13.0-17.5) gm/dL Hct (39.0-53.0) % MCH (25.0-35.0) pg MCHC (31.0-37.0) g/dL RDW (11.5-15.5) % Plt Count (150-450) k/uL Neutrophils # (1.3-7.7) k/uL Lymphocytes # (1.0-4.8) k/uL APTT (22.0-30.0) sec D-Dimer (<0.60) mg/L FEU ABG pCO2 63 H 64 H (35-45) mmHg ABG pO2 77 L 55 L* (83-108) mmHg ABG HCO3 43 H* 43 H* (21-25) mmol/L ABG Total CO2 44 H 45 H (19-24) mmol/L ABG O2 Saturation 88.7 L (94-97) % Sodium (137-145) mmol/L Chloride (98-107) mmol/L Carbon Dioxide (22-30) mmol/L Glucose (74-99) mg/dL POC Glucose (mg/dL) 150 H (70-110) mg/dL Calcium (8.4-10.2) mg/dL Ionized Calcium Rosio (4.5-5.3) mg/dL Phosphorus (2.5-4.5) mg/dL Magnesium (1.6-2.3) mg/dL Delta Bilirubin (0.0-0.2) mg/dL Creatine Kinase (55-170) U/L Total Protein (6.3-8.2) g/dL Albumin (3.5-5.0) g/dL Urine Blood (Negative) Urine RBC (0-5) /hpf 02/15/23 02/15/23 02/15/23 Range/Units 23:35 23:35 23:35 RBC 3.97 L (4.30-5.90) m/uL Hgb 9.8 L (13.0-17.5) gm/dL Hct 33.8 L (39.0-53.0) % MCH 24.6 L (25.0-35.0) pg MCHC 29.0 L (31.0-37.0) g/dL RDW 15.6 H (11.5-15.5) % Plt Count (150-450) k/uL Neutrophils # (1.3-7.7) k/uL Lymphocytes # (1.0-4.8) k/uL APTT 32.1 H (22.0-30.0) sec D-Dimer (<0.60) mg/L FEU ABG pCO2 (35-45) mmHg ABG pO2 (83-108) mmHg ABG HCO3 (21-25) mmol/L ABG Total CO2 (19-24) mmol/L ABG O2 Saturation (94-97) % Sodium 134 L (137-145) mmol/L Chloride 88 L (98-107) mmol/L Carbon Dioxide 39 H (22-30) mmol/L Glucose 145 H (74-99) mg/dL POC Glucose (mg/dL) (70-110) mg/dL Calcium 8.2 L (8.4-10.2) mg/dL Ionized Calcium Rosio (4.5-5.3) mg/dL Phosphorus 5.1 H (2.5-4.5) mg/dL Magnesium (1.6-2.3) mg/dL Delta Bilirubin 0.5 H (0.0-0.2) mg/dL Creatine Kinase (55-170) U/L Total Protein 6.0 L (6.3-8.2) g/dL Albumin 2.8 L (3.5-5.0) g/dL Urine Blood (Negative) Urine RBC (0-5) /hpf 02/15/23 02/16/23 02/16/23 Range/Units 23:52 05:00 06:13 RBC (4.30-5.90) m/uL Hgb (13.0-17.5) gm/dL Hct (39.0-53.0) % MCH (25.0-35.0) pg MCHC (31.0-37.0) g/dL RDW (11.5-15.5) % Plt Count (150-450) k/uL Neutrophils # (1.3-7.7) k/uL Lymphocytes # (1.0-4.8) k/uL APTT (22.0-30.0) sec D-Dimer (<0.60) mg/L FEU ABG pCO2 64 H (35-45) mmHg ABG pO2 81 L (83-108) mmHg ABG HCO3 42 H* (21-25) mmol/L ABG Total CO2 44 H (19-24) mmol/L ABG O2 Saturation (94-97) % Sodium (137-145) mmol/L Chloride (98-107) mmol/L Carbon Dioxide (22-30) mmol/L Glucose (74-99) mg/dL POC Glucose (mg/dL) 149 H (70-110) mg/dL Calcium (8.4-10.2) mg/dL Ionized Calcium Rosio (4.5-5.3) mg/dL Phosphorus (2.5-4.5) mg/dL Magnesium (1.6-2.3) mg/dL Delta Bilirubin (0.0-0.2) mg/dL Creatine Kinase (55-170) U/L Total Protein (6.3-8.2) g/dL Albumin (3.5-5.0) g/dL Urine Blood Small H (Negative) Urine RBC 26 H (0-5) /hpf 02/16/23 02/16/23 02/16/23 Range/Units 08:09 08:20 08:20 RBC 3.78 L (4.30-5.90) m/uL Hgb 9.4 L (13.0-17.5) gm/dL Hct 32.2 L (39.0-53.0) % MCH 24.9 L (25.0-35.0) pg MCHC 29.2 L (31.0-37.0) g/dL RDW 15.6 H (11.5-15.5) % Plt Count 143 L (150-450) k/uL Neutrophils # 8.2 H (1.3-7.7) k/uL Lymphocytes # (1.0-4.8) k/uL APTT (22.0-30.0) sec D-Dimer (<0.60) mg/L FEU ABG pCO2 62 H (35-45) mmHg ABG pO2 (83-108) mmHg ABG HCO3 43 H* (21-25) mmol/L ABG Total CO2 (19-24) mmol/L ABG O2 Saturation 97.8 H (94-97) % Sodium 136 L (137-145) mmol/L Chloride 89 L (98-107) mmol/L Carbon Dioxide 38 H (22-30) mmol/L Glucose 139 H (74-99) mg/dL POC Glucose (mg/dL) (70-110) mg/dL Calcium 8.2 L (8.4-10.2) mg/dL Ionized Calcium Rosio (4.5-5.3) mg/dL Phosphorus 5.2 H (2.5-4.5) mg/dL Magnesium (1.6-2.3) mg/dL Delta Bilirubin 0.4 H (0.0-0.2) mg/dL Creatine Kinase (55-170) U/L Total Protein 5.7 L (6.3-8.2) g/dL Albumin 2.7 L (3.5-5.0) g/dL Urine Blood (Negative) Urine RBC (0-5) /hpf Microbiology - Last 24 Hours (Table) 02/12/23 15:12 Blood Culture - Preliminary Blood 02/12/23 17:46 Anaerobic Culture - Preliminary Leg - Right 02/12/23 17:46 Gram Stain - Final Leg - Left Wound Culture - Final 02/12/23 17:45 Gram Stain - Final Leg - Right Wound Culture - Final 02/12/23 11:47 Gram Stain - Final Sputum Sputum Culture - Final Assessment and Plan Assessment: This is a 53-year-old gentleman who had a having worsening of severe shortness of breath and generalized weakness recently a cardiopulmonary arrest outside the hospital and he was found to be in PEA. Then developed A-fib. He developed myoclonic jerks. Outside the hospital cardiopulmonary arrest. It appears the patient had a prolonged downtime. Myoclonic status (face) due to above as a result of brain anoxia. On 02/15/2023 when IV Versed and IV Propofol were held the patient again went into myoclonic status epilepticus then resolved when sedation were restarted. Severe anoxic brain injury due to suspected prolonged down time. 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 Chronic hypercapnic respiratory failure Morbid obesity Plan: Continue Keppra 2000 mg every 12 hours and Depakote 1000mg IV bid. He is on IV Versed and Propofol which is controlling the myoclonus. Will defer the rest of medical management to primary and other specialist. Prognosis is very poor. is pursuing [facility] life. There is no further neurological work-up. Will sign off. Please reconsult if needed. Time with Patient: Less than 30
[2023-02-16 11:39] LABS: Glucose,Whole Blood 147 mg/dL (70-110)
[2023-02-16] MEDS: HEPARIN SOD,PORK IN 0.45% NACL 25,000 UNIT in 0.45% NACL 1 250ML.BAG IV SCH (12:17)
--- NOTE | 2023-02-16 14:10 | P.PN ---
Subjective Progress Note Date: 02/15/23 Principal diagnosis: Reason for follow-up is bilateral lower extremity wound and antibiotic management Patient is a 53-year-old -[place] male with a past medical history s ignificant for diabetes mellitus hypertension and sleep apnea and asthma patient did have history of chronic bilateral lower extremity wounds, recently signed out AMA from the local long term was brought into the hospital after cardiac arrest at home patient noticed to be septic concerning for lower extremity cellulitis and question of aspiration pneumonitis. On today's evaluation that is 02/15/2023, the patient had normalization of his temperature, with a 97.7 degrees forearm hide this morning, the patient remains to be unresponsive and heavily sedated FiO2 is currently at 50% no significant purulent secretions through the ET or any other changes reported by the nursing staff. Patient did have a white count of 9.9, creatinine is 1.17, cultures are currently pending Objective - Vital Signs Vital signs: Vital Signs Temp 97.7 F 02/15/23 08:00 Pulse 89 02/15/23 11:00 Resp 16 02/15/23 11:00 BP 100/72 02/15/23 02:15 Pulse Ox 98 02/15/23 11:00 FiO2 50 02/15/23 11:19 Intake & Output 02/14/23 02/15/23 02/15/23 18:59 06:59 18:59 Intake Total 2735.855 2410.237 1112.154 Output Total 1840 1870 825 Balance 895.855 540.237 287.154 Weight 181.7 kg 186.88 kg Intake: IV 896 743 145 0.9 360 360 30 Anidulafungin 200 mg In 200 Sodium Chloride 0.9% 200 ml @ 84 mls/hr IVPB ONCE ONE Rx#:[id number] DAPTOmycin 700 mg In 100 100 Sodium Chloride 0.9% 50 ml @ 100 mls/hr IVPB Q24H [facility] Rx#:[id number] Piperacillin-Tazobactam 3 200 100 .375 gm In Sodium Chloride 0.9% 100 ml @ 25 mls/hr IVPB Q8HR [facility] Rx# :[id number] levETIRAcetam IV 2,000 mg 250 In Sodium Chloride 0.9% 250 ml @ 1000 mls/hr IVPB Q12HR [facility] Rx#:[id number] pressure bag 36 33 15 Intake, IV Titration 1197.855 995.237 707.154 Amount Amiodarone 450 mg In 226.116 Dextrose 5% in Water 250 ml @ 0.5 MG/MIN 16.667 mls/hr IV .Q15H [facility] Rx#: [id number] Midazolam HCl 50 mg In 161.100 142.00 64 Sodium Chloride 0.9% 40 ml @ 5 MG/HR 5 mls/hr IV .Q10H [facility] Rx#:[id number] Norepinephrine 8 mg In 213.808 203.275 93.154 Sodium Chloride 0.9% 250 ml @ 0.03 MCG/KG/MIN 10. 532 mls/hr IV .Q24H [facility] Rx#:[id number] Piperacillin-Tazobactam 3 100 .375 gm In Sodium Chloride 0.9% 100 ml @ 25 mls/hr IVPB Q8HR [facility] Rx# :[id number] levETIRAcetam IV 2,000 mg 250 In Sodium Chloride 0.9% 250 ml @ 1000 mls/hr IVPB Q12HR [facility] Rx#:[id number] propofoL 1,000 mg In 596.831 649.962 200.000 Empty Bag 1 bag @ 15 MCG/ KG/MIN 16.329 mls/hr IV . Q6H8M [facility] Rx#:[id number] Oral 30 Tube Feeding 552 552 230 Other 90 90 30 Output: Urine 1840 1870 825 Other: Voiding Method Indwelling Catheter Indwelling Catheter Indwelling Catheter ABP, PAP, CO, CI - Last Documented Arterial Blood Pressure 113/62 - Exam GENERAL DESCRIPTION: Middle-age male intubated on the vent RESPIRATORY SYSTEM: Unlabored breathing , decreased breath sounds at bases HEART: S1 S2 regular rate and rhythm , ABDOMEN: Soft , no tenderness EXTREMITIES: Bilateral lower extremity wounds are currently dressed no drainage - Labs CBC & Chem 7: 02/16/23 08:20 02/16/23 08:20 Labs: Abnormal Lab Results - Last 24 Hours (Table) 02/14/23 02/14/23 02/15/23 Range/Units 17:51 23:31 04:29 RBC 4.12 L (4.30-5.90) m/uL Hgb 10.0 L (13.0-17.5) gm/dL Hct 35.3 L (39.0-53.0) % MCH 24.3 L (25.0-35.0) pg MCHC 28.4 L (31.0-37.0) g/dL Lymphocytes # 0.8 L (1.0-4.8) k/uL ABG pCO2 (35-45) mmHg ABG pO2 (83-108) mmHg ABG HCO3 (21-25) mmol/L ABG O2 Saturation (94-97) % Sodium (137-145) mmol/L Chloride (98-107) mmol/L Carbon Dioxide (22-30) mmol/L Glucose (74-99) mg/dL POC Glucose (mg/dL) 173 H 161 H (70-110) mg/dL Calcium (8.4-10.2) mg/dL 02/15/23 02/15/23 02/15/23 Range/Units 04:29 05:42 06:11 RBC (4.30-5.90) m/uL Hgb (13.0-17.5) gm/dL Hct (39.0-53.0) % MCH (25.0-35.0) pg MCHC (31.0-37.0) g/dL Lymphocytes # (1.0-4.8) k/uL ABG pCO2 67 H (35-45) mmHg ABG pO2 70 L (83-108) mmHg ABG HCO3 42 H* (21-25) mmol/L ABG O2 Saturation 93.8 L (94-97) % Sodium 132 L (137-145) mmol/L Chloride 88 L (98-107) mmol/L Carbon Dioxide 36 H (22-30) mmol/L Glucose 142 H (74-99) mg/dL POC Glucose (mg/dL) 149 H (70-110) mg/dL Calcium 8.3 L (8.4-10.2) mg/dL 02/15/23 Range/Units 11:28 RBC (4.30-5.90) m/uL Hgb (13.0-17.5) gm/dL Hct (39.0-53.0) % MCH (25.0-35.0) pg MCHC (31.0-37.0) g/dL Lymphocytes # (1.0-4.8) k/uL ABG pCO2 (35-45) mmHg ABG pO2 (83-108) mmHg ABG HCO3 (21-25) mmol/L ABG O2 Saturation (94-97) % Sodium (137-145) mmol/L Chloride (98-107) mmol/L Carbon Dioxide (22-30) mmol/L Glucose (74-99) mg/dL POC Glucose (mg/dL) 180 H (70-110) mg/dL Calcium (8.4-10.2) mg/dL Microbiology - Last 24 Hours (Table) 02/12/23 17:46 Gram Stain - Final Leg - Left Wound Culture - Final 02/12/23 17:45 Gram Stain - Final Leg - Right Wound Culture - Final 02/12/23 11:47 Gram Stain - Final Sputum Sputum Culture - Final 02/12/23 15:12 Blood Culture - Preliminary Blood Assessment and Plan (1) Non-pressure chronic ulcer of left calf with fat layer exposed Current Visit: No Status: Acute Code(s): L97.222 - NON-PRESSURE CHRONIC ULCER OF LEFT CALF W FAT LAYER EXPOSED SNOMED Code(s): 09856602473534005 (2) Non-pressure chronic ulcer of right calf with fat layer exposed Current Visit: No Status: Acute Code(s): L97.212 - NON-PRESSURE CHRONIC ULCER OF RIGHT CALF W FAT LAYER EXPOSED SNOMED Code(s): 16836920562495230 (3) Open wound of both lower extremities Current Visit: No Status: Acute Code(s): S81.801A - UNSPECIFIED OPEN WOUND, RIGHT LOWER LEG, INITIAL ENCOUNTER; S81.802A - UNSPECIFIED OPEN WOUND, LEFT LO WER LEG, INITIAL ENCOUNTER SNOMED Code(s): 32084837 (4) Type 2 diabetes mellitus with other skin ulcer Current Visit: No Status: Acute Code(s): E11.622 - TYPE 2 DIABETES MELLITUS WITH OTHER SKIN ULCER; L98.499 - NON-PRESSURE CHRONIC ULCER OF SKIN OF SITES W UNSP SEVERITY SNOMED Code(s): 847208259 Plan: 1-patient presented to hospital with [id number] cardiac arrest requiring resuscitation and subsequently being admitted to the hospital currently worked up by multiple consultants including pulmonary cardiology patient did have a chronic bilateral lower extremity wounds with some foul-smelling drainage and concern for secondary cellulitis we will need to cover for resistant gram- positive as well as gram-negative keeping in mind chronicity of this wound and the patient has been around the hospital and recently signed out AMA from the long term 2patient did have normalization of his temperature and the patient white count is normal he is broadly covered with the Zosyn daptomycin to continue will chloe tor his clinical course closely Dictation was produced using [employer] dictation software. please excuse any grammatical, word or spelling errors. Time with Patient: Less than 30
--- NOTE | 2023-02-16 14:12 | P.PN ---
Subjective Progress Note Date: 02/16/23 Principal diagnosis: Reason for follow-up is bilateral lower extremity wound and antibiotic management Patient is a 53-year-old -[place] male with a past medical history s ignificant for diabetes mellitus hypertension and sleep apnea and asthma patient did have history of chronic bilateral lower extremity wounds, recently signed out AMA from the local assisted was brought into the hospital after cardiac arrest at home patient noticed to be septic concerning for lower extremity cellulitis and question of aspiration pneumonitis. On today's evaluation that is 02/16/2023, the patient continues to have a normal temperature for more than 24 hours with a temperature of 98.4 F this afternoon this morning, the patient remains to be unresponsive and heavily sedated per the nursing staff FiO2 is currently at 50% no significant purulent secretions through the ET or any other changes reported by the nursing staff. Patient did have a white count of 10.5, creatinine is 1.18, cultures are currently pending Objective - Vital Signs Vital signs: Vital Signs Temp 97.9 F 02/16/23 08:00 Pulse 87 02/16/23 11:00 Resp 16 02/16/23 11:00 BP 100/72 02/15/23 02:15 Pulse Ox 96 02/16/23 11:00 FiO2 50 02/16/23 11:00 Intake & Output 02/15/23 02/16/23 02/16/23 18:59 06:59 18:59 Intake Total 2128.678 2319.856 1223.204 Output Total 2365 2330 1260 Balance -236.322 -10.144 -36.796 Weight 189.239 kg Intake: IV 216 906 465 0.9% @ KVO 30 220 100 DAPTOmycin 700 mg In 150 100 Sodium Chloride 0.9% 50 ml @ 100 mls/hr IVPB Q24H [facility] Rx#:[id number] Magnesium Sulfate-D5w Pmx 200 1 gm In Dextrose/Water 1 100ml.bag @ 100 mls/hr IVPB ONCE ONE Rx#: [id number] Piperacillin-Tazobactam 3 100 100 .375 gm In Sodium Chloride 0.9% 100 ml @ 25 mls/hr IVPB Q8HR [facility] Rx# :[id number] Pressure Bag 36 36 15 levETIRAcetam IV 2,000 mg 250 250 In Sodium Chloride 0.9% 250 ml @ 1000 mls/hr IVPB Q12HR [facility] Rx#:[id number] Intake, IV Titration 1270.678 711.856 498.204 Amount Anidulafungin 100 mg In 100 Sodium Chloride 0.9% 100 ml @ 84 mls/hr IVPB DAILY [facility] Rx#:[id number] Heparin Sod,Pork in 0.45% 50 121.992 NaCl 25,000 unit In 0.45 % NaCl 1 250ml.bag @ 5. 351 UNITS/KG/HR 10 mls/hr IV .Q24H [facility] Rx#: [id number] Magnesium Sulfate-D5w Pmx 100 1 gm In Dextrose/Water 1 100ml.bag @ 100 mls/hr IVPB Q1H [facility] Rx#: [id number] Midazolam HCl 200 mg In 90.625 Sodium Chloride 0.9% 60 ml @ 15 MG/HR 7.5 mls/hr IV .[id number] [facility] Rx#: [id number] Midazolam HCl 50 mg In 129.00 Sodium Chloride 0.9% 40 ml @ 5 MG/HR 5 mls/hr IV .Q10H [facility] Rx#:[id number] Norepinephrine 8 mg In 164.424 99.239 121.940 Sodium Chloride 0.9% 250 ml @ 0.03 MCG/KG/MIN 10. 532 mls/hr IV .Q24H [facility] Rx#:[id number] Piperacillin-Tazobactam 3 175 25 .375 gm In Sodium Chloride 0.9% 100 ml @ 25 mls/hr IVPB Q8HR [facility] Rx# :[id number] Valproate Sodium 1,000 mg 50 In Sodium Chloride 0.9% 50 ml @ 50 mls/hr IVPB Q12HR [facility] Rx#:[id number] levETIRAcetam IV 2,000 mg 250 In Sodium Chloride 0.9% 250 ml @ 1000 mls/hr IVPB Q12HR [facility] Rx#:[id number] propofoL 1,000 mg In 352.254 465.625 185.639 Empty Bag 1 bag @ 15 MCG/ KG/MIN 16.329 mls/hr IV . Q6H8M [facility] Rx#:[id number] Tube Feeding 552 552 230 Other 90 150 30 Output: Urine 2365 2330 1260 Other: Voiding Method Indwelling Catheter Indwelling Catheter Indwelling Catheter ABP, PAP, CO, CI - Last Documented Arterial Blood Pressure 96/52 - Exam GENERAL DESCRIPTION: Middle-age male intubated on the vent RESPIRATORY SYSTEM: Unlabored breathing , decreased breath sounds at bases HEART: S1 S2 regular rate and rhythm , ABDOMEN: Soft , no tenderness EXTREMITIES: Bilateral lower extremity wounds are currently dressed no drainage - Labs CBC & Chem 7: 02/16/23 08:20 02/16/23 08:20 Labs: Abnormal Lab Results - Last 24 Hours (Table) 02/15/23 02/15/23 02/15/23 Range/Units 13:24 13:24 13:24 RBC 4.11 L (4.30-5.90) m/uL Hgb 10.2 L (13.0-17.5) gm/dL Hct 34.9 L (39.0-53.0) % MCH 24.8 L (25.0-35.0) pg MCHC 29.2 L (31.0-37.0) g/dL RDW (11.5-15.5) % Plt Count (150-450) k/uL Neutrophils # 8.1 H (1.3-7.7) k/uL Lymphocytes # 0.7 L (1.0-4.8) k/uL APTT 48.7 H (22.0-30.0) sec D-Dimer (<0.60) mg/L FEU ABG pCO2 (35-45) mmHg ABG pO2 (83-108) mmHg ABG HCO3 (21-25) mmol/L ABG Total CO2 (19-24) mmol/L ABG O2 Saturation (94-97) % Sodium 134 L (137-145) mmol/L Chloride 89 L (98-107) mmol/L Carbon Dioxide 40 H (22-30) mmol/L Glucose 147 H (74-99) mg/dL POC Glucose (mg/dL) (70-110) mg/dL Calcium 8.1 L (8.4-10.2) mg/dL Ionized Calcium Rosio 4.4 L (4.5-5.3) mg/dL Phosphorus 4.8 H (2.5-4.5) mg/dL Magnesium 1.5 L (1.6-2.3) mg/dL Delta Bilirubin (0.0-0.2) mg/dL Creatine Kinase (55-170) U/L Total Protein 6.1 L (6.3-8.2) g/dL Albumin 2.9 L (3.5-5.0) g/dL Urine Blood (Negative) Urine RBC (0-5) /hpf 02/15/23 02/15/23 02/15/23 Range/Units 15:37 18:26 18:30 RBC (4.30-5.90) m/uL Hgb (13.0-17.5) gm/dL Hct (39.0-53.0) % MCH (25.0-35.0) pg MCHC (31.0-37.0) g/dL RDW (11.5-15.5) % Plt Count (150-450) k/uL Neutrophils # (1.3-7.7) k/uL Lymphocytes # (1.0-4.8) k/uL APTT 31.1 H (22.0-30.0) sec D-Dimer (<0.60) mg/L FEU ABG pCO2 (35-45) mmHg ABG pO2 (83-108) mmHg ABG HCO3 (21-25) mmol/L ABG Total CO2 (19-24) mmol/L ABG O2 Saturation (94-97) % Sodium (137-145) mmol/L Chloride (98-107) mmol/L Carbon Dioxide (22-30) mmol/L Glucose (74-99) mg/dL POC Glucose (mg/dL) 135 H (70-110) mg/dL Calcium (8.4-10.2) mg/dL Ionized Calcium Rosio (4.5-5.3) mg/dL Phosphorus (2.5-4.5) mg/dL Magnesium (1.6-2.3) mg/dL Delta Bilirubin (0.0-0.2) mg/dL Creatine Kinase (55-170) U/L Total Protein (6.3-8.2) g/dL Albumin (3.5-5.0) g/dL Urine Blood Large H (Negative) Urine RBC 47 H (0-5) /hpf 02/15/23 02/15/23 02/15/23 Range/Units 19:49 19:49 19:54 RBC (4.30-5.90) m/uL Hgb (13.0-17.5) gm/dL Hct (39.0-53.0) % MCH (25.0-35.0) pg MCHC (31.0-37.0) g/dL RDW (11.5-15.5) % Plt Count (150-450) k/uL Neutrophils # (1.3-7.7) k/uL Lymphocytes # (1.0-4.8) k/uL APTT (22.0-30.0) sec D-Dimer 1.20 H (<0.60) mg/L FEU ABG pCO2 63 H (35-45) mmHg ABG pO2 77 L (83-108) mmHg ABG HCO3 43 H* (21-25) mmol/L ABG Total CO2 44 H (19-24) mmol/L ABG O2 Saturation (94-97) % Sodium (137-145) mmol/L Chloride (98-107) mmol/L Carbon Dioxide (22-30) mmol/L Glucose (74-99) mg/dL POC Glucose (mg/dL) (70-110) mg/dL Calcium (8.4-10.2) mg/dL Ionized Calcium Rosio (4.5-5.3) mg/dL Phosphorus (2.5-4.5) mg/dL Magnesium (1.6-2.3) mg/dL Delta Bilirubin (0.0-0.2) mg/dL Creatine Kinase 40 L (55-170) U/L Total Protein (6.3-8.2) g/dL Albumin (3.5-5.0) g/dL Urine Blood (Negative) Urine RBC (0-5) /hpf 02/15/23 02/15/23 02/15/23 Range/Units 22:00 23:34 23:35 RBC (4.30-5.90) m/uL Hgb (13.0-17.5) gm/dL Hct (39.0-53.0) % MCH (25.0-35.0) pg MCHC (31.0-37.0) g/dL RDW (11.5-15.5) % Plt Count (150-450) k/uL Neutrophils # (1.3-7.7) k/uL Lymphocytes # (1.0-4.8) k/uL APTT (22.0-30.0) sec D-Dimer (<0.60) mg/L FEU ABG pCO2 64 H (35-45) mmHg ABG pO2 55 L* (83-108) mmHg ABG HCO3 43 H* (21-25) mmol/L ABG Total CO2 45 H (19-24) mmol/L ABG O2 Saturation 88.7 L (94-97) % Sodium 134 L (137-145) mmol/L Chloride 88 L (98-107) mmol/L Carbon Dioxide 39 H (22-30) mmol/L Glucose 145 H (74-99) mg/dL POC Glucose (mg/dL) 150 H (70-110) mg/dL Calcium 8.2 L (8.4-10.2) mg/dL Ionized Calcium Rosio (4.5-5.3) mg/dL Phosphorus 5.1 H (2.5-4.5) mg/dL Magnesium (1.6-2.3) mg/dL Delta Bilirubin 0.5 H (0.0-0.2) mg/dL Creatine Kinase (55-170) U/L Total Protein 6.0 L (6.3-8.2) g/dL Albumin 2.8 L (3.5-5.0) g/dL Urine Blood (Negative) Urine RBC (0-5) /hpf 02/15/23 02/15/23 02/15/23 Range/Units 23:35 23:35 23:52 RBC 3.97 L (4.30-5.90) m/uL Hgb 9.8 L (13.0-17.5) gm/dL Hct 33.8 L (39.0-53.0) % MCH 24.6 L (25.0-35.0) pg MCHC 29.0 L (31.0-37.0) g/dL RDW 15.6 H (11.5-15.5) % Plt Count (150-450) k/uL Neutrophils # (1.3-7.7) k/uL Lymphocytes # (1.0-4.8) k/uL APTT 32.1 H (22.0-30.0) sec D-Dimer (<0.60) mg/L FEU ABG pCO2 64 H (35-45) mmHg ABG pO2 81 L (83-108) mmHg ABG HCO3 42 H* (21-25) mmol/L ABG Total CO2 44 H (19-24) mmol/L ABG O2 Saturation (94-97) % Sodium (137-145) mmol/L Chloride (98-107) mmol/L Carbon Dioxide (22-30) mmol/L Glucose (74-99) mg/dL POC Glucose (mg/dL) (70-110) mg/dL Calcium (8.4-10.2) mg/dL Ionized Calcium Rosio (4.5-5.3) mg/dL Phosphorus (2.5-4.5) mg/dL Magnesium (1.6-2.3) mg/dL Delta Bilirubin (0.0-0.2) mg/dL Creatine Kinase (55-170) U/L Total Protein (6.3-8.2) g/dL Albumin (3.5-5.0) g/dL Urine Blood (Negative) Urine RBC (0-5) /hpf 02/16/23 02/16/23 02/16/23 Range/Units 05:00 06:13 08:09 RBC (4.30-5.90) m/uL Hgb (13.0-17.5) gm/dL Hct (39.0-53.0) % MCH (25.0-35.0) pg MCHC (31.0-37.0) g/dL RDW (11.5-15.5) % Plt Count (150-450) k/uL Neutrophils # (1.3-7.7) k/uL Lymphocytes # (1.0-4.8) k/uL APTT (22.0-30.0) sec D-Dimer (<0.60) mg/L FEU ABG pCO2 62 H (35-45) mmHg ABG pO2 (83-108) mmHg ABG HCO3 43 H* (21-25) mmol/L ABG Total CO2 (19-24) mmol/L ABG O2 Saturation 97.8 H (94-97) % Sodium (137-145) mmol/L Chloride (98-107) mmol/L Carbon Dioxide (22-30) mmol/L Glucose (74-99) mg/dL POC Glucose (mg/dL) 149 H (70-110) mg/dL Calcium (8.4-10.2) mg/dL Ionized Calcium Rosio (4.5-5.3) mg/dL Phosphorus (2.5-4.5) mg/dL Magnesium (1.6-2.3) mg/dL Delta Bilirubin (0.0-0.2) mg/dL Creatine Kinase (55-170) U/L Total Protein (6.3-8.2) g/dL Albumin (3.5-5.0) g/dL Urine Blood Small H (Negative) Urine RBC 26 H (0-5) /hpf 02/16/23 02/16/23 02/16/23 Range/Units 08:20 08:20 11:38 RBC 3.78 L (4.30-5.90) m/uL Hgb 9.4 L (13.0-17.5) gm/dL Hct 32.2 L (39.0-53.0) % MCH 24.9 L (25.0-35.0) pg MCHC 29.2 L (31.0-37.0) g/dL RDW 15.6 H (11.5-15.5) % Plt Count 143 L (150-450) k/uL Neutrophils # 8.2 H (1.3-7.7) k/uL Lymphocytes # (1.0-4.8) k/uL APTT (22.0-30.0) sec D-Dimer (<0.60) mg/L FEU ABG pCO2 (35-45) mmHg ABG pO2 (83-108) mmHg ABG HCO3 (21-25) mmol/L ABG Total CO2 (19-24) mmol/L ABG O2 Saturation (94-97) % Sodium 136 L (137-145) mmol/L Chloride 89 L (98-107) mmol/L Carbon Dioxide 38 H (22-30) mmol/L Glucose 139 H (74-99) mg/dL POC Glucose (mg/dL) 147 H (70-110) mg/dL Calcium 8.2 L (8.4-10.2) mg/dL Ionized Calcium Rosio (4.5-5.3) mg/dL Phosphorus 5.2 H (2.5-4.5) mg/dL Magnesium (1.6-2.3) mg/dL Delta Bilirubin 0.4 H (0.0-0.2) mg/dL Creatine Kinase (55-170) U/L Total Protein 5.7 L (6.3-8.2) g/dL Albumin 2.7 L (3.5-5.0) g/dL Urine Blood (Negative) Urine RBC (0-5) /hpf Microbiology - Last 24 Hours (Table) 02/12/23 17:45 Anaerobic Culture - Final Leg - Right 02/12/23 17:46 Anaerobic Culture - Final Leg - Right 02/12/23 15:12 Blood Culture - Preliminary Blood 02/12/23 17:46 Gram Stain - Final Leg - Left Wound Culture - Final 02/12/23 17:45 Gram Stain - Final Leg - Right Wound Culture - Final 02/12/23 11:47 Gram Stain - Final Sputum Sputum Culture - Final Assessment and Plan (1) Non-pressure chronic ulcer of left calf with fat layer exposed Current Visit: No Status: Acute Code(s): L97.222 - NON-PRESSURE CHRONIC ULCER OF LEFT CALF W FAT LAYER EXPOSED SNOMED Code(s): 66609669650918143 (2) Non-pressure chronic ulcer of right calf with fat layer exposed Current Visit: No Status: Acute Code(s): L97.212 - NON-PRESSURE CHRONIC ULCER OF RIGHT CALF W FAT LAYER EXPOSED SNOMED Code(s): 59314541764887908 (3) Open wound of both lower extremities Current Visit: No Status: Acute Code(s): S81.801A - UNSPECIFIED OPEN WOUND, RIGHT LOWER LEG, INITIAL ENCOUNTER; S81.802A - UNSPECIFIED OPEN WOUND, LEFT LOWER LEG, INITIAL ENCOUNTER SNOMED Code(s): 13162271 (4) Type 2 diabetes mellitus with other skin ulcer Current Visit: No Status: Acute Code(s): E11.622 - TYPE 2 DIABETES MELLITUS WITH OTHER SKIN ULCER; L98.499 - NON-PRESSURE CHRONIC ULCER OF SKIN OF SITES W UNSP SEVERITY SNOMED Code(s): 225250316 Plan: 1-patient presented to hospital with [id number] cardiac arrest requiring resuscitation and subsequently being admitted to the hospital currently worked up by multiple consultants including pulmonary cardiology patient did have a chronic bilateral lower extremity wounds with some foul-smelling drainage and concern for secondary cellulitis we will need to cover for resistant gram- positive as well as gram-negative keeping in mind chronicity of this wound and the patient has been around the hospital and recently signed out AMA from the assisted 2patient remains to be afebrile white count is normal, patient to continue with the Zosyn daptomycin possible transition to comfort and gift of life evaluation tomorrow per the nursing staff Dictation was produced using [employer] dictation software. please excuse any grammatical, word or spelling errors. Time with Patient: Less than 30
[2023-02-16 16:22] LABS: Basophils % (A) 0 %; Eosinophils # (A) 0.4 k/uL (0-0.7); Eosinophils % (A) 4 %; HCT 33.5 % (39.0-53.0); HGB 9.7 gm/dL (13.0-17.5); Hypochromasia Marked; Lymphocytes % (A) 9 %; MCH 24.8 pg (25.0-35.0); MCHC 28.9 g/dL (31.0-37.0); MCV 85.5 fL (80.0-100.0); Mean Platelet Volume 10.9; Monocytes # (A) 0.9 k/uL (0-1.0); Monocytes % (A) 8 %; Neutrophils # (A) 8.8 k/uL (1.3-7.7); Neutrophils % (A) 78 %; Platelet Count 171 k/uL (150-450); RBC 3.91 m/uL (4.30-5.90); RDW 15.5 % (11.5-15.5); WBC 11.2 k/uL (3.8-10.6)
[2023-02-16 16:32] LABS: ALT 16 U/L (4-49); AST 27 U/L (17-59); African American GFR (CKD) 85 (>60 ml/min/1.73 sqM); Albumin 2.8 g/dL (3.5-5.0); Alkaline Phosphatase 87 U/L (38-126); Bilirubin, Delta 0.5 mg/dL (0.0-0.2); Bilirubin,Unconjugated 0.1 mg/dL (0.0-1.1); Blood Urea Nitrogen 18 mg/dL (9-20); Calcium 8.2 mg/dL (8.4-10.2); Chloride 88 mmol/L (98-107); Glucose 154 mg/dL (74-99); INR 0.9 (<1.2); Magnesium 1.9 mg/dL (1.6-2.3); Non-African American GFR(CKD) 73 (>60 ml/min/1.73 sqM); Phosphorus 5.3 mg/dL (2.5-4.5); Prothrombin Time 10.4 sec (10.0-12.5); Sodium 137 mmol/L (137-145); Total Bilirubin 0.6 mg/dL (0.2-1.3)
[2023-02-16 16:38] LABS: Anion Gap 10 mmol/L; Carbon Dioxide 39 mmol/L (22-30)
[2023-02-16] MEDS: NOREPINEPHRINE 8 MG in SODIUM CHLORIDE 0.9% 250 ML IV SCH (17:24)
[2023-02-16 18:04] LABS: Glucose,Whole Blood 146 mg/dL (70-110)
--- NOTE | 2023-02-16 22:11 | P.PN ---
Subjective This is a pleasant 53 years old male with multiple medical problems Patient presents with cardiac arrest at home, currently he is intubated in the e mergency room and information were obtained from the and family at bedside. As per patient has in the hospital in September earlier this year when he was diagnosed for first time with atrial fibrillation and he went to rehab and he was sitting in rehab with plan to return him into long-term indwelling however he left AMA recently underwent back home from [facility], At home he was still very weak and he needed help with moving. His PCP Dr. Jensen as retired so patient went to see Dr. Jimenez about last . And he was supposed to follow-up with the wound center today This morning he got up from his bed going to the restroom I strongly believe when he fell on his knees, family are heard him and they found him unresponsive, his oxygen tube was disconnected and they put him back and they called 911. On admission he was tachycardic 113 and currently 86, blood pressure 117/78. His hemoglobin is 10.4, double-J within the reference range, platelet count 147 Sodium 131, rest of BMP and liver enzymes and INR are unremarkable. PH is low at 7.26, pCO2 is elevated 76 and PaO2 114 sodium bicarb is a high also 34 Patient has abnormal urine analysis is not very suspicious of infection Chest x-ray showing cardiomegaly with vascular congestion CT of the head, neck is negative for acute process intracranially or cervical fracture or dislocation 02/13/2023 Patient remains in the ICU in critical condition, still intubated on mechanical ventilation. Currently patient has signs of encephalopathy. Distal tachycardic, tachypneic, blood pressure 114/80, without pressors. His labs are reviewed, hemoglobin 9.2, platelet count 125, sodium 132 He is on broad-spectrum antibiotics with prophylaxis, daptomycin, Zosyn. Was on heparin drip but amiodarone was switched to oral dose 400 mg twice a day His on IV Lasix 40 mg twice daily. He is on midazolam Plan for EED and CAT scan of the brain 02/14/2023 Patient remains in the ICU intubated and on mechanical ventilation. Clinically looks the same. Vitals and labs reviewed Remains on broad-spectrum antibiotics with daptomycin and Zosyn, patient also may benefit from wound debridement He remains on IV Lasix 40 mg twice daily He started back on amiodarone drip, continued on heparin drip for his arrhythmia Keppra dose increased to 2000. Prognosis remains very guarded 02/15/2023 patient remains in the ICU intubated and sedated Versed was went off to monitor his mental status EKG showed myoclonic status epilepticus and patient was started on valproate plus he is on Keppra 2000 mg twice a day biLateral feet wounds looks the same Geraldo broad-spectrum antibiotic with daptomycin, Zosyn and Eraxis. CT of the abdomen and pelvis and chest showing cardiomegaly. Anasarca Also he is on IV Lasix 40 mg twice daily and heparin drip, aspirin 02/16/2030 Patient is in the ICU intubated and sedated No much improvement in his condition and neurologist recommended no further workup in the signed off the case Remains on broad-spectrum antibiotics Several Consultants on the case Prognosis is guarded Objective - Vital Signs Vital signs: Vital Signs Temp 98.4 F 02/16/23 12:00 Pulse 83 02/16/23 12:00 Resp 16 02/16/23 12:00 BP 100/72 02/15/23 02:15 Pulse Ox 95 02/16/23 12:00 FiO2 50 02/16/23 12:00 Intake & Output 02/15/23 02/16/23 02/16/23 18:59 06:59 18:59 Intake Total 2128.678 2319.856 1528.488 Output Total 2365 2330 1520 Balance -236.322 -10.144 8.488 Weight 189.239 kg Intake: IV 216 906 613 0.9% @ KVO 30 220 120 DAPTOmycin 700 mg In 150 100 Sodium Chloride 0.9% 50 ml @ 100 mls/hr IVPB Q24H [facility] Rx#:[id number] Magnesium Sulfate-D5w Pmx 200 100 1 gm In Dextrose/Water 1 100ml.bag @ 100 mls/hr IVPB ONCE ONE Rx#: [id number] Piperacillin-Tazobactam 3 100 125 .375 gm In Sodium Chloride 0.9% 100 ml @ 25 mls/hr IVPB Q8HR [facility] Rx# :[id number] Pressure Bag 36 36 18 levETIRAcetam IV 2,000 mg 250 250 In Sodium Chloride 0.9% 250 ml @ 1000 mls/hr IVPB Q12HR [facility] Rx#:[id number] Intake, IV Titration 1270.678 711.856 579.488 Amount Anidulafungin 100 mg In 100 Sodium Chloride 0.9% 100 ml @ 84 mls/hr IVPB DAILY [facility] Rx#:[id number] Heparin Sod,Pork in 0.45% 50 121.992 NaCl 25,000 unit In 0.45 % NaCl 1 250ml.bag @ 5. 351 UNITS/KG/HR 10 mls/hr IV .Q24H [facility]E Rx#: [id number] Magnesium Sulfate-D5w Pmx 100 1 gm In Dextrose/Water 1 100ml.bag @ 100 mls/hr IVPB Q1H [facility] Rx#: [id number] Midazolam HCl 200 mg In 90.625 Sodium Chloride 0.9% 60 ml @ 15 MG/HR 7.5 mls/hr IV .[id number] [facility] Rx#: [id number] Midazolam HCl 50 mg In 129.00 Sodium Chloride 0.9% 40 ml @ 5 MG/HR 5 mls/hr IV .Q10H [facility] Rx#:[id number] Norepinephrine 8 mg In 164.424 99.239 121.940 Sodium Chloride 0.9% 250 ml @ 0.03 MCG/KG/MIN 10. 532 mls/hr IV .Q24H [facility] Rx#:[id number] Piperacillin-Tazobactam 3 175 25 .375 gm In Sodium Chloride 0.9% 100 ml @ 25 mls/hr IVPB Q8HR [facility] Rx# :[id number] Valproate Sodium 1,000 mg 50 In Sodium Chloride 0.9% 50 ml @ 50 mls/hr IVPB Q12HR [facility] Rx#:[id number] levETIRAcetam IV 2,000 mg 250 In Sodium Chloride 0.9% 250 ml @ 1000 mls/hr IVPB Q12HR [facility] Rx#:[id number] propofoL 1,000 mg In 352.254 465.625 266.923 Empty Bag 1 bag @ 15 MCG/ KG/MIN 16.329 mls/hr IV . Q6H8M [facility] Rx#:[id number] Tube Feeding 552 552 276 Other 90 150 60 Output: Urine 2365 2330 1520 Other: Voiding Method Indwelling Catheter Indwelling Catheter Indwelling Catheter ABP, PAP, CO, CI - Last Documented Arterial Blood Pressure 96/53 - Exam -GENERAL: The patient is intubated and sedated, morbidly obese HEENT: Pupils are round and equally reacting to light. EOMI. No scleral icterus. No conjunctival pallor. Normocephalic, atraumatic. No pharyngeal erythema. No thyromegaly. CARDIOVASCULAR: S1 and S2 present. No murmurs, rubs, or gallops. PULMONARY: Chest is clear to auscultation, no wheezing , no crackles. ABDOMEN: Soft, nontender, nondistended, normoactive bowel sounds. No palpable organomegaly. MUSCULOSKELETAL: No joint swelling or deformity. EXTREMITIES: No cyanosis, clubbing, or pedal edema. NEUROLOGICAL: Gross neurological examination did not reveal any focal deficits. SKIN: No rashes. no petechiae. - Labs CBC & Chem 7: 02/16/23 16:16 02/16/23 16:16 Labs: Abnormal Lab Results - Last 24 Hours (Table) 02/15/23 02/15/23 02/15/23 Range/Units 13:24 13:24 13:24 RBC 4.11 L (4.30-5.90) m/uL Hgb 10.2 L (13.0-17.5) gm/dL Hct 34.9 L (39.0-53.0) % MCH 24.8 L (25.0-35.0) pg MCHC 29.2 L (31.0-37.0) g/dL RDW (11.5-15.5) % Plt Count (150-450) k/uL Neutrophils # 8.1 H (1.3-7.7) k/uL Lymphocytes # 0.7 L (1.0-4.8) k/uL APTT 48.7 H (22.0-30.0) sec D-Dimer (<0.60) mg/L FEU ABG pCO2 (35-45) mmHg ABG pO2 (83-108) mmHg ABG HCO3 (21-25) mmol/L ABG Total CO2 (19-24) mmol/L ABG O2 Saturation (94-97) % Sodium 134 L (137-145) mmol/L Chloride 89 L (98-107) mmol/L Carbon Dioxide 40 H (22-30) mmol/L Glucose 147 H (74-99) mg/dL POC Glucose (mg/dL) (70-110) mg/dL Calcium 8.1 L (8.4-10.2) mg/dL Ionized Calcium Rosio 4.4 L (4.5-5.3) mg/dL Phosphorus 4.8 H (2.5-4.5) mg/dL Magnesium 1.5 L (1.6-2.3) mg/dL Delta Bilirubin (0.0-0.2) mg/dL Creatine Kinase (55-170) U/L Total Protein 6.1 L (6.3-8.2) g/dL Albumin 2.9 L (3.5-5.0) g/dL Urine Blood (Negative) Urine RBC (0-5) /hpf 02/15/23 02/15/23 02/15/23 Range/Units 15:37 18:26 18:30 RBC (4.30-5.90) m/uL Hgb (13.0-17.5) gm/dL Hct (39.0-53.0) % MCH (25.0-35.0) pg MCHC (31.0-37.0) g/dL RDW (11.5-15.5) % Plt Count (150-450) k/uL Neutrophils # (1.3-7.7) k/uL Lymphocytes # (1.0-4.8) k/uL APTT 31.1 H (22.0-30.0) sec D-Dimer (<0.60) mg/L FEU ABG pCO2 (35-45) mmHg ABG pO2 (83-108) mmHg ABG HCO3 (21-25) mmol/L ABG Total CO2 (19-24) mmol/L ABG O2 Saturation (94-97) % Sodium (137-145) mmol/L Chloride (98-107) mmol/L Carbon Dioxide (22-30) mmol/L Glucose (74-99) mg/dL POC Glucose (mg/dL) 135 H (70-110) mg/dL Calcium (8.4-10.2) mg/dL Ionized Calcium Rosio (4.5-5.3) mg/dL Phosphorus (2.5-4.5) mg/dL Magnesium (1.6-2.3) mg/dL Delta Bilirubin (0.0-0.2) mg/dL Creatine Kinase (55-170) U/L Total Protein (6.3-8.2) g/dL Albumin (3.5-5.0) g/dL Urine Blood Large H (Negative) Urine RBC 47 H (0-5) /hpf 02/15/23 02/15/23 02/15/23 Range/Units 19:49 19:49 19:54 RBC (4.30-5.90) m/uL Hgb (13.0-17.5) gm/dL Hct (39.0-53.0) % MCH (25.0-35.0) pg MCHC (31.0-37.0) g/dL RDW (11.5-15.5) % Plt Count (150-450) k/uL Neutrophils # (1.3-7.7) k/uL Lymphocytes # (1.0-4.8) k/uL APTT (22.0-30.0) sec D-Dimer 1.20 H (<0.60) mg/L FEU ABG pCO2 63 H (35-45) mmHg ABG pO2 77 L (83-108) mmHg ABG HCO3 43 H* (21-25) mmol/L ABG Total CO2 44 H (19-24) mmol/L ABG O2 Saturation (94-97) % Sodium (137-145) mmol/L Chloride (98-107) mmol/L Carbon Dioxide (22-30) mmol/L Glucose (74-99) mg/dL POC Glucose (mg/dL) (70-110) mg/dL Calcium (8.4-10.2) mg/dL Ionized Calcium Rosio (4.5-5.3) mg/dL Phosphorus (2.5-4.5) mg/dL Magnesium (1.6-2.3) mg/dL Delta Bilirubin (0.0-0.2) mg/dL Creatine Kinase 40 L (55-170) U/L Total Protein (6.3-8.2) g/dL Albumin (3.5-5.0) g/dL Urine Blood (Negative) Urine RBC (0-5) /hpf 02/15/23 02/15/23 02/15/23 Range/Units 22:00 23:34 23:35 RBC (4.30-5.90) m/uL Hgb (13.0-17.5) gm/dL Hct (39.0-53.0) % MCH (25.0-35.0) pg MCHC (31.0-37.0) g/dL RDW (11.5-15.5) % Plt Count (150-450) k/uL Neutrophils # (1.3-7.7) k/uL Lymphocytes # (1.0-4.8) k/uL APTT (22.0-30.0) sec D-Dimer (<0.60) mg/L FEU ABG pCO2 64 H (35-45) mmHg ABG pO2 55 L* (83-108) mmHg ABG HCO3 43 H* (21-25) mmol/L ABG Total CO2 45 H (19-24) mmol/L ABG O2 Saturation 88.7 L (94-97) % Sodium 134 L (137-145) mmol/L Chloride 88 L (98-107) mmol/L Carbon Dioxide 39 H (22-30) mmol/L Glucose 145 H (74-99) mg/dL POC Glucose (mg/dL) 150 H (70-110) mg/dL Calcium 8.2 L (8.4-10.2) mg/dL Ionized Calcium Rosio (4.5-5.3) mg/dL Phosphorus 5.1 H (2.5-4.5) mg/dL Magnesium (1.6-2.3) mg/dL Delta Bilirubin 0.5 H (0.0-0.2) mg/dL Creatine Kinase (55-170) U/L Total Protein 6.0 L (6.3-8.2) g/dL Albumin 2.8 L (3.5-5.0) g/dL Urine Blood (Negative) Urine RBC (0-5) /hpf 02/15/23 02/15/23 02/15/23 Range/Units 23:35 23:35 23:52 RBC 3.97 L (4.30-5.90) m/uL Hgb 9.8 L (13.0-17.5) gm/dL Hct 33.8 L (39.0-53.0) % MCH 24.6 L (25.0-35.0) pg MCHC 29.0 L (31.0-37.0) g/dL RDW 15.6 H (11.5-15.5) % Plt Count (150-450) k/uL Neutrophils # (1.3-7.7) k/uL Lymphocytes # (1.0-4.8) k/uL APTT 32.1 H (22.0-30.0) sec D-Dimer (<0.60) mg/L FEU ABG pCO2 64 H (35-45) mmHg ABG pO2 81 L (83-108) mmHg ABG HCO3 42 H* (21-25) mmol/L ABG Total CO2 44 H (19-24) mmol/L ABG O2 Saturation (94-97) % Sodium (137-145) mmol/L Chloride (98-107) mmol/L Carbon Dioxide (22-30) mmol/L Glucose (74-99) mg/dL POC Glucose (mg/dL) (70-110) mg/dL Calcium (8.4-10.2) mg/dL Ionized Calcium Rosio (4.5-5.3) mg/dL Phosphorus (2.5-4.5) mg/dL Magnesium (1.6-2.3) mg/dL Delta Bilirubin (0.0-0.2) mg/dL Creatine Kinase (55-170) U/L Total Protein (6.3-8.2) g/dL Albumin (3.5-5.0) g/dL Urine Blood (Negative) Urine RBC (0-5) /hpf 02/16/23 02/16/23 02/16/23 Range/Units 05:00 06:13 08:09 RBC (4.30-5.90) m/uL Hgb (13.0-17.5) gm/dL Hct (39.0-53.0) % MCH (25.0-35.0) pg MCHC (31.0-37.0) g/dL RDW (11.5-15.5) % Plt Count (150-450) k/uL Neutrophils # (1.3-7.7) k/uL Lymphocytes # (1.0-4.8) k/uL APTT (22.0-30.0) sec D-Dimer (<0.60) mg/L FEU ABG pCO2 62 H (35-45) mmHg ABG pO2 (83-108) mmHg ABG HCO3 43 H* (21-25) mmol/L ABG Total CO2 (19-24) mmol/L ABG O2 Saturation 97.8 H (94-97) % Sodium (137-145) mmol/L Chloride (98-107) mmol/L Carbon Dioxide (22-30) mmol/L Glucose (74-99) mg/dL POC Glucose (mg/dL) 149 H (70-110) mg/dL Calcium (8.4-10.2) mg/dL Ionized Calcium Rosio (4.5-5.3) mg/dL Phosphorus (2.5-4.5) mg/dL Magnesium (1.6-2.3) mg/dL Delta Bilirubin (0.0-0.2) mg/dL Creatine Kinase (55-170) U/L Total Protein (6.3-8.2) g/dL Albumin (3.5-5.0) g/dL Urine Blood Small H (Negative) Urine RBC 26 H (0-5) /hpf 02/16/23 02/16/23 02/16/23 Range/Units 08:20 08:20 11:38 RBC 3.78 L (4.30-5.90) m/uL Hgb 9.4 L (13.0-17.5) gm/dL Hct 32.2 L (39.0-53.0) % MCH 24.9 L (25.0-35.0) pg MCHC 29.2 L (31.0-37.0) g/dL RDW 15.6 H (11.5-15.5) % Plt Count 143 L (150-450) k/uL Neutrophils # 8.2 H (1.3-7.7) k/uL Lymphocytes # (1.0-4.8) k/uL APTT (22.0-30.0) sec D-Dimer (<0.60) mg/L FEU ABG pCO2 (35-45) mmHg ABG pO2 (83-108) mmHg ABG HCO3 (21-25) mmol/L ABG Total CO2 (19-24) mmol/L ABG O2 Saturation (94-97) % Sodium 136 L (137-145) mmol/L Chloride 89 L (98-107) mmol/L Carbon Dioxide 38 H (22-30) mmol/L Glucose 139 H (74-99) mg/dL POC Glucose (mg/dL) 147 H (70-110) mg/dL Calcium 8.2 L (8.4-10.2) mg/dL Ionized Calcium Rosio (4.5-5.3) mg/dL Phosphorus 5.2 H (2.5-4.5) mg/dL Magnesium (1.6-2.3) mg/dL Delta Bilirubin 0.4 H (0.0-0.2) mg/dL Creatine Kinase (55-170) U/L Total Protein 5.7 L (6.3-8.2) g/dL Albumin 2.7 L (3.5-5.0) g/dL Urine Blood (Negative) Urine RBC (0-5) /hpf Microbiology - Last 24 Hours (Table) 02/12/23 17:45 Anaerobic Culture - Final Leg - Right 02/12/23 17:46 Anaerobic Culture - Final Leg - Right 02/12/23 15:12 Blood Culture - Preliminary Blood 02/12/23 17:46 Gram Stain - Final Leg - Left Wound Culture - Final 02/12/23 17:45 Gram Stain - Final Leg - Right Wound Culture - Final 02/12/23 11:47 Gram Stain - Final Sputum Sputum Culture - Final Assessment and Plan Assessment: Status post cardiac arrest with a down time about 10-15 minutes possible anoxic brain injury Acute hypoxic hypercapnic respiratory failure requiring intubation and mechanical ventilation Respiratory acidosis, acute Obesity hypoventilation syndrome, obstructive sleep apnea Chronic hypoxic respiratory failure Paroxysmal atrial fibrillation multiple skin ulceration of the toes and lower extremities suspicious for cellulitis Morbid obesity Plan: Continue with oxygen Continue with mechanical ventilator Continue IV Lasix Continue antibiotic continue with antiseizure medication as above Telemetry monitoring Admitting the patient to the critical care unit Cardiology and pulmonary consult neurologist evaluated in the patient Labs and medication were reviewed.. Continue same treatment. Continue with symptomatic treatment. Resume home medication. Monitor labs and vitals. DVT and GI prophylaxis. Further recommendations as per clinical course of the patient DVT prophylaxis: Subcutaneous heparin GI Prophylaxis: Pepcid Prognosis is guarded
[2023-02-16 23:36] LABS: Glucose,Whole Blood 160 mg/dL (70-110)
[2023-02-16 23:36] LABS: ABG Base Excess 20.2 mmol/L; ABG Oxygen Saturation 83.2 % (94-97); ABG PCO2 70 mmHg (35-45); ABG PH 7.41 (7.35-7.45); ABG TCO2 47 mmol/L (19-24); Allen Test Performed? Yes
[2023-02-16 23:44] LABS: ABG PO2 49 mmHg (83-108)
[2023-02-16 23:45] LABS: ABG HCO3 45 mmol/L (21-25)
[2023-02-16 23:45] LABS: Basophils % (A) 0 %; Eosinophils # (A) 0.4 k/uL (0-0.7); Eosinophils % (A) 4 %; HCT 32.4 % (39.0-53.0); HGB 9.3 gm/dL (13.0-17.5); Hypochromasia Marked; Lymphocytes % (A) 9 %; MCH 24.3 pg (25.0-35.0); MCHC 28.6 g/dL (31.0-37.0); MCV 85.1 fL (80.0-100.0); Mean Platelet Volume 10.6; Monocytes # (A) 0.9 k/uL (0-1.0); Monocytes % (A) 8 %; Neutrophils # (A) 7.9 k/uL (1.3-7.7); Neutrophils % (A) 76 %; Platelet Count 161 k/uL (150-450); RBC 3.81 m/uL (4.30-5.90); RDW 15.7 % (11.5-15.5); WBC 10.4 k/uL (3.8-10.6)
[2023-02-16 23:55] LABS: ALT 15 U/L (4-49); AST 26 U/L (17-59); African American GFR (CKD) 85 (>60 ml/min/1.73 sqM); Albumin 2.7 g/dL (3.5-5.0); Alkaline Phosphatase 81 U/L (38-126); Bilirubin, Delta 0.4 mg/dL (0.0-0.2); Bilirubin,Unconjugated 0.1 mg/dL (0.0-1.1); Blood Urea Nitrogen 18 mg/dL (9-20); Calcium 8.2 mg/dL (8.4-10.2); Chloride 89 mmol/L (98-107); Glucose 152 mg/dL (74-99); Magnesium 1.9 mg/dL (1.6-2.3); Non-African American GFR(CKD) 73 (>60 ml/min/1.73 sqM); Phosphorus 5.1 mg/dL (2.5-4.5); Sodium 136 mmol/L (137-145); Total Bilirubin 0.5 mg/dL (0.2-1.3); Total Protein 5.9 g/dL (6.3-8.2)
[2023-02-17 00:01] LABS: Anion Gap 8 mmol/L; Carbon Dioxide 39 mmol/L (22-30)
[2023-02-17] MEDS ORDERED: MAGNESIUM SULFATE-D5W PMX 1 GM in DEXTROSE/WATER 1 100ML.BAG IVPB ONE (00:12)
[2023-02-17 00:15] LABS: Partial Thromboplastin Time 27.5 sec (22.0-30.0); Prothrombin Time 10.5 sec (10.0-12.5)
[2023-02-17] MEDS: INSULIN ASPART (NovoLOG) 100 UNIT/ML VIAL SQ SCH ×2 (00:17→06:12)
[2023-02-17] MEDS: NOREPINEPHRINE 8 MG in SODIUM CHLORIDE 0.9% 250 ML IV SCH (00:20)
[2023-02-17 00:52] LABS: ABG Base Excess 20.1 mmol/L; ABG Oxygen Saturation 90.9 % (94-97); ABG PCO2 70 mmHg (35-45); ABG PH 7.41 (7.35-7.45); ABG PO2 61 mmHg (83-108); ABG TCO2 47 mmol/L (19-24); Allen Test Performed? Yes
[2023-02-17 00:53] LABS: ABG HCO3 45 mmol/L (21-25)
[2023-02-17 02:55] LABS: Appearance,Urine Clear (Clear); Bilirubin,Urine Negative (Negative); Blood,Urine Negative (Negative); Color,Urine Colorless; Glucose,Urine (UA) Negative (Negative); Ketones,Urine Negative (Negative); Leukocyte Esterase,Urine Negative (Negative); Nitrite,Urine Negative (Negative); Protein,Urine Negative (Negative); Specific Gravity,Urine 1.011 (1.001-1.035); Urobilinogen,Urine <2.0 mg/dL (<2.0)
[2023-02-17] MEDS: IPRATROPIUM-ALBUTEROL 3 ML NEB INHALATION SCH ×2 (03:28→08:03)
--- NOTE | 2023-02-17 05:09 | XR ---
EXAM: XR Chest, 1 View CLINICAL HISTORY: ITS.REASON XR Reason: ET placement TECHNIQUE: Frontal view of the chest. COMPARISON: No relevant prior studies available. IMPRESSION: 1. Endotracheal tube terminates 3.7 cm above the peter. 2. Gastric drainage tube courses below the diaphragm with tip not visualized. 3. Cardiomegaly. 4. Prominent retrocardiac airspace disease with multifocal airspace opacities in the lungs. Mild spurring of the periphery of the right lung. Consider cross-sectional imaging for further characterization.
[2023-02-17 06:01] LABS: ABG Base Excess 20.7 mmol/L; ABG Oxygen Saturation 96.3 % (94-97); ABG PCO2 68 mmHg (35-45); ABG PH 7.43 (7.35-7.45); ABG PO2 82 mmHg (83-108); ABG TCO2 47 mmol/L (19-24); Allen Test Performed? Yes
[2023-02-17 06:03] LABS: ABG HCO3 45 mmol/L (21-25)
[2023-02-17 06:12] LABS: Glucose,Whole Blood 125 mg/dL (70-110)
[2023-02-17] MEDS: ANIDULAFUNGIN 100 MG in SODIUM CHLORIDE 0.9% 100 ML IVPB SCH (07:49)
[2023-02-17] MEDS: AMIODARONE 200 MG TAB PO SCH (07:49)
[2023-02-17] MEDS: PIPERACILLIN-TAZOBACTAM 3.375 GM in SODIUM CHLORIDE 0.9% 100 ML IVPB SCH (07:49)
[2023-02-17] MEDS: CHLORHEXIDINE GLUCONATE 15 ML CUP MUCOUS MEM SCH (07:51)
[2023-02-17] MEDS: FUROSEMIDE 10 MG/ML 4 ML VIAL IV SCH (07:51)
[2023-02-17] MEDS: ASPIRIN 81 MG PO SCH (07:51)
[2023-02-17] MEDS: METOPROLOL TARTRATE 25 MG TAB PO SCH (07:52)
[2023-02-17] MEDS: levETIRAcetam IV 2,000 MG in SODIUM CHLORIDE 0.9% 250 ML IVPB SCH (07:52)
[2023-02-17] MEDS: VALPROATE SODIUM 1,000 MG in SODIUM CHLORIDE 0.9% 50 ML IVPB SCH (07:52)
[2023-02-17] MEDS: PANTOPRAZOLE 40 MG/10 ML VIAL IVP SCH (07:52)
[2023-02-17] MEDS ORDERED: MORPHINE SULFATE 4 MG/ML SYRINGE IV PRN (08:09)
--- NOTE | 2023-02-17 08:11 | P.PN ---
Subjective Progress Note Date: 02/17/23 This is a 53-year-old morbidly obese -[place] male patient presented to us and cardiac arrest. The patient has multiple medical problems and comorbidities. He was supposed to be in rehabilitation and he left AGAINST MEDICAL ADVICE. He is known to have multiple wounds to his lower extremities. He is known to have obstructive sleep apnea/obesity hypoventilation syndrome and history of coronary artery malformation. He has chronic lower extremity edema and wounds that are open and weepy and infected. Family and the heard him call out this afternoon, the patient was found on the floor on all 4 extremities. Apparently, it was thought that the patient was trying to transfer himself to his motorized scooter and he dropped. Due to his morbid obesity, family contacted EMS and upon arrival, the patient was in cardiac arrest, he did not have a shockable rhythm and he was found to be in PEA. CPR was initiated. The patient was down for quite sometime and he was brought in to the emergency department where resuscitation was continued. Subsequently, there was return of spontaneous circulation the patient was found to be in atrial fibrillation with rapid ventricular response. He was started on amiodarone and currently amiodarone is running at 1 mg/m. He remains in A. fib with a controlled rhythm. No pressors at this point in time. He is having myoclonic jerks. He is intubated on mechanical ventilator. Is currently on assist control mode at a rate of 16, tidal volume of 450, FiO2 of 80% with a PEEP of 5. His blood. This showed a pH of 7.26 with a pCO2 of 76 and pO2 114 and this was on FiO2 of 100%. Chest x-ray showed cardiomegaly and ET tube was repositioned.. The patient's had an initial lactic acid level of 3.3 which subsequently dropped down to 80%. His white cell count 11.6, hemoglobin 9.6 and a padded count is 129. Normal coagulation profile. BUN is at 80 with a creatinine of 1.04 and a sodium level is at 131. He received a total of 2 L of IV fluid in the emergency department. The patient had an initial troponin level of 0.029 and subsequent troponin was at 0.164. ProBNP level was 15,000. He is currently on propofol running at 20 mcg/kg/m. IV fluids at 20 mL an hour. Amiodarone drip at 1 mg/m. He does have an infected large wound over the posterior aspect of the right calf with draining purulent material. He has also a similar wound in the left calf. His second toes are also sedated and there is purulent drainage from the ulcer and he has an ulceration of the second toe bilaterally. He does have also and also on that his scrotum. His other comorbid conditions include diabetes mellitus, artery and creatinine malformation and the patient has difficulty with mobility and gait, and he has also chronic hypoxic and hypercapnic respiratory failure maintain on oxygen at 2 L/m nasal cannula on an outpatient basis. Computed tomography scan of the brain was done in emergency department and it showed no acute intracranial abnormalities. There is posterior occipital craniotomy changes and evidence of cerebellar encephalomala connie. No evidence of any cervical spine fracture. Today's evaluation of 02/13/2023, I'm seeing the patient for a follow-up. Patient is post cardiac arrest with a prolonged down time. Suspect anoxic encephalopathy. At the time of arrival, the patient was also septic with draining infected wounds of the lower extremities as the patient is known to have chronic nonhealing wounds in his legs. His body mass index is 54.2 and the patient is morbidly obese. This morning, he is on a combination of propofol and Versed. Propofol was At a dose of 30 microvascular kilogram per minute and the patient was on Versed at 50 mg an hour. Addition of Versed was done upon the request of neurology as the patient was having some episodic myoclonic jerks which is essentially settled with use of Versed and Keppra. The patient is the process of obtaining EEG and based on that, the Versed was placed on hold. He remains on a mechanical ventilator. Is on assist-control mode at the rate of 16, tidal volume of 450, FiO2 of 50% with a PEEP of 5. The peak airway pressure is at 32. The blood gas from this morning shows a pH of 7.44 with episodes of 58 and pO2 of 97 and this was on FiO2 of 60%. The patient's had a follow-up chest x-ray this morning. The patient has a left IJ triple-lumen catheter in place. He has significant cardiomegaly and evidence of interstitial edema consistent with CHF. EKG was around 2 cm above the peter. No significant consolidation. The patient remains in atrial fibrillation with a controlled rate. He is on amiodarone which was changed to 0.5 mg/m. He is maintained on IV heparin. No signs of any bleeding at this point in time. No pressors for now. In terms of his wounds, Acquacell Silver was applied and the wounds are currently wrapped. At the same time, with cultures were obtained and the results are still pending. The patient was covered with a combination of daptomycin, Eraxis and Zosyn as broad-spectrum antibiotic coverage. He is currently afebrile. The white cell cause of 9.5 with a hemoglobin of 9.2 and a platelet count of 125. BUN is at 19 with a creatinine of 0.8 and a sodium level is at 128. He is on IV Lasix 40 mg every 24 hours. The fluid balance over the past 24 hours is -1 L the patient is producing adequate amount of urine output. Neurology is on the case. [employer] Stenographer on the case. Wound services were consulted. On today's evaluation of 02/14/2023, seeing the patient for a follow-up. The patient is post cardiac arrest with anoxic encephalopathy. EEG was done yesterday and the patient had abnormal EEG with background slowing suggestive of severe encephalopathy. There is also burst suppression which is likely s econdary to anoxic encephalopathy. The patient is unresponsive. The patient remains on propofol running at 40 microvascular kilogram per minute and he is also on Versed drip at 12 mg an hour. No jerky body movements on today's evaluation. No myoclonic jerks. Neurology is on the case and we are awaiting further recommendations in terms of evaluating his anoxic encephalopathy and prognosis. The patient was also started on Keppra 1.5 g every 12 hours which is being continued for the time being. In terms of his rest or status, the patient remains on assist-control mode at the rate of 16, tidal volume of 450, FiO2 of 50% with a PEEP of 5. PH is at 7.41 with a pCO2 of 62 and pO2 of 88. The chest x-ray from today shows cardiomegaly and pulmonary vascular congestion/edema with some possible effusion/early consolidation of the right lower lobe. The patient does not have any significant orotracheal secretions at this point in time. His cardiac rhythm is still in nature fibrillation. The patient had a bout of A. fib RVR yesterday and he had to be cardioverted. His rate is under better control and the patient continues to be on amiodarone which is running at 0.5 mg/m. The patient remains on IV heparin. He is currently also on norepinephrine running at 0.05 mcg/kg/m. IV fluids are running at 20 mL an hour. Overall fluid balance over the past 24 hours has been 1 L positive. The patient otherwise is afebrile. His covered with broad-spectrum antibiotics. Cultures are still pending. The white cell cause of 9.2 with a hemoglobin of 10.6 and a platelet count of 184. BUN is 18 with a creatinine of 1 and his sodium level is at 134. He is started on enteral feeding for nutritional support and currently is on vital high-protein at the rate of 46 mL an hour. He still on IV Lasix 40 mg every 12 hours with adequate urine output. On 02/15/2023, the patient remains heavily sedated with a combination of propofol and Versed. Patient is on propofol running at 50 mcg/kg/m and is also on Versed drip at 15 mg an hour. No neurologic response. Nobody jerks. No eye twitching. No respiratory efforts and the patient is running a mechanical ventilator. He was taken off the Versed yesterday and his eye twitches came back and there was concern of episodic seizures and for that reason he was placed back on the Versed drip. The same is to be done today and his neurologic functions is to be reevaluated. In terms of his respiratory status, the patient remains on assist-control mode of mechanical ventilation at the rate of 16, tidal volume of 450, FiO2 of 50% with a PEEP of 5. Blood gases from this morning showing a pH of 7.4 with a pCO2 of 67 and a pO2 of 70. The patient had a follow-up chest x-ray that showed cardiomegaly and improvement in the pulmonary vessel congestion. The patient is producing adequate amount of urine output. Overall fluid balance is +1 L over the past 24 hours. The patient remains on Lasix 40 mg IV every 12 hours. He remains on broad-spectrum antibiotics regarding his lower extremity wounds and the wounds are still adequately dressed and wrapped. The patient's white cell cause of 9.3 with a hemoglobin of 10 and the wound cultures are still pending. The blood cultures are negative for the time being. He is in nature fibrillation. His receiving broad-spectrum antibiotics including a combination of Eraxis, daptomycin and Zosyn. He remains on metoprolol for rate control regarding his A. fib. On 02/16/2023, the patient remains on a mechanical ventilator post cardiac arrest and anoxic encephalopathy. Rule out able to cut down the sedation yesterday and the patient was taken off the propofol and Versed. A repeat CAT scan of the brain was done that showed no acute abnormalities. Subsequently, he began to have myoclonic jerks and EEG showed myoclonic status. Based on that, he was placed back on propofol which is currently running at 40 mcg/kg/m and is also on Versed and 50 mg an hour. He remains on Keppra. Valproic acid was also added. On a mechanical ventilator, assist control mode at the rate of 16, tidal volume of 450, FiO2 of 50% with a PEEP of 5. PH is at 7.45 with a pCO2 of 62 and pO2 of 88. The chest x-ray from today was reviewed and shows cardiomegaly. Orotracheal tube is at the level of the aortic 9. There is increased interstitial markings bilaterally along with significant cardiomegaly. Remains on IV Lasix 40 mg every 12 hours. Overall fluid balance is +1.4 L over the past 24 hours. His blood work is still pending from today. The renal function from yesterday was essentially stable. Awaiting CBC and electrolytes from today. Continues to be on broad-spectrum antibiotics. Cultures from the wounds showed polymicrobial growth and normal skin kajal. Anaerobic cultures are also negative. The wounds are currently wrapped. His antibiotic coverage remains a combination of Zosyn and daptomycin and Eraxis. His current cardiac rhythm is A. fib and the patient remains on low-dose metoprolol 25 mg twice a day and amiodarone 400 mg by mouth twice a day. He is on on norepinephrine running at 0.04 mcg/kg/m. He was also started on enteral feeding for nutritional support. No issues with abdominal distention. Unfortunately, this is a case of severe anoxic encephalopathy. Patient had a prolonged downtime. No cognitive functions. Ongoing seizure activity based on the most recent EEG. His cor status is DO NOT RESUSCITATE. If Life was involved and the patient is being worked up for organ procurement. He was started back on IV heparin and this was subsequently discontinued because of some bloody respiratory secretions. IV fluids are currently at KVO. 02/17/2023, the patient remains anoxic post cardiac arrest intubated on a mechanical ventilator. The family is aware of his condition. They should interested in organ donation. Gift of life was involved patient is being extubated today with possible organ harvesting pending and is also post extubation. This will be done 9:00 this morning. This was done in recovery room surgical team will be on standby. Meanwhile, the patient this morning is on propofol which is running at 40 mcg/kg/m. He is also on Versed and 50 mg an hour. No visible seizures. No eye twitching. No myoclonic jerks. Remains in tubated on a mechanical ventilator. He is essentially reviving the respirator for now that eighth of, tidal volume of 450, FiO2 is at 100% with a PEEP of 12. Chest x-ray shows evidence of pulmonary edema with significant cardiomegaly. Orotracheal tube is in a good location. Blood gases from today shows a pH of 7.43 with episodes of 58 and pO2 of 82 and this was done and FiO2 of 100% with a PEEP of 12. Hemodynamically, he is on norepinephrine running at 0.08 microvascular kilogram per minute. Urine output is in order of 100 mL's an hour. In terms of his labs from today, the patient has had no labs yet and those results are still pending. Enteral feeding has been turned off and the patient is nothing by mouth. Cardiac rhythm is atrial fibrillation. The patient will be loaded again with IV heparin and this was also recommended by the eighth of life 16. Remains on Keppra. He remains on valproic acid. Antibiotics will be held today as the patient has had intolerance end-of-life care. Objective - Vital Signs Vital signs: Vital Signs Temp 99.7 F H 02/17/23 04:00 Pulse 91 02/17/23 07:00 Resp 16 02/17/23 07:00 BP 100/72 02/15/23 02:15 Pulse Ox 96 02/17/23 07:00 FiO2 100 02/17/23 07:59 Intake & Output 02/16/23 02/17/23 02/17/23 18:59 06:59 18:59 Intake Total 2446.871 1970.337 23 Output Total 2456 2885 150 Balance -9.129 -914.663 -127 Weight 184.64 kg Intake: IV 926 801 23 0.9% @ KVO 240 240 20 DAPTOmycin 700 mg In 100 Sodium Chloride 0.9% 50 ml @ 100 mls/hr IVPB Q24H [facility] Rx#:[id number] Magnesium Sulfate-D5w Pmx 100 1 gm In Dextrose/Water 1 100ml.bag @ 100 mls/hr IVPB ONCE ONE Rx#: [id number] Piperacillin-Tazobactam 3 200 125 .375 gm In Sodium Chloride 0.9% 100 ml @ 25 mls/hr IVPB Q8HR [facility] Rx# :[id number] Pressure Bag 36 36 3 Valproate Sodium 1,000 mg 150 In Sodium Chloride 0.9% 50 ml @ 50 mls/hr IVPB Q12HR [facility] Rx#:[id number] levETIRAcetam IV 2,000 mg 250 250 In Sodium Chloride 0.9% 250 ml @ 1000 mls/hr IVPB Q12HR [facility] Rx#:[id number] Intake, IV Titration 878.871 763.337 Amount Anidulafungin 100 mg In 100 Sodium Chloride 0.9% 100 ml @ 84 mls/hr IVPB DAILY [facility] Rx#:[id number] Midazolam HCl 200 mg In 90.625 95.625 Sodium Chloride 0.9% 60 ml @ 15 MG/HR 7.5 mls/hr IV .[id number] [facility] Rx#: [id number] Norepinephrine 8 mg In 225.524 146.051 Sodium Chloride 0.9% 250 ml @ 0.03 MCG/KG/MIN 10. 532 mls/hr IV .Q24H [facility] Rx#:[id number] propofoL 1,000 mg In 462.722 521.661 Empty Bag 1 bag @ 15 MCG/ KG/MIN 16.329 mls/hr IV . Q6H8M [facility] Rx#:[id number] Tube Feeding 552 276 0 Other 90 130 Output: Urine 2456 2885 150 Other: Voiding Method Indwelling Catheter Indwelling Catheter ABP, PAP, CO, CI - Last Documented Arterial Blood Pressure 119/55 - Exam Morbidly obese with a body mass index of 54.2, intubated on a mechanical ventilator. No myoclonic jerks on today's evaluation. Maintain on combination of propofol and Versed Head exam was generally normal. There was no scleral icterus or corneal arcus. Mucous membranes were moist. Neck is extremely short and there is positive JVD's. The triple-lumen catheter was inserted in the left IJ. No neck stiffness. Lungs sounds are diminished bilaterally and there is diminished breath on the lung bases. No significant WHEEZES. Heart sounds are irregular, consistent with atrial fibrillation fibrillation. No significant murmur appreciated. No RV heave or and afebrile. Abdomen is morbidly obese and CANNOT be accurately palpated. No direct tenderness, no rebound tenderness or guarding. Extremities are chronically edematous and there is infected deep wounds, nonhealing in the calves bilaterally with purulent material oozing specially from the ulcer that's behind his right lower extremity. He also has oscillated/infected toes specifically the second toe in the right foot and the left foot bilaterally. Pulses are diminished. No cyanosis or clubbing. Neurologically, the patient has equal and symmetrical pupils. Pupils pinpoint bilaterally , no eye twitching =. He has no response to any deep painful stimulation.. No facial asymmetry. Positive cough and a gag. Motor function cannot be assessed. Sensory functions cannot be assessed. Reflexes are flat bilaterally and no Babinski. No clonus. Neurologic examination is essentially unchanged on today's evaluation the patient is still riding the mechanical ventilator at the same rate. - Labs CBC & Chem 7: 02/16/23 23:35 02/16/23 23:35 Labs: Abnormal Lab Results - Last 24 Hours (Table) 02/16/23 02/16/23 02/16/23 Range/Units 08:09 08:20 08:20 WBC (3.8-10.6) k/uL RBC 3.78 L (4.30-5.90) m/uL Hgb 9.4 L (13.0-17.5) gm/dL Hct 32.2 L (39.0-53.0) % MCH 24.9 L (25.0-35.0) pg MCHC 29.2 L (31.0-37.0) g/dL RDW 15.6 H (11.5-15.5) % Plt Count 143 L (150-450) k/uL Neutrophils # 8.2 H (1.3-7.7) k/uL ABG pCO2 62 H (35-45) mmHg ABG pO2 (83-108) mmHg ABG HCO3 43 H* (21-25) mmol/L ABG Total CO2 (19-24) mmol/L ABG O2 Saturation 97.8 H (94-97) % Sodium 136 L (137-145) mmol/L Chloride 89 L (98-107) mmol/L Carbon Dioxide 38 H (22-30) mmol/L Glucose 139 H (74-99) mg/dL POC Glucose (mg/dL) (70-110) mg/dL Calcium 8.2 L (8.4-10.2) mg/dL Phosphorus 5.2 H (2.5-4.5) mg/dL Delta Bilirubin 0.4 H (0.0-0.2) mg/dL Total Protein 5.7 L (6.3-8.2) g/dL Albumin 2.7 L (3.5-5.0) g/dL 02/16/23 02/16/23 02/16/23 Range/Units 11:38 16:16 16:16 WBC 11.2 H (3.8-10.6) k/uL RBC 3.91 L (4.30-5.90) m/uL Hgb 9.7 L (13.0-17.5) gm/dL Hct 33.5 L (39.0-53.0) % MCH 24.8 L (25.0-35.0) pg MCHC 28.9 L (31.0-37.0) g/dL RDW (11.5-15.5) % Plt Count (150-450) k/uL Neutrophils # 8.8 H (1.3-7.7) k/uL ABG pCO2 (35-45) mmHg ABG pO2 (83-108) mmHg ABG HCO3 (21-25) mmol/L ABG Total CO2 (19-24) mmol/L ABG O2 Saturation (94-97) % Sodium (137-145) mmol/L Chloride 88 L (98-107) mmol/L Carbon Dioxide 39 H (22-30) mmol/L Glucose 154 H (74-99) mg/dL POC Glucose (mg/dL) 147 H (70-110) mg/dL Calcium 8.2 L (8.4-10.2) mg/dL Phosphorus 5.3 H (2.5-4.5) mg/dL Delta Bilirubin 0.5 H (0.0-0.2) mg/dL Total Protein 6.0 L (6.3-8.2) g/dL Albumin 2.8 L (3.5-5.0) g/dL 02/16/23 02/16/23 02/16/23 Range/Units 18:03 23:33 23:35 WBC (3.8-10.6) k/uL RBC (4.30-5.90) m/uL Hgb (13.0-17.5) gm/dL Hct (39.0-53.0) % MCH (25.0-35.0) pg MCHC (31.0-37.0) g/dL RDW (11.5-15.5) % Plt Count (150-450) k/uL Neutrophils # (1.3-7.7) k/uL ABG pCO2 70 H (35-45) mmHg ABG pO2 49 L* (83-108) mmHg ABG HCO3 45 H* (21-25) mmol/L ABG Total CO2 47 H (19-24) mmol/L ABG O2 Saturation 83.2 L (94-97) % Sodium 136 L (137-145) mmol/L Chloride 89 L (98-107) mmol/L Carbon Dioxide 39 H (22-30) mmol/L Glucose 152 H (74-99) mg/dL POC Glucose (mg/dL) 146 H (70-110) mg/dL Calcium 8.2 L (8.4-10.2) mg/dL Phosphorus 5.1 H (2.5-4.5) mg/dL Delta Bilirubin 0.4 H (0.0-0.2) mg/dL Total Protein 5.9 L (6.3-8.2) g/dL Albumin 2.7 L (3.5-5.0) g/dL 02/16/23 02/16/23 02/17/23 Range/Units 23:35 23:35 00:49 WBC (3.8-10.6) k/uL RBC 3.81 L (4.30-5.90) m/uL Hgb 9.3 L (13.0-17.5) gm/dL Hct 32.4 L (39.0-53.0) % MCH 24.3 L (25.0-35.0) pg MCHC 28.6 L (31.0-37.0) g/dL RDW 15.7 H (11.5-15.5) % Plt Count (150-450) k/uL Neutrophils # 7.9 H (1.3-7.7) k/uL ABG pCO2 70 H (35-45) mmHg ABG pO2 61 L (83-108) mmHg ABG HCO3 45 H* (21-25) mmol/L ABG Total CO2 47 H (19-24) mmol/L ABG O2 Saturation 90.9 L (94-97) % Sodium (137-145) mmol/L Chloride (98-107) mmol/L Carbon Dioxide (22-30) mmol/L Glucose (74-99) mg/dL POC Glucose (mg/dL) 160 H (70-110) mg/dL Calcium (8.4-10.2) mg/dL Phosphorus (2.5-4.5) mg/dL Delta Bilirubin (0.0-0.2) mg/dL Total Protein (6.3-8.2) g/dL Albumin (3.5-5.0) g/dL 02/17/23 02/17/23 Range/Units 05:58 06:11 WBC (3.8-10.6) k/uL RBC (4.30-5.90) m/uL Hgb (13.0-17.5) gm/dL Hct (39.0-53.0) % MCH (25.0-35.0) pg MCHC (31.0-37.0) g/dL RDW (11.5-15.5) % Plt Count (150-450) k/uL Neutrophils # (1.3-7.7) k/uL ABG pCO2 68 H (35-45) mmHg ABG pO2 82 L (83-108) mmHg ABG HCO3 45 H* (21-25) mmol/L ABG Total CO2 47 H (19-24) mmol/L ABG O2 Saturation (94-97) % Sodium (137-145) mmol/L Chloride (98-107) mmol/L Carbon Dioxide (22-30) mmol/L Glucose (74-99) mg/dL POC Glucose (mg/dL) 125 H (70-110) mg/dL Calcium (8.4-10.2) mg/dL Phosphorus (2.5-4.5) mg/dL Delta Bilirubin (0.0-0.2) mg/dL Total Protein (6.3-8.2) g/dL Albumin (3.5-5.0) g/dL Microbiology - Last 24 Hours (Table) 02/12/23 17:45 Anaerobic Culture - Final Leg - Right 02/12/23 17:46 Anaerobic Culture - Final Leg - Right Assessment and Plan Plan: Cardiac arrest, probably initiated by an initial respiratory arrest with subsequent cardiac arrest and the patient was found to be in a PEA rhythm. Currently he is hemodynamically stable. In atrial fibrillation. The patient return of spontaneous her condition following resuscitation. Despite his lower lactic acid level, the patient seems to have had a prolonged down time. Anoxic encephalopathy is suspected. No signs of neurologic recovery and the patient has severe anoxic encephalopathy. Hypotension, likely septic in nature and the patient is on low-dose norepinephrine at 0. 8. The patient remains on broad-spectrum antibiotics. Acute hypoxic /hypercapnic respiratory failure, currently intubated on mechanical ventilator post cardiac arrest, chest x-ray is consistent with CHF and pulmonary edema, the patient remains on IV Lasix adequate oxygenation and ventilation based on the most recent blood gas, urine output is in order of 100 mL an hour. Awaiting labs from today. Anoxic encephalopathy, clinically suspected as the patient is having some episodic myotonic jerk. CAT scan of the brain was negative , the pupils are pinpoint and is deeply comatose, nonresponsive to any painful stimulation or verbal stimulation. The patient remains on a combination of Versed and propofol and Keppra. EEG was done yesterday showed diffuse slowing and burst suppression consistent with anoxic encephalopathy. Patient was evaluated by another EEG while off sedation and the patient had myoclonic status and currently he is on a combination of Versed, propofol, Keppra and valproic acid. No reasonable recovery mental status. Neurology is on the case. Signs of severe anoxic encephalopathy. Patient has had intolerance and the left., Give the left is involved, possible organ harvesting today. Atrial fibrillation fibrillation with rapid ventricular response currently , rate is controlled and the patient remains on amiodarone and metoprolol Chronic Bilateral lower extremity once/pressure ulcers with superinfection, and the patient has open wounds in the lower extremities bilaterally involving the calf, ulcerated second toe on the right than the left and scrotal wounds. The patient is covered with broad-spectrum antibiotics. The patient has Aquacel silver applied to his wounds Chronic hypoxic respiratory failure currently on 2 L of oxygen by nasal cannula Chronic hypercapnic respiratory failure Chronic restrictive lung disease due to morbid obesity with a body mass 54.2 with obvious features of obesity hypoventilation syndrome Obstructive sleep apnea maintained on CPAP therapy on outpatient basis, compliancy is questionable Mild lactic acidosis Chronic metabolic alkalosis secondary to chronic hypercapnic respiratory failure Morbid obesity with a BMI estimated to be at 54.2 Hypertension Diabetes mellitus Arnold-Chiari malformation with difficulty with mobility and gait Chronic anemia/anemia of chronic disease Troponin leak secondary to cardiac arrest Plan Keep the patient intubated on a mechanical ventilator for now The propofol will be discontinued I would suggest activating the patient on Versed Continue valproic acid and Keppra Continue low-dose norepinephrine Continue oral amiodarone and metoprolol Altered antibiotics IV Protonix IV heparin and the patient will be given a heparin bolus of 45,000 units and intubation for organ harvesting Labs from today are still pending The plan for today stating the patient to recovery for extubation and comfort care measures. Will be considered for organ harvesting gift of life as the patient is qualified. The case was discussed with the family Critical care evaluation done in more than 40 minutes. Time with Patient: Greater than 30
[2023-02-17] MEDS ORDERED: MORPHINE SULFATE (100 MG/2 ML) 100 MG in SODIUM CHLORIDE 0.9% 100 ML IV SCH (08:30)
[2023-02-17] MEDS ORDERED: HEPARIN 10,000 UNIT/ML (4ML MDV) IV ONE (09:10)
[2023-02-17] MEDS: MIDAZOLAM HCL 200 MG in SODIUM CHLORIDE 0.9% 60 ML IV SCH (09:13)
[2023-02-17 09:49] VITALS: TEMP 99.9
[2023-02-17 10:35] VITALS: BP 0/0; PULSE 0; RESP 0
--- NOTE | 2023-02-17 22:27 | P.DS ---
Providers Date of admission: 02/12/23 13:19 Attending physician: Ramses Silver MD Consults: 02/12/23 11:55 Consult Physician Stat Consulting Provider: Warner Tipton Consult Reason/Comments: ICU hold Do you want consulting provider notified?: Yes 02/12/23 13:13 Consult Physician Urgent Consulting Provider: [facility] Consult Reason/Comments: cardiac arrest Do you want consulting provider notified?: Yes 02/12/23 23:18 Consult Physician Urgent Consulting Provider: Kadie Abrams Consult Reason/Comments: myoclonic jerks, suspected anoxic brain injury Do you want consulting provider notified?: Yes 02/13/23 10:06 Consult Physician Routine Consulting Provider: Richard Pérez Consult Reason/Comments: infected leg wounds Do you want consulting provider notified?: Yes Primary care physician: Eren Godoy MD Hospital Course: Diagnoses: Status post cardiac arrest with a down time about 10-15 minutes possible anoxic brain injury Acute hypoxic hypercapnic respiratory failure requiring intubation and mechanical ventilation Respiratory acidosis, acute Obesity hypoventilation syndrome, obstructive sleep apnea Chronic hypoxic respiratory failure Paroxysmal atrial fibrillation multiple skin ulceration of the toes and lower extremities suspicious for cellulitis Morbid obesity Hospital course: This is a pleasant 53 years old male with multiple medical problems Patient presents with cardiac arrest at home, currently he is intubated in the emergency room and information were obtained from the and family at bedside. As per patient has in the hospital in September earlier this year when he was diagnosed for first time with atrial fibrillation and he went to rehab and he was sitting in rehab with plan to return him into long-term indwelling however he left AMA recently underwent back home from [facility], At home he was still very weak and he needed help with moving. His PCP Dr. Jensen as retired so patient went to see Dr. Jimenez about last . And he was supposed to follow-up with the wound center today This morning he got up from his bed going to the restroom I strongly believe when he fell on his knees, family are heard him and they found him unresponsive, his oxygen tube was disconnected and they put him back and they called 911. Chest was admitted to the intensive care unit and placed on mechanical ventilation included intensive care team, contract associate manager, neurologist and infectious disease team. He was placed on multiple seizure medication of Keppra and valproate, multiple antibiotics of daptomycin, Zosyn and Eraxis, he was treated with heparin drip and IV Lasix as well as a pressors and aspirin as well as mucosal in the drip. Extensive workup was done however patient did not improve and continued to worsen. Despite multiple treatments and multiple consultants on the case Eventually family decided to proceed with comfort care measures and he was extubated today. And gift of life is addressed. Eventually patient as per nursing notes Physical exam -Gen: patient is a intubated and on mechanical ventilation. CVS: S1-S2, RRR, no murmur Lungs: B/L CTA, no wheezing Abdomen: soft, no distention, no tenderness, positive bowel sounds Extremity: no leg edema or induration Time spent more than 35 minutes Patient Condition at Discharge: Critical Plan - Discharge Summary Discharge Rx Participant: Yes New Discharge Prescriptions: No Action Furosemide [Lasix] 40 mg PO DAILY Omeprazole [PriLOSEC] 20 mg PO DAILY Metoprolol Tartrate [Lopressor] 50 mg PO BID tab Ibuprofen [Motrin] 800 mg PO TID PRN PRN Reason: Pain Or Fever > 100.5 Albuterol Inhaler [Ventolin Hfa Inhaler] 2 puff INHALATION RT-Q6H PRN PRN Reason: Shortness Of Breath Gabapentin [Neurontin] 100 mg PO BID #6 cap HYDROcodone/APAP 10-325MG [Tyronza 10-325] 1 tab PO Q6H #12 tab Collagenase [Santyl Ointment] 1 applic TOPICAL TUTHSA PRN PRN Reason: WOUND CARE ALPRAZolam [Xanax] 0.5 mg PO HS Potassium Gluconate 99 mg PO DAILY PRN PRN Reason: LOW POTASSIUM Discharge Medication List Metoprolol Tartrate [Lopressor] 50 mg PO BID tab 04/23/22 [Rx] Ibuprofen [Motrin] 800 mg PO TID PRN 06/26/22 [History] Albuterol Inhaler [Ventolin Hfa Inhaler] 2 puff INHALATION RT-Q6H PRN 10/14/22 [History] Gabapentin [Neurontin] 100 mg PO BID #6 cap 10/17/22 [Rx] HYDROcodone/APAP 10-325MG [Tyronza 10-325] 1 tab PO Q6H #12 tab 10/17/22 [Rx] ALPRAZolam [Xanax] 0.5 mg PO HS 02/12/23 [History] Collagenase [Santyl Ointment] 1 applic TOPICAL TUTHSA PRN 02/12/23 [History] Furosemide [Lasix] 40 mg PO DAILY 02/12/23 [History] Omeprazole [PriLOSEC] 20 mg PO DAILY 02/12/23 [History] Potassium Gluconate 99 mg PO DAILY PRN 02/12/23 [History] Follow up Appointment(s)/Referral(s): Eren Godoy MD [Primary Care Provider] - 1-2 days Discharge Disposition: - Preliminary Cause of Preliminary Cause of : cardiac arrest , NSTEMI
--- NOTE | 2023-02-20 20:15 | CDI ---
Documentation Clarification Form Date: From: Yady Oakes Phone: Admit Date: 02/12/2023 01:19:00 PM Patient Name: Escobar Oswald Visit Number: [id number] Discharge Date: 02/17/2023 09:40:00 AM ATTENTION: The Clinical Documentation Specialists (CDI) and [facility] Coding Staff appreciate your assistance in clarifying documentation. Please respond to the clarification below the line at the bottom and electronically sign. The CDI & [facility] Coding staff will review the response and follow-up if needed. Please note: Queries are made part of the Legal Health Record. If you have any questions, please contact the author of this message via ITS. Dr. Kurt Galindo NSTEMI is documented Progress Note 02/14. Additional clarification regarding the type of DC is requested. History/Risk Factors: 53yo M, ACH/HRF on O2, OHS, PAF, DMII w leg/foot ulcers, Asp PNA, troponinleaksecondary tocardiac arrest/hypoxia, sepsis, anoxic brain damage Clinical Indicators: Troponin: 02/12 0.029 0.164 EKG Results: EKG showedmyoclonicstatus epilepticusand patient was started on valproate plus he is on Keppra 2000 mg twice a day Treatment: It appears as if the echo has not been done. We will order it and leave him on heparin for now until decisions are made regarding the organ donation. Please clarify the type of DC, if known: [ ] NSTEMI (type 1) [ ] Present on Admission [ ] Not Present on Admission [ ] Type II DC due to (please specify etiology) [ ] Present on Admission [ ] Not Present on Admission [ ] Other Condition, please specify [ ] Present on Admission [ ] Not Present on Admission [ x] Unable to determine (Template Last Revised: April 2020) MTDD
--- NOTE | 2023-02-20 21:43 | CDI ---
Documentation Clarification Form Date: 02/20/2023 09:30:18 PM From: Yady Oakes Phone: Admit Date: 02/12/2023 01:19:00 PM Patient Name: Escobar Oswald Visit Number: [id number] Discharge Date: 02/17/2023 09:40:00 AM ATTENTION: The Clinical Documentation Specialists (CDI) and [facility] Coding Staff appreciate your assistance in clarifying documentation. Please respond to the clarification below the line at the bottom and electronically sign. The CDI & [facility] Coding staff will review the response and follow-up if needed. Please note: Queries are made part of the Legal Health Record. If you have any questions, please contact the author of this message via ITS. Dr. Kurt Galindo Your patient has the documented diagnosis of unspecified CHF Consult Note 02/12. Additional information regarding the acuity and type of CHF is requested. History/Risk Factors: 53yo M, ACH/HRF on O2, OHS,PAF,DMIIw leg/foot ulcers, AspPNA, troponinleakd/tcardiac arrest/hypoxia,sepsis,anoxic brain damage Clinical Indicators: VS/Pulse OX: 100 BNP: 02/12 77474 02/15 6700 Echocardiogram Results: Ordered but not completed Chest x ray: Continued moderatecardiomegalyandsuspectedpulmonary vascularcongestion. Treatment: remains on amechanical ventilator. Is on assist-control mode at the rate of 16, tidal volume of 450, FiO2 of 50% with aPEEPof 5.The peak airwaypressure is at 32.The blood gas from this morning shows a pH of 7.44 with episodes of 58 and pO2 of 97 and this was on FiO2 of 60%.The patient's had afollow-up chest x-raythis morning. The patient has a left IJ triple-lumen catheter in place. He has significant cardiomegaly and evidence of interstitial edema consistent with CHF.EKG was around 2 cm above the peter. No significant consolidation. In your professional opinion, can you please clarify the acuity and type of CHF if known? [ ] Acute Systolic Heart Failure (reduced EF) [ ] Chronic Systolic Heart Failure (reduced EF) [ ] Acute on Chronic Systolic Heart Failure (reduced EF) [ ] Acute Diastolic Heart Failure (preserved EF) [ ] Chronic Diastolic Heart Failure (preserved EF) [ ] Acute on Chronic Diastolic Heart Failure (preserved EF) [ ] Acute Systolic & Diastolic Heart Failure [ ] Chronic Systolic & Diastolic Heart Failure [ ] Acute on Chronic Heart Failure Systolic & Diastolic Heart Failure [ ] Other, please specify [ ] Unable to determine (Template Last Revised: March 2020) __I did not do this consult Please be careful in these queries so that you are not wasting our maximiliano time MTDD
--- NOTE | 2023-02-22 09:32 | CA ---
Transthoracic Echo Report Name: Escobar Oswald Age: 53 Gender: M : 1970 Exam Date: 02/12/2023 17:05 Exam Location: [place] [facility] Ht (in): 72 Wt (lb): 400 Ordering Physician: Krystal Rodriguez MD ([id number]) Attending/Referring Phys: Workers Compensation Consultant Elizabeth Jackman, BEATRIZ Procedure CPT: Indications: Cardiac Arrest Cardiac Hx: HTN, DM, MO, MORBITLY OBESE, CARDIAC ARREST Technical Quality: Fair Contrast 1: Total Dose (mL): Contrast 2: Total Dose (mL): MEASUREMENTS (Male / Female) Normal Values 2D ECHO LV Diastolic Diameter PLAX 4.5 cm 4.2 - 5.9 / 3.9 - 5.3 cm LV Systolic Diameter PLAX 3.8 cm IVS Diastolic Thickness 1.8 cm 0.6 - 1.0 / 0.6 - 0.9 cm LVPW Diastolic Thickness 1.7 cm 0.6 - 1.0 / 0.6 - 0.9 cm LV Relative Wall Thickness 0.8 RV Internal Dim ED PLAX 4.5 cm LA Systolic Diameter LX 4.1 cm 3.0 - 4.0 / 2.7 - 3.8 cm LV Diastolic Volume MOD BP 116.7 cm??? 67 - 155 / 56 - 104 cm??? LV Systolic Volume MOD BP 66.5 cm??? - 58 / 19 - 49 cm??? LV Ejection Fraction MOD BP 43.0 % >= 55 % LV Cardiac Index MOD BP 1760.1 cm???/min???m??? LV Diastolic Volume MOD 4C 120.1 cm??? LV Systolic Volume MOD 4C 67.4 cm??? LV Ejection Fraction MOD 4C 43.8 % LV Cardiac Index MOD 4C 1845.4 cm???/min???m??? LV Diastolic Length 4C 9.1 cm LV Systolic Length 4C 8.5 cm LV Diastolic Volume MOD 2C 105.7 cm??? LV Systolic Volume MOD 2C 64.1 cm??? LV Ejection Fraction MOD 2C 39.4 % LV Cardiac Index MOD 2C 1459.4 cm???/min???m??? LV Diastolic Length 2C 9.9 cm LV Systolic Length 2C 7.9 cm LA Volume 100.0 cm??? 18 - 58 / 22 - 52 cm??? LA Volume Index 31.9 cm???/m??? 16 - 28 cm???/m??? M-MODE Aortic Root Diameter MM 3.1 cm MV E Point Septal Separation 1.1 cm AV Cusp Separation MM 2.3 cm DOPPLER AV Peak Velocity 158.6 cm/s AV Peak Gradient 10.1 mmHg MV Area PHT 5.1 cm??? MV Deceleration Time 241.2 ms TR Peak Velocity 337.2 cm/s TR Peak Gradient 45.5 mmHg Right Ventricular Systolic Press 59.5 mmHg FINDINGS Left Ventricle Left ventricular ejection fraction is estimated at 45 %. Moderate increased septal wall thickness. Mildly increased left ventricular systolic volume. Moderately decreased left ventricular ejection fraction. Right Ventricle Severe right ventricular dilatation. Severe pulmonary hypertension. Right ventricular systolic pressure estimated at 60 mm hg. Right Atrium Severe right atrial dilatation. Left Atrium Mildly increased left atrial diameter. Mildly increased left atrial volume. Mildly increased left atrial area. Mitral Valve Structurally normal mitral valve. Mild mitral regurgitation. Aortic Valve Trileaflet aortic valve. No aortic valve stenosis or regurgitation. Tricuspid Valve Structurally normal tricuspid valve. Mild tricuspid regurgitation. Pulmonic Valve Pulmonic valve not well visualized. Pericardium No pericardial effusion. Aorta Normal size aortic root and proximal ascending aorta. CONCLUSIONS Normal LV size mild global decrease in contractility moderate to severe pulmonary hypertension significant right atrial enlargement. Mild mitral and moderate tricuspid regurgitation. No pericardial effusion Previewed by: Dr. Aydee Ng MD (Electronically Signed) Final Date: 22 February 2023 09:32
--- NOTE | 2023-02-22 14:01 | CDI ---
Documentation Clarification Form Date: 02/22/2023 01:45:37 PM From: Yady Oakes Phone: Admit Date: 02/12/2023 01:19:00 PM Patient Name: Escobar Oswald Visit Number: [id number] Discharge Date: 02/17/2023 09:40:00 AM ATTENTION: The Clinical Documentation Specialists (CDI) and [facility] Coding Staff appreciate your assistance in clarifying documentation. Please respond to the clarification below the line at the bottom and electronically sign. The CDI & [facility] Coding staff will review the response and follow-up if needed. Please note: Queries are made part of the Legal Health Record. If you have any questions, please contact the author of this message via ITS. Dr. Rincon E Sheet NSTEMIis documented Progress Note 02/14. Additional clarification regarding the type ofMIis requested. History/Risk Factors: 53yo M, ACH/HRF on O2, OHS,PAF,DMIIw leg/foot ulcers, AspPNA, sepsis, troponinleaksecondary tocardiac arrest/hypoxia,anoxic brain damage Clinical Indicators: Troponin: 02/12 0.029 0.164 EKG Results: EKG showedmyoclonicstatus epilepticusand patient was started on valproate plus he is on Keppra 2000 mg twice a day Treatment: It appears as if the echo has not been done. We will order it and leave him on heparin for now until decisions are made regarding the organ donation. Please clarify the type ofMI, if known: [ x]NSTEMI(type 1) [ x] Present on Admission [ ] Not Present on Admission [ ]Type II MIdue to (please specify etiology) [ ] Present on Admission [ ] Not Present on Admission [ ] Other Condition, please specify [ ] Present on Admission [ ] Not Present on Admission [ ] Unable to determine (Template LastRevised: April 2020) MTDD
--- NOTE | 2023-02-22 14:10 | CDI ---
Documentation Clarification Form Date: 02/22/2023 02:01:00 PM From: Yady Oakes Phone: Admit Date: 02/12/2023 01:19:00 PM Patient Name: Escobar Oswald Visit Number: [id number] Discharge Date: 02/17/2023 09:40:00 AM ATTENTION: The Clinical Documentation Specialists (CDI) and [facility] Coding Staff appreciate your assistance in clarifying documentation. Please respond to the clarification below the line at the bottom and electronically sign. The CDI & [facility] Coding staff will review the response and follow-up if needed. Please note: Queries are made part of the Legal Health Record. If you have any questions, please contact the author of this message via ITS. Dr. Rincon E Sheet Your patient has the documented diagnosis of unspecifiedCHFConsult Note 02/12. Additional information regarding the acuity and type ofCHFis requested. History/Risk Factors: 53yo M, ACH/HRF on O2, OHS,PAF,DMIIw leg/foot ulcers,troponinleakd/tcardiac arrest/hypoxia, AspPNA, anoxic brain damage,sepsis Clinical Indicators: VS/Pulse OX: 100 BNP: 02/12 75793 02/15 6700 EchocardiogramResults: Ordered but not completed Chest x ray: Continued moderatecardiomegalyandsuspectedpulmonary vascularcongestion. Treatment: remains on amechanical ventilator. Is on assist-control mode at the rate of 16, tidal volume of 450, FiO2 of 50% with aPEEPof 5. The peak airwaypressureis at 32. The blood gas from this morning shows a pH of 7. 44 with episodes of 58 and pO2 of 97 and this was on FiO2 of 60%. The patient's had afollow-upchest x-raythis morning. The patient has a left IJ triple-lumen catheter in place. He has significantcardiomegalyand evidence of interstitial edemaconsistent withCHF. EKG was around 2 cm above the peter. No significant consolidation. In your professional opinion, can you please clarify the acuity and type ofCHF if known? [ x]Acute Systolic Heart Failure(reducedEF) [ ]Chronic Systolic Heart Failure(reducedEF) [ ]Acute on Chronic Systolic Heart Failure(reducedEF) [ ]Acute Diastolic Heart Failure(preserved EF) [ ]Chronic Diastolic Heart Failure(preserved EF) [ ]Acute on Chronic Diastolic Heart Failure(preserved EF) [ ] Acute SystolicDiastolic Heart Failure [ ] Chronic SystolicDiastolic Heart Failure [ ]Acute on Chronic Heart Failure SystolicDiastolic Heart Failure [ ] Other, please specify [ ] Unable to determine (Template LastRevised: March 2020) MTDD
--- NOTE | 2023-03-05 16:05 | CDI ---
Documentation Clarification Form Date: 03/05/2023 03:39:08 PM From: Emily Fallon RN, CCDS Email: [email or web address] Admit Date: 02/12/2023 01:19:00 PM Patient Name: Escobar Oswald Visit Number: [id number] Discharge Date: 02/17/2023 09:40:00 AM ATTENTION: The Clinical Documentation Specialists (CDI) and [facility] Coding Staff appreciate your assistance in clarifying documentation. Please respond to the clarification below the line at the bottom and electronically sign. The CDI & [facility] Coding staff will review the response and follow-up if needed. Please note: Queries are made part of the Legal Health Record. If you have any questions, please contact the author of this message via ITS. Dr. Warner Tipton Your patient received IV Levophed. Please clarify what condition/diagnosis was being treated. History/Risk Factors: Morbid obesity, ANDRES, chronic LE edema and open wounds. Family found patient unresponsive at home, EMS arrived to find patient in cardiac arrest. He was intubated and placed on the ventilator. Admitted post cardiac arrest probably from initial respiratory arrest. Clinical indicators: 02/12 Pulmonary: He has chronic lower extremity edema and wounds that are open and weepy and infected. Cardiac arrest, probably initiated by an initial respiratory arrest with subsequent cardiac arrest." 02/15 Pulmonary: "Hypotension, likely septic in nature and the patient is on low-dose Norepinephrine at 0.07. The patient remains on broad-spectrum antibiotics." 02/14 BP 70/44 02/15 Arterial BP 84/43 Right leg wound culture: swarming proteus Treatment: IV Levophed titrated 02/13-02/17; IV Zosyn 3.375gm Q8H 02/12-02/17; IV Anidulafungin 100mg daily 02/12-02/17; IV Amiodarone 02/12-02/15; 1L 0.9 NS IV bolus on 02/12; mechanical ventilator 02/12-02/17 What diagnosis were you treating with IV Levophed? [ x] Septic shock [ ] Cardiogenic shock [ ] Hypovolemic shock [ ] Other, please specify [ ] Unable to determine MTDD
== END 2023-02-17 09:40 | disposition expired | DRG 207 ==
LOC: EC 10:28 → SUPCPDRO 10:28 → 2SICU 13:19
PROVIDERS: ADMIT Internal Medicine; ATTEND Internal Medicine
PROC: 0D9670Z Drainage of Stomach with Drainage Device, Via Natural or Artificial Opening (ICD-10-PCS; principal; 2023-02-12)
PROC: 5A1955Z Respiratory Ventilation, Greater than 96 Consecutive Hours (ICD-10-PCS; principal; 2023-02-12)
PROC: 03HY32Z Insertion of Monitoring Device into Upper Artery, Percutaneous Approach (ICD-10-PCS; 2023-02-12)
PROC: 4A133B1 Monitoring of Arterial Pressure, Peripheral, Percutaneous Approach (ICD-10-PCS; 2023-02-12)
PROC: 4A133J1 Monitoring of Arterial Pulse, Peripheral, Percutaneous Approach (ICD-10-PCS; 2023-02-12)
PROC: 02HV33Z Insertion of Infusion Device into Superior Vena Cava, Percutaneous Approach (ICD-10-PCS; 2023-02-12)
PROC: 3E033XZ Introduction of Vasopressor into Peripheral Vein, Percutaneous Approach (ICD-10-PCS; 2023-02-13)
PROC: 3E0G76Z Introduction of Nutritional Substance into Upper GI, Via Natural or Artificial Opening (ICD-10-PCS; 2023-02-13)
DX: J96.21 Acute and chronic respiratory failure with hypoxia (principal); A41.50 Gram-negative sepsis, unspecified; J69.0 Pneumonitis due to inhalation of food and vomit; I21.4 Non-ST elevation (NSTEMI) myocardial infarction; I50.21 Acute systolic (congestive) heart failure; G93.1 Anoxic brain damage, not elsewhere classified; Z99.11 Dependence on respirator [ventilator] status; E66.2 Morbid (severe) obesity with alveolar hypoventilation; G81.91 Hemiplegia, unspecified affecting right dominant side; I48.19 Other persistent atrial fibrillation; L97.222 Non-pressure chronic ulcer of left calf with fat layer exposed; L97.212 Non-pressure chronic ulcer of right calf with fat layer exposed; Z68.43 Body mass index [BMI] 50.0-59.9, adult; G40.901 Epilepsy, unspecified, not intractable, with status epilepticus; L97.519 Non-pressure chronic ulcer of other part of right foot with unspecified severity; I83.012 Varicose veins of right lower extremity with ulcer of calf; I83.022 Varicose veins of left lower extremity with ulcer of calf; L97.509 Non-pressure chronic ulcer of other part of unspecified foot with unspecified severity; E11.621 Type 2 diabetes mellitus with foot ulcer; I11.0 Hypertensive heart disease with heart failure; E11.628 Type 2 diabetes mellitus with other skin complications; Q07.00 Arnold-Chiari syndrome without spina bifida or hydrocephalus; J96.22 Acute and chronic respiratory failure with hypercapnia; Z66 Do not resuscitate; Z51.5 Encounter for palliative care; Z91.198 Patient's noncompliance with other medical treatment and regimen for other reason; E87.4 Mixed disorder of acid-base balance; L03.116 Cellulitis of left lower limb; L03.115 Cellulitis of right lower limb; E11.622 Type 2 diabetes mellitus with other skin ulcer; D63.8 Anemia in other chronic diseases classified elsewhere; Z99.81 Dependence on supplemental oxygen; G93.89 Other specified disorders of brain; Z86.74 Personal history of sudden cardiac arrest; M79.89 Other specified soft tissue disorders; J98.4 Other disorders of lung; B96.89 Other specified bacterial agents as the cause of diseases classified elsewhere; M47.812 Spondylosis without myelopathy or radiculopathy, cervical region; I49.3 Ventricular premature depolarization; Z90.89 Acquired absence of other organs; Z11.52 Encounter for screening for COVID-19; Z98.84 Bariatric surgery status; Z28.310 Unvaccinated for COVID-19; Z79.899 Other long term (current) drug therapy
CPT/HCPCS: 36415; 36600; 70450; 70496; 71045; 71260; 72125; 74177; 80048; 80053; 81001; 81003; 82150; 82248; 82330; 82550; 82805; 83036; 83605; 83690; 83735; 83880; 84100; 84132; 84484; 85025; 85379; 85384; 85610; 85730; 86850; 86900; 86901; 87040; 87070; 87075; 87205; 87635; 93005; 93306; 94002; 94003; 94640; 95822; 96365; 96366; 96367; 96368; 96375; 96376; 99285